=== PATIENT | male | born 1945 | race Caucasian/White ===

== ENCOUNTER 2016-09-12 07:46 | Day surgery (SDC) | payer MEDICARE ==
[2016-09-09 14:50] VITALS: BMI 29.2
[~2016-09-12 07:46] MED LIST: LACTATED RINGERS 1,000 ML IV SCH
[2016-09-12 08:33] VITALS: TEMP 98
[2016-09-12] MEDS ORDERED: PROPOFOL 10 MG/ML 20 ML VIAL IV ONE (08:40)
[2016-09-12] MEDS ORDERED: LIDOCAINE 1% INJ 10MG/ML (20 ML MDV) ONE (08:40)
--- NOTE | 2016-09-12 08:44 | P.GSHP ---
History of Present Illness H&P Date: 09/12/16 Chief Complaint: Screening colonoscopy This is a 70-year-old male referred from Dr. Tricia Mata. Patient presents today for screening colonoscopy. He's never had a colonoscopy before. 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 heart murmer, "bad leaky heart valve", stool incontinence, enlarged prostate History of Any Multi-Drug Resistant Organisms: None Reported Past Surgical History: Appendectomy, Heart Catheterization With Stent, Tonsillectomy Past Anesthesia/Blood Transfusion Reactions: No Reported Reaction Date of Last Stent Placement:: 2012 Past Psychological History: PTSD Additional Psychological History / Comment(s): loss of short term memeory Smoking Status: Current every day smoker Past Alcohol Use History: None Reported Additional Past Alcohol Use History / Comment(s): smokes 4PPD for 60 yrs Past Drug Use History: None Reported - Past Family History Mother Family Medical History: Cancer Medications and Allergies Home Medications Medication Instructions Recorded Confirmed Type Atorvastatin [Lipitor] 80 mg PO DAILY 08/08/14 09/12/16 History Clopidogrel [Plavix] 75 mg PO DAILY 08/08/14 09/12/16 History Cyanocobalamin [Vitamin B-12] 250 mcg PO DAILY 08/08/14 09/12/16 History Donepezil [Aricept] 10 mg PO DAILY 08/08/14 09/12/16 History Finasteride [Proscar] 5 mg PO DAILY 08/08/14 09/12/16 History Metoprolol Tartrate [Lopressor] 25 mg PO BID 08/08/14 09/12/16 History Nitroglycerin Sl Tabs [Nitrostat] 0.4 mg PO DIRECTED PRN 08/08/14 09/12/16 History Ranitidine HCl 150 mg PO BID 08/08/14 09/12/16 History Sertraline [Zoloft] 150 mg PO DAILY 08/08/14 09/12/16 History Zolpidem [Ambien] 10 mg PO HS 08/08/14 09/12/16 History levETIRAcetam [Keppra] 500 mg PO BID 08/08/14 09/12/16 History Aspirin [Adult Low Dose Aspirin EC] 81 mg PO DAILY 09/09/16 09/12/16 History Tamsulosin [Flomax] 0.4 mg PO DAILY 09/09/16 09/12/16 History Allergies Allergy/AdvReac Type Severity Reaction Status Date / Time No Known Allergies Allergy Verified 09/12/16 08:14 Surgical - Exam Vital Signs Temp Pulse Resp BP Pulse Ox 98.0 F 70 18 140/62 95 09/12/16 08:08 09/12/16 08:08 09/12/16 08:08 09/12/16 08:08 09/12/16 08:08 - General well developed, no distress - Eyes PERRL - ENT normal pinna - Neck no masses - Respiratory normal expansion - Cardiovascular Rhythm: regular - Abdomen Abdomen: soft, non tender Assessment and Plan Plan: We will perform initial screening colonoscopy.
--- NOTE | 2016-09-12 08:55 | P.OP ---
Date of Procedure: 09/12/16 Preoperative Diagnosis: Screening colonoscopy Postoperative Diagnosis: Diverticulosis Procedure(s) Performed: Colonoscopy Anesthesia: MAC Surgeon: Dave Corey Pathology: other (Sigmoid colon) Condition: stable Disposition: PACU Description of Procedure: The patient's placed on the endoscopy table in the lateral position. He received IV sedation. Digital rectal exam was performed which revealed no abnormalities. The prostate was symmetrical without nodules. The flexible colonoscope was then placed patient anus and passed throughout the entire colon. The ileocecal valve was visualized. Cecum, ascending and transverse colon appeared normal. In the descending colon there was mild diverticular changes. In the sigmoid colon there is moderate diverticular changes with some evidence of inflammation. This area was biopsied. Scope was then brought back the rectum and this appeared normal. Scope was withdrawn for patient.
[2016-09-12 09:11] VITALS: RESP 16
[2016-09-12 09:35] VITALS: BP 138/64; PULSE 62
== END 2016-09-12 10:09 | disposition home or self-care (01) ==
LOC: ORWHC2ENDO 07:46
PROVIDERS: ATTEND Surgery
DX: Z12.11 Encounter for screening for malignant neoplasm of colon (principal); K57.30 Diverticulosis of large intestine without perforation or abscess without bleeding; K21.9 Gastro-esophageal reflux disease without esophagitis; I25.10 Atherosclerotic heart disease of native coronary artery without angina pectoris; I10 Essential (primary) hypertension; F17.200 Nicotine dependence, unspecified, uncomplicated; J44.9 Chronic obstructive pulmonary disease, unspecified; F03.90 Unspecified dementia, unspecified severity, without behavioral disturbance, psychotic disturbance, mood disturbance, and anxiety; G40.909 Epilepsy, unspecified, not intractable, without status epilepticus; N42.9 Disorder of prostate, unspecified; F32.9 Major depressive disorder, single episode, unspecified; Z95.5 Presence of coronary angioplasty implant and graft; Z79.02 Long term (current) use of antithrombotics/antiplatelets; Z79.899 Other long term (current) drug therapy; Z79.82 Long term (current) use of aspirin
CPT/HCPCS: 88305; 45380; J2001; J2704; 99153

== ENCOUNTER 2017-05-10 13:14 | Emergency (ER) | payer MEDICARE, OTHER ==
--- NOTE | 2017-05-10 13:39 | XR ---
EXAMINATION TYPE: XR wrist complete LT , 4 VIEWS DATE OF EXAM ORDERED: 05/10/2017 HISTORY: Pain. COMPARISON: None. FINDINGS: No fracture, dislocation or other acute osseous lesion is seen. IMPRESSION: NO ACUTE OSSEOUS LESION.
--- NOTE | 2017-05-10 13:57 | ED ---
General Adult HPI - General Chief complaint: Extremity Injury, Upper Stated complaint: Fall Time Seen by Provider: 05/10/17 13:40 Source: patient, RN notes reviewed Mode of arrival: ambulatory Limitations: no limitations - History of Present Illness Initial comments: Patient 71-year-old male who presents emergency room today with a chief complaint of a injury to the left hand that occurred approximately 3 days ago. He does admit to a trip and fall. Patient does admit to some pain over the fifth metacarpal. He denies any other injury or complaint. Patient denies any recent fever, chills, shortness of breath, chest pain, back pain, abdominal pain , nausea or vomiting, numbness or tingling, dysuria or hematuria, constipation or diarrhea, headaches or visual changes, or any other complaints. - Related Data Home Medications Medication Instructions Recorded Confirmed Atorvastatin [Lipitor] 80 mg PO DAILY 08/08/14 09/12/16 Clopidogrel [Plavix] 75 mg PO DAILY 08/08/14 09/12/16 Cyanocobalamin [Vitamin B-12] 250 mcg PO DAILY 08/08/14 09/12/16 Donepezil [Aricept] 10 mg PO DAILY 08/08/14 09/12/16 Finasteride [Proscar] 5 mg PO DAILY 08/08/14 09/12/16 Metoprolol Tartrate [Lopressor] 25 mg PO BID 08/08/14 09/12/16 Nitroglycerin Sl Tabs [Nitrostat] 0.4 mg PO DIRECTED PRN 08/08/14 09/12/16 Ranitidine HCl 150 mg PO BID 08/08/14 09/12/16 Sertraline [Zoloft] 150 mg PO DAILY 08/08/14 09/12/16 Zolpidem [Ambien] 10 mg PO HS 08/08/14 09/12/16 levETIRAcetam [Keppra] 500 mg PO BID 08/08/14 09/12/16 Aspirin [Adult Low Dose Aspirin EC] 81 mg PO DAILY 09/09/16 09/12/16 Tamsulosin [Flomax] 0.4 mg PO DAILY 09/09/16 09/12/16 Allergies Allergy/AdvReac Type Severity Reaction Status Date / Time No Known Allergies Allergy Verified 05/10/17 13:21 Review of Systems ROS Statement: Those systems with pertinent positive or pertinent negative responses have been documented in the HPI. ROS Other: All systems not noted in ROS Statement are negative. 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 heart murmer, "bad leaky heart valve", stool incontinence, enlarged prostate History of Any Multi-Drug Resistant Organisms: None Reported Past Surgical History: Appendectomy, Heart Catheterization With Stent, Tonsillectomy Past Anesthesia/Blood Transfusion Reactions: No Reported Reaction Date of Last Stent Placement:: 2012 Past Psychological History: Depression, PTSD Smoking Status: Current every day smoker Past Alcohol Use History: Rare Past Drug Use History: None Reported - Past Family History Mother Family Medical History: Cancer General Exam - General Exam Comments Initial Comments: General: The patient is awake and alert, in no distress, and does not appear acutely ill. Neck: The neck is supple, there is no tenderness or JVD. Cardiovascular: There is a regular rate and rhythm. No murmur, rub or gallop is appreciated. Respiratory: Lungs are clear to auscultation, respirations are non-labored, breath sounds are equal. No wheezes, stridor, rales, or rhonchi. Musculoskeletal: Patient does have moderate swelling to the left hand. Mildly tender over the left metacarpal. Shows good range of motion. Sensations are intact pulses equal bilateral 2+. Strength 5/5. Neurological: A&O x 3. CN II-XII intact, There are no obvious motor or sensory deficits. Coordination appears grossly intact. Speech is normal. Skin: Skin is warm and dry and no rashes or lesions are noted. Psychiatric: Normal mood and affect. Limitations: no limitations Course Vital Signs 05/10/17 13:18 Temperature 97.6 F Pulse Rate 90 Respiratory 18 Rate Blood Pressure 116/63 O2 Sat by Pulse 96 Oximetry Medical Decision Making - Medical Decision Making Reviewed is negative for any acute fracture dislocation. Advised patient to follow-up with the family doctor in 7-10 days for repeat x-rays if symptoms persist. Disposition Clinical Impression: Hand contusion Disposition: HOME SELF-CARE Condition: Good Instructions: Contusion in Adults (ED) Additional Instructions: Please use medication as discussed. Please follow-up with family doctor in the next 2 days of symptoms have not improved. Please return to emergency room if the symptoms increase or worsen or for any other concerns. Referrals: Tricia Mata DO [Primary Care Provider] - 1-2 days Time of Disposition: 13:55
[2017-05-10 14:24] VITALS: BP 130/66; PULSE 78; RESP 20; TEMP 98.1
== END 2017-05-10 14:24 | disposition home or self-care (01) ==
LOC: EC 13:14
DX: S60.222A Contusion of left hand, initial encounter (principal); I25.10 Atherosclerotic heart disease of native coronary artery without angina pectoris; E78.5 Hyperlipidemia, unspecified; I10 Essential (primary) hypertension; G40.909 Epilepsy, unspecified, not intractable, without status epilepticus; F32.9 Major depressive disorder, single episode, unspecified; F43.10 Post-traumatic stress disorder, unspecified; F03.90 Unspecified dementia, unspecified severity, without behavioral disturbance, psychotic disturbance, mood disturbance, and anxiety; F17.200 Nicotine dependence, unspecified, uncomplicated; Z86.73 Personal history of transient ischemic attack (TIA), and cerebral infarction without residual deficits; Z79.02 Long term (current) use of antithrombotics/antiplatelets; Z79.82 Long term (current) use of aspirin; Z79.899 Other long term (current) drug therapy; W01.0XXA Fall on same level from slipping, tripping and stumbling without subsequent striking against object, initial encounter
CPT/HCPCS: 99283

== ENCOUNTER 2017-05-22 14:18 | Inpatient (IN) | payer OTHER, MEDICARE ==
[2017-05-22] MEDS ORDERED: NITROGLYCERIN OINT 1 INCH/GM PACKET TOPICAL STA (14:58)
[2017-05-22] MEDS ORDERED: FUROSEMIDE 10 MG/ML 4 ML VIAL IV STA (14:58)
[2017-05-22] MEDS ORDERED: IPRATROPIUM-ALBUTEROL 3 ML NEB INHALATION STA (14:58)
[2017-05-22] MEDS ORDERED: ASPIRIN 81 MG PO STA (14:59)
[2017-05-22] MEDS ORDERED: NICOTINE 21MG/24HR PATCH TRANSDERM STA (15:00)
--- NOTE | 2017-05-22 15:02 | ED ---
General Adult HPI - General Chief complaint: Chest Pain Stated complaint: Chest Pain Time Seen by Provider: 05/22/17 14:45 Source: patient, family, RN notes reviewed Mode of arrival: wheelchair Limitations: no limitations - History of Present Illness Initial comments: Patient is a pleasant 71-year-old male presenting to the emergency department with dyspnea. Patient saw his doctor recently who was concern for fluid build up in the lungs. Patient was prescribed medication however has not been able to get it filled yet. Patient denies any shortness of breath or chest discomfort however family member present states she has been exhibiting signs of chest discomfort and shortness of breath. Patient does appear to be is a poor historian. Patient does smoke 4 packs per day. No leg pain however patient does have some leg swelling. - Related Data Home Medications Medication Instructions Recorded Confirmed Atorvastatin [Lipitor] 40 mg PO HS 08/08/14 05/22/17 Clopidogrel [Plavix] 75 mg PO DAILY 08/08/14 05/22/17 Donepezil [Aricept] 10 mg PO DAILY 08/08/14 05/22/17 Metoprolol Tartrate [Lopressor] 25 mg PO BID 08/08/14 05/22/17 Ranitidine HCl 150 mg PO DAILY 08/08/14 05/22/17 levETIRAcetam [Keppra] 500 mg PO BID 08/08/14 05/22/17 Aspirin [Adult Low Dose Aspirin EC] 81 mg PO DAILY 09/09/16 05/22/17 Sertraline [Zoloft] 25 mg PO DAILY 05/22/17 05/22/17 Zolpidem [Ambien] 10 mg PO HS 05/22/17 05/22/17 Allergies Allergy/AdvReac Type Severity Reaction Status Date / Time No Known Allergies Allergy Verified 05/22/17 15:11 Review of Systems ROS Statement: Those systems with pertinent positive or pertinent negative responses have been documented in the HPI. ROS Other: All systems not noted in ROS Statement are negative. Constitutional: Denies: fever Eyes: Denies: eye pain ENT: Denies: ear pain Respiratory: Reports: dyspnea. 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 heart murmer, "bad leaky heart valve", stool incontinence, enlarged prostate History of Any Multi-Drug Resistant Organisms: None Reported Past Surgical History: Appendectomy, Heart Catheterization With Stent, Tonsillectomy Past Anesthesia/Blood Transfusion Reactions: No Reported Reaction Date of Last Stent Placement:: 2012 Past Psychological History: Depression, PTSD Smoking Status: Current every day smoker Past Alcohol Use History: Rare Past Drug Use History: None Reported - Past Family History Mother Family Medical History: Cancer General Exam Limitations: no limitations General appearance: alert, in no apparent distress Head exam: Present: atraumatic Eye exam: Present: normal appearance, PERRL ENT exam: Present: normal oropharynx Neck exam: Present: normal inspection Respiratory exam: Present: wheezes Cardiovascular Exam: Present: regular rate, normal rhythm GI/Abdominal exam: Present: soft. Absent: tenderness Extremities exam: Present: pedal edema (+1 bilateral). Absent: calf tenderness Neurological exam: Present: alert Psychiatric exam: Present: normal affect, normal mood Skin exam: Present: normal color Course Vital Signs 05/22/17 05/22/17 05/22/17 14:24 14:56 15:04 Temperature 98.2 F Pulse Rate 81 66 Respiratory 20 18 18 Rate Blood Pressure 139/64 117/56 O2 Sat by Pulse 95 95 Oximetry EKG Findings - EKG Comments: EKG Findings:: Normal sinus rhythm 84. WA 184. QRS 88. QT 390. QTC 460. Normal axis. Q wave in lead III. No acute ST change. Medical Decision Making - Medical Decision Making Patient reevaluated and resting comfortably in bed. Patient and family were updated on results and plan. Case was discussed in detail with Dr. Christopher, who will admit for Dr. Mata. - Lab Data Result diagrams: 05/22/17 14:37 05/22/17 14:37 Lab Results 05/22/17 05/22/17 05/22/17 Range/Units 14:37 14:37 14:37 WBC 8.1 (3.8-10.6) k/uL RBC 4.20 L (4.30-5.90) m/uL Hgb 14.1 (13.0-17.5) gm/dL Hct 42.1 (39.0-53.0) % MCV 100.3 H (80.0-100.0) fL MCH 33.6 (25.0-35.0) pg MCHC 33.5 (31.0-37.0) g/dL RDW 14.3 (11.5-15.5) % Plt Count 213 (150-450) k/uL Neutrophils % 68 % Lymphocytes % 19 % Monocytes % 7 % Eosinophils % 3 % Basophils % 1 % Neutrophils # 5.5 (1.3-7.7) k/uL Lymphocytes # 1.5 (1.0-4.8) k/uL Monocytes # 0.6 (0-1.0) k/uL Eosinophils # 0.2 (0-0.7) k/uL Basophils # 0.1 (0-0.2) k/uL Macrocytosis Slight PT (9.0-12.0) sec INR (<1.2) APTT (22.0-30.0) sec Sodium 141 (137-145) mmol/L Potassium 4.7 (3.5-5.1) mmol/L Chloride 107 (98-107) mmol/L Carbon Dioxide 21 L (22-30) mmol/L Anion Gap 13 mmol/L BUN 19 (9-20) mg/dL Creatinine 0.87 (0.66-1.25) mg/dL Est GFR (MDRD) Af Amer >60 (>60 ml/min/1.73 sqM) Est GFR (MDRD) Non-Af >60 (>60 ml/min/1.73 sqM) Glucose 105 H (74-99) mg/dL Calcium 9.8 (8.4-10.2) mg/dL Total Bilirubin 0.3 (0.2-1.3) mg/dL AST 30 (17-59) U/L ALT 44 (21-72) U/L Alkaline Phosphatase 117 (38-126) U/L Total Creatine Kinase 193 H (55-170) U/L CK-MB (CK-2) 2.7 H* (0.0-2.4) ng/mL CK-MB (CK-2) Rel Index 1.4 Troponin I <0.012 (0.000-0.034) ng/mL NT-Pro-B Natriuret Pep pg/mL Total Protein 7.0 (6.3-8.2) g/dL Albumin 4.1 (3.5-5.0) g/dL 05/22/17 05/22/17 Range/Units 14:37 14:37 WBC (3.8-10.6) k/uL RBC (4.30-5.90) m/uL Hgb (13.0-17.5) gm/dL Hct (39.0-53.0) % MCV (80.0-100.0) fL MCH (25.0-35.0) pg MCHC (31.0-37.0) g/dL RDW (11.5-15.5) % Plt Count (150-450) k/uL Neutrophils % % Lymphocytes % % Monocytes % % Eosinophils % % Basophils % % Neutrophils # (1.3-7.7) k/uL Lymphocytes # (1.0-4.8) k/uL Monocytes # (0-1.0) k/uL Eosinophils # (0-0.7) k/uL Basophils # (0-0.2) k/uL Macrocytosis PT 10.2 (9.0-12.0) sec INR 1.0 (<1.2) APTT 25.8 (22.0-30.0) sec Sodium (137-145) mmol/L Potassium (3.5-5.1) mmol/L Chloride (98-107) mmol/L Carbon Dioxide (22-30) mmol/L Anion Gap mmol/L BUN (9-20) mg/dL Creatinine (0.66-1.25) mg/dL Est GFR (MDRD) Af Amer (>60 ml/min/1.73 sqM) Est GFR (MDRD) Non-Af (>60 ml/min/1.73 sqM) Glucose (74-99) mg/dL Calcium (8.4-10.2) mg/dL Total Bilirubin (0.2-1.3) mg/dL AST (17-59) U/L ALT (21-72) U/L Alkaline Phosphatase (38-126) U/L Total Creatine Kinase (55-170) U/L CK-MB (CK-2) (0.0-2.4) ng/mL CK-MB (CK-2) Rel Index Troponin I (0.000-0.034) ng/mL NT-Pro-B Natriuret Pep 626 pg/mL Total Protein (6.3-8.2) g/dL Albumin (3.5-5.0) g/dL - Radiology Data Radiology results: image reviewed (Chest x-ray shows possible pulmonary venous hypertension and interstitial edema.) Disposition Clinical Impression: Chest pain Disposition: ADMITTED IP TO THIS HOSP Referrals: Tricia Mata DO [Primary Care Provider] - 1-2 days Decision Time: 16:30
[2017-05-22 15:10] LABS: Basophils # (A) 0.1 k/uL (0-0.2); Basophils % (A) 1 %; CH 33.2; CHCM 33.3; Eosinophils # (A) 0.2 k/uL (0-0.7); Eosinophils % (A) 3 %; HCT 42.1 % (39.0-53.0); HDW 2.52; HGB 14.1 gm/dL (13.0-17.5); Luc % (Auto) 3; Lymphocytes # (A) 1.5 k/uL (1.0-4.8); Lymphocytes % (A) 19 %; MCH 33.6 pg (25.0-35.0); MCHC 33.5 g/dL (31.0-37.0); MCV 100.3 fL (80.0-100.0); Macrocytosis Slight; Monocytes # (A) 0.6 k/uL (0-1.0); Monocytes % (A) 7 %; Neutrophils # (A) 5.5 k/uL (1.3-7.7); Neutrophils % (A) 68 %; RDW 14.3 % (11.5-15.5); WBC 8.1 k/uL (3.8-10.6); WBC (Perox) 8.14
[2017-05-22 15:21] LABS: Partial Thromboplastin Time 25.8 sec (22.0-30.0); Prothrombin Time 10.2 sec (9.0-12.0)
[2017-05-22 15:22] LABS: ALT 44 U/L (21-72); AST 30 U/L (17-59); Alkaline Phosphatase 117 U/L (38-126); Anion Gap 13 mmol/L; Blood Urea Nitrogen 19 mg/dL (9-20); Calcium 9.8 mg/dL (8.4-10.2); Carbon Dioxide 21 mmol/L (22-30); Chloride 107 mmol/L (98-107); Glucose 105 mg/dL (74-99); Non-African American GFR(MDRD) >60 (>60 ml/min/1.73 sqM); Potassium 4.7 mmol/L (3.5-5.1); Sodium 141 mmol/L (137-145); Total Bilirubin 0.3 mg/dL (0.2-1.3)
[2017-05-22 15:44] LABS: Creatine Kinase 193 U/L (55-170)
[2017-05-22 15:57] LABS: Troponin I <0.012 ng/mL (0.000-0.034)
--- NOTE | 2017-05-22 16:01 | XR ---
EXAMINATION TYPE: XR chest 2V DATE OF EXAM: 05/22/2017 COMPARISON: Prior chest x-ray 08/08/2014 HISTORY: Difficulty breathing TECHNIQUE: Frontal and lateral views of the chest are obtained. FINDINGS: There is no focal air space opacity, pleural effusion, or pneumothorax seen. The cardiac silhouette size is stable and enlarged, patient rotated. Interstitial densities are present within th e chest. There are overlying cardiac leads. Eventration of the right hemidiaphragm again noted. Incre ased AP diameter of the chest suggests underlying COPD. The osseous structures are intact. IMPRESSION: Correlate for possible pulmonary venous hypertension and interstitial edema in a patient with pre-existing COPD. Follow up suggested.
[2017-05-22 16:02] LABS: Creatine Kinase MB 2.7 ng/mL (0.0-2.4)
[2017-05-22] MEDS ORDERED: NITROGLYCERIN SL TABS 0.4 MG TAB SUBLINGUAL PRN (16:31)
[2017-05-22] MEDS: NITROGLYCERIN OINT 1 INCH/GM PACKET TOPICAL SCH ×2 (19:00→22:53)
[2017-05-22 21:01] LABS: Creatine Kinase 156 U/L (55-170)
[2017-05-22 21:13] LABS: Creatine Kinase MB 1.9 ng/mL (0.0-2.4); Troponin I <0.012 ng/mL (0.000-0.034)
[2017-05-22] MEDS: ZOLPIDEM 10 MG TAB PO SCH (22:17)
[2017-05-22] MEDS: ATORVASTATIN 40 MG TAB PO SCH (22:17)
[2017-05-22] MEDS: METOPROLOL TARTRATE 25 MG TAB PO SCH (22:17)
[2017-05-22] MEDS: levETIRAcetam 500 MG TAB PO SCH (22:17)
[2017-05-23 03:01] LABS: Cholesterol 141 mg/dL (<200); HDL Cholesterol 45 mg/dL (40-60)
[2017-05-23 03:12] LABS: Creatine Kinase MB 2.1 ng/mL (0.0-2.4); Troponin I 0.015 ng/mL (0.000-0.034)
[2017-05-23] MEDS: NITROGLYCERIN OINT 1 INCH/GM PACKET TOPICAL SCH ×3 (05:42→17:31)
[2017-05-23] MEDS: METOPROLOL TARTRATE 25 MG TAB PO SCH ×2 (08:24→21:11)
[2017-05-23] MEDS: FAMOTIDINE 20 MG TAB PO SCH (08:24)
[2017-05-23] MEDS: DONEPEZIL 10 MG TAB PO SCH (08:24)
[2017-05-23] MEDS: ASPIRIN 81 MG PO SCH (08:24)
[2017-05-23] MEDS: CLOPIDOGREL 75 MG TAB PO SCH (08:24)
[2017-05-23] MEDS: levETIRAcetam 500 MG TAB PO SCH ×2 (08:24→21:11)
[2017-05-23] MEDS: SERTRALINE 25 MG TAB PO SCH (08:25)
[2017-05-23] MEDS ORDERED: ASPIRIN 325 MG TAB PO SCH (09:00)
[2017-05-23 09:59] LABS: Appearance,Urine Clear (Clear); Bilirubin,Urine Negative (Negative); Glucose,Urine (UA) Negative (Negative); Ketones,Urine Negative (Negative); Leukocyte Esterase,Urine Negative (Negative); Nitrite,Urine Negative (Negative); PH, Urine 5.5 (5.0-8.0); Protein,Urine Negative (Negative); Specific Gravity,Urine 1.012 (1.001-1.035); UA Billing (MACRO vs. MICRO) CHEM; Urobilinogen,Urine <2.0 mg/dL (<2.0)
--- NOTE | 2017-05-23 11:48 | P.CRDCN ---
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 The patient has been experiencing progressive exertional dyspnea and orthopnea started about a week ago. He was also having bilateral lower extremities edema which seems to be better after he was admitted to the hospital. Did not have any symptoms of chest pain or discomfort. The chest x-ray showed findings consistent with mild CHF. The BNP came in to be around 600. The EKG showed sinus rhythm with nonspecific changes in the high lateral leads. 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 heart murmer, "bad leaky heart valve",OCC incontinence of urine/stool-weara a brief, enlarged prostate, DIVERTICULOSIS, COLON POLYPS-NEG, HEMORRHOIDS. History of Any Multi-Drug Resistant Organisms: None Reported Past Surgical History: Appendectomy, Heart Catheterization With Stent, Tonsillectomy Additional Past Surgical History / Comment(s): colonoscopy/polypectomy Past Anesthesia/Blood Transfusion Reactions: No Reported Reaction Date of Last Stent Placement:: 2012 Smoking Status: Current every day smoker - Past Family History Mother Family Medical History: Cancer Additional Family Medical History / Comment(s): at age 42 from lung cancer Father Family Medical History: Myocardial Infarction ([place]) Additional Family Medical History / Comment(s): lived to age 92 Medications and Allergies Home Medications Medication Instructions Recorded Confirmed Type Atorvastatin [Lipitor] 40 mg PO HS 08/08/14 05/22/17 History Clopidogrel [Plavix] 75 mg PO DAILY 08/08/14 05/22/17 History Donepezil [Aricept] 10 mg PO DAILY 08/08/14 05/22/17 History Metoprolol Tartrate [Lopressor] 25 mg PO BID 08/08/14 05/22/17 History Ranitidine HCl 150 mg PO DAILY 08/08/14 05/22/17 History levETIRAcetam [Keppra] 500 mg PO BID 08/08/14 05/22/17 History Aspirin [Adult Low Dose Aspirin EC] 81 mg PO DAILY 09/09/16 05/22/17 History Sertraline [Zoloft] 25 mg PO DAILY 05/22/17 05/22/17 History Zolpidem [Ambien] 10 mg PO HS 05/22/17 05/22/17 History Allergies Allergy/AdvReac Type Severity Reaction Status Date / Time No Known Allergies Allergy Verified 05/22/17 15:11 Physical Exam Vitals: Vital Signs Temp Pulse Pulse Pulse Pulse Resp BP 05/23/17 08:00 97.9 F 80 18 05/23/17 04:00 98 F 71 18 05/23/17 03:06 18 05/22/17 23:23 18 05/22/17 22:36 86 18 05/22/17 20:00 18 05/22/17 19:52 98.4 F 73 18 05/22/17 17:25 91 18 05/22/17 17:13 98.7 F 91 18 05/22/17 16:48 98.2 F 94 18 127/62 05/22/17 15:04 66 18 117/56 05/22/17 14:56 18 05/22/17 14:24 98.2 F 81 20 139/64 BP Pulse Ox 05/23/17 08:00 119/68 96 05/23/17 04:00 96/50 92 L 05/23/17 03:06 05/22/17 23:23 05/22/17 22:36 141/67 100 05/22/17 20:00 05/22/17 19:52 115/57 97 05/22/17 17:25 05/22/17 17:13 119/65 94 L 05/22/17 16:48 94 L 05/22/17 15:04 95 05/22/17 14:56 05/22/17 14:24 95 Intake and Output 05/22/17 05/23/17 05/23/17 22:59 06:59 14:59 Other: Voiding Method Toilet Toilet Toilet # Voids 15 Weight 99.3 kg - Constitutional General appearance: no acute distress - Respiratory Respiratory: bilateral: rhonchi - Cardiovascular Rhythm: regular Heart sounds: normal: S1, S2 Abnormal Heart Sounds: systolic murmur Results 05/22/17 14:37 05/22/17 14:37 Cardiac Enzymes 05/22/17 05/22/17 05/22/17 Range/Units 14:37 14:37 20:24 AST 30 (17-59) U/L CK-MB (CK-2) 2.7 H* 1.9 (0.0-2.4) ng/mL Troponin I <0.012 <0.012 (0.000-0.034) ng/mL 05/23/17 Range/Units 02:18 AST (17-59) U/L CK-MB (CK-2) 2.1 (0.0-2.4) ng/mL Troponin I 0.015 (0.000-0.034) ng/mL Coagulation 05/22/17 Range/Units 14:37 PT 10.2 (9.0-12.0) sec APTT 25.8 (22.0-30.0) sec Lipids 05/23/17 Range/Units 02:18 Triglycerides 100 (<150) mg/dL Cholesterol 141 (<200) mg/dL HDL Cholesterol 45 (40-60) mg/dL CBC 05/22/17 Range/Units 14:37 WBC 8.1 (3.8-10.6) k/uL RBC 4.20 L (4.30-5.90) m/uL Hgb 14.1 (13.0-17.5) gm/dL Hct 42.1 (39.0-53.0) % Plt Count 213 (150-450) k/uL Comprehensive Metabolic Panel 05/22/17 Range/Units 14:37 Sodium 141 (137-145) mmol/L Potassium 4.7 (3.5-5.1) mmol/L Chloride 107 (98-107) mmol/L Carbon Dioxide 21 L (22-30) mmol/L BUN 19 (9-20) mg/dL Creatinine 0.87 (0.66-1.25) mg/dL Glucose 105 H (74-99) mg/dL Calcium 9.8 (8.4-10.2) mg/dL AST 30 (17-59) U/L ALT 44 (21-72) U/L Alkaline Phosphatase 117 (38-126) U/L Total Protein 7.0 (6.3-8.2) g/dL Albumin 4.1 (3.5-5.0) g/dL Current Medications Generic Name Dose Route Start Last Admin Trade Name Freq PRN Reason Stop Dose Admin Aspirin 81 mg 05/23/17 09:00 05/23/17 08:24 Aspirin PO 81 mg DAILY YONI Administration Atorvastatin Calcium 40 mg 05/22/17 21:30 05/22/17 22:17 Lipitor PO 40 mg HS YONI Administration Clopidogrel Bisulfate 75 mg 05/23/17 09:00 05/23/17 08:24 Plavix PO 75 mg DAILY YONI Administration Donepezil HCl 10 mg 05/23/17 09:00 05/23/17 08:24 Aricept PO 10 mg DAILY YONI Administration Famotidine 20 mg 05/23/17 09:00 05/23/17 08:24 Pepcid PO 20 mg DAILY YONI Administration Levetiracetam 500 mg 05/22/17 21:30 05/23/17 08:24 Keppra PO 500 mg BID YONI Administration Metoprolol Tartrate 25 mg 05/22/17 21:30 05/23/17 08:24 Lopressor PO 25 mg BID YONI Administration Nitroglycerin 1 inch 05/22/17 18:00 05/23/17 05:42 Nitro-Bid Oint TOPICAL Not Given Q6HR [facility] Nitroglycerin 0.4 mg 05/22/17 16:31 Nitrostat SUBLINGUAL Q5M PRN Chest Pain Sertraline HCl 25 mg 05/23/17 09:00 05/23/17 08:25 Zoloft PO 25 mg DAILY YONI Administration Zolpidem Tartrate 10 mg 05/22/17 21:30 05/22/17 22:17 Ambien PO 10 mg HS YONI Administration Intake and Output 05/22/17 05/23/17 05/23/17 22:59 06:59 14:59 Other: Voiding Method Toilet Toilet Toilet # Voids 15 Weight 99.3 kg 05/22/17 14:37 05/22/17 14:37 Assessment and Plan Plan: This is a pleasant 71-year-old gentleman with known CAD, valvular heart disease , and a stroke, was admitted to the hospital with progressive dyspnea. He seems to have very early stage of congestive heart failure. I am going to start the patient on Lasix IV. Monitor his kidney function and electrolytes. Continue monitoring the weight. Obtain an echocardiogram was Doppler. Follow-up with him.
[2017-05-23] MEDS ORDERED: FUROSEMIDE 10 MG/ML 4 ML VIAL IV STA (12:41)
[2017-05-23] MEDS: NICOTINE 21MG/24HR PATCH TRANSDERM SCH ×2 (13:18→16:40)
--- NOTE | 2017-05-23 14:01 | P.HPIM ---
History of Present Illness H&P Date: 05/23/17 Chief Complaint: Shortness of breath Roderick Sharpe is a 71-year-old male who presented to [facility] emergency room with a chief complaint of shortness of breath that started 1 week prior to presentation and has been worsening. His primary care physician is Dr. Tricia Mata he also follows up at the [place] [facility] . His past medical history significant for coronary artery disease and prior stenting with unknown details, known valvular heart disease according to him and his guardian, as well as history of stroke. 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 He is a [place] , The patient has been experiencing progressive exertional dyspnea and orthopnea started about a week ago. He was also having bilateral lower extremities edema which seems to be better after he was admitted to the hospital. Did not have any symptoms of chest pain or discomfort. The chest x-ray showed findings consistent with mild CHF. The BNP came in to be around 600. The EKG showed sinus rhythm with nonspecific changes in the high lateral leads. 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 heart murmer, "bad leaky heart valve",OCC incontinence of urine/stool-weara a brief, enlarged prostate, DIVERTICULOSIS, COLON POLYPS-NEG, HEMORRHOIDS. History of Any Multi-Drug Resistant Organisms: None Reported Past Surgical History: Appendectomy, Heart Catheterization With Stent, Tonsillectomy Additional Past Surgical History / Comment(s): colonoscopy/polypectomy Past Anesthesia/Blood Transfusion Reactions: No Reported Reaction Date of Last Stent Placement:: 2012 Smoking Status: Current every day smoker - Past Family History Mother Family Medical History: Cancer Additional Family Medical History / Comment(s): at age 42 from lung cancer Father Family Medical History: Myocardial Infarction ([place]) Additional Family Medical History / Comment(s): lived to age 92 Medications and Allergies Home Medications Medication Instructions Recorded Confirmed Type Atorvastatin [Lipitor] 40 mg PO HS 08/08/14 05/22/17 History Clopidogrel [Plavix] 75 mg PO DAILY 08/08/14 05/22/17 History Donepezil [Aricept] 10 mg PO DAILY 08/08/14 05/22/17 History Metoprolol Tartrate [Lopressor] 25 mg PO BID 08/08/14 05/22/17 History Ranitidine HCl 150 mg PO DAILY 08/08/14 05/22/17 History levETIRAcetam [Keppra] 500 mg PO BID 08/08/14 05/22/17 History Aspirin [Adult Low Dose Aspirin EC] 81 mg PO DAILY 09/09/16 05/22/17 History Sertraline [Zoloft] 25 mg PO DAILY 05/22/17 05/22/17 History Zolpidem [Ambien] 10 mg PO HS 05/22/17 05/22/17 History Allergies Allergy/AdvReac Type Severity Reaction Status Date / Time No Known Allergies Allergy Verified 05/22/17 15:11 Physical Exam Vitals: Vital Signs Temp Pulse Pulse Pulse Pulse Resp BP 05/23/17 12:00 97.7 F 72 18 05/23/17 08:00 97.9 F 80 18 05/23/17 04:00 98 F 71 18 05/23/17 03:06 18 05/22/17 23:23 18 05/22/17 22:36 86 18 05/22/17 20:00 18 05/22/17 19:52 98.4 F 73 18 05/22/17 17:25 91 18 05/22/17 17:13 98.7 F 91 18 05/22/17 16:48 98.2 F 94 18 127/62 05/22/17 15:04 66 18 117/56 05/22/17 14:56 18 05/22/17 14:24 98.2 F 81 20 139/64 BP Pulse Ox 05/23/17 12:00 102/57 96 05/23/17 08:00 119/68 96 05/23/17 04:00 96/50 92 L 05/23/17 03:06 05/22/17 23:23 05/22/17 22:36 141/67 100 05/22/17 20:00 05/22/17 19:52 115/57 97 05/22/17 17:25 05/22/17 17:13 119/65 94 L 05/22/17 16:48 94 L 05/22/17 15:04 95 05/22/17 14:56 05/22/17 14:24 95 Intake and Output 05/22/17 05/23/17 05/23/17 22:59 06:59 14:59 Other: Voiding Method Toilet Toilet Toilet # Voids 15 Weight 99.3 kg In general patient is alert and oriented in no apparent distress HEENT head normocephalic and atraumatic Neck is supple no JVD no goiter no lymphadenopathy Chest exam reveals a scattered rhonchi in both lung fitzpatrick no wheezing Cardiac exam reveals regular heart sounds S1 and S2 with 2/6 pansystolic murmur best heard in the right sternal border Abdomen is soft nontender no organomegaly with normal bowel sounds Extremity exam reveals no edema no cyanosis or clubbing Results CBC & Chem 7: 05/22/17 14:37 05/22/17 14:37 Labs: Abnormal Lab Results - Last 24 Hours (Table) 05/22/17 05/22/17 05/22/17 Range/Units 14:37 14:37 14:37 RBC 4.20 L (4.30-5.90) m/uL MCV 100.3 H (80.0-100.0) fL Carbon Dioxide 21 L (22-30) mmol/L Glucose 105 H (74-99) mg/dL Total Creatine Kinase 193 H (55-170) U/L CK-MB (CK-2) 2.7 H* (0.0-2.4) ng/mL 05/23/17 Range/Units 02:18 RBC (4.30-5.90) m/uL MCV (80.0-100.0) fL Carbon Dioxide (22-30) mmol/L Glucose (74-99) mg/dL Total Creatine Kinase 178 H (55-170) U/L CK-MB (CK-2) (0.0-2.4) ng/mL Assessment and Plan Plan: #1 acute exacerbation of congestive heart failure #2 underlying history of coronary artery disease #3 underlying history of valvular heart disease #4 underlying history of COPD #5 continued tobacco use patient smokes up to 4 packs of cigarettes daily Currently patient is admitted to telemetry floor he is maintained on IV Lasix he is improving gradually he is not ready for discharge yet Cardiology consult and echocardiogram ordered Patient was counseled in length in regard to smoking cessation Will follow closely
--- NOTE | 2017-05-23 15:39 | ECHOF ---
Referral Reason:chf MEASUREMENTS -------- HEIGHT: 180.3 cm WEIGHT: 98.9 kg BP: IVSd: 1.6 cm (0.6 - 1.1) LVIDd: 4.3 cm (3.9 - 5.3) LVPWd: 1.3 cm (0.6 - 1.1) IVSs: 2.3 cm LVIDs: 2.5 cm LVPWs: 2.3 cm Ao Diam: 4.0 cm (2.0 - 3.7) AV Cusp: 1.1 cm (1.5 - 2.6) LA Diam: 4.7 cm (2.7 - 3.8) MV EXCURSION: 15.965 mm (> 18.000) MV EF SLOPE: 35 mm/s (70 - 150) EPSS: 0.8 cm MV E Rafael: 0.48 m/s MV DecT: 263 ms MV A Rafael: 1.09 m/s MV E/A Ratio: 0.44 AV maxP.31 mmHg AV meanP.26 mmHg AR PHT: 800 ms RAP: 5.00 mmHg RVSP: 8.79 mmHg FINDINGS -------- Sinus rhythm. This was a technically good study. The left ventricular size is normal. There is moderate concentric left ventricular hypertrophy. Overall left ventricular systolic function is normal with, an EF between 55 - 60 %. The right ventricle is normal in size and function. The left atrium is moderately dilated. The right atrium is normal in size. Aortic valve is trileaflet and is moderately thickened. There is moderate aortic regurgitation. There is [id number] aortic stenosis present. Peak/mean gradient across the Aortic Valve is 65.31mmHg / 37.26mmHg. The mitral valve leaflets are mildly thickened. Mild mitral regurgitation is present. Mild tricuspid regurgitation present. The right ventricular systolic pressure, as measured by Doppler, is 8.79mmHg. Pulmonic valve appears structurally normal. The aortic root is moderately dilated. There is a trivial pericardial effusion present. CONCLUSIONS -------- 1. Sinus rhythm. 2. There is moderate aortic regurgitation. 3. There is isfjhiak-cr-xdjrbn aortic stenosis present. 4. Peak/mean gradient across the Aortic Valve is 65.31mmHg / 37.26mmHg. 5. The mitral valve leaflets are mildly thickened. 6. Mild mitral regurgitation is present. 7. Mild tricuspid regurgitation present. 8. The right ventricular systolic pressure, as measured by Doppler, is 8.79mmHg. 9. Pulmonic valve appears structurally normal. 10. The aortic root is moderately dilated. 11. There is a trivial pericardial effusion present. 12. This was a technically good study. 13. The left ventricular size is normal. 14. There is moderate concentric left ventricular hypertrophy. 15. Overall left ventricular systolic function is normal with, an EF between 55 - 60 %. 16. The right ventricle is normal in size and function. 17. The left atrium is moderately dilated. 18. The right atrium is normal in size. 19. Aortic valve is trileaflet and is moderately thickened. SOLDERING INSPECTOR: Jasmyn Obando RDCS
[2017-05-23] MEDS: FUROSEMIDE 10 MG/ML 4 ML VIAL IV SCH (21:10)
[2017-05-23] MEDS: ATORVASTATIN 40 MG TAB PO SCH (21:11)
[2017-05-23] MEDS: ZOLPIDEM 10 MG TAB PO SCH (21:14)
[2017-05-24] MEDS: NITROGLYCERIN OINT 1 INCH/GM PACKET TOPICAL SCH ×5 (01:48→23:39)
[2017-05-24] MEDS: ASPIRIN 81 MG PO SCH (08:06)
[2017-05-24] MEDS: CLOPIDOGREL 75 MG TAB PO SCH (08:07)
[2017-05-24] MEDS: DONEPEZIL 10 MG TAB PO SCH (08:07)
[2017-05-24] MEDS: FAMOTIDINE 20 MG TAB PO SCH (08:07)
[2017-05-24] MEDS: FUROSEMIDE 10 MG/ML 4 ML VIAL IV SCH ×2 (08:08→20:35)
[2017-05-24] MEDS: levETIRAcetam 500 MG TAB PO SCH ×2 (08:08→20:35)
[2017-05-24] MEDS: NICOTINE 21MG/24HR PATCH TRANSDERM SCH (08:09)
[2017-05-24] MEDS: METOPROLOL TARTRATE 25 MG TAB PO SCH ×2 (08:09→20:34)
[2017-05-24] MEDS: SERTRALINE 25 MG TAB PO SCH (08:10)
--- NOTE | 2017-05-24 09:11 | P.PN ---
Subjective Principal diagnosis: Shortness of breath This is a pleasant 71-year-old gentleman who does not see any food service cashier in town and follows up at the [place] with a past medical history significant for coronary artery disease and prior stenting with unknown details, known valvular heart disease according to him and his guardian, as well as history of stroke was brought to the emergency room because of shortness of breath. The patient has been experiencing progressive exertional dyspnea and orthopnea started about a week ago. He was also having bilateral lower extremities edema which seems to be better after he was admitted to the hospital. Did not have any symptoms of chest pain or discomfort. The chest x-ray showed findings consistent with mild CHF. The BNP came in to be around 600. The EKG showed sinus rhythm with nonspecific changes in the high lateral leads. The patient was started on Lasix IV yesterday and he is feeling better today. The kidney function continues to be within normal limits. He underwent an echocardiogram which showed normal LV function with moderate aortic insufficiency and moderate to severe aortic stenosis. Objective - Vital Signs Vital signs: Vital Signs Temp 97.8 F 05/24/17 03:53 Pulse 72 05/24/17 04:00 Resp 20 05/24/17 04:00 BP 132/68 05/24/17 03:53 Pulse Ox 93 L 05/24/17 03:53 Intake & Output 05/23/17 05/24/17 05/24/17 18:59 06:59 18:59 Intake Total 300 350 Output Total 1600 Balance 300 -1250 Weight 96.3 kg Intake: Oral 300 350 Output: Urine 1600 Other: Voiding Method Toilet Toilet # Voids 3 4 - Constitutional General appearance: Present: no acute distress - Respiratory Respiratory: bilateral: CTA - Cardiovascular Rhythm: regular Heart sounds: normal: S1, S2 Abnormal Heart Sounds: Present: systolic murmur - Labs CBC & Chem 7: 05/22/17 14:37 05/22/17 14:37 Assessment and Plan Plan: This is a pleasant 71-year-old gentleman with known CAD, valvular heart disease , and a stroke, was admitted to the hospital with progressive dyspnea. He seems to have very early stage of congestive heart failure. I will continue the current above dose of Lasix IV for additional 24 hours and continue monitor the kidney function and electrolytes. The patient does not have his guardian here. I do feel that he needs to have transesophageal echocardiogram as well as heart catheterization down the line for further clarification of the severity of his aortic stenosis and the need for aVR.
[2017-05-24 11:38] LABS: ALT 43 U/L (21-72); AST 32 U/L (17-59); Alkaline Phosphatase 107 U/L (38-126); Anion Gap 14 mmol/L; Blood Urea Nitrogen 21 mg/dL (9-20); Calcium 9.7 mg/dL (8.4-10.2); Carbon Dioxide 24 mmol/L (22-30); Chloride 102 mmol/L (98-107); Glucose 109 mg/dL (74-99); Non-African American GFR(MDRD) >60 (>60 ml/min/1.73 sqM); Sodium 140 mmol/L (137-145); Total Bilirubin 0.4 mg/dL (0.2-1.3); Total Protein 7.1 g/dL (6.3-8.2)
--- NOTE | 2017-05-24 16:37 | P.PN ---
Subjective This is a pleasant 71-year-old gentleman who does not see any regulatory compliance specialist in town and follows up at the [place] with a past medical history significant for coronary artery disease and prior stenting with unknown details, known valvular heart disease according to him and his guardian, as well as history of stroke was brought to the emergency room because of shortness of breath. The patient has been experiencing progressive exertional dyspnea and orthopnea started about a week ago. He was also having bilateral lower extremities edema which seems to be better after he was admitted to the hospital. Did not have any symptoms of chest pain or discomfort. The chest x-ray showed findings consistent with mild CHF. The BNP came in to be around 600. The EKG showed sinus rhythm with nonspecific changes in the high lateral leads. The patient was started on Lasix IV yesterday and he is feeling better today. The kidney function continues to be within normal limits. He underwent an echocardiogram which showed normal LV function with moderate aortic insufficiency and moderate to severe aortic stenosis. On 05/24/2017 patient was seen and examined he is alert and responsive in no apparent distress he states that his shortness of breath has improved he denies any chest pain no cough no palpitation no nausea or vomiting no abdominal pain and no urinary symptoms Objective - Vital Signs Vital signs: Vital Signs Temp 97.4 F L 05/24/17 12:00 Pulse 72 05/24/17 15:56 Resp 18 05/24/17 15:56 BP 119/58 05/24/17 12:00 Pulse Ox 95 05/24/17 12:00 Intake & Output 05/23/17 05/24/17 05/24/17 18:59 06:59 18:59 Intake Total 300 350 480 Output Total 1600 Balance 300 -1250 480 Weight 96.3 kg Intake: Oral 300 350 480 Output: Urine 1600 Other: Voiding Method Toilet Toilet Toilet # Voids 3 4 3 - Exam HEENT head normocephalic and atraumatic Neck is supple no JVD no goiter no lymphadenopathy Chest exam reveals bibasilar crackles no wheezing Cardiac exam reveals regular heart sounds no gallops no murmurs Abdomen is soft nontender no organomegaly Extremity exam reveals minimal edema no cyanosis or clubbing - Labs CBC & Chem 7: 05/22/17 14:37 05/24/17 11:00 Labs: Abnormal Lab Results - Last 24 Hours (Table) 05/24/17 Range/Units 11:00 BUN 21 H (9-20) mg/dL Glucose 109 H (74-99) mg/dL Assessment and Plan Plan: #1 acute exacerbation of congestive heart failure #2 underlying history of coronary artery disease #3 underlying history of valvular heart disease #4 underlying history of COPD #5 continued tobacco use patient smokes up to 4 packs of cigarettes daily Currently patient is admitted to telemetry floor he is maintained on IV Lasix he is improving gradually he is not ready for discharge yet Cardiology consult and echocardiogram ordered Input from Dr. Ingram reviewed. Patient will need CRISELDA and possible cardiac catheterization Patient was counseled in length in regard to smoking cessation Will follow closely
[2017-05-24] MEDS: ATORVASTATIN 40 MG TAB PO SCH (20:35)
[2017-05-24] MEDS: ZOLPIDEM 10 MG TAB PO SCH (20:35)
[2017-05-25 06:15] LABS: Basophils # (A) 0.1 k/uL (0-0.2); Basophils % (A) 1 %; CH 33.2; Eosinophils # (A) 0.2 k/uL (0-0.7); Eosinophils % (A) 2 %; HCT 43.6 % (39.0-53.0); HDW 2.45; HGB 14.1 gm/dL (13.0-17.5); Luc # (Auto) 0.26; Luc % (Auto) 3; Lymphocytes # (A) 1.5 k/uL (1.0-4.8); Lymphocytes % (A) 17 %; MCH 32.7 pg (25.0-35.0); MCHC 32.4 g/dL (31.0-37.0); MCV 101.2 fL (80.0-100.0); Macrocytosis Slight; Mean Platelet Volume 7.9; Monocytes # (A) 0.8 k/uL (0-1.0); Monocytes % (A) 10 %; Neutrophils # (A) 5.7 k/uL (1.3-7.7); Neutrophils % (A) 67 %; RBC 4.31 m/uL (4.30-5.90); WBC 8.5 k/uL (3.8-10.6); WBC (Perox) 8.28
[2017-05-25 06:46] LABS: ALT 49 U/L (21-72); AST 31 U/L (17-59); Alkaline Phosphatase 123 U/L (38-126); Anion Gap 9 mmol/L; Blood Urea Nitrogen 27 mg/dL (9-20); Calcium 9.7 mg/dL (8.4-10.2); Carbon Dioxide 27 mmol/L (22-30); Chloride 103 mmol/L (98-107); Glucose 123 mg/dL (74-99); Non-African American GFR(MDRD) >60 (>60 ml/min/1.73 sqM); Potassium 4.1 mmol/L (3.5-5.1); Sodium 139 mmol/L (137-145); Total Bilirubin 0.6 mg/dL (0.2-1.3); Total Protein 6.7 g/dL (6.3-8.2)
[2017-05-25] MEDS: NITROGLYCERIN OINT 1 INCH/GM PACKET TOPICAL SCH ×3 (07:03→16:06)
[2017-05-25] MEDS: CLOPIDOGREL 75 MG TAB PO SCH (07:31)
[2017-05-25] MEDS: NICOTINE 21MG/24HR PATCH TRANSDERM SCH (07:31)
[2017-05-25] MEDS: METOPROLOL TARTRATE 25 MG TAB PO SCH ×2 (07:32→20:06)
[2017-05-25] MEDS: levETIRAcetam 500 MG TAB PO SCH ×2 (07:32→20:06)
[2017-05-25] MEDS: FUROSEMIDE 10 MG/ML 4 ML VIAL IV SCH ×2 (07:32→20:05)
[2017-05-25] MEDS: SERTRALINE 25 MG TAB PO SCH (07:32)
[2017-05-25] MEDS: DONEPEZIL 10 MG TAB PO SCH (07:32)
[2017-05-25] MEDS: FAMOTIDINE 20 MG TAB PO SCH (07:32)
[2017-05-25] MEDS: ASPIRIN 81 MG PO SCH (07:32)
--- NOTE | 2017-05-25 11:03 | P.PN ---
Subjective This is a pleasant 71-year-old gentleman who does not see any warehouse foreman in town and follows up at the [facility] with a past medical history significant for coronary artery disease and prior stenting with unknown details, known valvular heart disease according to him and his guardian, as well as history of stroke was brought to the emergency room because of shortness of breath. The patient has been experiencing progressive exertional dyspnea and orthopnea started about a week ago. He was also having bilateral lower extremities edema which seems to be better after he was admitted to the hospital. Did not have any symptoms of chest pain or discomfort. The chest x-ray showed findings consistent with mild CHF. The BNP came in to be around 600. The EKG showed sinus rhythm with nonspecific changes in the high lateral leads. The patient was started on Lasix IV yesterday and he is feeling better today. The kidney function continues to be within normal limits. He underwent an echocardiogram which showed normal LV function with moderate aortic insufficiency and moderate to severe aortic stenosis. 05/25/2017 patient's shortness of breath has shown improvement. He is up and ambulating to the bathroom and back without shortness of breath. Denies any chest pain. Lower extremity edema resolves. Denies any nausea or vomiting. Denies any bowel movement changes or urinary symptoms. Objective - Vital Signs Vital signs: Vital Signs Temp 98.1 F 05/25/17 07:30 Pulse 83 05/25/17 08:00 Resp 20 05/25/17 08:00 BP 125/67 05/25/17 07:30 Pulse Ox 92 L 05/25/17 08:12 Intake & Output 05/24/17 05/25/17 05/25/17 18:59 06:59 18:59 Intake Total 680 600 Output Total 900 400 Balance -220 200 Intake: Oral 680 600 Output: Urine 900 400 Other: Voiding Method Toilet Toilet Toilet # Voids 3 4 1 - Exam Head normocephalic Neck supple Lungs clear to auscultation bilaterally no wheezing or crackles Heart regular rate and rhythm S1-S2, no rub or gallop positive murmur Abdomen is soft nontender nondistended positive bowel sounds no hepatosplenomegaly Extremities no edema Neuro alert and orientated to 3 - Labs CBC & Chem 7: 05/25/17 05:53 05/25/17 05:53 Labs: Abnormal Lab Results - Last 24 Hours (Table) 05/24/17 05/25/17 05/25/17 Range/Units 11:00 05:53 05:53 MCV 101.2 H (80.0-100.0) fL BUN 21 H 27 H (9-20) mg/dL Glucose 109 H 123 H (74-99) mg/dL Assessment and Plan Plan: #1 acute diastolic exacerbation of congestive heart failure. Echo shows an EF of 55-60%. Currently on IV Lasix #2 underlying history of coronary artery disease #3 underlying history of valvular heart disease #4 underlying history of COPD #5 continued tobacco use patient smokes up to 4 packs of cigarettes daily. Patient counseled on smoking cessation #6 monitor it severe aortic stenosis noted on echo. Cardiology are following. The recommending a transesophageal echo and heart catheterization down the line for further evaluation of severity of his aortic stenosis and the need for an AVR. I performed an examination of the patient and discussed their management with the physician Die Assembler. I have reviewed the Physician Die Assembler's notes and agree with the documented findings and plan of care
--- NOTE | 2017-05-25 14:32 | P.PN ---
Subjective Principal diagnosis: Shortness of breath This is a pleasant 71-year-old gentleman who does not see any power checker in town and follows up at the [facility] with a past medical history significant for coronary artery disease and prior stenting with unknown details, known valvular heart disease according to him and his guardian, as well as history of stroke was brought to the emergency room because of shortness of breath. The patient has been experiencing progressive exertional dyspnea and orthopnea started about a week ago. He was also having bilateral lower extremities edema which seems to be better after he was admitted to the hospital. Did not have any symptoms of chest pain or discomfort. The chest x-ray showed findings consistent with mild CHF. The BNP came in to be around 600. The EKG showed sinus rhythm with nonspecific changes in the high lateral leads. The patient was started on Lasix IV yesterday and he is feeling better today. The kidney function continues to be within normal limits. He underwent an echocardiogram which showed normal LV function with moderate aortic insufficiency and moderate to severe aortic stenosis. Objective - Vital Signs Vital signs: Vital Signs Temp 97.2 F L 05/25/17 11:26 Pulse 80 05/25/17 11:26 Resp 18 05/25/17 11:26 BP 128/67 05/25/17 11:26 Pulse Ox 96 05/25/17 11:26 Intake & Output 05/24/17 05/25/17 05/25/17 18:59 06:59 18:59 Intake Total 680 840 Output Total 900 400 Balance -220 440 Intake: Oral 680 840 Output: Urine 900 400 Other: Voiding Method Toilet Toilet Toilet # Voids 3 4 1 - Constitutional General appearance: Present: no acute distress - Respiratory Respiratory: bilateral: CTA - Cardiovascular Rhythm: regular Heart sounds: normal: S1, S2 Abnormal Heart Sounds: Present: systolic murmur - Labs CBC & Chem 7: 05/25/17 05:53 05/25/17 05:53 Labs: Abnormal Lab Results - Last 24 Hours (Table) 05/25/17 05/25/17 Range/Units 05:53 05:53 MCV 101.2 H (80.0-100.0) fL BUN 27 H (9-20) mg/dL Glucose 123 H (74-99) mg/dL Assessment and Plan Plan: This is a pleasant 71-year-old gentleman with known CAD, valvular heart disease , and a stroke, was admitted to the hospital with progressive dyspnea. He seems to have very early stage of congestive heart failure. I will continue the current above dose of Lasix IV for additional 24 hours and continue monitor the kidney function and electrolytes. I do feel that he needs to have transesophageal echocardiogram as well as heart catheterization down the line for further clarification of the severity of his aortic stenosis and the need for aVR. Obviously the patient was the patient was offered to have a CRISELDA and heart catheterization at the [facility] but he refused.
[2017-05-25] MEDS: ATORVASTATIN 40 MG TAB PO SCH (20:05)
[2017-05-25] MEDS: ZOLPIDEM 10 MG TAB PO SCH (22:13)
[2017-05-25] MEDS ORDERED: diphenhydrAMINE 25 MG CAP PO PRN (22:16)
[2017-05-26] MEDS: NITROGLYCERIN OINT 1 INCH/GM PACKET TOPICAL SCH ×2 (06:39→11:01)
[2017-05-26 09:04] VITALS: RESP 16; TEMP 97.4
[2017-05-26] MEDS: METOPROLOL TARTRATE 25 MG TAB PO SCH (09:05)
[2017-05-26] MEDS: levETIRAcetam 500 MG TAB PO SCH (09:05)
[2017-05-26] MEDS: ASPIRIN 81 MG PO SCH (09:05)
[2017-05-26] MEDS: CLOPIDOGREL 75 MG TAB PO SCH (09:05)
[2017-05-26] MEDS: FUROSEMIDE 10 MG/ML 4 ML VIAL IV SCH (09:05)
[2017-05-26] MEDS: DONEPEZIL 10 MG TAB PO SCH (09:06)
[2017-05-26] MEDS: NICOTINE 21MG/24HR PATCH TRANSDERM SCH (09:06)
[2017-05-26] MEDS: SERTRALINE 25 MG TAB PO SCH (09:06)
[2017-05-26] MEDS: FAMOTIDINE 20 MG TAB PO SCH (09:06)
[2017-05-26 09:18] LABS: Anion Gap 14 mmol/L; Blood Urea Nitrogen 32 mg/dL (9-20); Calcium 9.6 mg/dL (8.4-10.2); Carbon Dioxide 25 mmol/L (22-30); Chloride 101 mmol/L (98-107); Glucose 154 mg/dL (74-99); Non-African American GFR(MDRD) >60 (>60 ml/min/1.73 sqM); Potassium 3.7 mmol/L (3.5-5.1); Sodium 140 mmol/L (137-145)
[2017-05-26 11:08] VITALS: BP 103/51; PULSE 90
--- NOTE | 2017-05-26 11:32 | P.PN ---
Subjective Principal diagnosis: Shortness of breath This is a pleasant 71-year-old gentleman who does not see any diesel engine mechanic in town and follows up at the [facility] with a past medical history significant for coronary artery disease and prior stenting with unknown details, known valvular heart disease according to him and his guardian, as well as history of stroke was brought to the emergency room because of shortness of breath. The patient has been experiencing progressive exertional dyspnea and orthopnea started about a week ago. He was also having bilateral lower extremities edema which seems to be better after he was admitted to the hospital. Did not have any symptoms of chest pain or discomfort. The chest x-ray showed findings consistent with mild CHF. The BNP came in to be around 600. The EKG showed sinus rhythm with nonspecific changes in the high lateral leads. He underwent an echocardiogram which showed normal LV function with moderate aortic insufficiency and moderate to severe aortic stenosis. On follow-up with the patient today he is doing better and the shortness of breath and edema have improved. Objective - Vital Signs Vital signs: Vital Signs Temp 97.4 F L 05/26/17 08:00 Pulse 90 05/26/17 11:07 Resp 16 05/26/17 11:07 BP 103/51 05/26/17 11:07 Pulse Ox 92 L 05/26/17 11:07 Intake & Output 05/25/17 05/26/17 05/26/17 18:59 06:59 18:59 Intake Total 1080 118 Output Total 400 Balance 680 118 Weight 93 kg Intake: Oral 1080 118 Output: Urine 400 Other: Voiding Method Toilet Toilet Toilet # Voids 2 1 - Constitutional General appearance: Present: no acute distress - Respiratory Respiratory: bilateral: CTA - Cardiovascular Rhythm: regular Heart sounds: normal: S1, S2 Abnormal Heart Sounds: Present: systolic murmur - Labs CBC & Chem 7: 05/25/17 05:53 05/26/17 08:32 Labs: Abnormal Lab Results - Last 24 Hours (Table) 05/26/17 Range/Units 08:32 BUN 32 H (9-20) mg/dL Glucose 154 H (74-99) mg/dL Assessment and Plan Plan: This is a pleasant 71-year-old gentleman with known CAD, valvular heart disease , and a stroke, was admitted to the hospital with progressive dyspnea. He seems to have very early stage of congestive heart failure. I will continue the current above dose of Lasix IV for additional 24 hours and continue monitor the kidney function and electrolytes. I do feel that he needs to have transesophageal echocardiogram as well as heart catheterization down the line for further clarification of the severity of his aortic stenosis and the need for aVR. Obviously the patient was the patient was offered to have a CRISELDA and heart catheterization at the [facility] but he refused. From the cardiovascular standpoint overview, the patient can be discharged home.
--- NOTE | 2017-05-26 11:57 | P.DS ---
Providers Date of admission: 05/23/17 14:12 Expected date of discharge: 05/26/17 Attending physician: Veto Christopher Consults: 05/22/17 16:31 Consult Physician Urgent Consulting Provider: Adalberto Lane Consult Reason/Comments: cp Do you want consulting provider notified?: Yes Primary care physician: Tricia Mata Hospital Course: Discharge diagnosis #1 acute diastolic exacerbation of congestive heart failure. Echo shows an EF of 55-60%. Currently on IV Lasix #2 underlying history of coronary artery disease #3 underlying history of valvular heart disease #4 underlying history of COPD #5 continued tobacco use patient smokes up to 4 packs of cigarettes daily. Patient counseled on smoking cessation #6 monitor it severe aortic stenosis noted on echo. Cardiology are following. The recommending a transesophageal echo and heart catheterization down the line for further evaluation of severity of his aortic stenosis and the need for an AVR. Hospital course This is a pleasant 71-year-old gentleman who does not see any butcher's assistant in town and follows up at the [facility] with a past medical history significant for coronary artery disease and prior stenting with unknown details, known valvular heart disease according to him and his guardian, as well as history of stroke was brought to the emergency room because of shortness of breath. The patient has been experiencing progressive exertional dyspnea and orthopnea started about a week ago. He was also having bilateral lower extremities edema which seems to be better after he was admitted to the hospital. Did not have any symptoms of chest pain or discomfort. The chest x-ray showed findings consistent with mild CHF. The BNP came in to be around 600. The EKG showed sinus rhythm with nonspecific changes in the high lateral leads. The patient was started on Lasix IV yesterday and he is feeling better today. The kidney function continues to be within normal limits. He underwent an echocardiogram which showed normal LV function with moderate aortic insufficiency and moderate to severe aortic stenosis. Patient's shortness of breath has improved. Cardiology has started him on Lasix 40 mg by mouth daily. They have cleared him for discharge. They do recommend a CRISELDA as well as a heart catheterization down the line for further clarification of the severity of his aortic stenosis and the need for AVR. Patient was offered a CRISELDA and heart catheterization at the [facility] but he refused. Even at this time patient is reporting that he will not proceed with any heart surgery. And he also reported that he will not quit smoking. He is still smoking about 4 packs a day. His breathing has improved he is stable for discharge. He'll follow-up with his PCP and cardiology in 1 week. Recommend checking a BMP in 1 week to follow-up on his kidney function and electrolytes. I performed an examination of the patient and discussed their management with the physician Battery Plate Remover. I have reviewed the Physician Battery Plate Remover's notes and agree with the documented findings and plan of care Patient Condition at Discharge: Stable Plan - Discharge Summary New Discharge Prescriptions: New Furosemide [Lasix] 40 mg PO DAILY #30 tab Potassium Chloride ER [K-Dur 20] 20 meq PO DAILY #30 tab Continue levETIRAcetam [Keppra] 500 mg PO BID Donepezil [Aricept] 10 mg PO DAILY Clopidogrel [Plavix] 75 mg PO DAILY Atorvastatin [Lipitor] 40 mg PO HS Ranitidine HCl 150 mg PO DAILY Metoprolol Tartrate [Lopressor] 25 mg PO BID Aspirin [Adult Low Dose Aspirin EC] 81 mg PO DAILY Zolpidem [Ambien] 10 mg PO HS Sertraline [Zoloft] 25 mg PO DAILY Discharge Medication List Atorvastatin [Lipitor] 40 mg PO HS 08/08/14 [History] Clopidogrel [Plavix] 75 mg PO DAILY 08/08/14 [History] Donepezil [Aricept] 10 mg PO DAILY 08/08/14 [History] Metoprolol Tartrate [Lopressor] 25 mg PO BID 08/08/14 [History] Ranitidine HCl 150 mg PO DAILY 08/08/14 [History] levETIRAcetam [Keppra] 500 mg PO BID 08/08/14 [History] Aspirin [Adult Low Dose Aspirin EC] 81 mg PO DAILY 09/09/16 [History] Sertraline [Zoloft] 25 mg PO DAILY 05/22/17 [History] Zolpidem [Ambien] 10 mg PO HS 05/22/17 [History] Furosemide [Lasix] 40 mg PO DAILY #30 tab 05/26/17 [Rx] Potassium Chloride ER [K-Dur 20] 20 meq PO DAILY #30 tab 05/26/17 [Rx] Follow up Appointment(s)/Referral(s): Tricia Mata DO [Primary Care Provider] - 1 Week Van Maradiaga MD [STAFF PHYSICIAN] - 1 Week Activity/Diet/Wound Care/Special Instructions: Diet: cardiac Activity: as tolerated Check BMP in 1 week Discharge Disposition: HOME SELF-CARE
[2017-05-27] MEDS ORDERED: FUROSEMIDE 40 MG TAB PO SCH (09:00)
== END 2017-05-26 13:56 | disposition home or self-care (01) | DRG 292 ==
LOC: EEVIPCON 14:18 → EC 14:18 → 3OBS 16:31 → OBSVTOIN 05-23 14:12 → 6SEL 05-23 16:04
PROVIDERS: ADMIT Internal Medicine; ATTEND Internal Medicine
DX: I11.0 Hypertensive heart disease with heart failure (principal); I69.354 Hemiplegia and hemiparesis following cerebral infarction affecting left non-dominant side; F03.90 Unspecified dementia, unspecified severity, without behavioral disturbance, psychotic disturbance, mood disturbance, and anxiety; J44.9 Chronic obstructive pulmonary disease, unspecified; I50.33 Acute on chronic diastolic (congestive) heart failure; I25.10 Atherosclerotic heart disease of native coronary artery without angina pectoris; G40.909 Epilepsy, unspecified, not intractable, without status epilepticus; E78.5 Hyperlipidemia, unspecified; F17.210 Nicotine dependence, cigarettes, uncomplicated; N40.0 Benign prostatic hyperplasia without lower urinary tract symptoms; R01.1 Cardiac murmur, unspecified; F43.10 Post-traumatic stress disorder, unspecified; I35.2 Nonrheumatic aortic (valve) stenosis with insufficiency; Z90.49 Acquired absence of other specified parts of digestive tract; Z71.6 Tobacco abuse counseling; Z79.02 Long term (current) use of antithrombotics/antiplatelets; Z79.899 Other long term (current) drug therapy; Z79.82 Long term (current) use of aspirin; Z82.49 Family history of ischemic heart disease and other diseases of the circulatory system; Z80.1 Family history of malignant neoplasm of trachea, bronchus and lung; Z95.5 Presence of coronary angioplasty implant and graft; Z86.010 Personal history of colon polyps; Z90.89 Acquired absence of other organs
CPT/HCPCS: 36415; 71020; 80048; 80053; 80061; 81003; 82550; 82553; 83880; 84484; 85025; 85610; 85730; 93306; 94640; 94760; 96374; 99285

== ENCOUNTER 2017-07-09 06:15 | Day surgery (SDC) | payer MEDICARE, OTHER ==
[2017-07-06 15:17] VITALS: BMI 30.1
[~2017-07-09 06:15] MED LIST changes: +ALPRAZolam 0.25 MG TAB PO PRN; +ASPIRIN 325 MG TAB PO STA; -LACTATED RINGERS 1,000 ML IV SCH; +NITROGLYCERIN SL TABS 0.4 MG TAB SUBLINGUAL PRN; +SODIUM CHLORIDE 0.9% 1,000 ML in EMPTY BAG 1 BAG IV ONE
[2017-07-09] MEDS ORDERED: ASPIRIN 81 MG ONE (07:08)
[2017-07-09] MEDS ORDERED: IV FLUID CONTINUATION 1,000 ML IV ONE (07:27)
[2017-07-09] MEDS: BENZOCAINE SPRAY 1 CAN MUCOUS MEM ONE ×2 (07:31→07:35)
[2017-07-09] MEDS: fentaNYL (PF) 50 MCG/ML 2 ML AMP IV ONE ×3 (07:42→09:12)
[2017-07-09] MEDS ORDERED: MIDAZOLAM 2 MG/2 ML VIAL IVP ONE ×2 (07:42→09:16)
[2017-07-09] MEDS: MIDAZOLAM 2 MG/2 ML VIAL IVP ONE ×2 (07:52→07:54)
[2017-07-09] MEDS ORDERED: LIDOCAINE 2% INJ 20 MG/ML SQ ONE (08:40)
[2017-07-09] MEDS: VERAPAMIL SYRINGE (5 MG/10 ML) INTRAARTER ONE ×2 (08:41→09:34)
[2017-07-09] MEDS ORDERED: BIVALIRUDIN BOLUS 250 MG/50 ML IV ONE (09:01)
[2017-07-09] MEDS ORDERED: BIVALIRUDIN 250 MG in SODIUM CHLORIDE 0.9% 40 ML IV ONE (09:02)
[2017-07-09] MEDS ORDERED: HYDROmorphone 2 MG/ML 1 ML SYRINGE IV ONE (09:25)
[2017-07-09] MEDS ORDERED: MAG HYDROX/AL HYDROX/SIMETH 30 ML CUP PO PRN (09:44)
[2017-07-09] MEDS ORDERED: ZOLPIDEM 5 MG TAB PO PRN (09:44)
[2017-07-09] MEDS ORDERED: ATROPINE SULFATE 0.1 MG/ML 10ML SYRINGE IV PRN (09:44)
[2017-07-09] MEDS ORDERED: RX INFO: IV CONTRAST WAS GIVEN 1 EACH MISC MISCELLANE PRN (09:44)
[2017-07-09] MEDS ORDERED: NITROGLYCERIN SL TABS 0.4 MG TAB SUBLINGUAL PRN (09:44)
[2017-07-09] MEDS ORDERED: SODIUM CHLORIDE 0.9% 1,000 ML IV SCH (09:45)
--- NOTE | 2017-07-09 10:26 | CC ---
CARDIAC CATHETERIZATION REPORT DATE OF SERVICE: 07/09/2017 PERFORMING PHYSICIAN: Van Maradiaga MD, History Department Chair. PROCEDURE PERFORMED: 1. Selective right and left coronary angiogram. 2. Left heart catheterization. 3. Attempted balloon angioplasty of the mid RCA. INDICATION: This is a pleasant 71-year-old gentleman who was experiencing dyspnea and was admitted to the hospital recently with congestive heart failure. He underwent an echocardiogram which revealed moderate to severe aortic stenosis and moderate aortic insufficiency with preserved LV function. He underwent transesophageal echocardiogram which revealed moderate aortic stenosis. Subsequently, he was brought to undergo a heart catheterization. APPROACH: Right radial artery. COMPLICATION: None. LEVEL OF SEDATION: Moderate with a sedation length of 69 minutes. PROCEDURE DESCRIPTION: After obtaining an informed consent, the patient was brought to the Cardiac Crisis Therapist. The right radial artery was cannulated using micropuncture technique, the micropuncture wire passed easily, then I placed a 6-Sinhala sheath in the right radial artery. Subsequently, I did selective right and left coronary angiogram using JR4 and JL3.5 catheters. After that, I did left heart catheterization using the JR4 catheter which slid into the LV, then I did a pullback after that. The procedure was completed without any complication. SELECTIVE CORONARY ANGIOGRAM: 1. The right coronary artery is a large caliber vessel. It is a dominant vessel. The proximal RCA appeared to have mild disease only. The mid RCA has 2 lesions. The first lesion appears to be in the range of 50% and the second lesion appears to be in the range of about 70% to 80%. The RCA distally appeared to have mild disease only. 2. The left main has mild disease only in the range of 30%. It bifurcates into the left circumflex and left anterior descending artery. 3. The left circumflex is a large caliber vessel and it is a codominant vessel. The proximal circ appeared to be angiographically normal and gives rise into a large first OM branch which appeared to have mild disease only. The mid left circumflex appeared to be angiographically normal. Distally bifurcates into PDA and PLV branches, both are angiographically normal. 4. The left anterior descending artery: The proximal LAD appeared to have mild disease only. It gives rise into the first diagonal branch which seems to be angiographically normal. The mid LAD appeared to have mild disease only as well and gives rise into a second diagonal branch which seems to be angiographically normal. The LAD distally is normal. HEMODYNAMICS: The left ventricular end-diastolic pressure was 12 mmHg. PTCA OF THE RCA: Anticoagulation was initiated using Angiomax. Subsequently, I took JL3.5 guide, which was not seated well in the RCA. I did wire the RCA using a whisper wire. I did balloon angioplasty using 2.5 x 12 mm balloon. Subsequently, I tried to advance 3.5 x 16 mm Promus Premier drug-eluting stent but the stent will not cross the proximal RCA in spite of using double wire. At that point, I decided to pull the gaston wire and use a GuideLiner. I was able to get the stent to the mid RCA only and at that point, I was not able to advance the stent and subsequently everything came out including the stent and the wire. At that time, I decided to stop and bring the patient to come from the groin and do percutaneous coronary intervention on the RCA from a groin approach with a better backup guide support. CONCLUSION: 1. Severe disease involving the mid right coronary artery. 2. Mild nonobstructive disease involving the left coronary system. POSTPROCEDURE MANAGEMENT: 1. Maximize medical treatment. 2. PTCA of the RCA from a groin approach with a better backup support guide. MMODL / IJN: [id number] /
[2017-07-09] MEDS: NICOTINE 21MG/24HR PATCH TRANSDERM SCH (10:50)
--- NOTE | 2017-07-09 10:50 | ECHOT ---
TRANSESOPHAGEAL ECHOCARDIOGRAM DATE OF SERVICE: 07/09/2017 PERFORMING PHYSICIAN: Van Maradiaga MD, Ordering Box Operator. PROCEDURE PERFORMED: Transesophageal echocardiogram. INDICATION: This is a pleasant 71-year-old gentleman with a past medical history significant for aortic valve disease who was admitted recently to the hospital with congestive heart failure exacerbation and underwent an echocardiogram which revealed moderate to severe aortic stenosis with moderate aortic insufficiency. He was brought today to undergo transesophageal echocardiogram for further clarification of the severity of the aortic valve. COMPLICATION: None. LEVEL OF SEDATION: Moderate with a sedation length of 15 minutes. PROCEDURE DESCRIPTION: After obtaining an informed consent, explaining the procedure, benefits, risks, complications and alternatives, the patient was brought to the transesophageal echocardiogram suite. A pulse oximetry and heart rate monitors were attached to the patient prior to the procedure. The patient's throat was sprayed using lidocaine locally. Following that, the patient was turned into left lateral position. A bite guard was placed and the patient was then sedated with the above doses of Versed and fentanyl in divided doses. Following that, the transesophageal echocardiogram probe was advanced through the bite guard into the mid esophagus where 2-D echocardiogram images as well as color Doppler images of various cardiac structures were obtained. We evaluated the interatrial septum using 2-D echocardiogram, color Doppler, and contrast study. The procedure was completed. There were no complications. FINDINGS: The left ventricular dimension and systolic function appeared to be within normal limits with an ejection fraction of 60% and normal wall motion. The right ventricle is of normal size and function. The left atrium appeared to be mildly dilated. The aortic valve is thickened and calcified and seems to be trileaflet valve with evidence of moderate aortic stenosis with peak gradient of 52 and mean of 31, as well as moderate aortic insufficiency. The mitral valve is thickened and calcified with mild MR. There is mild tricuspid regurgitation seen. The interatrial septum appeared to be intact without any evidence of shunt. The left atrial appendage appeared to be free from any thrombus. CONCLUSION: 1. Normal left ventricular dimension and systolic function with an ejection fraction of 55% to 60% and normal wall motion. 2. Mild concentric left ventricular hypertrophy. 3. Moderate aortic stenosis as well as moderate aortic insufficiency. 4. Thickened mitral valve leaflets with mild mitral regurgitation. 5. Normal tricuspid valve and pulmonic valve. 6. Intact interatrial septum without any evidence of shunt. 7. Normal left atrial appendage without any evidence of thrombus. MMODL / IJN: [id number] /
[2017-07-09] MEDS ORDERED: ZOLPIDEM 10 MG TAB PO SCH (21:00)
[2017-07-09] MEDS ORDERED: ATORVASTATIN 40 MG TAB PO SCH (21:00)
[2017-07-09] MEDS: levETIRAcetam 500 MG TAB PO SCH (22:19)
[2017-07-09] MEDS: METOPROLOL TARTRATE 25 MG TAB PO SCH (22:20)
[2017-07-10 06:37] LABS: Basophils # (A) 0.1 k/uL (0-0.2); Basophils % (A) 1 %; CH 32.4; CHCM 32.7; Eosinophils # (A) 0.2 k/uL (0-0.7); Eosinophils % (A) 2 %; HCT 40.9 % (39.0-53.0); HDW 2.45; Luc # (Auto) 0.18; Luc % (Auto) 2; Lymphocytes # (A) 1.4 k/uL (1.0-4.8); Lymphocytes % (A) 14 %; MCH 31.7 pg (25.0-35.0); MCHC 31.8 g/dL (31.0-37.0); MCV 99.4 fL (80.0-100.0); Macrocytosis Slight; Mean Platelet Volume 8.4; Monocytes # (A) 0.6 k/uL (0-1.0); Monocytes % (A) 7 %; Neutrophils # (A) 7.2 k/uL (1.3-7.7); Neutrophils % (A) 75 %; RBC 4.11 m/uL (4.30-5.90); RDW 15.2 % (11.5-15.5); WBC 9.5 k/uL (3.8-10.6); WBC (Perox) 9.45
[2017-07-10 06:38] LABS: Anion Gap 7 mmol/L; Blood Urea Nitrogen 20 mg/dL (9-20); Calcium 9.4 mg/dL (8.4-10.2); Carbon Dioxide 24 mmol/L (22-30); Chloride 107 mmol/L (98-107); Glucose 115 mg/dL (74-99); Non-African American GFR(MDRD) >60 (>60 ml/min/1.73 sqM); Potassium 4.2 mmol/L (3.5-5.1); Sodium 138 mmol/L (137-145)
[2017-07-10] MEDS: NICOTINE 21MG/24HR PATCH TRANSDERM SCH (08:25)
[2017-07-10] MEDS: METOPROLOL TARTRATE 25 MG TAB PO SCH (08:26)
[2017-07-10] MEDS: levETIRAcetam 500 MG TAB PO SCH (08:26)
[2017-07-10] MEDS ORDERED: FUROSEMIDE 40 MG TAB PO SCH (09:00)
[2017-07-10] MEDS ORDERED: ASPIRIN 81 MG PO SCH (09:00)
[2017-07-10] MEDS ORDERED: DONEPEZIL 10 MG TAB PO SCH (09:00)
[2017-07-10] MEDS ORDERED: CLOPIDOGREL 75 MG TAB PO SCH (09:00)
[2017-07-10] MEDS ORDERED: POTASSIUM CHLORIDE ER 20 MEQ TAB.ER PO SCH (09:00)
[2017-07-10] MEDS ORDERED: SERTRALINE 25 MG TAB PO SCH (09:00)
[2017-07-10] MEDS ORDERED: FAMOTIDINE 20 MG TAB PO SCH (09:00)
[2017-07-10 09:47] VITALS: BP 134/62; PULSE 72; RESP 18; TEMP 98.1
--- NOTE | 2017-07-10 12:21 | P.PN ---
Subjective Progress Note Date: 07/10/17 Discharge note This is a pleasant 71-year-old gentleman admitted to the hospital recently with congestive cardiac failure. Patient underwent an echocardiogram with Doppler study at that time which revealed moderate to severe aortic stenosis and moderate aortic sufficiency with preserved left ventricular systolic function. He underwent a CRISELDA at that time which revealed moderate aortic stenosis. He was admitted to the hospital and undergo heart catheterization by Dr. Maradiaga. Procedure was performed via right radial approach, cardiac catheterization revealed severe disease involving the mid RCA with mild nonobstructive disease involving the left system, an attempt was made to angioplasty the RCA but was unsuccessful. Patient will be discharged home today, he will return as an outpatient to undergo stenting of the RCA by groin approach. He was seen and examined this morning, denies any chest pain or difficulty breathing. Blood pressure 134/60 with heart rate in the 70s. WBC 9.5, hemoglobin 13, platelet 206. Sodium 138, potassium 4.2, BUN 20, creatinine 0.9. Objective - Vital Signs Vital signs: Vital Signs Temp 98.1 F 07/10/17 08:00 Pulse 72 07/10/17 08:00 Resp 18 07/10/17 08:00 BP 134/62 07/10/17 08:00 Pulse Ox 96 07/10/17 08:00 Intake & Output 07/09/17 07/10/17 07/10/17 18:59 06:59 18:59 Intake Total 333 180 240 Output Total 300 10 Balance 333 -120 230 Weight 95.254 kg 96 kg Intake: IV 333 Sodium Chloride 0.9% 1, 100 000 ml @ 100 mls/hr IV . Q10H [facility] Rx#:[id number] Oral 180 240 Output: Urine 300 10 Other: Voiding Method Bedside Commode Bedside Commode Bedside Commode Urinal Urinal Urinal # Voids 3 1 # Bowel Movements 1 - Exam PHYSICAL EXAMINATION: HEENT: Head is atraumatic, normocephalic. Pupils equal, round. Neck is supple. There is no elevated jugular venous pressure. HEART EXAMINATION: Heart S1, S2 systolic murmur heard. No murmur or gallop heard. CHEST EXAMINATION: Lungs are clear to auscultation and precussion. No chest wall tenderness is noted on palpation or with deep breathing. ABDOMEN: Soft, nontender. Bowel sounds are heard. No organomegaly noted. EXTREMITIES: 2+ peripheral pulses with no evidence of peripheral edema and no calf tenderness noted. Right radial site clean and dry, good distal pulse. NEUROLOGIC patient is awake, alert and oriented -3. . - Labs CBC & Chem 7: 07/10/17 05:54 07/10/17 05:54 Labs: Abnormal Lab Results - Last 24 Hours (Table) 07/10/17 07/10/17 Range/Units 05:54 05:54 RBC 4.11 L (4.30-5.90) m/uL Glucose 115 H (74-99) mg/dL Assessment and Plan Plan: Assessment and plan #1 status post cardiac catheterization which revealed significant disease in the RCA, attempted angioplasty of the RCA performed via radial approach. #2 recent admission with diastolic congestive heart failure acute on chronic #3 status post transesophageal echocardiographic study which revealed moderate aortic stenosis #4 COPD #5 nicotine dependence Plan Patient will be discharged home today. He will have a follow-up appointment with Dr. Ingram in the office post discharge. Patient will return to the hospital as an outpatient to undergo angioplasty and stenting of the RCA via femoral approach. Patient will be discharged home on aspirin 81 mg daily, Lipitor 40 mg daily, Plavix 75 mg daily, Aricept 10 mg daily, Keppra 500 mg twice a day, Lopressor 25 mg twice a day, Habitrol patch, K-Dur 20 milliequivalents daily, Lasix 40 mg daily. DNP note has been reviewed, I agree with a documented findings and plan of care. Patient was seen and examined.
== END 2017-07-10 11:47 | disposition home or self-care (01) ==
LOC: CATHCVL 06:15 → 6SEL 09:38 → CATHCVL 07-10 11:47
PROVIDERS: ATTEND Internal Medicine Interventional Cardiology
DX: I08.3 Combined rheumatic disorders of mitral, aortic and tricuspid valves (principal); I25.110 Atherosclerotic heart disease of native coronary artery with unstable angina pectoris; I11.0 Hypertensive heart disease with heart failure; I50.33 Acute on chronic diastolic (congestive) heart failure; E78.00 Pure hypercholesterolemia, unspecified; I69.319 Unspecified symptoms and signs involving cognitive functions following cerebral infarction; J44.9 Chronic obstructive pulmonary disease, unspecified; F17.210 Nicotine dependence, cigarettes, uncomplicated; Z79.02 Long term (current) use of antithrombotics/antiplatelets; Z79.82 Long term (current) use of aspirin; Z79.899 Other long term (current) drug therapy
CPT/HCPCS: 93312; 93320; 93325; 93458; 80048; 85025; C9600; C1769 ×2; C1887; C1725; C1894; C1874; S4990 ×2; J2001; J2250; J1170; J3010; J0583

== ENCOUNTER 2017-09-08 10:44 | Day surgery (SDC) | payer MEDICARE ==
[2017-08-28 10:04] VITALS: BMI 30.1
[~2017-09-08 10:44] MED LIST changes: +ATORVASTATIN 80 MG TAB PO STA
[2017-09-08] MEDS ORDERED: LIDOCAINE 2% INJ 20 MG/ML (20 ML MDV) ONE (11:51)
[2017-09-08] MEDS ORDERED: MIDAZOLAM 2 MG/2 ML VIAL ONE (11:51)
[2017-09-08 12:00] LABS: Anion Gap 11 mmol/L; Blood Urea Nitrogen 23 mg/dL (9-20); Calcium 9.8 mg/dL (8.4-10.2); Carbon Dioxide 28 mmol/L (22-30); Chloride 102 mmol/L (98-107); Glucose 104 mg/dL (74-99); Potassium 4.6 mmol/L (3.5-5.1); Sodium 141 mmol/L (137-145)
[2017-09-08] MEDS ORDERED: SODIUM CHLORIDE 0.9% 1,000 ML IV ONE (12:01)
[2017-09-08] MEDS ORDERED: LIDOCAINE 2% INJ 20 MG/ML SQ ONE (12:10)
[2017-09-08] MEDS ORDERED: MIDAZOLAM 2 MG/2 ML VIAL IVP ONE (12:11)
[2017-09-08] MEDS ORDERED: HYDROmorphone 2 MG/ML 1 ML SYRINGE ONE (12:12)
[2017-09-08] MEDS ORDERED: HYDROmorphone 2 MG/ML 1 ML SYRINGE IVP ONE (12:15)
[2017-09-08] MEDS ORDERED: NICOTINE 14MG/24HR PATCH TRANSDERM ONE (12:15)
[2017-09-08 12:18] LABS: Basophils # (A) 0.1 k/uL (0-0.2); Basophils % (A) 1 %; Eosinophils # (A) 0.1 k/uL (0-0.7); Eosinophils % (A) 1 %; HCT 44.4 % (39.0-53.0); HGB 14.7 gm/dL (13.0-17.5); Lymphocytes # (A) 1.5 k/uL (1.0-4.8); Lymphocytes % (A) 19 %; MCH 31.4 pg (25.0-35.0); MCV 94.9 fL (80.0-100.0); Mean Platelet Volume 8.2; Monocytes # (A) 0.5 k/uL (0-1.0); Monocytes % (A) 6 %; Neutrophils # (A) 5.8 k/uL (1.3-7.7); Neutrophils % (A) 71 %; Platelet Count 229 k/uL (150-450); RBC 4.67 m/uL (4.30-5.90); RDW 15.3 % (11.5-15.5); WBC 8.1 k/uL (3.8-10.6)
[2017-09-08] MEDS ORDERED: BIVALIRUDIN BOLUS 250 MG/50 ML IV ONE (12:21)
[2017-09-08] MEDS ORDERED: BIVALIRUDIN 250 MG in SODIUM CHLORIDE 0.9% 50 ML IV ONE ×2 (12:22→13:14)
[2017-09-08] MEDS: NITROGLYCERIN 1000MCG/10ML SYRINGE INTRACORON ONE ×4 (13:01→13:22)
[2017-09-08] MEDS ORDERED: CLOPIDOGREL 75 MG TAB ONE (13:21)
[2017-09-08] MEDS ORDERED: HEPARIN SODIUM 1,000 UN/ML (10ML VL) ONE (13:26)
[2017-09-08] MEDS ORDERED: NITROGLYCERIN SL TABS 0.4 MG TAB SUBLINGUAL PRN ×2 (13:30→13:32)
[2017-09-08] MEDS ORDERED: ZOLPIDEM 5 MG TAB PO PRN ×2 (13:30→13:32)
[2017-09-08] MEDS ORDERED: ZOLPIDEM 10 MG TAB PO PRN (13:30)
[2017-09-08] MEDS ORDERED: ATROPINE SULFATE 0.1 MG/ML 10ML SYRINGE IV PRN (13:32)
[2017-09-08] MEDS ORDERED: MAG HYDROX/AL HYDROX/SIMETH 30 ML CUP PO PRN (13:32)
[2017-09-08] MEDS ORDERED: RX INFO: IV CONTRAST WAS GIVEN 1 EACH MISC MISCELLANE PRN (13:32)
[2017-09-08] MEDS ORDERED: IOHEXOL 350 MG/ML 125ML BOTTLE INJ ONE (13:36)
[2017-09-08] MEDS ORDERED: SODIUM CHLORIDE 0.9% 1,000 ML IV SCH (13:45)
[2017-09-08] MEDS: METOPROLOL TARTRATE 25 MG TAB PO SCH (19:57)
[2017-09-08] MEDS: levETIRAcetam 500 MG TAB PO SCH (19:58)
[2017-09-08] MEDS: ALPRAZolam 0.5 MG TAB PO PRN (19:58)
[2017-09-08] MEDS ORDERED: ATORVASTATIN 80 MG TAB PO SCH (21:00)
[2017-09-08] MEDS ORDERED: ACETAMINOPHEN TAB 325 MG TAB PO PRN (22:51)
[2017-09-09] MEDS: ALPRAZolam 0.5 MG TAB PO PRN (01:25)
[2017-09-09 01:50] VITALS: TEMP 98.2
[2017-09-09 06:24] LABS: Basophils # (A) 0.1 k/uL (0-0.2); Basophils % (A) 1 %; Eosinophils # (A) 0.1 k/uL (0-0.7); Eosinophils % (A) 1 %; HGB 13.5 gm/dL (13.0-17.5); Lymphocytes # (A) 1.7 k/uL (1.0-4.8); Lymphocytes % (A) 14 %; MCHC 32.1 g/dL (31.0-37.0); MCV 96.6 fL (80.0-100.0); Mean Platelet Volume 8.2; Monocytes # (A) 0.8 k/uL (0-1.0); Monocytes % (A) 7 %; Neutrophils # (A) 9.2 k/uL (1.3-7.7); Neutrophils % (A) 76 %; Platelet Count 216 k/uL (150-450); RBC 4.35 m/uL (4.30-5.90); WBC 12.1 k/uL (3.8-10.6)
[2017-09-09 06:41] LABS: Anion Gap 10 mmol/L; Blood Urea Nitrogen 20 mg/dL (9-20); Calcium 9.7 mg/dL (8.4-10.2); Carbon Dioxide 26 mmol/L (22-30); Chloride 103 mmol/L (98-107); Glucose 111 mg/dL (74-99); Potassium 4.5 mmol/L (3.5-5.1); Sodium 139 mmol/L (137-145)
[2017-09-09] MEDS ORDERED: DONEPEZIL 10 MG TAB PO SCH (09:00)
[2017-09-09] MEDS ORDERED: FAMOTIDINE 20 MG TAB PO SCH (09:00)
[2017-09-09] MEDS ORDERED: ASPIRIN 325 MG TAB PO SCH (09:00)
[2017-09-09] MEDS ORDERED: POTASSIUM CHLORIDE ER 10 MEQ TAB.ER.PRT PO SCH (09:00)
[2017-09-09] MEDS ORDERED: FUROSEMIDE 40 MG TAB PO SCH (09:00)
[2017-09-09] MEDS ORDERED: NON-FORMULARY DRUG (Aspirin [Adult Low Dose Aspirin Ec] 81 MG) PO SCH (09:00)
[2017-09-09] MEDS ORDERED: CLOPIDOGREL 75 MG TAB PO SCH ×2 (09:00→13:33)
[2017-09-09] MEDS ORDERED: SERTRALINE 100 MG TAB PO SCH (09:00)
[2017-09-09] MEDS: levETIRAcetam 500 MG TAB PO SCH (09:03)
[2017-09-09] MEDS: METOPROLOL TARTRATE 25 MG TAB PO SCH (09:03)
[2017-09-09 10:12] VITALS: BP 102/52; PULSE 76; RESP 18
--- NOTE | 2017-09-09 12:36 | DS ---
DISCHARGE SUMMARY ADMISSION DATE: 09/08/2017 DISCHARGE DATE: 09/09/2017 BRIEF HISTORY: This is a pleasant 71-year-old gentleman who was admitted to the hospital yesterday and underwent successful stenting of the proximal and mid right coronary artery with good angiographic results and without any complication where the procedure was performed from the right groin. On follow up with him today, he is doing good and he is asymptomatic. The right groin is soft and nontender and without any bruises. The patient is going to be discharged home on dual anti-platelet therapy and I will follow up with the patient in the office as an outpatient. MMKHOAL / GRZEGORZ: [id number] /
--- NOTE | 2017-09-11 11:17 | PTCA ---
PERCUTANEOUSTRANS CORORONARY ANGIOGRAPHY DATE OF SERVICE: 09/08/2017 PERFORMING PHYSICIAN: Van Maradiaga MD, Worldwide Chief Creative Officer. PROCEDURE PERFORMED: 1. Successful stenting of the mid RCA using 3.0 x 21 mm Promus Premier drug-eluting stent with a good angiographic flow. 2. Successful stenting of the proximal RCA using 3.0 x 20 mm Promus Premier drug- eluting stent with good angiographic results. 3. Successful stenting of the ostial RCA using 3.25 x 8 mm Xience CARLEEN with good angiographic results. INDICATION: This is a pleasant 71-year-old gentleman who is known to have severe disease involving the RCA. An attempted angioplasty from right radial approach was performed and was unsuccessful. He was brought today to undergo an angioplasty from the right common femoral artery. APPROACH: Right common femoral artery. COMPLICATION: None. LEVEL OF SEDATION: Moderate with sedation length of 79 minutes. PROCEDURE DESCRIPTION: After obtaining an informed consent, the patient was brought to the Cardiac Landscape Crew Leader. The right common femoral artery was cannulated using micropuncture technique, the micropuncture wire passed easily, then I placed a 6-Wolof sheath in the right common femoral artery. After that, I did start anticoagulation using Angiomax. Subsequently, I did engage the RCA using JR4 guiding catheter. I did wire the RCA using a whisper wire. Subsequently, I did balloon angioplasty of the mid RCA using 2.0 x 12 mm balloon. After that, I tried to advance 3.0 x 24 mm Promus Premier drug-eluting stent but the stent will not make the turn. At that point, I did wire the RCA using a gaston wire. After that, I was able to advance 3.0 x 24 mm to the mid RCA where the stent was positioned under fluoroscopy guidance and deployed under its nominal pressure. For the lesion in the proximal RCA, I did use a 3.0 x 20 mm another Promus Premier drug-eluting stent with about 4 to 5 mm overlap between the previous stent and this stent. The second stent was deployed under its nominal pressure. Then for the lesion in the ostial RCA, I deployed 3.25 x 8 mm at this point, Xience CARLEEN. Again. the stent was positioned under fluoroscopy guidance and deployed under its nominal pressure. After that, the area of overlap between the previous stents were dilated using a noncompliant balloon. The final angiogram showed good angiographic results without perforation and without dissection with good flow in the RCA. POSTPROCEDURE MANAGEMENT: 1. Dual anti-platelet therapy. 2. Risk factors modifications. 3. Follow up with the patient. FRANCISCA / KENNETHN: [id number] /
== END 2017-09-09 10:15 | disposition home or self-care (01) ==
LOC: CATHCVL 10:44 → 6SEL 13:27 → CATHCVL 09-09 10:15
PROVIDERS: ATTEND Internal Medicine Interventional Cardiology
DX: I25.10 Atherosclerotic heart disease of native coronary artery without angina pectoris (principal); I11.0 Hypertensive heart disease with heart failure; I50.9 Heart failure, unspecified; I35.0 Nonrheumatic aortic (valve) stenosis; F17.210 Nicotine dependence, cigarettes, uncomplicated; E78.5 Hyperlipidemia, unspecified; Z79.02 Long term (current) use of antithrombotics/antiplatelets; Z79.82 Long term (current) use of aspirin; Z79.899 Other long term (current) drug therapy
CPT/HCPCS: 80048 ×2; 85025 ×2; C9600; C1769 ×6; C1887 ×2; C1725 ×2; C1894 ×2; C1874 ×2; S4990; J2001; J2250; J1170; J0583; Q9967

== ENCOUNTER 2017-10-02 16:30 | Inpatient (IN) | payer MEDICARE ==
[2017-10-02] MEDS ORDERED: SODIUM CHLORIDE 0.9% 500 ML IV STA (16:33)
[2017-10-02] MEDS ORDERED: ACETAMINOPHEN IV (For NPO) 1,000 MG in EMPTY BAG 1 BAG IVPB STA (16:47)
[2017-10-02 17:07] LABS: Basophils # (A) 0.1 k/uL (0-0.2); Basophils % (A) 0 %; Eosinophils % (A) 0 %; HCT 38.6 % (39.0-53.0); Lymphocytes # (A) 0.5 k/uL (1.0-4.8); Lymphocytes % (A) 2 %; MCH 31.6 pg (25.0-35.0); MCHC 33.6 g/dL (31.0-37.0); MCV 94.2 fL (80.0-100.0); Mean Platelet Volume 8.3; Monocytes % (A) 4 %; Neutrophils # (A) 20.8 k/uL (1.3-7.7); Neutrophils % (A) 92 %; Platelet Count 195 k/uL (150-450); RDW 14.8 % (11.5-15.5); WBC 22.6 k/uL (3.8-10.6)
[2017-10-02 17:14] LABS: ALT 37 U/L (21-72); AST 47 U/L (17-59); Albumin 4.1 g/dL (3.5-5.0); Alkaline Phosphatase 101 U/L (38-126); Anion Gap 12 mmol/L; Blood Urea Nitrogen 29 mg/dL (9-20); Calcium 9.7 mg/dL (8.4-10.2); Carbon Dioxide 26 mmol/L (22-30); Chloride 104 mmol/L (98-107); Glucose 131 mg/dL (74-99); Sodium 142 mmol/L (137-145); Total Bilirubin 0.4 mg/dL (0.2-1.3); Total Protein 6.8 g/dL (6.3-8.2)
--- NOTE | 2017-10-02 17:19 | CT ---
EXAMINATION TYPE: CT brain wo con for TPA DATE OF EXAM: 10/02/2017 COMPARISON: 03/12/2009 HISTORY: Left sided weakness. Hx of stroke. CT DLP: 983.9 mGycm Automated exposure control for dose reduction was used. FINDINGS: There is cerebral cortical atrophy. There is extensive hypodensity in the frontal lobes and more on t he right side. There is enlargement of the frontal horns of the lateral ventricles. There is no midli ne shift. There is no sign of intracranial hemorrhage. The calvarium is intact. IMPRESSION: OLD LARGE RIGHT FRONTAL LOBE CORTICAL INFARCT. EXTENSIVE CHRONIC SMALL VESSEL ISCHEMIA IN BOTH FRONTO PARIETAL LOBES. THERE IS PROGRESSION OF THE SMALL VESSEL ISCHEMIA COMPARED TO OLD EXAM. RIGHT FRONTAL LOBE INFARCT IS UNCHANGED COMPARED TO OLD EXAM.
[2017-10-02 17:20] LABS: INR 1.1 (<1.2); Partial Thromboplastin Time 23.9 sec (22.0-30.0); Prothrombin Time 10.5 sec (9.0-12.0)
[2017-10-02] MEDS: SODIUM CHLORIDE 0.9% 1,000 ML IV STA ×2 (17:22→20:59)
--- NOTE | 2017-10-02 17:23 | XR ---
EXAMINATION TYPE: XR chest 2V DATE OF EXAM: 10/02/2017 COMPARISON: 05/22/2017 HISTORY: Altered mental status TECHNIQUE: Frontal and lateral views of the chest are obtained. FINDINGS: The heart is enlarged. There is pulmonary mild vascular congestion. There is coarsening of interstitial markings. There is no definite pleural effusion. There appears to be some pleural thick ening posteriorly on the lateral view that is probably in the right lower lobe. IMPRESSION: There is probably mild heart failure. Pulmonary fibrosis. Moderate cardiomegaly. Possibl e pleural thickening or loculated fluid on the right side that is new or increased compared to old ex am.
[2017-10-02 17:25] LABS: Glucose,Whole Blood 128 mg/dL (75-99)
[2017-10-02 17:54] LABS: Troponin I 0.064 ng/mL (0.000-0.034)
--- NOTE | 2017-10-02 17:54 | ED ---
General Adult HPI - General Chief complaint: Neuro Symptoms/Deficit Stated complaint: Poss. TIA Time Seen by Provider: 10/02/17 16:33 Source: EMS, RN notes reviewed, old records reviewed Mode of arrival: EMS Limitations: no limitations - History of Present Illness Initial comments: This is a 9-year-old male from [facility] for evaluation regarding possible stroke. Patient was counseled to return back appropriately. Patient has significant medical history with multiple medical comorbidities. Per staff patient was partial response to the left. On EMS arrival patient was transferred ER and EMS states patient's symptoms resolved during transport. Patient is also noted fever. Patient complains of weakness. - Related Data Home Medications Medication Instructions Recorded Confirmed Atorvastatin [Lipitor] 80 mg PO HS 08/08/14 10/02/17 Donepezil [Aricept] 10 mg PO DAILY 08/08/14 10/02/17 Metoprolol Tartrate [Lopressor] 25 mg PO BID 08/08/14 10/02/17 Ranitidine HCl 300 mg PO DAILY 08/08/14 10/02/17 Aspirin [Adult Low Dose Aspirin EC] 81 mg PO DAILY 09/09/16 10/02/17 Potassium Chloride [K-Tab ER] 10 meq PO DAILY 09/03/17 10/02/17 Sertraline [Zoloft] 200 mg PO DAILY 09/03/17 10/02/17 levETIRAcetam [Keppra] 500 mg PO Q12HR 09/03/17 10/02/17 Fesoterodine Fumarate [Toviaz] 16 mg PO DAILY 10/02/17 10/02/17 Tamsulosin HCl [Flomax] 0.8 mg PO DAILY 10/02/17 10/02/17 Previous Rx's Medication Instructions Recorded Furosemide [Lasix] 40 mg PO DAILY #30 tab 05/26/17 Clopidogrel [Plavix] 75 mg PO DAILY #90 tab 09/09/17 Allergies Allergy/AdvReac Type Severity Reaction Status Date / Time No Known Allergies Allergy Verified 10/02/17 16:55 Review of Systems ROS Statement: Those systems with pertinent positive or pertinent negative responses have been documented in the HPI. ROS Other: All systems not noted in ROS Statement are negative. Past Medical History Past Medical History: Coronary Artery Disease (CAD), COPD, CVA/TIA, Seizure Disorder Additional Past Medical History / Comment(s): CVA 2007,2009(x3)- -uses walker-, heart murmer, OCC incontinence of urine/stool-weara a brief, last seizure couple yrs ago History of Any Multi-Drug Resistant Organisms: None Reported Past Surgical History: Appendectomy, Heart Catheterization With Stent, Tonsillectomy Additional Past Surgical History / Comment(s): one cardiac stent Past Anesthesia/Blood Transfusion Reactions: No Reported Reaction Date of Last Stent Placement:: 2010 Past Psychological History: No Psychological Hx Reported Smoking Status: Current every day smoker Past Alcohol Use History: None Reported Past Drug Use History: None Reported - Past Family History Mother Family Medical History: Cancer Additional Family Medical History / Comment(s): lung cancer Father Family Medical History: Myocardial Infarction ([place]) Additional Family Medical History / Comment(s): lived to age 92 General Exam - General Exam Comments Initial Comments: NIH of 0 Limitations: no limitations General appearance: alert, in no apparent distress Head exam: Present: atraumatic, normocephalic, normal inspection Eye exam: Present: normal appearance, PERRL, EOMI. Absent: scleral icterus, conjunctival injection, periorbital swelling ENT exam: Present: normal exam, mucous membranes moist Neck exam: Present: normal inspection. Absent: tenderness, meningismus, lymphadenopathy Respiratory exam: Present: normal lung sounds bilaterally. Absent: respiratory distress, wheezes, rales, rhonchi, stridor Cardiovascular Exam: Present: regular rate, normal rhythm, normal heart sounds. Absent: systolic murmur, diastolic murmur, rubs, gallop, clicks GI/Abdominal exam: Present: soft, normal bowel sounds. Absent: distended, tenderness, guarding, rebound, rigid Extremities exam: Present: normal inspection, full ROM, normal capillary refill. Absent: tenderness, pedal edema, joint swelling, calf tenderness Back exam: Present: normal inspection Neurological exam: Present: alert, oriented X3, CN II-XII intact Psychiatric exam: Present: normal affect, normal mood Skin exam: Present: warm, dry, intact, normal color. Absent: rash Course Vital Signs 10/02/17 10/02/17 10/02/17 16:35 17:31 18:00 Temperature 100.6 F H Pulse Rate 109 H 100 88 Respiratory 16 16 18 Rate Blood Pressure 106/63 119/58 116/59 O2 Sat by Pulse 94 L 93 L 98 Oximetry 10/02/17 10/02/17 10/02/17 19:00 19:08 19:17 Temperature 97.5 F L Pulse Rate 92 96 Respiratory Rate Blood Pressure O2 Sat by Pulse Oximetry - Reevaluation(s) Reevaluation #1: 10/02/17 17:53 Symptoms resolved on arrival to emergency room, patient is NIH of 0 Reevaluation #2: 10/02/17 19:45 Patient continues remain free of neurological symptoms EKG Findings - EKG Comments: EKG Findings:: EKG shows normal sinus rhythm rate 100, LA 180, QRS 88, QTc 469 Medical Decision Making - Medical Decision Making 72 male the ER for evaluation of weakness, not responsiveness, patient with positive fever positive pneumonia. Positive COPD. Patient be admitted for IV antibiotics and continued treatment. Patient also had TIA, will be observed neurologically - Lab Data Result diagrams: 10/02/17 16:45 10/02/17 16:45 Lab Results 10/02/17 10/02/17 10/02/17 Range/Units 16:45 16:45 16:45 WBC 22.6 H (3.8-10.6) k/uL RBC 4.10 L (4.30-5.90) m/uL Hgb 13.0 (13.0-17.5) gm/dL Hct 38.6 L (39.0-53.0) % MCV 94.2 (80.0-100.0) fL MCH 31.6 (25.0-35.0) pg MCHC 33.6 (31.0-37.0) g/dL RDW 14.8 (11.5-15.5) % Plt Count 195 (150-450) k/uL Neutrophils % 92 % Lymphocytes % 2 % Monocytes % 4 % Eosinophils % 0 % Basophils % 0 % Neutrophils # 20.8 H (1.3-7.7) k/uL Lymphocytes # 0.5 L (1.0-4.8) k/uL Monocytes # 1.0 (0-1.0) k/uL Eosinophils # 0.0 (0-0.7) k/uL Basophils # 0.1 (0-0.2) k/uL PT (9.0-12.0) sec INR (<1.2) APTT (22.0-30.0) sec Sodium 142 (137-145) mmol/L Potassium 4.0 (3.5-5.1) mmol/L Chloride 104 (98-107) mmol/L Carbon Dioxide 26 (22-30) mmol/L Anion Gap 12 mmol/L BUN 29 H (9-20) mg/dL Creatinine 1.19 (0.66-1.25) mg/dL Est GFR (MDRD) Af Amer >60 (>60 ml/min/1.73 sqM) Est GFR (MDRD) Non-Af >60 (>60 ml/min/1.73 sqM) Glucose 131 H (74-99) mg/dL POC Glucose (mg/dL) (75-99) mg/dL POC Glu Paint Line Operator ID Calcium 9.7 (8.4-10.2) mg/dL Total Bilirubin 0.4 (0.2-1.3) mg/dL AST 47 (17-59) U/L ALT 37 (21-72) U/L Alkaline Phosphatase 101 (38-126) U/L Total Creatine Kinase 1491 H (55-170) U/L CK-MB (CK-2) 6.0 H* (0.0-2.4) ng/mL CK-MB (CK-2) Rel Index 0.4 Troponin I 0.064 H* (0.000-0.034) ng/mL Total Protein 6.8 (6.3-8.2) g/dL Albumin 4.1 (3.5-5.0) g/dL Influenza Type A RNA (Not Detectd) Influenza Type B (PCR) (Not Detectd) 10/02/17 10/02/17 10/02/17 Range/Units 16:45 17:23 17:29 WBC (3.8-10.6) k/uL RBC (4.30-5.90) m/uL Hgb (13.0-17.5) gm/dL Hct (39.0-53.0) % MCV (80.0-100.0) fL MCH (25.0-35.0) pg MCHC (31.0-37.0) g/dL RDW (11.5-15.5) % Plt Count (150-450) k/uL Neutrophils % % Lymphocytes % % Monocytes % % Eosinophils % % Basophils % % Neutrophils # (1.3-7.7) k/uL Lymphocytes # (1.0-4.8) k/uL Monocytes # (0-1.0) k/uL Eosinophils # (0-0.7) k/uL Basophils # (0-0.2) k/uL PT 10.5 (9.0-12.0) sec INR 1.1 (<1.2) APTT 23.9 (22.0-30.0) sec Sodium (137-145) mmol/L Potassium (3.5-5.1) mmol/L Chloride (98-107) mmol/L Carbon Dioxide (22-30) mmol/L Anion Gap mmol/L BUN (9-20) mg/dL Creatinine (0.66-1.25) mg/dL Est GFR (MDRD) Af Amer (>60 ml/min/1.73 sqM) Est GFR (MDRD) Non-Af (>60 ml/min/1.73 sqM) Glucose (74-99) mg/dL POC Glucose (mg/dL) 128 H (75-99) mg/dL POC Glu Paint Line Operator ID Jennifer Almonte Calcium (8.4-10.2) mg/dL Total Bilirubin (0.2-1.3) mg/dL AST (17-59) U/L ALT (21-72) U/L Alkaline Phosphatase (38-126) U/L Total Creatine Kinase (55-170) U/L CK-MB (CK-2) (0.0-2.4) ng/mL CK-MB (CK-2) Rel Index Troponin I (0.000-0.034) ng/mL Total Protein (6.3-8.2) g/dL Albumin (3.5-5.0) g/dL Influenza Type A RNA Not Detected (Not Detectd) Influenza Type B (PCR) Not Detected (Not Detectd) - Radiology Data Radiology results: report reviewed (Chest x-ray is positive for pneumonia, CT brain is no acute changes old CVA), image reviewed Disposition Clinical Impression: Transient cerebral ischemia, Fever, Weakness, COPD exacerbation Disposition: ADMITTED IP TO THIS [facility] Condition: Fair
[2017-10-02] MEDS ORDERED: methylPREDNISolone SOD SUCCI 125 MG/2 ML VIAL IV STA (18:38)
[2017-10-02] MEDS ORDERED: PIPERACILLIN-TAZOBACTAM 3.375 GM in DEXTROSE/WATER 1 50ML.BAG IVPB STA (19:00)
[2017-10-02] MEDS ORDERED: LEVOFLOXACIN 750MG-D5W PMX 750 MG in DEXTROSE/WATER 1 150ML.BAG IVPB STA (19:00)
[2017-10-02] MEDS ORDERED: IPRATROPIUM 0.5 MG/2.5 ML NEBU INHALATION STA (19:00)
[2017-10-02] MEDS ORDERED: ALBUTEROL NEBULIZED 2.5 MG/3 ML INHALATION STA (19:00)
[2017-10-02 19:42] LABS: Appearance,Urine Clear (Clear); Bilirubin,Urine Negative (Negative); Blood,Urine Negative (Negative); Color,Urine Yellow; Glucose,Urine (UA) Negative (Negative); Ketones,Urine Negative (Negative); Leukocyte Esterase,Urine Negative (Negative); Nitrite,Urine Negative (Negative); PH, Urine 6.5 (5.0-8.0); Protein,Urine Negative (Negative); Specific Gravity,Urine 1.029 (1.001-1.035); Urobilinogen,Urine <2.0 mg/dL (<2.0)
[2017-10-02] MEDS ORDERED: IPRATROPIUM-ALBUTEROL 3 ML NEB INHALATION PRN (20:22)
[2017-10-02] MEDS: IPRATROPIUM-ALBUTEROL 3 ML NEB INHALATION SCH (20:22)
[2017-10-02 20:37] VITALS: BMI 31.1
[2017-10-02] MEDS: SODIUM CHLORIDE 0.9% 1,000 ML IV SCH ×2 (21:00→23:15)
[2017-10-02 21:11] LABS: Glucose,Whole Blood 132 mg/dL (75-99)
[2017-10-02] MEDS: INSULIN ASPART 100 UNIT/ML 1 ML 10 ML VIAL SQ SCH (21:26)
[2017-10-02] MEDS: METOPROLOL TARTRATE 25 MG TAB PO SCH (21:38)
[2017-10-02] MEDS: ATORVASTATIN 80 MG TAB PO SCH (21:39)
[2017-10-02] MEDS: levETIRAcetam 500 MG TAB PO SCH (21:55)
[2017-10-02] MEDS: methylPREDNISolone SOD SUCCI 125 MG/2 ML VIAL IV SCH (23:14)
[2017-10-03 06:11] LABS: Cholesterol 143 mg/dL (<200); HDL Cholesterol 51 mg/dL (40-60); LDL Cholesterol,Calculated 81 mg/dL (0-99); Triglycerides 54 mg/dL (<150)
[2017-10-03] MEDS: methylPREDNISolone SOD SUCCI 125 MG/2 ML VIAL IV SCH ×3 (06:23→18:58)
[2017-10-03] MEDS: INSULIN ASPART 100 UNIT/ML 1 ML 10 ML VIAL SQ SCH ×4 (06:49→21:08)
[2017-10-03 07:03] LABS: Glucose,Whole Blood 147 mg/dL (75-99)
[2017-10-03] MEDS: IPRATROPIUM-ALBUTEROL 3 ML NEB INHALATION SCH ×4 (07:20→19:19)
[2017-10-03] MEDS: POTASSIUM CHLORIDE ER 10 MEQ TAB.ER.PRT PO SCH (09:56)
[2017-10-03] MEDS: FUROSEMIDE 40 MG TAB PO SCH (09:56)
[2017-10-03] MEDS: METOPROLOL TARTRATE 25 MG TAB PO SCH ×2 (09:56→20:42)
[2017-10-03] MEDS: NICOTINE 21MG/24HR PATCH TRANSDERM SCH (09:56)
[2017-10-03] MEDS: PIPERACILLIN-TAZOBACTAM 3.375 GM in DEXTROSE/WATER 1 50ML.BAG IVPB SCH ×2 (09:56→16:28)
[2017-10-03] MEDS: CLOPIDOGREL 75 MG TAB PO SCH (09:56)
[2017-10-03] MEDS: SERTRALINE 100 MG TAB PO SCH (09:57)
[2017-10-03] MEDS: FAMOTIDINE 20 MG TAB PO SCH (09:57)
[2017-10-03] MEDS: TAMSULOSIN 0.4 MG CAP.ER.24H PO SCH (09:58)
[2017-10-03] MEDS: DONEPEZIL 10 MG TAB PO SCH (09:58)
[2017-10-03] MEDS: ASPIRIN 81 MG PO SCH (09:58)
[2017-10-03] MEDS: levETIRAcetam 500 MG TAB PO SCH ×2 (09:59→20:41)
[2017-10-03] MEDS: OXYBUTYNIN 10 MG TAB.ER.24 PO SCH (09:59)
[2017-10-03 11:55] LABS: Glucose,Whole Blood 129 mg/dL (75-99)
[2017-10-03 15:33] LABS: Hemoglobin A1C 5.9 % (4.0-6.0)
[2017-10-03] MEDS: SODIUM CHLORIDE 0.9% 1,000 ML IV SCH (16:28)
[2017-10-03 16:30] LABS: Glucose,Whole Blood 189 mg/dL (75-99)
--- NOTE | 2017-10-03 19:08 | P.CNNES ---
History of Present Illness Consult date: 10/03/17 Reason for Consult: Patient admitted with possible TIA versus stroke. History of Present Illness: This patient is a 72-year-old right-handed white male who was brought into the emergency room yesterday with symptoms of left-sided weakness. Patient is at home and apparently had sudden onset of left facial droop and generalized weakness. EMS was called to the home and apparently by the time he was brought to the emergency room at [facility] his symptoms had resolved. He was seen in the ER by Dr. Jha,. Dr. Moralez, performed NIH stroke scale for him in the emergency room and it was noted to be 0. Based on the NIH stroke scale he was not a candidate for any thrombolytic agent or thrombectomy. He was sent for a computed tomography scan of the brain which revealed evidence of old large right frontal lobe infarct. Patient states he suffered the stroke about 5 years ago. He has been taking Plavix 75 mg daily for secondary stroke prevention. Apparently also has a history of seizures and also takes Keppra 500 mg twice a day. Patient states he does not recollect having a seizure yesterday when he was admitted. His symptoms did resolve in the ER. He did not have any evidence of postictal state. The patient has not had any recent seizures. According to the son who is at bedside he has been taking his medications on a regular basis. He denies any headache at this time. According to his son who is at bedside he is showing significant improvement today. His clinical history suggests possibility of right hemispheric TIA. We have recommended a complete stroke evaluation for the patient. His overall prognosis at this time remains guarded. Neurology is now been consulted for further evaluation and recommendations. Review of Systems Constitutional: Denies chills, Denies fever Eyes: denies blurred vision, denies pain Ears, nose, mouth and throat: Denies headache, Denies sore throat Cardiovascular: Denies chest pain, Denies shortness of breath Respiratory: Denies cough Gastrointestinal: Denies abdominal pain, Denies diarrhea, Denies nausea, Denies vomiting Musculoskeletal: Denies myalgias Integumentary: Denies pruritus, Denies rash Neurological: Reports change in mentation, Reports confusion, Reports motor disturbance, Denies numbness, Denies weakness Psychiatric: Denies anxiety, Denies depression Endocrine: Denies fatigue, Denies weight change Past Medical History Past Medical History: Coronary Artery Disease (CAD), COPD, CVA/TIA, Seizure Disorder Additional Past Medical History / Comment(s): CVA 2007,2009(x3)- -uses walker-, heart murmer, OCC incontinence of urine/stool-weara a brief, last seizure couple yrs ago History of Any Multi-Drug Resistant Organisms: None Reported Past Surgical History: Appendectomy, Heart Catheterization With Stent, Tonsillectomy Additional Past Surgical History / Comment(s): one cardiac stent Past Anesthesia/Blood Transfusion Reactions: No Reported Reaction Date of Last Stent Placement:: 2010 Past Psychological History: No Psychological Hx Reported Additional Psychological History / Comment(s): denies any hx Smoking Status: Current every day smoker Past Alcohol Use History: None Reported Additional Past Alcohol Use History / Comment(s): started smokiong at age 12 ( 10) smokes 3-4 ppd., Past Drug Use History: None Reported - Past Family History Mother Family Medical History: Cancer Additional Family Medical History / Comment(s): lung cancer Father Family Medical History: Myocardial Infarction ([place]) Additional Family Medical History / Comment(s): lived to age 92 Medications and Allergies Home Medications Medication Instructions Recorded Confirmed Type Atorvastatin [Lipitor] 80 mg PO HS 08/08/14 10/02/17 History Donepezil [Aricept] 10 mg PO DAILY 08/08/14 10/02/17 History Metoprolol Tartrate [Lopressor] 25 mg PO BID 08/08/14 10/02/17 History Ranitidine HCl 300 mg PO DAILY 08/08/14 10/02/17 History Aspirin [Adult Low Dose Aspirin EC] 81 mg PO DAILY 09/09/16 10/02/17 History Furosemide [Lasix] 40 mg PO DAILY #30 tab 05/26/17 10/02/17 Rx Potassium Chloride [K-Tab ER] 10 meq PO DAILY 09/03/17 10/02/17 History Sertraline [Zoloft] 200 mg PO DAILY 09/03/17 10/02/17 History levETIRAcetam [Keppra] 500 mg PO Q12HR 09/03/17 10/02/17 History Clopidogrel [Plavix] 75 mg PO DAILY #90 tab 09/09/17 10/02/17 Rx Fesoterodine Fumarate [Toviaz] 16 mg PO DAILY 10/02/17 10/02/17 History Tamsulosin HCl [Flomax] 0.8 mg PO DAILY 10/02/17 10/02/17 History Allergies Allergy/AdvReac Type Severity Reaction Status Date / Time No Known Allergies Allergy Verified 10/02/17 16:55 Physical Examination - Vital Signs Vital Signs: Vital Signs Temp Pulse Pulse Resp BP BP Pulse Ox 10/03/17 12:00 72 18 129/60 10/03/17 08:00 80 22 142/64 95 10/03/17 04:00 98.3 F 92 18 125/67 97 10/03/17 00:00 98.2 F 102 H 22 115/78 95 10/02/17 22:11 97.1 F L 90 20 106/66 94 L 10/02/17 20:27 97.1 F L 90 20 106/66 94 L 10/02/17 19:53 92 18 124/69 98 10/02/17 19:17 96 10/02/17 19:08 92 10/02/17 19:00 97.5 F L 10/02/17 18:00 88 18 116/59 98 10/02/17 17:31 100 16 119/58 93 L Intake and Output 10/03/17 10/03/17 10/03/17 06:59 14:59 22:59 Intake Total 2160 795 Output Total 5500 Balance -3340 795 Intake: Oral 2160 795 Output: Urine 5500 Uretheral ([place]) 950 Other: Voiding Method Indwelling Catheter Indwelling Catheter # Bowel Movements 1 1 Weight 101.5 kg 101.5 kg Patient Weight 10/04/17 06:59 Weight 101.5 kg - Constitutional General appearance: average body habitus, cooperative - EENT EENT: PERRL, mucous membranes moist - Respiratory Respiratory: lungs clear, normal breath sounds - Cardiovascular Cardiovascular: regular rate, normal S1, normal S2 Extremities: no peripheral edema bilaterally - Gastrointestinal Gastrointestinal: normoactive bowel sounds - Integumentary Integumentary: normal - Neurologic Cranial nerve examination: PERRL, EOMI, VFF, V1/V2/V3 grossly intact, tongue midline, intact gag reflex, intact corneal reflex, facial droop (Patient has left-sided facial asymmetry.), normal palatal elevation Speech examination: intact Sensorimotor examination: intact Motor examination - right side: 4/5: biceps, triceps, wrist flexion, wrist extension, parliamentary archivist, hip flexors, knee extensors, dorsiflexion, toe extension (EHL) , plantarflexion Motor examination - left side: 3/5: biceps, triceps, wrist flexion, wrist extension, parliamentary archivist, hip flexors, knee extensors, dorsiflexion, toe extension (EHL) , plantarflexion Detailed sensory examination: intact Reflex and gait examination: intact Reflexes: 1+: ankle, bicep, knee, tricep - Musculoskeletal Musculoskeletal: no pain - Psychiatric Psychiatric: mood/affect appropriate, cooperative Results - Laboratory Findings CBC and BMP: 10/02/17 16:45 10/02/17 16:45 Abnormal Lab Findings: Abnormal Labs 10/02/17 10/02/17 10/02/17 16:45 16:45 16:45 WBC 22.6 H RBC 4.10 L Hct 38.6 L Neutrophils # 20.8 H Lymphocytes # 0.5 L BUN 29 H Glucose 131 H POC Glucose (mg/dL) Total Creatine Kinase 1491 H CK-MB (CK-2) 6.0 H* Troponin I 0.064 H* 10/02/17 10/02/17 10/02/17 17:23 21:08 22:41 WBC RBC Hct Neutrophils # Lymphocytes # BUN Glucose POC Glucose (mg/dL) 128 H 132 H Total Creatine Kinase CK-MB (CK-2) Troponin I 0.097 H* 10/03/17 10/03/17 10/03/17 05:12 06:33 11:33 WBC RBC Hct Neutrophils # Lymphocytes # BUN Glucose POC Glucose (mg/dL) 147 H 129 H Total Creatine Kinase CK-MB (CK-2) Troponin I 0.080 H* 10/03/17 16:22 WBC RBC Hct Neutrophils # Lymphocytes # BUN Glucose POC Glucose (mg/dL) 189 H Total Creatine Kinase CK-MB (CK-2) Troponin I Assessment and Plan (1) TIA (transient ischemic attack) Current Visit: Yes Status: Acute Code(s): G45.9 - TRANSIENT CEREBRAL ISCHEMIC ATTACK, UNSPECIFIED SNOMED Code(s): 685037746 (2) Chronic right arterial ischemic stroke, MCA (middle cerebral artery) Current Visit: Yes Status: Acute Code(s): I69.30 - UNSPECIFIED SEQUELAE OF CEREBRAL INFARCTION SNOMED Code(s): 458010910 (3) COPD exacerbation Current Visit: Yes Status: Acute Code(s): J44.1 - CHRONIC OBSTRUCTIVE PULMONARY DISEASE W (ACUTE) EXACERBATION SNOMED Code(s): 412895350 (4) Weakness Current Visit: Yes Status: Acute Code(s): R53.1 - WEAKNESS SNOMED Code(s) : 03446345 Plan: This patient is a 72-year-old male who apparently had a sudden onset of left facial droop and generalized weakness at home. He was brought into the emergency room where he was evaluated in the ER at [facility] by Dr. Moralez. His NIH stroke scale was noted to be 0. He was sent for a computed tomography scan of the brain the results of which revealed evidence of a old right frontal lobe infarct with no other new findings. He was admitted to hospital for complete stroke evaluation. We are recommending MRI of the brain for further evaluation. He is to continue on Plavix for secondary stroke prevention. He is currently on Keppra for seizure disorder in the past. We will check his Keppra blood level. His overall prognosis at this time remains very guarded. Neurology will continue close monitoring of this patient during this admission. Time with Patient: Greater than 30
[2017-10-03] MEDS: LEVOFLOXACIN 750MG-D5W PMX 750 MG in DEXTROSE/WATER 1 150ML.BAG IVPB SCH (20:41)
[2017-10-03] MEDS: ATORVASTATIN 80 MG TAB PO SCH (20:45)
[2017-10-03 20:57] LABS: Glucose,Whole Blood 186 mg/dL (75-99)
[2017-10-04] MEDS: methylPREDNISolone SOD SUCCI 125 MG/2 ML VIAL IV SCH ×5 (00:14→23:08)
[2017-10-04] MEDS: PIPERACILLIN-TAZOBACTAM 3.375 GM in DEXTROSE/WATER 1 50ML.BAG IVPB SCH ×4 (00:14→23:08)
[2017-10-04] MEDS: SODIUM CHLORIDE 0.9% 1,000 ML IV SCH ×3 (00:15→20:45)
[2017-10-04 06:04] LABS: Glucose,Whole Blood 139 mg/dL (75-99)
[2017-10-04] MEDS: INSULIN ASPART 100 UNIT/ML 1 ML 10 ML VIAL SQ SCH ×4 (06:16→20:43)
[2017-10-04] MEDS: IPRATROPIUM-ALBUTEROL 3 ML NEB INHALATION SCH ×4 (07:04→20:05)
[2017-10-04] MEDS: ASPIRIN 81 MG PO SCH (08:32)
[2017-10-04] MEDS: METOPROLOL TARTRATE 25 MG TAB PO SCH ×2 (08:32→20:41)
[2017-10-04] MEDS: FUROSEMIDE 40 MG TAB PO SCH (08:32)
[2017-10-04] MEDS: OXYBUTYNIN 10 MG TAB.ER.24 PO SCH (08:32)
[2017-10-04] MEDS: FAMOTIDINE 20 MG TAB PO SCH (08:32)
[2017-10-04] MEDS: NICOTINE 21MG/24HR PATCH TRANSDERM SCH (08:32)
[2017-10-04] MEDS: CLOPIDOGREL 75 MG TAB PO SCH (08:32)
[2017-10-04] MEDS: POTASSIUM CHLORIDE ER 10 MEQ TAB.ER.PRT PO SCH (08:32)
[2017-10-04] MEDS: SERTRALINE 100 MG TAB PO SCH (08:33)
[2017-10-04] MEDS: DONEPEZIL 10 MG TAB PO SCH (08:33)
[2017-10-04] MEDS: levETIRAcetam 500 MG TAB PO SCH ×2 (08:33→20:40)
[2017-10-04] MEDS: TAMSULOSIN 0.4 MG CAP.ER.24H PO SCH (08:33)
[2017-10-04 11:47] LABS: Glucose,Whole Blood 129 mg/dL (75-99)
[2017-10-04 16:57] LABS: Glucose,Whole Blood 172 mg/dL (75-99)
[2017-10-04 18:49] LABS: HCT 37.4 % (39.0-53.0); HGB 11.9 gm/dL (13.0-17.5); MCH 30.9 pg (25.0-35.0); MCHC 31.9 g/dL (31.0-37.0); MCV 96.8 fL (80.0-100.0); Mean Platelet Volume 7.9; Platelet Count 192 k/uL (150-450); RBC 3.86 m/uL (4.30-5.90); RDW 14.8 % (11.5-15.5); WBC 20.9 k/uL (3.8-10.6)
--- NOTE | 2017-10-04 18:58 | HP ---
HISTORY AND PHYSICAL DATE OF SERVICE: October 02, 2017. PRESENT COMPLAINT: Acute confusion, left-sided weakness. HISTORY OF PRESENTING COMPLAINT: This is a 80-year-old patient of Dr. Tricia Mata. Covered by the service of Dr. Christopher. I have been requested to cover this patient. The patient's is at the bedside. Chronic stable medical conditions include congestive heart failure with EF of 55-60%, coronary artery disease with prior stent COPD in an active smoker, seizure, incontinent. The patient had a stroke back in 2007, affecting the right frontal lobe. The patient had a visiting doctor come home and he found that the patient was confused, had defecated, found to be weak on the left side by the . The patient had some weakness on the left side from before, but more so now, and also speech was affected. There was no change in vision, no trouble with swallowing and patient admitted with diagnosis of possible stroke. The patient is able to give some history. Most of the history is obtained by the who is also the POA. REVIEW OF SYSTEMS: Constitutional: Tired. HEENT none. Respiratory: Baseline shortness of breath and cough. Cardiovascular none. Gastrointestinal none. Genitourinary: Some incontinence. Dermatological none. Hematologic none. Lymphatic none. Psychiatry forgetful. Neurological as above. PAST MEDICAL HISTORY: Past surgical history: Coronary artery disease, COPD, stroke in 2007, incontinence, seizures, CHF, EF 55-60%, uses a walker. PAST SURGICAL HISTORY: Appendectomy, cardiac cath with stent, tonsillectomy. SOCIAL HISTORY: The patient admits to smoking close to 60 years about 3-4 packs a day. Denies alcohol. . FAMILY HISTORY: Of lung cancer. HOME MEDICATIONS: 1. Keppra 500 mg p.o. q.12. 2. Flomax 0.8 mg p.o. daily. 3. Zoloft 200 mg p.o. daily. 4. Zantac 300 mg p.o. daily. 5. Potassium 10 mEq p.o. daily. 6. Lopressor 25 p.o. b.i.d. 7. Lasix 40 mg p.o. daily. 8. Toviaz 60 mg p.o. daily. 9. Aricept 10 mg p.o. daily. 10.Plavix 75 mg p.o. daily. 11.Lipitor 80 mg q.h.s. 12.Aspirin 81 mg p.o. daily. ALLERGIES: None. PHYSICAL EXAMINATION: Temperature 96.9, pulse 53, respiratory 18, blood pressure 120/58, pulse ox 92% on 4 L. General appearance: Well built, BMI 31.2, lying in bed, short of breath, eyes pupils equal. Conjunctivae normal. HEENT: Oral cavity normal. Neck short thick, JVD unable to assess. Mass not palpable. RESPIRATORY: Effort increased. Lungs decreased breath sounds. Expiratory wheezing. Cardiovascular 1st and 2nd sounds, no edema. ABDOMEN: Soft, nontender. Liver and spleen not palpable. Lymphatic: No lymph nodes palpable. PSYCHIATRY: Alert and orient x3. Mood and affect normal. Neurological: Power on the left side is 4 x 5. INVESTIGATIONS: White count 22.6, hemoglobin 13.0. Potassium 4.0, troponin 0.064, 0.97, 0.80. EKG normal sinus rhythm. CT scan of the brain, old large right frontal lobe cortical infarct, extensive. Chronic small-vessel ischemia in both the frontoparietal lobes and progression of the small-vessel ischemia. ASSESSMENT: 1. Possible acute stroke in the right middle cerebral artery area affecting the left side of the body. 2. Chronic congestive heart failure from diastolic dysfunction. Ejection fraction 55- 60% from underlying coronary artery disease. 3. Coronary artery disease, prior history of stent. 4. Chronic obstructive pulmonary disease in a heavy smoker. 5. Chronic nicotine dependence, patient an active cigarette smoker. 6. Chronic seizure disorder. 7. Chronic urine incontinence. 8. Benign prostatic hypertrophy, possibly. 9. Obesity; BMI 31.2. 10.Chronic nicotine dependence. Patient has smoked 3-4 packs a day. PLAN: Neurology was consulted and they have workup in place per them. Patient has EEG and an MRI of the brain pending. The patient with a poor historian given his coronary artery disease there is no chest pain. The troponin is not comparable with unstable angina, but we will get a cardiology opinion. The patient is already on aspirin, Plavix. The patient UA is negative. Chest x-ray is questionable suggestion of some fluid overload. Will repeat a chest x-ray, check a BNP and had some oral antibiotics for bronchitis. Care was discussed with the patient's at the bedside. Copy to Dr. Tricia Mata. MMODL / IJN: [id number] /
[2017-10-04 19:01] LABS: Anion Gap 11 mmol/L; Blood Urea Nitrogen 31 mg/dL (9-20); Carbon Dioxide 23 mmol/L (22-30); Chloride 108 mmol/L (98-107); Glucose 184 mg/dL (74-99); Potassium 4.2 mmol/L (3.5-5.1); Sodium 142 mmol/L (137-145)
--- NOTE | 2017-10-04 19:19 | XR ---
EXAMINATION TYPE: XR chest 2V DATE OF EXAM: 10/04/2017 COMPARISON: October 02, 2017 HISTORY: Fever TECHNIQUE: Frontal and lateral views of the chest are obtained. FINDINGS: Heart is probably enlarged. There is pulmonary vascular congestion. There is blunting cost ophrenic angles. IMPRESSION: Mild congestive heart failure. Pleural effusions. Pleural fluid and pulmonary congestion are increased compared to last exam.
[2017-10-04 20:39] LABS: Glucose,Whole Blood 167 mg/dL (75-99)
[2017-10-04] MEDS: ATORVASTATIN 80 MG TAB PO SCH (20:40)
[2017-10-04] MEDS: LEVOFLOXACIN 750MG-D5W PMX 750 MG in DEXTROSE/WATER 1 150ML.BAG IVPB SCH (20:44)
--- NOTE | 2017-10-04 21:02 | P.PN ---
Subjective Progress Note Date: 10/04/17 This patient is a 72-year-old male being evaluated for TIA versus stroke. Patient presented with symptoms of left-sided weakness and possible recurrent stroke. He has a history of a previous right hemispheric stroke in the past. He has been taking Plavix 75 mg daily for secondary stroke prevention for the past 5 years. He also has a history of underlying seizure disorder and is been taking Keppra 500 mg twice a day. Patient was recommended to undergo MRI of the brain for further evaluation of stroke. We have also ordered a Keppra blood level which is still pending today. Patient states he is feeling much better and has had no further recurrence of weakness or TIA like symptoms. We will continue close neurological follow-up with the patient. He has been much monitored for respiratory distress and is been doing well on oxygen saturation testing. We will continue to follow his progress closely during this admission. Objective - Vital Signs Vital signs: Vital Signs Temp 96.9 F L 10/04/17 12:00 Pulse 83 10/04/17 15:36 Resp 18 10/04/17 15:36 BP 143/63 10/04/17 15:15 Pulse Ox 97 10/04/17 16:30 Intake & Output 10/04/17 10/04/17 10/05/17 06:59 18:59 06:59 Intake Total 480 1060 Output Total 1400 Balance 480 -340 Weight 98.5 kg Intake: Oral 480 1060 Output: Urine 1400 Other: Voiding Method Indwelling Catheter Indwelling Catheter # Bowel Movements 1 4 - Exam Physical examination: PHYSICAL EXAMINATION: Patient is resting comfortably in bed. VITAL SIGNS: Blood pressure is [143/63]. Heart rate is [83]. Respiration is [18] . Temperature is [97.0]. HEENT: Head is atraumatic, neck is supple, there were no carotid bruits. CHEST: Lungs are clear to auscultation and percussion. CARDIAC: S1, S2 normal rate and rhythm. There is no murmur. ABDOMEN: Soft and nontender. Bowel sounds are present. EXTREMITIES: There is no pedal edema. Peripheral pulses are present. Neurological examination: Patient has a nonfocal neurological examination today. He has minimal left- sided hemiparesthesias. - Labs CBC & Chem 7: 10/04/17 18:32 10/04/17 18:32 Labs: Abnormal Lab Results - Last 24 Hours (Table) 10/03/17 10/04/17 10/04/17 Range/Units 20:54 06:02 11:44 WBC (3.8-10.6) k/uL RBC (4.30-5.90) m/uL Hgb (13.0-17.5) gm/dL Hct (39.0-53.0) % Chloride (98-107) mmol/L BUN (9-20) mg/dL Glucose (74-99) mg/dL POC Glucose (mg/dL) 186 H 139 H 129 H (75-99) mg/dL 10/04/17 10/04/17 10/04/17 Range/Units 16:32 18:32 18:32 WBC 20.9 H (3.8-10.6) k/uL RBC 3.86 L (4.30-5.90) m/uL Hgb 11.9 L (13.0-17.5) gm/dL Hct 37.4 L (39.0-53.0) % Chloride 108 H (98-107) mmol/L BUN 31 H (9-20) mg/dL Glucose 184 H (74-99) mg/dL POC Glucose (mg/dL) 172 H (75-99) mg/dL 10/04/17 Range/Units 20:39 WBC (3.8-10.6) k/uL RBC (4.30-5.90) m/uL Hgb (13.0-17.5) gm/dL Hct (39.0-53.0) % Chloride (98-107) mmol/L BUN (9-20) mg/dL Glucose (74-99) mg/dL POC Glucose (mg/dL) 167 H (75-99) mg/dL Microbiology - Last 24 Hours (Table) 10/02/17 18:56 Urine Culture - Final Urine,Catheterized Assessment and Plan (1) TIA (transient ischemic attack) Current Visit: Yes Status: Acute Code(s): G45.9 - TRANSIENT CEREBRAL ISCHEMIC ATTACK, UNSPECIFIED SNOMED Code(s): 420142428 (2) Chronic right arterial ischemic stroke, MCA (middle cerebral artery) Current Visit: Yes Status: Acute Code(s): I69.30 - UNSPECIFIED SEQUELAE OF CEREBRAL INFARCTION SNOMED Code(s): 558540965 (3) COPD exacerbation Current Visit: Yes Status: Acute Code(s): J44.1 - CHRONIC OBSTRUCTIVE PULMONARY DISEASE W (ACUTE) EXACERBATION SNOMED Code(s): 283260123 (4) Weakness Current Visit: Yes Status: Acute Code(s): R53.1 - WEAKNESS SNOMED Code(s) : 24613315 Plan: This patient is a 72-year-old male being evaluated for possibility of acute stroke. He is awaiting MRI of the brain to be done for further assessment. He is to continue on his current dose of Plavix 75 mg daily for secondary stroke prevention. He has history of old right hemispheric stroke in the past with residual left-sided hemiparesis. He is also on Keppra monotherapy and we are waiting his Keppra blood level to return from the lab. We will continue further treatment and evaluation of possible stroke for this patient. His MRI is still pending today. Hopefully will be completed tomorrow. We will continue to follow his progress closely during this admission. So overall prognosis remains guarded.
[2017-10-04] MEDS: MELATONIN 5 MG TABLET PO SCH (22:17)
[2017-10-05 06:01] LABS: Glucose,Whole Blood 130 mg/dL (75-99)
[2017-10-05] MEDS: INSULIN ASPART 100 UNIT/ML 1 ML 10 ML VIAL SQ SCH ×3 (06:43→17:15)
[2017-10-05] MEDS: methylPREDNISolone SOD SUCCI 125 MG/2 ML VIAL IV SCH ×3 (06:48→17:15)
[2017-10-05] MEDS: SODIUM CHLORIDE 0.9% 1,000 ML IV SCH ×2 (06:48→16:32)
--- NOTE | 2017-10-05 07:50 | MR ---
EXAMINATION TYPE: MR brain wo con DATE OF EXAM: 10/05/2017 COMPARISON: CT brain 10/02/2017 HISTORY: Patient with left sided weakness and TIA CONTRAST: Performed utilizing 0 mL intravenous Gadavist gadolinium contrast. TECHNIQUE: Multiplanar, multiecho imaging on a 3.0 Joseline magnet is performed through the brain. Stud y is not performed within 24 hours of arrival to the hospital. The craniovertebral junction is normal. The pituitary is normal. Diffusion-weighted imaging is performed. No abnormal hyperintensity is present to suggest an acute i ntracranial infarct or acute ischemic change. There is extensive confluent periventricular white matter hyperintensity on T2 and inversion recovery weighted sequences compatible with microvascular ischemic changes. Old lacunar infarct is likely wit hin the inferior posterior left cerebellum. White matter changes are noted within the brainstem. Ventricles and sulci are prominent for the patient age. There is a large area of encephalomalacia fro m prior infarct in the medial left frontal lobe. IMPRESSIONS: 1. Confluent periventricular white matter ischemic changes. Additional white matter changes within t he brainstem. 2. Encephalomalacia from prior infarct medial left frontal lobe near the vertex. 3. Probable old lacunar infarct posterior left cerebellum.
[2017-10-05] MEDS: IPRATROPIUM-ALBUTEROL 3 ML NEB INHALATION SCH ×4 (08:32→20:09)
[2017-10-05] MEDS: PIPERACILLIN-TAZOBACTAM 3.375 GM in DEXTROSE/WATER 1 50ML.BAG IVPB SCH ×2 (08:52→16:32)
[2017-10-05] MEDS: ASPIRIN 81 MG PO SCH (08:54)
[2017-10-05] MEDS: METOPROLOL TARTRATE 25 MG TAB PO SCH ×2 (08:54→21:38)
[2017-10-05] MEDS: DONEPEZIL 10 MG TAB PO SCH (08:54)
[2017-10-05] MEDS: CLOPIDOGREL 75 MG TAB PO SCH (08:54)
[2017-10-05] MEDS: FUROSEMIDE 40 MG TAB PO SCH (08:55)
[2017-10-05] MEDS: NICOTINE 21MG/24HR PATCH TRANSDERM SCH (08:55)
[2017-10-05] MEDS: POTASSIUM CHLORIDE ER 10 MEQ TAB.ER.PRT PO SCH (08:55)
[2017-10-05] MEDS: TAMSULOSIN 0.4 MG CAP.ER.24H PO SCH (08:55)
[2017-10-05] MEDS: levETIRAcetam 500 MG TAB PO SCH ×2 (08:55→21:38)
[2017-10-05] MEDS: OXYBUTYNIN 10 MG TAB.ER.24 PO SCH (08:55)
[2017-10-05] MEDS: SERTRALINE 100 MG TAB PO SCH (08:55)
[2017-10-05] MEDS: FAMOTIDINE 20 MG TAB PO SCH (08:55)
--- NOTE | 2017-10-05 09:34 | P.CRDCN ---
History of Present Illness Consult date: 10/05/17 Requesting physician: Bill Escalera Reason for Consult (text): Abnormal troponins Chief complaint: Left-sided weakness History of present illness: This is a 72-year-old gentleman who follows with Dr. Ingram in the office. He does have history of prior CVAs with mild cognitive impairment, seizures, hypertension, hyperlipidemia, nicotine dependence, moderate aortic stenosis by a CRISELDA that was performed in July 2017. Patient was just recently in the hospital last month at which time he underwent successful stenting of the ostial, proximal, and mid RCA by Dr. Ingram. She was brought to the hospital by EMS because of symptoms of left-sided weakness as well as facial droop which was noted by his . On EMS arrival to the home, patient was found extremely pale and diaphoretic and lethargic. Patient apparently also had been having symptoms of diarrhea and vomiting at home. EMS notes that shortly after arrival patient was alert and oriented 4, left-sided weakness and facial droop had also seemed to resolve by that time. Patient does have a slight right-sided facial droop which is chronic from a prior CVA. Patient denies having any chest discomfort, no difficulty in breathing, no palpitations. EKG on arrival here shows a normal sinus rhythm with no acute changes. CAT scan of the brain reveals old large right frontal lobe cortical infarcts extensive chronic small vessel ischemia in both frontal and parietal lobes. There is progression of the small vessel ischemia as compared with prior exam. MRI of the brain revealed confluent periventricular white matter ischemic changes. Additional white matter changes within the brainstem. Encephalomalacia from prior infarct, probable old listener infarct in the posterior left cerebellum. Chest x-ray shows probable mild heart failure, pulmonary fibrosis, moderate cardiomegaly. Repeat chest x-ray performed this morning revealed mild congestive heart failure with pleural effusions. Blood pressure on arrival here 106/60, 94% on 2 L, temperature 100.6 heart rate 100. Laboratory data was reviewed, white blood cell count 22,000 on admission, 20, 000.9 this morning, hemoglobin 11.9. Sodium 142, potassium 4.2, BUN 31, creatinine 1.2. Troponins 0.06, 0.09, 0.08. BNP level 2710. Influenza A and B were negative. At the time of my examination this morning, patient is lying flat in bed, in no apparent distress. Breathing is stable, denies having any chest discomfort. Still has mild left-sided weakness, right-sided facial droop noted which appears to be chronic. Past Medical History Past Medical History: Coronary Artery Disease (CAD), COPD, CVA/TIA, Seizure Disorder Additional Past Medical History / Comment(s): CVA 2007,2009(x3)- -uses walker-, heart murmer, OCC incontinence of urine/stool-weara a brief, last seizure couple yrs ago History of Any Multi-Drug Resistant Organisms: None Reported Past Surgical History: Appendectomy, Heart Catheterization With Stent, Tonsillectomy Additional Past Surgical History / Comment(s): one cardiac stent Past Anesthesia/Blood Transfusion Reactions: No Reported Reaction Date of Last Stent Placement:: 2010 Past Psychological History: No Psychological Hx Reported Additional Psychological History / Comment(s): denies any hx Smoking Status: Current every day smoker Past Alcohol Use History: None Reported Additional Past Alcohol Use History / Comment(s): started smokiong at age 12 ( 10) smokes 3-4 ppd., Past Drug Use History: None Reported - Past Family History Mother Family Medical History: Cancer Additional Family Medical History / Comment(s): lung cancer Father Family Medical History: Myocardial Infarction ([place]) Additional Family Medical History / Comment(s): lived to age 92 Medications and Allergies Home Medications Medication Instructions Recorded Confirmed Type Atorvastatin [Lipitor] 80 mg PO HS 08/08/14 10/02/17 History Donepezil [Aricept] 10 mg PO DAILY 08/08/14 10/02/17 History Metoprolol Tartrate [Lopressor] 25 mg PO BID 08/08/14 10/02/17 History Ranitidine HCl 300 mg PO DAILY 08/08/14 10/02/17 History Aspirin [Adult Low Dose Aspirin EC] 81 mg PO DAILY 09/09/16 10/02/17 History Furosemide [Lasix] 40 mg PO DAILY #30 tab 05/26/17 10/02/17 Rx Potassium Chloride [K-Tab ER] 10 meq PO DAILY 09/03/17 10/02/17 History Sertraline [Zoloft] 200 mg PO DAILY 09/03/17 10/02/17 History levETIRAcetam [Keppra] 500 mg PO Q12HR 09/03/17 10/02/17 History Clopidogrel [Plavix] 75 mg PO DAILY #90 tab 09/09/17 10/02/17 Rx Fesoterodine Fumarate [Toviaz] 16 mg PO DAILY 10/02/17 10/02/17 History Tamsulosin HCl [Flomax] 0.8 mg PO DAILY 10/02/17 10/02/17 History Allergies Allergy/AdvReac Type Severity Reaction Status Date / Time No Known Allergies Allergy Verified 10/02/17 16:55 Physical Exam Vitals: Vital Signs Temp Pulse Resp BP Pulse Ox 10/05/17 04:00 97.0 F L 69 17 130/67 95 10/05/17 00:00 97.9 F 74 18 136/78 94 L 10/04/17 20:00 97.0 F L 70 22 150/70 95 10/04/17 16:30 97 10/04/17 15:36 83 18 10/04/17 15:15 83 18 143/63 92 L 10/04/17 12:00 96.9 F L 63 18 120/58 92 L Intake and Output 10/04/17 10/05/17 10/05/17 22:59 06:59 14:59 Intake Total 120 600 Output Total 600 1400 Balance -480 -800 Intake: Intake, IV Titration 600 Amount Levofloxacin 750Mg-D5w 150 Pmx 750 mg In Dextrose/ Water 1 150ml.bag @ 100 mls/hr IVPB Q24H [facility] Rx#: [id number] Piperacillin-Tazobactam 3 50 .375 gm In Dextrose/Water 1 50ml.bag @ 12.5 mls/hr IVPB Q8HR [facility] Rx#: [id number] Sodium Chloride 0.9% 1, 400 000 ml @ 100 mls/hr IV . Q10H [facility] Rx#:[id number] Oral 120 Output: Urine 600 1400 Other: Voiding Method Indwelling Catheter Indwelling Catheter Weight 99 kg PHYSICAL EXAMINATION: HEENT: Head is atraumatic, normocephalic. Pupils equal, round. Neck is supple. There is no elevated jugular venous pressure. HEART EXAMINATION: Heart S1 and S2, grade 2 over 4 systolic ejection murmur heard at the base. CHEST EXAMINATION: Lungs reveal diminished air entry to bilateral bases. ABDOMEN: Soft, nontender. Bowel sounds are heard. No organomegaly noted. EXTREMITIES: 2+ peripheral pulses with no evidence of peripheral edema and no calf tenderness noted. NEUROLOGIC patient has a right sided facial droop, mild left-sided weakness noted, awake, alert and oriented 3 Results 10/04/17 18:32 10/04/17 18:32 CBC 10/04/17 Range/Units 18:32 WBC 20.9 H (3.8-10.6) k/uL RBC 3.86 L (4.30-5.90) m/uL Hgb 11.9 L (13.0-17.5) gm/dL Hct 37.4 L (39.0-53.0) % Plt Count 192 (150-450) k/uL Comprehensive Metabolic Panel 10/04/17 Range/Units 18:32 Sodium 142 (137-145) mmol/L Potassium 4.2 (3.5-5.1) mmol/L Chloride 108 H (98-107) mmol/L Carbon Dioxide 23 (22-30) mmol/L BUN 31 H (9-20) mg/dL Creatinine 1.20 (0.66-1.25) mg/dL Glucose 184 H (74-99) mg/dL Calcium 9.0 (8.4-10.2) mg/dL Current Medications Generic Name Dose Route Start Last Admin Trade Name Freq PRN Reason Stop Dose Admin Albuterol/Ipratropium 3 ml 10/02/17 20:00 10/05/17 08:32 Duoneb 0.5 Mg-3 Mg/3 Ml Soln INHALATION Not Given RT-QID [facility] Albuterol/Ipratropium 3 ml 10/02/17 20:22 Duoneb 0.5 Mg-3 Mg/3 Ml Soln INHALATION RT-Q2H PRN Shortness Of Breath Or Wheezing Aspirin 81 mg 10/03/17 09:00 10/05/17 08:54 Aspirin PO 81 mg DAILY [facility] Administration Atorvastatin Calcium 80 mg 10/02/17 21:00 10/04/17 20:40 Lipitor PO 80 mg HS [facility] Administration Clopidogrel Bisulfate 75 mg 10/03/17 09:00 10/05/17 08:54 Plavix PO 75 mg DAILY [facility] Administration Donepezil HCl 10 mg 10/03/17 09:00 10/05/17 08:54 Aricept PO 10 mg DAILY [facility] Administration Famotidine 40 mg 10/03/17 09:00 10/05/17 08:55 Pepcid PO 40 mg DAILY [facility] Administration Furosemide 40 mg 10/03/17 09:00 10/05/17 08:55 Lasix PO 40 mg DAILY [facility] Administration Sodium Chloride 1,000 mls @ 100 mls/hr 10/02/17 18:45 10/05/17 06:48 Saline 0.9% IV 100 mls/hr .Q10H [facility] Administration Levofloxacin 750 mg/ IV 150 mls @ 100 mls/hr 10/03/17 19:00 10/04/17 20:44 Solution IVPB 100 mls/hr Q24H [facility] Administration Piperacillin/Tazobactam/ 50 mls @ 12.5 mls/hr 10/03/17 08:00 10/05/17 08:52 Dextrose 3.375 gm/ IV Solution IVPB 12.5 mls/hr Q8HR [facility] Administration Insulin Aspart 0 unit 10/02/17 21:00 10/05/17 06:43 Novolog SQ Not Given ACHS [facility] Protocol Levetiracetam 500 mg 10/02/17 21:00 10/05/17 08:55 Keppra PO 500 mg Q12HR [facility] Administration Melatonin 5 mg 10/04/17 21:30 10/04/17 22:17 Melatonin PO 5 mg HS [facility] Administration Methylprednisolone Sodium Succinate 60 mg 10/03/17 00:00 10/05/17 06:48 Solu-Medrol IV 60 mg Q6HR [facility] Administration Metoprolol Tartrate 25 mg 10/02/17 21:00 10/05/17 08:54 Lopressor PO 25 mg BID [facility] Administration Nicotine 1 patch 10/03/17 09:00 10/05/17 08:55 Habitrol 21mg/24hr Patch TRANSDERM 1 patch DAILY [facility] Administration Oxybutynin Chloride 10 mg 10/03/17 09:00 10/05/17 08:55 Ditropan Xl PO 10 mg DAILY [facility] Administration Potassium Chloride 10 meq 10/03/17 09:00 10/05/17 08:55 K-Dur 10 PO 10 meq DAILY [facility] Administration Sertraline HCl 200 mg 10/03/17 09:00 10/05/17 08:55 Zoloft PO 200 mg DAILY [facility] Administration Tamsulosin HCl 0.8 mg 10/03/17 09:00 10/05/17 08:55 Flomax PO 0.8 mg DAILY [facility] Administration Intake and Output 10/04/17 10/05/17 10/05/17 22:59 06:59 14:59 Intake Total 120 600 Output Total 600 1400 Balance -480 -800 Intake: Intake, IV Titration 600 Amount Levofloxacin 750Mg-D5w 150 Pmx 750 mg In Dextrose/ Water 1 150ml.bag @ 100 mls/hr IVPB Q24H [facility] Rx#: [id number] Piperacillin-Tazobactam 3 50 .375 gm In Dextrose/Water 1 50ml.bag @ 12.5 mls/hr IVPB Q8HR [facility] Rx#: [id number] Sodium Chloride 0.9% 1, 400 000 ml @ 100 mls/hr IV . Q10H [facility] Rx#:[id number] Oral 120 Output: Urine 600 1400 Other: Voiding Method Indwelling Catheter Indwelling Catheter Weight 99 kg 10/04/17 18:32 10/04/17 18:32 EKG Interpretations (text) EKG shows a normal sinus rhythm with no acute changes. Assessment and Plan Plan: Assessment and plan #1 left-sided weakness with associated left-sided facial droop, suggestive of TIA, neurology following #2 history of prior CVAs #3 hypertension #4 hyperlipidemia #5 known history of coronary artery disease, with prior stenting in 2012, most recently patient underwent 3 stents to the RCA last month #6 nicotine dependence #7 COPD #8 history of seizures #9 Moderate aortic stenosis and aortic insufficiency, CRISELDA was performed in July 2017 which revealed a normal left ventricular systolic function, moderate aortic stenosis as well as moderate aortic insufficiency #10 abnormal troponins, patient denies any chest discomfort, EKG shows normal sinus rhythm with no acute changes. #11 mild congestive cardiac failure, diastolic in nature, acute on chronic. Plan We will repeat an echocardiogram with Doppler study. Patient's abnormality in troponin not suggestive of acute coronary syndrome, we will continue aspirin, Lipitor, Plavix, Lasix, metoprolol, nicotine patch. Further recommendations to follow. DNP note has been reviewed, I agree with a documented findings and plan of care. Patient was seen and examined.
[2017-10-05 11:39] LABS: Glucose,Whole Blood 158 mg/dL (75-99)
[2017-10-05 16:40] LABS: Glucose,Whole Blood 146 mg/dL (75-99)
[2017-10-05] MEDS ORDERED: LEVOFLOXACIN 750 MG TAB PO SCH (19:00)
[2017-10-05 20:48] LABS: Glucose,Whole Blood 196 mg/dL (75-99)
[2017-10-05] MEDS: ATORVASTATIN 80 MG TAB PO SCH (21:38)
[2017-10-05] MEDS: MELATONIN 5 MG TABLET PO SCH (21:38)
--- NOTE | 2017-10-05 22:45 | P.PN ---
Subjective Progress Note Date: 10/05/17 This patient is a 72-year-old male being evaluated for TIA versus stroke. Patient presented with symptoms of left-sided weakness and possible recurrent stroke. He has a history of a previous right hemispheric stroke in the past. He has been taking Plavix 75 mg daily for secondary stroke prevention for the past 5 years. He also has a history of underlying seizure disorder and is been taking Keppra 500 mg twice a day. Patient was recommended to undergo MRI of the brain for further evaluation of stroke. MRI of the brain was completed today and reveals only white matter ischemic changes. There was evidence of encephalomalacia medial portion of the left frontal lobe near the vertex. Probable old lacunar infarct in the left cerebellum. No acute stroke was identified on diffusion-weighted imaging. We have also ordered a Keppra blood level which did come back therapeutic at 10.0. Patient states he is feeling much better and has had no further recurrence of weakness or TIA like symptoms. We will continue close neurological follow-up with the patient. He underwent routine EEG today which will be reviewed. He has been much monitored for respiratory distress and is been doing well on oxygen saturation testing. We will continue further monitoring of his condition. Patient now being considered for possible discharge home soon. We will continue to follow his progress closely during this admission. Objective - Vital Signs Vital signs: Vital Signs Temp 97.6 F 10/05/17 12:00 Pulse 60 10/05/17 12:00 Resp 22 10/05/17 12:00 BP 141/66 10/05/17 12:00 Pulse Ox 96 10/05/17 15:11 Intake & Output 10/04/17 10/05/17 10/05/17 18:59 06:59 18:59 Intake Total 1060 600 360 Output Total 1400 2000 Balance -340 -1400 360 Weight 99 kg Intake: Intake, IV Titration 600 Amount Levofloxacin 750Mg-D5w 150 Pmx 750 mg In Dextrose/ Water 1 150ml.bag @ 100 mls/hr IVPB Q24H [facility] Rx#: [id number] Piperacillin-Tazobactam 3 50 .375 gm In Dextrose/Water 1 50ml.bag @ 12.5 mls/hr IVPB Q8HR [facility] Rx#: [id number] Sodium Chloride 0.9% 1, 400 000 ml @ 100 mls/hr IV . Q10H [facility] Rx#:[id number] Oral 1060 360 Output: Urine 1400 2000 Other: Voiding Method Indwelling Catheter Indwelling Catheter Indwelling Catheter # Bowel Movements 4 - Exam Physical examination: PHYSICAL EXAMINATION: Patient is resting comfortably in bed. VITAL SIGNS: Blood pressure is[141/66]. Heart rate is [60]. Respiration is [22] . Temperature is [97.7]. HEENT: Head is atraumatic, neck is supple, there were no carotid bruits. CHEST: Lungs are clear to auscultation and percussion. CARDIAC: S1, S2 normal rate and rhythm. There is no murmur. ABDOMEN: Soft and nontender. Bowel sounds are present. EXTREMITIES: There is no pedal edema. Peripheral pulses are present. Neurological examination: Patient has a nonfocal neurological examination today. He has minimal left- sided hemiparesthesias. - Labs CBC & Chem 7: 10/04/17 18:32 10/04/17 18:32 Labs: Abnormal Lab Results - Last 24 Hours (Table) 10/04/17 10/04/17 10/04/17 Range/Units 16:32 18:32 18:32 WBC 20.9 H (3.8-10.6) k/uL RBC 3.86 L (4.30-5.90) m/uL Hgb 11.9 L (13.0-17.5) gm/dL Hct 37.4 L (39.0-53.0) % Chloride 108 H (98-107) mmol/L BUN 31 H (9-20) mg/dL Glucose 184 H (74-99) mg/dL POC Glucose (mg/dL) 172 H (75-99) mg/dL 10/04/17 10/05/17 10/05/17 Range/Units 20:39 05:59 11:37 WBC (3.8-10.6) k/uL RBC (4.30-5.90) m/uL Hgb (13.0-17.5) gm/dL Hct (39.0-53.0) % Chloride (98-107) mmol/L BUN (9-20) mg/dL Glucose (74-99) mg/dL POC Glucose (mg/dL) 167 H 130 H 158 H (75-99) mg/dL Assessment and Plan (1) TIA (transient ischemic attack) Current Visit: Yes Status: Acute Code(s): G45.9 - TRANSIENT CEREBRAL ISCHEMIC ATTACK, UNSPECIFIED SNOMED Code(s): 666909064 (2) Chronic right arterial ischemic stroke, MCA (middle cerebral artery) Current Visit: Yes Status: Acute Code(s): I69.30 - UNSPECIFIED SEQUELAE OF CEREBRAL INFARCTION SNOMED Code(s): 977752138 (3) COPD exacerbation Current Visit: Yes Status: Acute Code(s): J44.1 - CHRONIC OBSTRUCTIVE PULMONARY DISEASE W (ACUTE) EXACERBATION SNOMED Code(s): 819931896 (4) Weakness Current Visit: Yes Status: Acute Code(s): R53.1 - WEAKNESS SNOMED Code(s) : 92126132 Plan: This patient is a 72-year-old male being evaluated for recent episode of weakness and left facial droop. He underwent MRI of the brain today results of which are noted above. MRI fails to reveal any evidence of acute stroke. He does have history of moderate degree of aortic stenosis and aortic insufficiency. He is being followed closely by cardiology. His Keppra blood level did come back therapeutic today. Neurologically he has had no new symptoms to suggest acute stroke. We will continue further stroke evaluation for the patient is overall prognosis at this time remains guarded.
[2017-10-06] MEDS: PIPERACILLIN-TAZOBACTAM 3.375 GM in DEXTROSE/WATER 1 50ML.BAG IVPB SCH ×2 (00:22→08:57)
[2017-10-06] MEDS: methylPREDNISolone SOD SUCCI 125 MG/2 ML VIAL IV SCH ×3 (00:30→13:03)
[2017-10-06 05:44] LABS: Glucose,Whole Blood 118 mg/dL (75-99)
[2017-10-06] MEDS: INSULIN ASPART 100 UNIT/ML 1 ML 10 ML VIAL SQ SCH ×3 (06:20→13:04)
[2017-10-06] MEDS ORDERED: FUROSEMIDE 10 MG/ML 4 ML VIAL IV SCH (07:00)
[2017-10-06] MEDS ORDERED: FUROSEMIDE 10 MG/ML 2 ML VIAL IV SCH (07:00)
[2017-10-06] MEDS: IPRATROPIUM-ALBUTEROL 3 ML NEB INHALATION SCH ×3 (07:38→15:31)
--- NOTE | 2017-10-06 07:39 | HP ---
HISTORY AND PHYSICAL ADDENDUM: The patient's H and P dictated on 10/04/17 at 18:22 pm, the correct date of service is 10/04/17. MMKHOAL / IJN: [id number] /
--- NOTE | 2017-10-06 07:54 | PN ---
PROGRESS NOTE DATE OF SERVICE: 10/05/2017 PRESENTING COMPLAINT: Possible stroke. INTERVAL HISTORY: This is a patient of Dr. Tricia Guardado, admitted with left-sided weakness, which is improved. According to the , is now back to the baseline. The patient is tolerating a diet. Some wheezing at the baseline. REVIEW OF SYSTEMS: Done for constitutional, cardiovascular, GI, pulmonary; relevant findings as above. CURRENT MEDICATIONS: Reviewed. PHYSICAL EXAMINATION: Temperature 97.6, pulse 60, respiratory 22, blood pressure 114/66, pulse ox 96% on 4 L. GENERAL APPEARANCE: Lying in bed, awake. EYES: Pupils equal, conjunctivae normal. HEENT: External nose and ear normal, oral cavity normal. NECK: JVD not raised. Mass not palpable. RESPIRATORY: Effort normal. LUNGS: Decreased breath sounds. Expiratory wheezing. CARDIOVASCULAR: First and second sounds normal, no edema. ABDOMEN: Soft, nontender. Liver and spleen not palpable. PSYCHIATRY: Alert and oriented x3. Mood and affect normal. NEUROLOGICAL: Power on the left side remains 4/5. INVESTIGATIONS: No blood work from today. MRI shows encephalomalacia from prior infarct in the frontal lobe. ASSESSMENT: 1. Possible acute stroke in the right middle cerebral artery affecting the left side of the body. According to the , patient is still more weak from the baseline on the left side. 2. Chronic congestive heart failure from diastolic dysfunction. Ejection fraction 55%- 60%, likely coronary artery disease. 3. Moderate aortic stenosis and aortic regurgitation, nonrheumatic from recent echocardiogram. 4. Coronary artery disease, prior history of stent. 5. Chronic obstructive pulmonary disease in a heavy smoker. 6. Chronic nicotine dependence, patient is a cigarette smoker. 7. Chronic seizure disorder. 8. Chronic urinary incontinence. 9. Benign prostatic hypertrophy. 10.Obesity; body mass index of 31.2. 11.Acute bronchitis. PLAN: 1. Continue current medication and treatment plan. 2. Hoping the patient can be discharged by tomorrow. MMKHOAL / IJN: [id number] /
[2017-10-06] MEDS: ASPIRIN 81 MG PO SCH (08:49)
[2017-10-06] MEDS: CLOPIDOGREL 75 MG TAB PO SCH (08:49)
[2017-10-06] MEDS: FAMOTIDINE 20 MG TAB PO SCH (08:50)
[2017-10-06] MEDS: DONEPEZIL 10 MG TAB PO SCH (08:50)
[2017-10-06] MEDS: FUROSEMIDE 40 MG TAB PO SCH (08:51)
[2017-10-06] MEDS: METOPROLOL TARTRATE 25 MG TAB PO SCH (08:51)
[2017-10-06] MEDS: levETIRAcetam 500 MG TAB PO SCH (08:51)
[2017-10-06] MEDS: OXYBUTYNIN 10 MG TAB.ER.24 PO SCH (08:52)
[2017-10-06] MEDS: SERTRALINE 100 MG TAB PO SCH (08:53)
[2017-10-06] MEDS: TAMSULOSIN 0.4 MG CAP.ER.24H PO SCH (08:53)
--- NOTE | 2017-10-06 11:00 | EEG ---
ELECTROENCEPHALOGRAM REPORT DATE OF EE10/05/2017 ELECTROENCEPHALOGRAPHIC EXAMINATION REPORT: INDICATION FOR EXAMINATION: This patient is a 72-year-old male being evaluated for TIA versus stroke. The patient presented with new onset of left-sided facial weakness. AGE: 72. EEG FINDINGS: A routine 21 channel awake digital EEG recording was accomplished utilizing the 10-20 international system with bipolar and referential montages. The background activity in the most alert resting state consists of a low to medium amplitude, fairly well- developed and well sustained 7-8 Hz activity over the posterior head regions. This posterior rhythm attenuates to eye opening. There is a small amount of low amplitude 18-20 Hz beta activity seen maximally over the anterior head regions. Muscle and movement artifact was observed on a few occasions during the tracing. Hyperventilation was not performed. Photic stimulation and flash frequencies of 2-30 Hz produced a good symmetrical occipital driving response. No epileptiform discharges were seen. IMPRESSION: This EEG is within normal limits for the patient's age. The EEG failed to reveal any focal, lateralized, or epileptiform abnormalities. Clinical correlation is recommended. MMODL / IJN: [id number] /
[2017-10-06 12:01] LABS: Glucose,Whole Blood 179 mg/dL (75-99)
[2017-10-06 12:22] VITALS: BP 126/60; PULSE 60; RESP 18; TEMP 97.2
[2017-10-06] MEDS: POTASSIUM CHLORIDE ER 10 MEQ TAB.ER.PRT PO SCH (13:04)
--- NOTE | 2017-10-06 13:21 | P.PN ---
Subjective Progress Note Date: 10/06/17 This is a 72-year-old gentleman who follows with Dr. Ingram in the office. He does have history of prior CVAs with mild cognitive impairment, seizures, hypertension, hyperlipidemia, nicotine dependence, moderate aortic stenosis by a CRISELDA that was performed in July 2017. Patient was just recently in the hospital last month at which time he underwent successful stenting of the ostial, proximal, and mid RCA by Dr. Ingram. She was brought to the hospital by EMS because of symptoms of left-sided weakness as well as facial droop which was noted by his . On EMS arrival to the home, patient was found extremely pale and diaphoretic and lethargic. Patient apparently also had been having symptoms of diarrhea and vomiting at home. EMS notes that shortly after arrival patient was alert and oriented 4, left-sided weakness and facial droop had also seemed to resolve by that time. Patient does have a slight right-sided facial droop which is chronic from a prior CVA. Patient denies having any chest discomfort, no difficulty in breathing, no palpitations. EKG on arrival here shows a normal sinus rhythm with no acute changes. CAT scan of the brain reveals old large right frontal lobe cortical infarcts extensive chronic small vessel ischemia in both frontal and parietal lobes. There is progression of the small vessel ischemia as compared with prior exam. MRI of the brain revealed confluent periventricular white matter ischemic changes. Additional white matter changes within the brainstem. Encephalomalacia from prior infarct, probable old listener infarct in the posterior left cerebellum. Chest x-ray shows probable mild heart failure, pulmonary fibrosis, moderate cardiomegaly. Repeat chest x-ray performed this morning revealed mild congestive heart failure with pleural effusions. Blood pressure on arrival here 106/60, 94% on 2 L, temperature 100.6 heart rate 100. Laboratory data was reviewed, white blood cell count 22,000 on admission, 20, 000.9 this morning, hemoglobin 11.9. Sodium 142, potassium 4.2, BUN 31, creatinine 1.2. Troponins 0.06, 0.09, 0.08. BNP level 2710. Influenza A and B were negative. At the time of my examination this morning, patient is lying flat in bed, in no apparent distress. Breathing is stable, denies having any chest discomfort. Still has mild left-sided weakness, right-sided facial droop noted which appears to be chronic. O2 2017 Patient seen and examined this morning, hemodynamically stable. Blood pressure 126/60 with a heart rate in the 60s. Objective - Vital Signs Vital signs: Vital Signs Temp 97.2 F L 10/06/17 12:13 Pulse 60 10/06/17 12:13 Resp 18 10/06/17 12:13 BP 126/60 10/06/17 12:13 Pulse Ox 92 L 10/06/17 08:00 Intake & Output 10/05/17 10/06/17 10/06/17 18:59 06:59 18:59 Intake Total 600 50 180 Output Total 1800 1000 2100 Balance -1200 -950 -1920 Weight 101.5 kg Intake: Intake, IV Titration 50 Amount Piperacillin-Tazobactam 3 50 .375 gm In Dextrose/Water 1 50ml.bag @ 12.5 mls/hr IVPB Q8HR [facility] Rx#: [id number] Oral 600 180 Output: Urine 1800 1000 2100 Other: Voiding Method Indwelling Catheter Indwelling Catheter - Exam PHYSICAL EXAMINATION: HEENT: Head is atraumatic, normocephalic. Pupils equal, round. Neck is supple. There is no elevated jugular venous pressure. HEART EXAMINATION: Heart S1 and S2, grade 2 over 4 systolic ejection murmur heard at the base. CHEST EXAMINATION: Lungs reveal diminished air entry to bilateral bases. ABDOMEN: Soft, nontender. Bowel sounds are heard. No organomegaly noted. EXTREMITIES: 2+ peripheral pulses with no evidence of peripheral edema and no calf tenderness noted. NEUROLOGIC patient has a right sided facial droop, mild left-sided weakness noted, awake, alert and oriented 3 - Labs CBC & Chem 7: 10/04/17 18:32 10/04/17 18:32 Labs: Abnormal Lab Results - Last 24 Hours (Table) 10/05/17 10/05/17 10/06/17 Range/Units 16:37 20:47 05:43 POC Glucose (mg/dL) 146 H 196 H 118 H (75-99) mg/dL 10/06/17 Range/Units 11:43 POC Glucose (mg/dL) 179 H (75-99) mg/dL Assessment and Plan Plan: Assessment and plan #1 left-sided weakness with associated left-sided facial droop, suggestive of TIA, neurology following #2 history of prior CVAs #3 hypertension #4 hyperlipidemia #5 known history of coronary artery disease, with prior stenting in 2012, most recently patient underwent 3 stents to the RCA last month #6 nicotine dependence #7 COPD #8 history of seizures #9 Moderate aortic stenosis and aortic insufficiency, CRISELDA was performed in July 2017 which revealed a normal left ventricular systolic function, moderate aortic stenosis as well as moderate aortic insufficiency #10 abnormal troponins, patient denies any chest discomfort, EKG shows normal sinus rhythm with no acute changes. #11 mild congestive cardiac failure, diastolic in nature, acute on chronic. Plan From cardiology's perspective, we'll follow this patient with you now on an as- needed basis only, please hesitate to call with any questions. He may be able to be discharged once cleared by her primary. DNP note has been reviewed, I agree with a documented findings and plan of care. Patient was seen and examined.
[2017-10-06] MEDS ORDERED: predniSONE 20 MG TAB PO STA (13:34)
--- NOTE | 2017-10-06 16:52 | P.PN ---
Subjective Progress Note Date: 10/06/17 This patient is a 72-year-old male being evaluated for TIA versus stroke. Patient presented with symptoms of left-sided weakness and possible recurrent stroke. He has a history of a previous right hemispheric stroke in the past. He has been taking Plavix 75 mg daily for secondary stroke prevention for the past 5 years. He also has a history of underlying seizure disorder and is been taking Keppra 500 mg twice a day. Patient was recommended to undergo MRI of the brain for further evaluation of stroke. MRI of the brain was completed today and reveals only white matter ischemic changes. There was evidence of encephalomalacia medial portion of the left frontal lobe near the vertex. Probable old lacunar infarct in the left cerebellum. No acute stroke was identified on diffusion-weighted imaging. We have also ordered a Keppra blood level which did come back therapeutic at 10.0. Patient states he is feeling much better and has had no further recurrence of weakness or TIA like symptoms. We will continue close neurological follow-up with the patient. He underwent routine EEG today which will be reviewed. He has been much monitored for respiratory distress and is been doing well on oxygen saturation testing. We will continue further monitoring of his condition. Patient now being considered for possible discharge home soon. Patient has been cleared by Cardiology for discharge home. We will continue to follow his progress closely during this admission. Objective - Vital Signs Vital signs: Vital Signs Temp 97.2 F L 10/06/17 12:13 Pulse 60 10/06/17 12:13 Resp 18 10/06/17 12:13 BP 126/60 10/06/17 12:13 Pulse Ox 92 L 10/06/17 08:00 Intake & Output 10/05/17 10/06/17 10/06/17 18:59 06:59 18:59 Intake Total 600 50 180 Output Total 1800 1000 2100 Balance -1200 -950 -1920 Weight 101.5 kg Intake: Intake, IV Titration 50 Amount Piperacillin-Tazobactam 3 50 .375 gm In Dextrose/Water 1 50ml.bag @ 12.5 mls/hr IVPB Q8HR [facility] Rx#: [id number] Oral 600 180 Output: Urine 1800 1000 2100 Other: Voiding Method Indwelling Catheter Indwelling Catheter - Exam Physical examination: PHYSICAL EXAMINATION: Patient is resting comfortably in bed. VITAL SIGNS: Blood pressure is[126/60]. Heart rate is [60]. Respiration is [18] . Temperature is [97.2]. HEENT: Head is atraumatic, neck is supple, there were no carotid bruits. CHEST: Lungs are clear to auscultation and percussion. CARDIAC: S1, S2 normal rate and rhythm. There is no murmur. ABDOMEN: Soft and nontender. Bowel sounds are present. EXTREMITIES: There is no pedal edema. Peripheral pulses are present. Neurological examination: Patient has a nonfocal neurological examination today. He has minimal left- sided hemiparesis. There is old right facial weakness. - Labs CBC & Chem 7: 10/04/17 18:32 10/04/17 18:32 Labs: Abnormal Lab Results - Last 24 Hours (Table) 10/05/17 10/06/17 10/06/17 Range/Units 20:47 05:43 11:43 POC Glucose (mg/dL) 196 H 118 H 179 H (75-99) mg/dL Assessment and Plan (1) TIA (transient ischemic attack) Status: Acute Code(s): G45.9 - TRANSIENT CEREBRAL ISCHEMIC ATTACK, UNSPECIFIED SNOMED Code(s): 306727894 (2) Chronic right arterial ischemic stroke, MCA (middle cerebral artery) Status: Acute Code(s): I69.30 - UNSPECIFIED SEQUELAE OF CEREBRAL INFARCTION SNOMED Code(s): 965981803 (3) COPD exacerbation Status: Acute Code(s): J44.1 - CHRONIC OBSTRUCTIVE PULMONARY DISEASE W (ACUTE ) EXACERBATION SNOMED Code(s): 284633422 (4) Weakness Status: Acute Code(s): R53.1 - WEAKNESS SNOMED Code(s): 96439273 Plan: This patient is a 72-year-old male being evaluated for recent episode of weakness and left facial droop. He underwent MRI of the brain today results of which are noted above. MRI fails to reveal any evidence of acute stroke. He does have history of moderate degree of aortic stenosis and aortic insufficiency. He is being followed closely by cardiology. His Keppra blood level did come back therapeutic today. Neurologically he has had no new symptoms to suggest acute stroke. Patient to continue current medications for secondary stroke prevention. He has been cleared by Cardiology fo discharge home. We will continue further stroke evaluation for the patient is overall prognosis at this time remains guarded. He is to follow-up with his primary doctor next week. Will follow with you.
--- NOTE | 2017-10-07 06:10 | DS ---
DISCHARGE SUMMARY DATE OF ADMISSION: 10/02/2017 DATE OF DISCHARGE: 10/06/2017 FINAL DIAGNOSES: 1. Possible acute stroke, right middle cerebral artery, affecting the left side of the body. 2. Chronic congestive heart failure from diastolic dysfunction, ejection fraction 55% to 60%, likely coronary artery disease. 3. Moderate aortic stenosis with aortic regurgitation, nonrheumatic from recent echocardiogram. 4. Coronary artery disease, prior history of stent. 5. Chronic obstructive pulmonary disease in a heavy smoker. 6. Chronic nicotine dependence, patient is a cigarette smoker. 7. Chronic seizure disorder. 8. Chronic urinary incontinence. 9. Benign prostatic hypertrophy. 10.Obesity; body mass index 31.2. 11.Acute bronchitis. HOSPITAL COURSE: This patient with some weakness from a prior stroke, presented with more weakness on the left side. EEG did not show any seizure activity. MRI of the brain showed some chronic changes including frontal lobe old stroke. Given the clinical finding, it was felt that patient did have another stroke as the felt that his left side was much weaker. The patient did actually improve. Seen by physical therapy, speech therapy. CONSULTATIONS: Dr. Ashby from Cardiology and Dr. Crista Villavicencio from Neurology. ON EXAM: Subtle weakness on the left side, 4 by 5 still present. LUNGS: Decreased breath sounds. Patient continues to smoke 4 cigarettes a day. Smoke counseling was done today and with . The patient insists that he wishes to continue to smoke and that the patches are too expensive, at least 3 minutes was spent for the smoking counseling. ON EXAM: LUNGS: Decreased breath sounds, mild wheezing. CARDIOVASCULAR: First and second sounds normal. Power on the left side 4 by 5. DISCHARGE MEDICATIONS: 1. Lipitor 80 mg q.h.s. 2. Aricept 10 mg p.o. daily. 3. Lopressor 25 p.o. b.i.d. 4. Zantac 300 mg p.o. daily. 5. Aspirin 81 mg p.o. daily. 6. Lasix 40 mg p.o. daily. 7. Potassium 10 mEq p.o. daily. 8. Zoloft 200 mg p.o. daily. 9. Keppra 500 mg p.o. q.12. 10.Plavix 75 mg p.o. daily. 11.Toviaz 16 mg p.o. daily. 12.Flomax 0.8 mg p.o. daily. 13.DuoNeb t.i.d. 14.Nicotine 21 mg patch. Follow up with Dr. Villavicencio on 10/28/2017. Follow up with Dr. Maradiaga on 10/27/2017. Follow up with Dr. Tricia Mata on 10/13/2017. MMODL / IJN: [id number] /
== END 2017-10-06 16:39 | disposition home or self-care (01) | DRG 64 ==
LOC: EC 16:30 → 6SEL 18:41
PROVIDERS: ADMIT Hospitalist; ATTEND Hospitalist
DX: I63.9 Cerebral infarction, unspecified (principal); I50.33 Acute on chronic diastolic (congestive) heart failure; G93.89 Other specified disorders of brain; I69.351 Hemiplegia and hemiparesis following cerebral infarction affecting right dominant side; G81.94 Hemiplegia, unspecified affecting left nondominant side; J44.0 Chronic obstructive pulmonary disease with (acute) lower respiratory infection; J44.1 Chronic obstructive pulmonary disease with (acute) exacerbation; I11.0 Hypertensive heart disease with heart failure; J84.10 Pulmonary fibrosis, unspecified; I25.10 Atherosclerotic heart disease of native coronary artery without angina pectoris; I35.2 Nonrheumatic aortic (valve) stenosis with insufficiency; J20.9 Acute bronchitis, unspecified; E66.9 Obesity, unspecified; E78.5 Hyperlipidemia, unspecified; F17.210 Nicotine dependence, cigarettes, uncomplicated; N40.0 Benign prostatic hyperplasia without lower urinary tract symptoms; R32 Unspecified urinary incontinence; Z79.02 Long term (current) use of antithrombotics/antiplatelets; Z79.82 Long term (current) use of aspirin; Z79.899 Other long term (current) drug therapy; Z80.1 Family history of malignant neoplasm of trachea, bronchus and lung; Z82.49 Family history of ischemic heart disease and other diseases of the circulatory system; Z95.5 Presence of coronary angioplasty implant and graft; I69.398 Other sequelae of cerebral infarction; R56.9 Unspecified convulsions; Z71.6 Tobacco abuse counseling
CPT/HCPCS: 36415; 70450; 70551; 71046; 80048; 80053; 80061; 80177; 81003; 82550; 82553; 83036; 83880; 84484; 85025; 85027; 85610; 85730; 87086; 87502; 93005; 94644; 94760; 95819; 96361; 96365; 96375; 99285

== ENCOUNTER 2017-12-26 12:15 | Inpatient (IN) | payer MEDICARE ==
[2017-12-26] MEDS ORDERED: SODIUM CHLORIDE 0.9% 1,000 ML IV STA (12:29)
--- NOTE | 2017-12-26 12:32 | ED ---
Neuro HPI - General Chief Complaint: Neuro Symptoms/Deficit Stated Complaint: weakness Time Seen by Provider: 12/26/17 12:21 Source: patient, family, RN notes reviewed Mode of arrival: wheelchair Limitations: no limitations - History of Present Illness Is the patient presenting with stroke symptoms?: Yes Initial Comments: This is a 72-year-old male with a history of 4 previous strokes and a history of using TPA in the past who states he had the onset was 2 days ago of some sweats and subsequent some weakness to his left lower extremity. It persisted into yesterday and apparently is somewhat worse this morning. No palpitations headache dizziness loss of function to his upper extremities no other complaints he believes he had another stroke. Other modifying symptoms - Related Data Home Medications: Home Medications Medication Instructions Recorded Confirmed Atorvastatin [Lipitor] 80 mg PO HS 08/08/14 10/02/17 Donepezil [Aricept] 10 mg PO DAILY 08/08/14 10/02/17 Metoprolol Tartrate [Lopressor] 25 mg PO BID 08/08/14 10/02/17 Ranitidine HCl 300 mg PO DAILY 08/08/14 10/02/17 Aspirin [Adult Low Dose Aspirin EC] 81 mg PO DAILY 09/09/16 10/02/17 Potassium Chloride [K-Tab ER] 10 meq PO DAILY 09/03/17 10/02/17 Sertraline [Zoloft] 200 mg PO DAILY 09/03/17 10/02/17 levETIRAcetam [Keppra] 500 mg PO Q12HR 09/03/17 10/02/17 Fesoterodine Fumarate [Toviaz] 16 mg PO DAILY 10/02/17 10/02/17 Tamsulosin HCl [Flomax] 0.8 mg PO DAILY 10/02/17 10/02/17 Previous Rx's Medication Instructions Recorded Furosemide [Lasix] 40 mg PO DAILY #30 tab 05/26/17 Clopidogrel [Plavix] 75 mg PO DAILY #90 tab 09/09/17 Ipratropium-Albuterol Nebulize 3 ml INHALATION TID #90 ampul.neb 10/06/17 [Duoneb 0.5 mg-3 mg/3 ml Soln] Nicotine 21Mg/24Hr Patch [Habitrol] 1 patch TRANSDERM DAILY #30 patch 10/06/17 Allergies/Adverse Reactions: Allergies Allergy/AdvReac Type Severity Reaction Status Date / Time No Known Allergies Allergy Verified 12/26/17 12:16 Review of Systems ROS Statement: Those systems with pertinent positive or pertinent negative responses have been documented in the HPI. ROS Other: All systems not noted in ROS Statement are negative. General Exam - General Exam Comments Initial Comments: This is a well-developed well-nourished awake alert oriented 3 male Limitations: no limitations General appearance: alert, in no apparent distress Head exam: Present: atraumatic, normocephalic, normal inspection Eye exam: Present: normal appearance, PERRL, EOMI. Absent: scleral icterus, conjunctival injection, periorbital swelling ENT exam: Present: mucous membranes dry Neck exam: Present: normal inspection. Absent: tenderness, meningismus, lymphadenopathy Respiratory exam: Present: normal lung sounds bilaterally. Absent: respiratory distress, wheezes, rales, rhonchi, stridor Cardiovascular Exam: Present: regular rate, normal rhythm, normal heart sounds. Absent: systolic murmur, diastolic murmur, rubs, gallop, clicks GI/Abdominal exam: Present: soft, normal bowel sounds. Absent: distended, tenderness, guarding, rebound, rigid Extremities exam: Present: normal inspection, normal capillary refill. Absent: full ROM (Left lower extremity weakness is demonstrated), tenderness, pedal edema, joint swelling, calf tenderness Back exam: Present: normal inspection Neurological exam: Present: alert, oriented X3, CN II-XII intact, motor sensory deficit (Left lower extremity weakness compared to the right upper extremities are equal and symmetrical with respect to strength.) Psychiatric exam: Present: normal affect, normal mood Skin exam: Present: warm, dry, intact, normal color. Absent: rash Stroke MDM - Lab Data Result diagrams: 12/26/17 12:41 12/26/17 12:41 Lab Results 12/26/17 12/26/17 12/26/17 Range/Units 12:41 12:41 12:41 WBC 12.9 H (3.8-10.6) k/uL RBC 4.17 L (4.30-5.90) m/uL Hgb 12.9 L (13.0-17.5) gm/dL Hct 39.0 (39.0-53.0) % MCV 93.7 (80.0-100.0) fL MCH 31.0 (25.0-35.0) pg MCHC 33.1 (31.0-37.0) g/dL RDW 15.0 (11.5-15.5) % Plt Count 203 (150-450) k/uL Neutrophils % 76 % Lymphocytes % 14 % Monocytes % 7 % Eosinophils % 1 % Basophils % 0 % Neutrophils # 9.8 H (1.3-7.7) k/uL Lymphocytes # 1.8 (1.0-4.8) k/uL Monocytes # 0.9 (0-1.0) k/uL Eosinophils # 0.1 (0-0.7) k/uL Basophils # 0.1 (0-0.2) k/uL PT (9.0-12.0) sec INR (<1.2) APTT (22.0-30.0) sec Sodium 145 (137-145) mmol/L Potassium 4.1 (3.5-5.1) mmol/L Chloride 107 (98-107) mmol/L Carbon Dioxide 19 L (22-30) mmol/L Anion Gap 19 mmol/L BUN 38 H (9-20) mg/dL Creatinine 1.20 (0.66-1.25) mg/dL Est GFR (CKD-EPI)AfAm 71 (>60 ml/min/1.73 sqM) Est GFR (CKD-EPI)NonAf 61 (>60 ml/min/1.73 sqM) Glucose 155 H (74-99) mg/dL Calcium 9.8 (8.4-10.2) mg/dL Magnesium 2.0 (1.6-2.3) mg/dL Total Bilirubin 0.6 (0.2-1.3) mg/dL AST 18 (17-59) U/L ALT 28 (21-72) U/L Alkaline Phosphatase 96 (38-126) U/L Total Creatine Kinase 76 (55-170) U/L CK-MB (CK-2) 0.9 (0.0-2.4) ng/mL CK-MB (CK-2) Rel Index 1.2 Troponin I 0.053 H* (0.000-0.034) ng/mL Total Protein 7.0 (6.3-8.2) g/dL Albumin 4.3 (3.5-5.0) g/dL 12/26/17 Range/Units 12:41 WBC (3.8-10.6) k/uL RBC (4.30-5.90) m/uL Hgb (13.0-17.5) gm/dL Hct (39.0-53.0) % MCV (80.0-100.0) fL MCH (25.0-35.0) pg MCHC (31.0-37.0) g/dL RDW (11.5-15.5) % Plt Count (150-450) k/uL Neutrophils % % Lymphocytes % % Monocytes % % Eosinophils % % Basophils % % Neutrophils # (1.3-7.7) k/uL Lymphocytes # (1.0-4.8) k/uL Monocytes # (0-1.0) k/uL Eosinophils # (0-0.7) k/uL Basophils # (0-0.2) k/uL PT 10.7 (9.0-12.0) sec INR 1.1 (<1.2) APTT 25.3 (22.0-30.0) sec Sodium (137-145) mmol/L Potassium (3.5-5.1) mmol/L Chloride (98-107) mmol/L Carbon Dioxide (22-30) mmol/L Anion Gap mmol/L BUN (9-20) mg/dL Creatinine (0.66-1.25) mg/dL Est GFR (CKD-EPI)AfAm (>60 ml/min/1.73 sqM) Est GFR (CKD-EPI)NonAf (>60 ml/min/1.73 sqM) Glucose (74-99) mg/dL Calcium (8.4-10.2) mg/dL Magnesium (1.6-2.3) mg/dL Total Bilirubin (0.2-1.3) mg/dL AST (17-59) U/L ALT (21-72) U/L Alkaline Phosphatase (38-126) U/L Total Creatine Kinase (55-170) U/L CK-MB (CK-2) (0.0-2.4) ng/mL CK-MB (CK-2) Rel Index Troponin I (0.000-0.034) ng/mL Total Protein (6.3-8.2) g/dL Albumin (3.5-5.0) g/dL - NIH Stroke Scale 1a. Level of Consciousness: (0) alert 1b. LOC Questions: (0) answers correctly 1c. LOC Commands: (0) performs tasks correctly 2. Best Gaze: (0) normal 3. Visual: (0) no visual loss 4. Facial Palsy: (0) normal symmetrical movement 5a. Motor Arm Left: (0) no drift 5b. Motor Arm Right: (0) no drift 6a. Motor Leg Left: (2) some gravity effort 6b. Motor Leg Right: (0) no drift 7. Limb Ataxia: (0) absent 8. Sensory: (0) normal 9. Best Language: (0) no aphasia 10. Dysarthria: (0) normal 11. Extinction/Inattention: (0) no abnormality - Thrombolytic Inclusion/Exclusion Thrombolytic Exclusion Criteria: Symptom Onset > 3 Hours - Medical Decision Making I did review the imaging and report no acute findings. Reevaluation patient reveals no acute findings. Patient's had no chest pain he is a heavy smoker. Patient has seen Dr. Villavicencio in the past she will be admitted with consultation by neurology. I did discuss this case with Dr. Cooley. The patient is not a candidate for intervention at this time - EKG Data -: EKG Interpreted by Me EKG shows normal: sinus rhythm (Sinus rhythm first-degree AV block prolonged QT of the rate was 77 appear interval 408 QRS 90 QT since QTC of 432/488) Past Medical History Past Medical History: Coronary Artery Disease (CAD), Heart Failure, COPD, CVA/ TIA, Seizure Disorder Additional Past Medical History / Comment(s): CVA 2007,2009(x3)- -uses walker-, heart murmer, OCC incontinence of urine/stool-weara a brief, last seizure couple yrs ago History of Any Multi-Drug Resistant Organisms: None Reported Past Surgical History: Appendectomy, Heart Catheterization With Stent, Tonsillectomy Additional Past Surgical History / Comment(s): one cardiac stent Past Anesthesia/Blood Transfusion Reactions: No Reported Reaction Date of Last Stent Placement:: 2010 Past Psychological History: No Psychological Hx Reported Smoking Status: Current every day smoker Past Alcohol Use History: None Reported Past Drug Use History: None Reported - Past Family History Mother Family Medical History: Cancer Additional Family Medical History / Comment(s): lung cancer Father Family Medical History: Myocardial Infarction ([place]) Additional Family Medical History / Comment(s): lived to age 92 Course Vital Signs 12/26/17 12/26/17 12:16 14:02 Temperature 97.4 F L Pulse Rate 60 91 Respiratory 20 18 Rate Blood Pressure 143/62 117/67 O2 Sat by Pulse 94 L 94 L Oximetry - Reevaluation(s) Reevaluation #1: 12/26/17 14:38 Reevaluation patient reveals no change in his status. Critical Care Time Critical Care Time: Yes Critical Care Time: 31 minutes of critical care time which includes initial presentation with history physical labs x-rays reevaluation patient. Discussed with the patient family regarding findings review of old charting discussed with the admitting physician admission orders and documentation of the above Disposition Clinical Impression: Cerebrovascular accident, Elevated troponin Disposition: ADMITTED IP TO THIS [facility] Condition: Stable Referrals: Tricia Mata DO [Primary Care Provider] - 1-2 days
[2017-12-26 12:55] LABS: Basophils # (A) 0.1 k/uL (0-0.2); Basophils % (A) 0 %; Eosinophils # (A) 0.1 k/uL (0-0.7); Eosinophils % (A) 1 %; HGB 12.9 gm/dL (13.0-17.5); Lymphocytes # (A) 1.8 k/uL (1.0-4.8); Lymphocytes % (A) 14 %; MCHC 33.1 g/dL (31.0-37.0); MCV 93.7 fL (80.0-100.0); Mean Platelet Volume 8.5; Monocytes # (A) 0.9 k/uL (0-1.0); Monocytes % (A) 7 %; Neutrophils # (A) 9.8 k/uL (1.3-7.7); Neutrophils % (A) 76 %; Platelet Count 203 k/uL (150-450); RBC 4.17 m/uL (4.30-5.90); WBC 12.9 k/uL (3.8-10.6)
[2017-12-26 13:04] LABS: Albumin 4.3 g/dL (3.5-5.0); Calcium 9.8 mg/dL (8.4-10.2); INR 1.1 (<1.2); Partial Thromboplastin Time 25.3 sec (22.0-30.0); Potassium 4.1 mmol/L (3.5-5.1); Prothrombin Time 10.7 sec (9.0-12.0); Total Bilirubin 0.6 mg/dL (0.2-1.3)
--- NOTE | 2017-12-26 13:19 | CT ---
EXAMINATION TYPE: CT brain wo con DATE OF EXAM: 12/26/2017 COMPARISON: Previous study dated 10/02/2017. HISTORY: Weakness CT DLP: 995.50 mGycm Automated exposure control for dose reduction was used. FINDINGS: Been a previous right frontal infarct. There is diffuse periventricular white matter lucency, compati ble with chronic white matter ischemic change. There is no mass effect, midline shift or intracranial blood. There is chronic mucoperiosteal thickening involving the ethmoid sinuses. The bony calvarium is intac t. IMPRESSION: 1. NO ACUTE INTRACRANIAL ABNORMALITY. 2. PREVIOUS RIGHT FRONTAL INFARCT. 3. DEGENERATIVE CHANGE. 4. MILD, CHRONIC ETHMOIDAL SINUS MUCOSAL DISEASE.
--- NOTE | 2017-12-26 13:21 | XR ---
EXAMINATION TYPE: XR chest 2V DATE OF EXAM: 12/26/2017 HISTORY: altered mental status. REFERENCE: Previous study dated 10/04/2017. FINDINGS: The heart is enlarged. There is vascular congestion and worsening edema. I could not exclud e a small left effusion. IMPRESSION: CONTINUING CHANGES OF CONGESTIVE HEART FAILURE.
[2017-12-26 13:29] LABS: Creatine Kinase MB 0.9 ng/mL (0.0-2.4)
[2017-12-26 13:31] LABS: Troponin I 0.053 ng/mL (0.000-0.034)
[2017-12-26] MEDS ORDERED: NICOTINE 21MG/24HR PATCH TRANSDERM STA (14:37)
[2017-12-26 17:08] VITALS: BMI 31.4
[2017-12-26] MEDS: SODIUM CHLORIDE 0.9% 1,000 ML IV SCH (19:18)
[2017-12-26] MEDS: ATORVASTATIN 80 MG TAB PO SCH (20:19)
[2017-12-26] MEDS: levETIRAcetam 500 MG TAB PO SCH (20:19)
--- NOTE | 2017-12-26 20:53 | P.CNNES ---
History of Present Illness Consult date: 12/26/17 Reason for Consult: Patient being evaluated for left leg weakness and TIA vs. stroke. History of Present Illness: This patient is a 72-year-old right-handed white male who apparently 2 days ago headaches pain symptoms of left leg weakness and excessive sweating. He had been seen previously by his primary care physician Dr. Tricia Mata and inquiry was made regarding his sweating episode. The patient did not pay much heat to this clinical finding and decided to go home and continue to do fairly well but 2 days ago noticed weakness in his left leg. He has a history of 4 previous strokes and has been administered tPA for one of these events. He was brought into the emergency room today for further evaluation of the left leg weakness. He was seen in the ER by Dr. Dunlap. Patient was sent for a computed tomography scan of the brain soon after evaluation in the ER and the results indicated no acute intracranial abnormality. Previous right frontal lobe infarct was once again noted. Degenerative changes and chronic sinusitis was noted. Patient's symptoms began 2 days ago and was not a candidate for TPA as he was outside the therapeutic window. His NIH stroke scale in the ER today was 2.0. He was subsequent admitted to the hospital for further neurological evaluation and recommendations. Patient states he has been taking his Plavix and aspirin on a regular basis. He does have history of underlying aortic stenosis and is followed in the cardiology clinic with Dr. Maradiaga. He underwent recent carotid Doppler study at the cardiology office and we will obtain these test results. Patient states he does take 80 mg of Lipitor daily. Due to his previous strokes he has been very cautious and monitoring for any recurrent episodes of TIA and stroke. As noted his CAT scan of the brain was reviewed and we are recommending the patient to have a MRI of the brain for further assessment. The patient states his speech has remained clear with no obvious aphasia. Between his left arm and leg the left leg is weaker. His who is at bedside states that 2 days ago he could hardly lift the left leg at all. Today he is able to lift the leg fairly well but still weaker. The patient is now admitted and neurology has been consulted for further evaluation and recommendations. Review of Systems Constitutional: Denies chills, Denies fever Eyes: denies blurred vision, denies pain Ears, nose, mouth and throat: Denies headache, Denies sore throat Cardiovascular: Denies chest pain, Denies shortness of breath Gastrointestinal: Denies abdominal pain, Denies diarrhea, Denies nausea, Denies vomiting Musculoskeletal: Denies myalgias Integumentary: Denies pruritus, Denies rash Neurological: Reports change in speech, Reports motor disturbance, Reports paresthesias, Reports transient paralysis, Denies numbness, Denies weakness Psychiatric: Denies anxiety, Denies depression Endocrine: Denies fatigue, Denies weight change Past Medical History Past Medical History: Coronary Artery Disease (CAD), Heart Failure, COPD, CVA/ TIA, Seizure Disorder Additional Past Medical History / Comment(s): CVA 2007,2009(x3)- -uses walker-, heart murmer, OCC incontinence of urine/stool-weara a brief, last seizure couple yrs ago History of Any Multi-Drug Resistant Organisms: None Reported Past Surgical History: Appendectomy, Heart Catheterization With Stent, Tonsillectomy Additional Past Surgical History / Comment(s): one cardiac stent Past Anesthesia/Blood Transfusion Reactions: No Reported Reaction Date of Last Stent Placement:: 2010 Smoking Status: Current every day smoker - Past Family History Mother Family Medical History: Cancer Additional Family Medical History / Comment(s): lung cancer Father Family Medical History: Myocardial Infarction ([place]) Additional Family Medical History / Comment(s): lived to age 92 Medications and Allergies Home Medications Medication Instructions Recorded Confirmed Type Atorvastatin [Lipitor] 80 mg PO HS 08/08/14 12/26/17 History Donepezil [Aricept] 10 mg PO DAILY 08/08/14 12/26/17 History Metoprolol Tartrate [Lopressor] 25 mg PO BID 08/08/14 12/26/17 History Ranitidine HCl 300 mg PO HS 08/08/14 12/26/17 History Aspirin [Adult Low Dose Aspirin EC] 81 mg PO DAILY 09/09/16 12/26/17 History Furosemide [Lasix] 40 mg PO DAILY #30 tab 05/26/17 12/26/17 Rx Potassium Chloride [K-Tab ER] 10 meq PO DAILY 09/03/17 12/26/17 History Sertraline [Zoloft] 200 mg PO DAILY 09/03/17 12/26/17 History levETIRAcetam [Keppra] 500 mg PO Q12HR 09/03/17 12/26/17 History Clopidogrel [Plavix] 75 mg PO DAILY #90 tab 09/09/17 12/26/17 Rx Fesoterodine Fumarate [Toviaz] 16 mg PO DAILY 10/02/17 12/26/17 History Tamsulosin HCl [Flomax] 0.8 mg PO DAILY 10/02/17 12/26/17 History Ipratropium-Albuterol Nebulize 3 ml INHALATION RT-QID PRN 12/26/17 12/26/17 History [Duoneb 0.5 mg-3 mg/3 ml Soln] Zolpidem [Ambien] 10 mg PO HS PRN 12/26/17 12/26/17 History Allergies Allergy/AdvReac Type Severity Reaction Status Date / Time No Known Allergies Allergy Verified 12/26/17 14:48 Physical Examination - Vital Signs Vital Signs: Vital Signs Temp Pulse Pulse Resp BP BP Pulse Ox 12/26/17 15:03 97.6 F 84 16 110/67 95 12/26/17 15:00 97.8 F 87 18 130/63 94 L 12/26/17 14:02 91 18 117/67 94 L 12/26/17 12:16 97.4 F L 60 20 143/62 94 L Intake and Output 12/26/17 12/26/17 12/26/17 06:59 14:59 22:59 Other: Weight 97.976 kg 99.4 kg - Constitutional General appearance: average body habitus, cooperative - EENT EENT: PERRL, mucous membranes moist - Respiratory Respiratory: lungs clear, normal breath sounds - Cardiovascular Cardiovascular: regular rate, normal S1, normal S2 Extremities: no peripheral edema bilaterally - Gastrointestinal Gastrointestinal: normoactive bowel sounds - Integumentary Integumentary: normal - Neurologic Cranial nerve examination: PERRL, EOMI, VFF, V1/V2/V3 grossly intact, tongue midline, intact gag reflex, intact corneal reflex, facial droop (Patient has a left upper motor neuron facial weakness pattern.), normal palatal elevation Speech examination: intact Sensorimotor examination: intact Motor examination - right side: 4/5: biceps, triceps, wrist flexion, wrist extension, family services specialist, hip flexors, knee extensors, dorsiflexion, toe extension (EHL) , plantarflexion Motor examination - left side: 3/5: hip flexors, knee extensors, dorsiflexion, toe extension (EHL), plantarflexion, 4/5: biceps, triceps, wrist flexion, wrist extension, family services specialist Detailed sensory examination: intact Reflex and gait examination: intact Reflexes: 1+: ankle, bicep, knee, tricep - Musculoskeletal Musculoskeletal: no pain - Psychiatric Psychiatric: mood/affect appropriate, cooperative Results - Laboratory Findings CBC and BMP: 12/26/17 12:41 12/26/17 12:41 Abnormal Lab Findings: Abnormal Labs 12/26/17 12/26/17 12/26/17 12:41 12:41 12:41 WBC 12.9 H RBC 4.17 L Hgb 12.9 L Neutrophils # 9.8 H Carbon Dioxide 19 L BUN 38 H Glucose 155 H Troponin I 0.053 H* Assessment and Plan (1) TIA (transient ischemic attack) Current Visit: No Status: Acute Code(s): G45.9 - TRANSIENT CEREBRAL ISCHEMIC ATTACK, UNSPECIFIED SNOMED Code(s): 728768540 (2) Chronic right arterial ischemic stroke, MCA (middle cerebral artery) Current Visit: No Status: Acute Code(s): I69.30 - UNSPECIFIED SEQUELAE OF CEREBRAL INFARCTION SNOMED Code(s): 290624865 (3) History of aortic stenosis Current Visit: Yes Status: Acute Code(s): Z86.79 - PERSONAL HISTORY OF OTHER DISEASES OF THE CIRCULATORY SYSTEM SNOMED Code(s): 477343326 (4) Elevated troponin Current Visit: Yes Status: Acute Code(s): R74.8 - ABNORMAL LEVELS OF OTHER SERUM ENZYMES SNOMED Code(s): 893362966 Plan: This patient is a 72-year-old right-handed white male admitted to hospital with 2 day history of left leg weakness. Patient has history of 4 previous strokes over the years. He was brought into the emergency room where he complained of increased weakness in his left leg. He underwent a computed tomography scan of the brain results which are noted above. Neurological examination reveals left lower extremity weakness. His clinical findings suggest possibility of recurrent right MCA stroke. We recommend patient undergo full stroke evaluation. We will obtain an MRI of the brain tomorrow for further assessment. Patient is to continue on Plavix and aspirin for secondary stroke prevention. May consider cardiology consultation due to findings of hypotension and bradycardia. He does have history of aortic stenosis in the past and is followed by Dr. Maradiaga. According to his the patient underwent recent carotid ultrasound at the cardiology office. We will have nursing staff obtain the copy of this recent carotid Doppler ultrasound and have it posted to his chart. They are waiting for the actual final report on this study that was done last week. In the meantime we will continue complete stroke evaluation for this patient. We will continue close neurological follow-up for the patient. Case was discussed at length with the patient and his at bedside. All of their questions were answered. She is aware of his guarded condition. We will continue close neurological follow-up of the patient during this admission. Time with Patient: Greater than 30
[2017-12-26] MEDS ORDERED: METOPROLOL TARTRATE 25 MG TAB PO SCH (21:00)
[2017-12-26] MEDS: IPRATROPIUM-ALBUTEROL 3 ML NEB INHALATION SCH (21:05)
[2017-12-26] MEDS: ZOLPIDEM 10 MG TAB PO PRN (21:39)
[2017-12-27 07:13] LABS: Cholesterol 139 mg/dL (<200); HDL Cholesterol 42 mg/dL (40-60); LDL Cholesterol,Calculated 82 mg/dL (0-99); Triglycerides 76 mg/dL (<150)
[2017-12-27] MEDS: IPRATROPIUM-ALBUTEROL 3 ML NEB INHALATION SCH ×3 (08:08→20:00)
[2017-12-27] MEDS: levETIRAcetam 500 MG TAB PO SCH ×2 (09:12→20:23)
[2017-12-27] MEDS: FUROSEMIDE 40 MG TAB PO SCH (09:12)
[2017-12-27] MEDS: OXYBUTYNIN XL 5 MG TAB.ER.24 PO SCH (09:12)
[2017-12-27] MEDS: SERTRALINE 100 MG TAB PO SCH (09:12)
[2017-12-27] MEDS: TAMSULOSIN 0.4 MG CAP.ER.24H PO SCH (09:12)
[2017-12-27] MEDS: CLOPIDOGREL 75 MG TAB PO SCH (09:12)
[2017-12-27] MEDS: FAMOTIDINE 20 MG TAB PO SCH (09:12)
[2017-12-27] MEDS: ASPIRIN 81 MG PO SCH (09:12)
[2017-12-27] MEDS: POTASSIUM CHLORIDE ER 10 MEQ TAB.ER.PRT PO SCH (09:12)
[2017-12-27] MEDS: NICOTINE 21MG/24HR PATCH TRANSDERM SCH (09:13)
[2017-12-27] MEDS: DONEPEZIL 10 MG TAB PO SCH (09:13)
--- NOTE | 2017-12-27 13:16 | P.HPIM ---
History of Present Illness H&P Date: 12/27/17 Chief Complaint: Left-sided weakness This is a 72-year-old gentleman with past medical history prior CVA with left- sided hemiparesis presented to emergency room with left lower extremity weakness , numbness and excessive sweating. He progressively worse. He is generally bedbound and is usually able to walk around with a walker at home. He had multiple CVAs in the past. Patient is also known to have chronic peripheral vascular occlusive disease and CAD with prior stent placement. He continues to smoke 2 packs per day. He is not interested in quitting smoking. He was evaluated in the emergency room and a computed tomography scan of the brain showed no acute findings. He was admitted to the hospital for further evaluation. He had similar presentation approximately a month ago. Since admission, patient was noted to have episodes of frequent heart possible with evidence of heart block on telemetry monitoring. He is a symptomatic other than occasionally having diffuse sweating. He denies chest pain. Review of Systems Review of system: 14 points review of systems were obtained and were negative except to what were mentioned in the HPI. Past Medical History Past Medical History: Coronary Artery Disease (CAD), Heart Failure, COPD, CVA/ TIA, Seizure Disorder Additional Past Medical History / Comment(s): CVA 2007,2009(x3)- -uses walker-, heart murmer, OCC incontinence of urine/stool-weara a brief, last seizure couple yrs ago History of Any Multi-Drug Resistant Organisms: None Reported Past Surgical History: Appendectomy, Heart Catheterization With Stent, Tonsillectomy Additional Past Surgical History / Comment(s): one cardiac stent Past Anesthesia/Blood Transfusion Reactions: No Reported Reaction Date of Last Stent Placement:: 2010 Smoking Status: Current every day smoker - Past Family History Mother Family Medical History: Cancer Additional Family Medical History / Comment(s): lung cancer Father Family Medical History: Myocardial Infarction ([place]) Additional Family Medical History / Comment(s): lived to age 92 Medications and Allergies Home Medications Medication Instructions Recorded Confirmed Type Atorvastatin [Lipitor] 80 mg PO HS 08/08/14 12/26/17 History Donepezil [Aricept] 10 mg PO DAILY 08/08/14 12/26/17 History Metoprolol Tartrate [Lopressor] 25 mg PO BID 08/08/14 12/26/17 History Ranitidine HCl 300 mg PO HS 08/08/14 12/26/17 History Aspirin [Adult Low Dose Aspirin EC] 81 mg PO DAILY 09/09/16 12/26/17 History Furosemide [Lasix] 40 mg PO DAILY #30 tab 05/26/17 12/26/17 Rx Potassium Chloride [K-Tab ER] 10 meq PO DAILY 09/03/17 12/26/17 History Sertraline [Zoloft] 200 mg PO DAILY 09/03/17 12/26/17 History levETIRAcetam [Keppra] 500 mg PO Q12HR 09/03/17 12/26/17 History Clopidogrel [Plavix] 75 mg PO DAILY #90 tab 09/09/17 12/26/17 Rx Fesoterodine Fumarate [Toviaz] 16 mg PO DAILY 10/02/17 12/26/17 History Tamsulosin HCl [Flomax] 0.8 mg PO DAILY 10/02/17 12/26/17 History Ipratropium-Albuterol Nebulize 3 ml INHALATION RT-QID PRN 12/26/17 12/26/17 History [Duoneb 0.5 mg-3 mg/3 ml Soln] Zolpidem [Ambien] 10 mg PO HS PRN 12/26/17 12/26/17 History Allergies Allergy/AdvReac Type Severity Reaction Status Date / Time No Known Allergies Allergy Verified 12/26/17 14:48 Physical Exam Vitals: Vital Signs Temp Pulse Pulse Resp BP BP Pulse Ox 12/27/17 11:45 93 16 129/55 92 L 12/27/17 11:20 16 12/27/17 08:00 16 12/27/17 07:41 98.2 F 80 16 104/66 95 12/27/17 04:00 98 17 128/70 94 L 12/27/17 00:00 97.8 F 91 18 112/52 93 L 12/26/17 21:28 80 12/26/17 21:10 78 12/26/17 20:00 97.0 F L 85 17 157/79 96 12/26/17 17:41 83 16 109/68 96 12/26/17 16:41 84 16 110/67 97 12/26/17 16:00 84 16 12/26/17 15:03 97.6 F 84 16 110/67 95 12/26/17 15:00 97.8 F 87 18 130/63 94 L 12/26/17 14:02 91 18 117/67 94 L Intake and Output 12/26/17 12/27/17 12/27/17 22:59 06:59 14:59 Intake Total 60 360 Output Total 400 Balance 60 -400 360 Intake: IV 60 Sodium Chloride 0.9% 1, 60 000 ml @ 20 mls/hr IV . Q24H YONI Rx#:[id number] Oral 360 Output: Urine 400 Straight 400 Other: # Voids 1 # Bowel Movements 1 1 Weight 99.4 kg 0 g General: The patient is awake and alert, in no distress Eye: there is normal conjunctiva bilaterally. Neck: The neck is supple, there is no JVD. Cardiovascular: Normal S1-S2, no S3-S4, no murmurs. Respiratory: Lungs clear to auscultation bilaterally Gastrointestinal: Abdomen is soft, nontender Musculoskeletal: There is no pedal edema. Neurological:. Speech is normal. Skin: Skin is warm and dry Results CBC & Chem 7: 12/26/17 12:41 12/26/17 12:41 Labs: Abnormal Lab Results - Last 24 Hours (Table) 12/26/17 Range/Units 12:41 Troponin I 0.053 H* (0.000-0.034) ng/mL Thrombosis Risk Factor Assmnt - Choose All That Apply Each Factor Represents 1 point: Abnormal pulmonary function (COPD) Each Risk Factor Represents 2 Points: Age 61-74 years Thrombosis Risk Factor Assessment Total Risk Factor Score: 3 Thrombosis Risk Factor Assessment Level: Moderate Risk Assessment and Plan Assessment: 1. Suspected TIA/stroke: Patient was seen and evaluated by neurology. MRI of the brain ordered for further evaluation. Computed tomography scan of the brain with no acute findings. 2. Evidence of heart block on telemetry monitoring with frequent pauses. I would consult cardiology for further evaluation. May be a candidate for pacemaker implantation. 3. Troponin elevation, may be non-thrombotic troponin leak. Patient denies any chest pain at this time. Cardiology consulted. 4. History of coronary artery disease stent placement 5. Peripheral vascular occlusive disease maintained on dual antiplatelet therapy 6. Tobacco abuse: Counseled to quit. Patient is not interested and wants to continue smoking. Nicotine patch ordered
--- NOTE | 2017-12-27 17:07 | CONS ---
CONSULTATION This patient's medical record was reviewed. The patient is admitted with a complaint of weakness and numbness on the left side for about 2 days prior to the duration. The CT scan did not show any significant change from before. The patient recently was in the hospital in October with similar complaints. This patient has history of multiple strokes in the past. He had received tPA on 1 side. MRI done last time showed evidence of old infarct. The patient was evaluated by a neurologist and an MRI is going to be repeated. Patient has EKG shows evidence of first-degree AV block, and intermittent Wenckebach type of second-degree AV block. The patient had an episode yesterday in the evening where his eye rolled over. He became sweaty and he was also probably incontinent. It is not clear whether patient had any seizure like activity. The patient thinks he had a seizure but at that time the patient had high-degree AV block noted. Patient continues to have intermittent Mobitz type 1 AV block since then. The patient has been treated for the seizure disorder. Last EEG done 2 months ago did not show any seizure activity. PAST MEDICAL HISTORY: Includes history of multiple strokes, history of appendicectomy, prior history of cardiac catheterization and stent to the RCA and the patient had a CRISELDA done in July of 2017 which did not show any significant abnormality. HOME MEDICATIONS: Include Lipitor 80 mg daily, Aricept 10 once a day, Lopressor 25 mg b.i.d., Lasix 40 mg daily, Zoloft once a day, Keppra 500 mg twice a day and Plavix 75 mg daily. PHYSICAL EXAMINATION: At present reveals a 72-year-old gentleman who is not in any acute distress. Patient's heart rate is 65 per minute, blood pressure is 143/62 mmHg. Head/ENT examination is negative. NECK: Supple. There is no increase in jugular venous pressure. Both the carotid pulses are felt. There is no bruit. Chest is symmetrical. Heart the PMI is not felt. First and second heart sounds are normal. There is no evidence of any murmur. Lungs are clinically clear to auscultation and percussion. Abdomen is negative. EKG shows normal sinus rhythm with first-degree AV block and Wenckebach type of second- degree AV block. The patient's initial troponin was mildly elevated. It was also elevated during the previous admission. The patient's proBNP level is 6600. FINAL IMPRESSION: This patient is admitted with either transient ischemic attack or recurrent stroke. Repeat MRI is awaited. The patient had an episode yesterday where he had either a vasovagal episode or seizure activity and had a high-degree AV block. I am not exactly clear that the patient's high degree AV block was secondary to vasovagal episode or patient passed out because of the bradycardia. The patient continues. Patient has evidence of intermittent Wenckebach type of 2nd degree AV block. His Lopressor is discontinued. We will continue to monitor the patient to see whether patient develops any symptomatic Jin arrhythmia. If definite symptomatic Jin arrhythmias are documented then patient may need a permanent pacemaker. MMODL / IJN: [id number] /
--- NOTE | 2017-12-27 18:31 | P.PN ---
Subjective Progress Note Date: 12/27/17 This patient is a 72-year-old male who is being evaluated for symptoms of left- sided weakness and some slurred speech. Patient has history of previous stroke in the past. He was brought into the emergency room as he was having difficulty with left lower extremity weakness as well as numbness. He has residual symptoms from previous strokes in the past. He continues to smoke 2 packs a day but is aware of the risk factor for stroke with his chronic smoking habit. He is also being evaluated for heart block which is been detected on telemetry. Cardiology has been consulted. Patient was seen by cardiology today. We have discontinued his Lopressor. He is to be evaluated for possibility of bradycardia arrhythmia which if documented he may require pacemaker. Patient's symptoms suggest vasovagal syncope versus seizure. He shouldn't is being treated for underlying seizure disorder and is currently on Keppra monotherapy. We are still awaiting the laboratory test results regarding his Keppra blood level. We will continue close neurological follow- up with the patient for further evaluation of possible TIA versus stroke. He is scheduled to undergo MRI of the brain hopefully tomorrow. His overall prognosis at this time remains guarded. Objective - Vital Signs Vital signs: Vital Signs Temp 98.2 F 12/27/17 07:41 Pulse 93 12/27/17 11:45 Resp 16 12/27/17 11:45 BP 129/55 12/27/17 11:45 Pulse Ox 92 L 12/27/17 11:45 Intake & Output 12/26/17 12/27/17 12/27/17 18:59 06:59 18:59 Intake Total 60 360 Output Total 400 Balance -340 360 Weight 99.4 kg 0 g Intake: IV 60 Sodium Chloride 0.9% 1, 60 000 ml @ 20 mls/hr IV . Q24H YONI Rx#:[id number] Oral 360 Output: Urine 400 Straight 400 Other: # Voids 1 # Bowel Movements 1 - Exam Physical examination: PHYSICAL EXAMINATION: Patient is resting comfortably in bed. VITAL SIGNS: Blood pressure is [129/55]. Heart rate is [93]. Respiration is [16] . Temperature is [98.2]. HEENT: Head is atraumatic, neck is supple, there were no carotid bruits. CHEST: Lungs are clear to auscultation and percussion. CARDIAC: S1, S2 normal rate and rhythm. There is no murmur. ABDOMEN: Soft and nontender. Bowel sounds are present. EXTREMITIES: There is no pedal edema. Peripheral pulses are present. Neurological examination: Patient's neurological examination is unchanged from yesterday. He is noticing improvement with left leg weakness and able to move the leg better today. - Labs CBC & Chem 7: 12/26/17 12:41 12/26/17 12:41 Assessment and Plan (1) TIA (transient ischemic attack) Current Visit: No Status: Acute Code(s): G45.9 - TRANSIENT CEREBRAL ISCHEMIC ATTACK, UNSPECIFIED SNOMED Code(s): 260925140 (2) Chronic right arterial ischemic stroke, MCA (middle cerebral artery) Current Visit: No Status: Acute Code(s): I69.30 - UNSPECIFIED SEQUELAE OF CEREBRAL INFARCTION SNOMED Code(s): 048613080 (3) History of aortic stenosis Current Visit: Yes Status: Acute Code(s): Z86.79 - PERSONAL HISTORY OF OTHER DISEASES OF THE CIRCULATORY SYSTEM SNOMED Code(s): 424824501 (4) Elevated troponin Current Visit: Yes Status: Acute Code(s): R74.8 - ABNORMAL LEVELS OF OTHER SERUM ENZYMES SNOMED Code(s): 953654803 Plan: This patient is a 72-year-old male who was admitted to Hospital with symptoms of left leg weakness and previous history of multiple strokes. Patient had a vasovagal episode with some evidence for a second degree AV block. He was seen by cardiology today and they're recommendations have been noted. Patient is to be monitored for bradycardia arrhythmia and if present may require pacemaker placement. His Lopressor has been discontinued by cardiology. Patient is awaiting MRI of the brain to be done for further evaluation of recurrent stroke. He has multiple stroke risk factors including history of chronic smoking. We'll await further recommendations from cardiology in regards to his heart condition. Patient is noted slight improvement with left leg weakness today. We will await his MRI results and we'll give further recommendations at that time. His overall prognosis remains guarded.
[2017-12-27] MEDS: ATORVASTATIN 80 MG TAB PO SCH (20:23)
[2017-12-27] MEDS: SODIUM CHLORIDE 0.9% 1,000 ML IV SCH (20:24)
[2017-12-27] MEDS: ZOLPIDEM 10 MG TAB PO PRN ×2 (20:26→20:30)
[2017-12-28 06:44] LABS: Basophils # (A) 0.1 k/uL (0-0.2); Basophils % (A) 1 %; Eosinophils # (A) 0.2 k/uL (0-0.7); Eosinophils % (A) 2 %; HCT 37.3 % (39.0-53.0); HGB 12.5 gm/dL (13.0-17.5); Lymphocytes # (A) 1.5 k/uL (1.0-4.8); Lymphocytes % (A) 16 %; MCH 31.6 pg (25.0-35.0); MCHC 33.5 g/dL (31.0-37.0); MCV 94.5 fL (80.0-100.0); Mean Platelet Volume 7.7; Monocytes # (A) 0.7 k/uL (0-1.0); Monocytes % (A) 7 %; Neutrophils # (A) 6.9 k/uL (1.3-7.7); Neutrophils % (A) 72 %; Platelet Count 187 k/uL (150-450); RBC 3.94 m/uL (4.30-5.90); WBC 9.5 k/uL (3.8-10.6)
[2017-12-28 06:54] LABS: Anion Gap 13 mmol/L; Blood Urea Nitrogen 19 mg/dL (9-20); Calcium 9.2 mg/dL (8.4-10.2); Carbon Dioxide 24 mmol/L (22-30); Chloride 106 mmol/L (98-107); Glucose 110 mg/dL (74-99); Magnesium 2.2 mg/dL (1.6-2.3); Sodium 143 mmol/L (137-145)
--- NOTE | 2017-12-28 07:32 | MR ---
EXAMINATION TYPE: MR brain wo con DATE OF EXAM: 12/28/2017 COMPARISON: 10/05/2017 HISTORY: Patient with left leg weakness and history of stroke CONTRAST: Performed utilizing 0 mL intravenous Gadavist gadolinium contrast. TECHNIQUE: Multiplanar, multiecho imaging on a 3.0 Joseline magnet is performed through the brain. Stud y is performed within 24 hours of arrival to the hospital. The craniovertebral junction is normal. The pituitary is normal. Diffusion-weighted imaging is performed. No abnormal hyperintensity is present to suggest an acute i ntracranial infarct or acute ischemic change. There is confluent periventricular white matter changes, likely on the basis of chronic white matter ischemic change. Some encephalomalacia of the region superior to the right lateral ventricle within t he right frontal lobe is evident and stable. The suspected lacunar infarct within the posterior infer ior left cerebellum stable. Ventricles and sulci are prominent for the patient age. IMPRESSIONS: 1. Stable MRI brain from comparison of October 20, 2017. 2. Encephalomalacia right frontal lobe white matter, stable. 3. Chronic confluent periventricular white matter ischemic type changes, stable. 4. Lacunar infarct inferior lateral left cerebellum, stable.
[2017-12-28] MEDS: IPRATROPIUM-ALBUTEROL 3 ML NEB INHALATION SCH ×3 (08:11→20:17)
[2017-12-28] MEDS: CLOPIDOGREL 75 MG TAB PO SCH (09:24)
[2017-12-28] MEDS: ASPIRIN 81 MG PO SCH (09:24)
[2017-12-28] MEDS: DONEPEZIL 10 MG TAB PO SCH (09:25)
[2017-12-28] MEDS: levETIRAcetam 500 MG TAB PO SCH ×2 (09:25→21:44)
[2017-12-28] MEDS: FAMOTIDINE 20 MG TAB PO SCH (09:25)
[2017-12-28] MEDS: FUROSEMIDE 40 MG TAB PO SCH (09:25)
[2017-12-28] MEDS: NICOTINE 21MG/24HR PATCH TRANSDERM SCH (09:25)
[2017-12-28] MEDS: OXYBUTYNIN XL 5 MG TAB.ER.24 PO SCH (09:25)
[2017-12-28] MEDS: POTASSIUM CHLORIDE ER 10 MEQ TAB.ER.PRT PO SCH (09:26)
[2017-12-28] MEDS: TAMSULOSIN 0.4 MG CAP.ER.24H PO SCH (09:26)
[2017-12-28] MEDS: SERTRALINE 100 MG TAB PO SCH (09:26)
[2017-12-28] MEDS: ENOXAPARIN 40 MG/0.4 ML SYRINGE SQ SCH (09:42)
--- NOTE | 2017-12-28 10:40 | P.PN ---
Subjective Progress Note Date: 12/28/17 This is a 72-year-old gentleman with past medical history prior CVA with left- sided hemiparesis presented to emergency room with left lower extremity weakness , numbness and excessive sweating. He progressively worse. He is generally bedbound and is usually able to walk around with a walker at home. He had multiple CVAs in the past. Patient is also known to have chronic peripheral vascular occlusive disease and CAD with prior stent placement. He continues to smoke 2 packs per day. He is not interested in quitting smoking. He was evaluated in the emergency room and a computed tomography scan of the brain showed no acute findings. He was admitted to the hospital for further evaluation. He had similar presentation approximately a month ago. Since admission, patient was noted to have episodes of frequent heart possible with evidence of heart block on telemetry monitoring. He is a symptomatic other than occasionally having diffuse sweating. He denies chest pain. 12/28/2017 patient had MRI of the brain which is stable from 10/20/2017. Encephalomalacia of the right frontal lobe white matter stable, chronic fluid periventricular white matter ischemic type changes stable and lacunar infarct inferior lateral left cerebellum is stable. Patient had a transesophageal echo July 2017 showing EF of 55-60% with moderate aortic stenosis. Carotid Doppler has been ordered. Patient is a heavy smoker and is currently on a nicotine patch. Cardiology is following and monitoring for any further heart block. Beta tristin was discontinued on admission. The patient has had some evidence of a second-degree block Objective - Vital Signs Vital signs: Vital Signs Temp 97.1 F L 12/28/17 08:00 Pulse 73 12/28/17 08:00 Resp 20 12/28/17 08:00 BP 108/59 12/28/17 08:00 Pulse Ox 95 12/28/17 08:11 Intake & Output 12/27/17 12/28/17 12/28/17 18:59 06:59 18:59 Intake Total 820 360 360 Output Total 300 700 Balance 520 -340 360 Weight 99 kg Intake: Intake, IV Titration 100 Amount Sodium Chloride 0.9% 1, 100 000 ml @ 20 mls/hr IV . Q24H YONI Rx#:[id number] Oral 720 360 360 Output: Urine 300 700 Straight 300 Other: Voiding Method Urinal Urinal # Voids 1 # Bowel Movements 1 - Exam Head normocephalic Neck supple Lungs clear to auscultation bilaterally no wheezing or crackles Heart regular rate and rhythm S1-S2, no rub or gallop positive murmur Abdomen is soft nontender nondistended positive bowel sounds no hepatosplenomegaly Extremities no edema Neuro alert and orientated to 3. Some residual weakness in the left upper and lower extremity. Patient reporting that this is back to his baseline. - Labs CBC & Chem 7: 12/28/17 06:09 12/28/17 06:09 Labs: Abnormal Lab Results - Last 24 Hours (Table) 12/28/17 12/28/17 12/28/17 Range/Units 00:19 06:09 06:09 RBC 3.94 L (4.30-5.90) m/uL Hgb 12.5 L (13.0-17.5) gm/dL Hct 37.3 L (39.0-53.0) % Glucose 110 H (74-99) mg/dL Troponin I 0.042 H* (0.000-0.034) ng/mL Assessment and Plan Assessment: 1. TIA: Patient was seen and evaluated by neurology. Computed tomography scan and MRI of the brain showing no acute findings. MRI findings as stated above. Continue aspirin and statin. Check a carotid Doppler. Patient had a CRISELDA in July 2017 revealing an EF of 55-60% with moderate aortic stenosis 2. Evidence of second-degree heart block on telemetry monitoring with frequent pauses. Patient followed by cardiology. Awaiting their recommendations in regards to possible pacemaker 3. Troponin elevation, may be non-thrombotic troponin leak. Patient denies any chest pain at this time. Patient seen by cardiology 4. History of coronary artery disease stent placement 5. Peripheral vascular occlusive disease maintained on dual antiplatelet therapy 6. Tobacco abuse: Counseled to quit for greater than 3 minutes. Patient is not interested and wants to continue smoking. Nicotine patch ordered I performed an examination of the patient and discussed their management with the physician Projection Welding Machine Operator. I have reviewed the Physician Projection Welding Machine Operator's notes and agree with the documented findings and plan of care
[2017-12-28 11:28] LABS: Glucose,Whole Blood 111 mg/dL (75-99)
--- NOTE | 2017-12-28 13:52 | US ---
EXAMINATION TYPE: US carotid duplex BILAT DATE OF EXAM: 12/28/2017 COMPARISON: None CLINICAL HISTORY: TIA. Seizure yesterday. Hx of Tia's x 5- last was yesterday. No HTN. EXAM MEASUREMENTS: RIGHT: Peak Systolic Velocity (PSV) cm/sec ----- Right CCA: 47.6 ----- Right ICA: 44.9 ----- Right ECA: 74.1 ICA/CCA ratio: 0.9 RIGHT: End Diastole cm/sec ----- Right CCA: 8.5 ----- Right ICA: 6.5 ----- Right ECA: 6.0 LEFT: Peak Systolic Velocity (PSV) cm/sec ----- Left CCA: 54.9 ----- Left ICA: 68.8 ----- Left ECA: 68.5 ICA/CCA ratio: 1.3 LEFT: End Diastole cm/sec ----- Left CCA: 6.5 ----- Left ICA: 15.6 ----- Left ECA: 0.0 VERTEBRALS (direction of flow): Right Vertebral: Antegrade Left Vertebral: Antegrade Rhythm: Arrhythmia Bilateral wall thickening. No significant stenosis or elevated velocities. Plaque seen in right bul b, mid right CCA, mid left CCA and left bulb. IMPRESSION: 1. Mild amount of grayscale atheromatous plaquing without hemodynamically significant stenosis within either carotid arterial system. 2. Cardiac arrhythmia. Correlate with EKG.
--- NOTE | 2017-12-28 15:38 | CONS ---
CONSULTATION This patient is admitted with a history suggestive for stroke. MRI done today does not show any evidence of a new stroke. The patient remains asymptomatic. No more episodes of bradyarrhythmias were noted. The episodes on Thursday night appears to be possibly vasovagal episode. We will discharge the patient on an event monitor to rule out any evidence of significant symptomatic bradyarrhythmias. Patient denies any history of frequent seizure disorder. I will continue the current medications. The patient will be followed by Dr. Maradiaga. FRANCISCA / GRZEGORZ: [id number] /
[2017-12-28] MEDS: SODIUM CHLORIDE 0.9% 1,000 ML IV SCH (17:31)
[2017-12-28] MEDS: ZOLPIDEM 10 MG TAB PO PRN (21:44)
[2017-12-28] MEDS: ATORVASTATIN 80 MG TAB PO SCH (21:44)
--- NOTE | 2017-12-28 23:29 | P.PN ---
Subjective Progress Note Date: 12/28/17 This patient is a 72-year-old male who is being evaluated for symptoms of left- sided weakness and some slurred speech. Patient has history of previous stroke in the past. He was brought into the emergency room as he was having difficulty with left lower extremity weakness as well as numbness. He has residual symptoms from previous strokes in the past. He continues to smoke 2 packs a day but is aware of the risk factor for stroke with his chronic smoking habit. He is also being evaluated for heart block which is been detected on telemetry. Cardiology has been consulted. Patient was seen by cardiology and they have discontinued his Lopressor. He is to be evaluated for possibility of bradyarrhythmia which if documented he may require pacemaker. Patient's symptoms suggest vasovagal syncope versus seizure. He is being treated for underlying seizure disorder and is currently on Keppra monotherapy. We are still awaiting the laboratory test results regarding his Keppra blood level. The patient was able to complete MRI of the brain today. His MRI results reveal stable findings with no change compared to MRI done 10/20/2017. There is encephalomalacia noted in the right frontal lobe which remains stable. There is a lacunar infarct in the left cerebellar lobe which is also stable. Carotid Doppler study failed to reveal any significant carotid artery stenosis. Cardiology is recommending event monitor to rule out bradyarrhythmia in this patient. Patient has noted improvement with this left leg weakness. Would continue with PT evaluation. We will continue close neurological follow-up with the patient for further evaluation of possible TIA versus stroke. His overall prognosis at this time remains guarded. Objective - Vital Signs Vital signs: Vital Signs Temp 99 F 12/28/17 15:18 Pulse 82 12/28/17 15:18 Resp 18 12/28/17 15:18 BP 118/70 12/28/17 15:18 Pulse Ox 100 12/28/17 15:18 Intake & Output 12/28/17 12/28/17 12/29/17 06:59 18:59 06:59 Intake Total 360 540 Output Total 700 200 Balance -340 340 Weight 99 kg Intake: Oral 360 540 Output: Urine 700 200 Other: Voiding Method Urinal Urinal # Voids 1 # Bowel Movements 1 1 - Exam Physical examination: PHYSICAL EXAMINATION: Patient is resting comfortably in bed. VITAL SIGNS: Blood pressure is [118/70]. Heart rate is [82]. Respiration is [18] . Temperature is [99.0]. HEENT: Head is atraumatic, neck is supple, there were no carotid bruits. CHEST: Lungs are clear to auscultation and percussion. CARDIAC: S1, S2 normal rate and rhythm. There is no murmur. ABDOMEN: Soft and nontender. Bowel sounds are present. EXTREMITIES: There is no pedal edema. Peripheral pulses are present. Neurological examination: Patient's neurological examination is unchanged from yesterday. He is noticing improvement with left leg weakness and able to move the leg better today. - Labs CBC & Chem 7: 12/28/17 06:09 12/28/17 06:09 Labs: Abnormal Lab Results - Last 24 Hours (Table) 12/28/17 12/28/17 12/28/17 Range/Units 00:19 06:09 06:09 RBC 3.94 L (4.30-5.90) m/uL Hgb 12.5 L (13.0-17.5) gm/dL Hct 37.3 L (39.0-53.0) % Glucose 110 H (74-99) mg/dL POC Glucose (mg/dL) (75-99) mg/dL Troponin I 0.042 H* (0.000-0.034) ng/mL 12/28/17 Range/Units 11:25 RBC (4.30-5.90) m/uL Hgb (13.0-17.5) gm/dL Hct (39.0-53.0) % Glucose (74-99) mg/dL POC Glucose (mg/dL) 111 H (75-99) mg/dL Troponin I (0.000-0.034) ng/mL Assessment and Plan (1) TIA (transient ischemic attack) Current Visit: No Status: Acute Code(s): G45.9 - TRANSIENT CEREBRAL ISCHEMIC ATTACK, UNSPECIFIED SNOMED Code(s): 605106396 (2) Chronic right arterial ischemic stroke, MCA (middle cerebral artery) Current Visit: No Status: Acute Code(s): I69.30 - UNSPECIFIED SEQUELAE OF CEREBRAL INFARCTION SNOMED Code(s): 926340962 (3) History of aortic stenosis Current Visit: Yes Status: Acute Code(s): Z86.79 - PERSONAL HISTORY OF OTHER DISEASES OF THE CIRCULATORY SYSTEM SNOMED Code(s): 249855888 (4) Elevated troponin Current Visit: Yes Status: Acute Code(s): R74.8 - ABNORMAL LEVELS OF OTHER SERUM ENZYMES SNOMED Code(s): 929815192 Plan: This patient is a 72-year-old male being evaluated for possibility of syncope versus seizure. He was seen by cardiology today and he is being recommended an event monitor to rule out possibility of symptomatic bradycardia arrhythmia. He underwent MRI of the brain today the results of which are noted above. MRI fails to reveal any evidence of new or acute stroke. Carotid Doppler study was negative for any significant carotid artery stenosis. He is on Keppra monotherapy for seizure prophylaxis and we are still awaiting his Keppra blood level to return from the laboratory. Neurologically the patient remains quite stable. We reviewed the results of the MRI today with the patient. Clearly no evidence of new findings of stroke. His left leg weakness also has shown significant improvement. More likely the patient suffered a mild TIA which is now resolved. We will continue close neurological follow-up with the patient during this admission. We will follow along with cardiology in terms of any further changes in his examination. His overall prognosis at this time remains guarded.
[2017-12-29 07:02] LABS: Basophils # (A) 0.1 k/uL (0-0.2); Basophils % (A) 1 %; Eosinophils # (A) 0.2 k/uL (0-0.7); Eosinophils % (A) 3 %; HGB 12.6 gm/dL (13.0-17.5); Lymphocytes # (A) 1.3 k/uL (1.0-4.8); Lymphocytes % (A) 15 %; MCH 31.7 pg (25.0-35.0); MCHC 33.9 g/dL (31.0-37.0); MCV 93.5 fL (80.0-100.0); Mean Platelet Volume 8.3; Monocytes # (A) 0.6 k/uL (0-1.0); Monocytes % (A) 7 %; Neutrophils # (A) 6.2 k/uL (1.3-7.7); Neutrophils % (A) 73 %; Platelet Count 201 k/uL (150-450); RBC 3.96 m/uL (4.30-5.90); RDW 14.8 % (11.5-15.5); WBC 8.5 k/uL (3.8-10.6)
[2017-12-29 07:24] LABS: Anion Gap 11 mmol/L; Blood Urea Nitrogen 18 mg/dL (9-20); Calcium 9.3 mg/dL (8.4-10.2); Carbon Dioxide 24 mmol/L (22-30); Chloride 106 mmol/L (98-107); Glucose 124 mg/dL (74-99); Magnesium 2.1 mg/dL (1.6-2.3); Sodium 141 mmol/L (137-145)
[2017-12-29] MEDS: NICOTINE 21MG/24HR PATCH TRANSDERM SCH (09:13)
[2017-12-29] MEDS: ASPIRIN 81 MG PO SCH (09:13)
[2017-12-29] MEDS: FAMOTIDINE 20 MG TAB PO SCH (09:14)
[2017-12-29] MEDS: FUROSEMIDE 40 MG TAB PO SCH (09:14)
[2017-12-29] MEDS: OXYBUTYNIN XL 5 MG TAB.ER.24 PO SCH (09:14)
[2017-12-29] MEDS: CLOPIDOGREL 75 MG TAB PO SCH (09:14)
[2017-12-29] MEDS: DONEPEZIL 10 MG TAB PO SCH (09:14)
[2017-12-29] MEDS: ENOXAPARIN 40 MG/0.4 ML SYRINGE SQ SCH (09:14)
[2017-12-29] MEDS: levETIRAcetam 500 MG TAB PO SCH ×2 (09:14→21:40)
[2017-12-29] MEDS: TAMSULOSIN 0.4 MG CAP.ER.24H PO SCH (09:15)
[2017-12-29] MEDS: POTASSIUM CHLORIDE ER 10 MEQ TAB.ER.PRT PO SCH (09:15)
[2017-12-29] MEDS: SERTRALINE 100 MG TAB PO SCH (09:15)
[2017-12-29] MEDS: IPRATROPIUM-ALBUTEROL 3 ML NEB INHALATION SCH ×3 (10:00→20:42)
--- NOTE | 2017-12-29 11:30 | P.PN ---
Subjective Progress Note Date: 12/29/17 This is a 72-year-old gentleman with past medical history prior CVA with left- sided hemiparesis presented to emergency room with left lower extremity weakness , numbness and excessive sweating. He progressively worse. He is generally bedbound and is usually able to walk around with a walker at home. He had multiple CVAs in the past. Patient is also known to have chronic peripheral vascular occlusive disease and CAD with prior stent placement. He continues to smoke 2 packs per day. He is not interested in quitting smoking. He was evaluated in the emergency room and a computed tomography scan of the brain showed no acute findings. He was admitted to the hospital for further evaluation. He had similar presentation approximately a month ago. Since admission, patient was noted to have episodes of frequent heart possible with evidence of heart block on telemetry monitoring. He is a symptomatic other than occasionally having diffuse sweating. He denies chest pain. 12/28/2017 patient had MRI of the brain which is stable from 10/20/2017. Encephalomalacia of the right frontal lobe white matter stable, chronic fluid periventricular white matter ischemic type changes stable and lacunar infarct inferior lateral left cerebellum is stable. Patient had a transesophageal echo July 2017 showing EF of 55-60% with moderate aortic stenosis. Carotid Doppler has been ordered. Patient is a heavy smoker and is currently on a nicotine patch. Cardiology is following and monitoring for any further heart block. Beta tristin was discontinued on admission. The patient has had some evidence of a second-degree block 12/29/2017 patient's left-sided weakness has returned to baseline. Physical therapy is recommending ECF placement. Also awaiting a Dr. Solis consult for possible inpatient rehab. Patient will require prior authorization from insurance for his placement. That is also pending. Otherwise, patient is stable for discharge. Pulmonary service has cleared him for discharge and the recommending a event monitor at discharge. Patient did have a looser stool this morning. He reports that he is bowel movements are always loose. It was not watery. He had 1 bowel movement yesterday and one bowel movement this morning. Patient is on Keppra for seizure prophylaxis neurology is following. Keppra level pending. Objective - Vital Signs Vital signs: Vital Signs Temp 98.1 F 12/29/17 08:00 Pulse 77 12/29/17 08:00 Resp 18 12/29/17 08:00 BP 134/54 12/29/17 08:00 Pulse Ox 92 L 12/29/17 08:00 Intake & Output 12/28/17 12/29/17 12/29/17 18:59 06:59 18:59 Intake Total 540 180 Output Total 200 500 200 Balance 340 -500 -20 Weight 99.2 kg Intake: Oral 540 180 Output: Urine 200 500 200 Other: Voiding Method Urinal Urinal Urinal # Voids 1 2 # Bowel Movements 1 - Exam Head normocephalic Neck supple Lungs clear to auscultation bilaterally no wheezing or crackles Heart regular rate and rhythm S1-S2, no rub or gallop positive murmur Abdomen is soft nontender nondistended positive bowel sounds no hepatosplenomegaly Extremities no edema Neuro alert and orientated to 3. Some residual weakness in the left upper and lower extremity. Patient reporting that this is back to his baseline. - Labs CBC & Chem 7: 12/29/17 06:42 12/29/17 06:42 Labs: Abnormal Lab Results - Last 24 Hours (Table) 12/28/17 12/29/17 12/29/17 Range/Units 11:25 06:42 06:42 RBC 3.96 L (4.30-5.90) m/uL Hgb 12.6 L (13.0-17.5) gm/dL Hct 37.0 L (39.0-53.0) % Glucose 124 H (74-99) mg/dL POC Glucose (mg/dL) 111 H (75-99) mg/dL Assessment and Plan Assessment: 1. TIA: Patient was seen and evaluated by neurology. Computed tomography scan and MRI of the brain showing no acute findings. MRI findings as stated above. Continue aspirin and statin. Carotid Doppler no significant hemodynamic stenosis. Patient had a CRISELDA in July 2017 revealing an EF of 55-60% with moderate aortic stenosis 2. Evidence of second-degree heart block on telemetry monitoring with frequent pauses. Patient followed by cardiology. Patient has had no further bradycardia arrhythmias noted. Cardiology feels that the episode on Thursday night that contributed to patient's bradycardia was likely a vasovagal episode. In the recommending event monitor at time of discharge to monitor for any significant symptomatic bradycardia arrhythmias. 3. Troponin elevation, may be non-thrombotic troponin leak. Patient denies any chest pain at this time. Patient seen by cardiology 4. History of coronary artery disease stent placement 5. Peripheral vascular occlusive disease maintained on dual antiplatelet therapy 6. Tobacco abuse: Counseled to quit for greater than 3 minutes. Patient is not interested and wants to continue smoking. Nicotine patch ordered Awaiting final decision regarding placement for patient [facility] or [facility] and patient's insurance authorization is pending for placement I performed an examination of the patient and discussed their management with the physician Senior Chemical Engineer. I have reviewed the Physician Senior Chemical Engineer's notes and agree with the documented findings and plan of care
[2017-12-29] MEDS: SODIUM CHLORIDE 0.9% 1,000 ML IV SCH (16:12)
--- NOTE | 2017-12-29 16:35 | P.CONS ---
History of Present Illness - Chief Complaint Gait disturbance - History of Present Illness I had the abdomen see patient for inpatient rehab consultation with regard to gait disturbance. He was admitted to [facility] December 26 with acute onset left- sided weakness and headache 2 days duration. Seen by Dr. Chris Cadet for the stroke. Head CT demonstrates previous right frontal infarct as well as mild chronic ethmoid sinusitis, stable. Chest x-ray demonstrates CHF, stable. MRI demonstrates right frontal encephalomalacia as well as left lateral cerebellar lacunar infarct, stable. Carotid Doppler with mild plaques bilateral, stable. PT reports supervision for bed mobility and minimal assistance for transfers and gait 20 feet with roller walker. OT reports supervision for upper dressing and minimal assistance for lower dressing, bathing, toileting, transfers. Speech therapy reports swallow and can indication within functional limits. Previous functional history elicited patient and : 72-year-old right-handed white male who is lives in one form with . Retired. does cooking, laundry, driving. Physically assist patient with sitdown bath and dressing. She is transfer the last 10 years, since his first stroke. Patient is otherwise independent with mobility with 4 wheeled walker and toileting, at home. Family history of mother with cancer. Review of Systems Review of systems: ENT: Denies sneezes or discharge. Eyes: Denies discharge or photophobia. Cardiac: Denies chest pain or palpitation. Pulmonary: Denies cough or shortness of breath. Gastrointestinal: Denies nausea, emesis, constipation, diarrhea. Genitourinary: Denies discharge or frequency. Musculoskeletal: Denies muscle or bone aches. Neurologic: Left-sided weakness and numbness that is more since this current stroke, includes gait disturbance. Endocrine: Denies shakes or sweats. Oncology: Denies cancers. Dermatologic: Denies rash, itching, pruritus. ALLERGY/immunology: Denies sneezes, rashes. Past Medical History Past Medical History: Coronary Artery Disease (CAD), Heart Failure, COPD, CVA/ TIA, Seizure Disorder Additional Past Medical History / Comment(s): CVA 2007,2009(x3)- -uses walker-, heart murmer, OCC incontinence of urine/stool-weara a brief, last seizure couple yrs ago History of Any Multi-Drug Resistant Organisms: None Reported Past Surgical History: Appendectomy, Heart Catheterization With Stent, Tonsillectomy Additional Past Surgical History / Comment(s): one cardiac stent Past Anesthesia/Blood Transfusion Reactions: No Reported Reaction Date of Last Stent Placement:: 2010 Smoking Status: Current every day smoker - Past Family History Mother Family Medical History: Cancer Additional Family Medical History / Comment(s): lung cancer Father Family Medical History: Myocardial Infarction ([place]) Additional Family Medical History / Comment(s): lived to age 92 Medications and Allergies Home Medications Medication Instructions Recorded Confirmed Type Atorvastatin [Lipitor] 80 mg PO HS 08/08/14 12/26/17 History Donepezil [Aricept] 10 mg PO DAILY 08/08/14 12/26/17 History Metoprolol Tartrate [Lopressor] 25 mg PO BID 08/08/14 12/26/17 History Ranitidine HCl 300 mg PO HS 08/08/14 12/26/17 History Aspirin [Adult Low Dose Aspirin EC] 81 mg PO DAILY 09/09/16 12/26/17 History Furosemide [Lasix] 40 mg PO DAILY #30 tab 05/26/17 12/26/17 Rx Potassium Chloride [K-Tab ER] 10 meq PO DAILY 09/03/17 12/26/17 History Sertraline [Zoloft] 200 mg PO DAILY 09/03/17 12/26/17 History levETIRAcetam [Keppra] 500 mg PO Q12HR 09/03/17 12/26/17 History Clopidogrel [Plavix] 75 mg PO DAILY #90 tab 09/09/17 12/26/17 Rx Fesoterodine Fumarate [Toviaz] 16 mg PO DAILY 10/02/17 12/26/17 History Tamsulosin HCl [Flomax] 0.8 mg PO DAILY 10/02/17 12/26/17 History Ipratropium-Albuterol Nebulize 3 ml INHALATION RT-QID PRN 12/26/17 12/26/17 History [Duoneb 0.5 mg-3 mg/3 ml Soln] Zolpidem [Ambien] 10 mg PO HS PRN 12/26/17 12/26/17 History Allergies Allergy/AdvReac Type Severity Reaction Status Date / Time No Known Allergies Allergy Verified 12/26/17 14:48 Physical Exam Vitals: Vital Signs Temp Pulse Resp BP Pulse Ox 05/01/18 12:00 96.4 F L 77 18 116/63 95 12/29/17 08:00 98.1 F 77 18 134/54 92 L 12/29/17 04:00 97.8 F 72 18 132/78 96 12/29/17 00:00 97.2 F L 78 17 143/67 91 L 12/28/17 20:00 98.9 F 71 20 139/61 95 Intake and Output 12/29/17 12/29/17 12/29/17 06:59 14:59 22:59 Intake Total 420 Output Total 500 200 600 Balance -500 220 -600 Intake: Oral 420 Output: Urine 500 200 600 Other: Voiding Method Urinal Urinal # Voids 2 Weight 99.2 kg Skin: Mildly atrophic, intact. General: Medium build and comfortable appearance. Head: Normocephalic, atraumatic. Eyes: Symmetric. Pupils equal round. Ears: Symmetric. Hearing within normal limits. Mouth: Clear. Neck: Supple. Carotid without bruit. Cardiac: Regular rate and rhythm. Lungs: Clear anteriorly and posteriorly. Abdomen: Soft active nontender. Extremities: Normal tone. Neurological: Mental status: Alert, cooperative, pleasant. Cranial nerves: Symmetric facial tone and trapezius. Motor: Normal strength and isolation all 4 limbs. Sensation: Intact throughout. DTRs: Symmetric and equal throughout. Mobility: Sits with at least minimal assistance. Results CBC & Chem 7: 12/29/17 06:42 12/29/17 06:42 Labs: Abnormal Lab Results - Last 24 Hours (Table) 12/29/17 12/29/17 Range/Units 06:42 06:42 RBC 3.96 L (4.30-5.90) m/uL Hgb 12.6 L (13.0-17.5) gm/dL Hct 37.0 L (39.0-53.0) % Glucose 124 H (74-99) mg/dL Chest x-ray: report reviewed (CHF, stable.) CT Scan - head: report reviewed (Previously known right frontal infarct as well as mild chronic ethmoid sinusitis, stable.) MRI - head: report reviewed (Right frontal encephalomalacia and left lateral cerebellar infarct, stable.) Assessment and Plan (1) Chronic right arterial ischemic stroke, MCA (middle cerebral artery) Current Visit: No Status: Acute Code(s): I69.30 - UNSPECIFIED SEQUELAE OF CEREBRAL INFARCTION SNOMED Code(s): 551113619 Plan: Impression: 1. Gait disturbance. 2. Left hemiparesis due to right CVA, MCA. 3. History of previous stroke 3 with all with left hemiparesthesias. 4. Seizure disorder. 5. CHF. 6. COPD. 7. CAD. Comments and plan: At this time PT, OT, INDUSTRIAL ENGINEERING INTERN ongoing. Safety concerns noted and note these have increased since the new recurrent problem of this stroke. At this time, patient and appear motivated for inpatient rehab and this appears be appropriate treatment.
--- NOTE | 2017-12-29 17:02 | P.PN ---
Subjective Progress Note Date: 12/29/17 This is a 72-year-old gentleman admitted to the hospital with history suggestive of stroke, MRI did not reveal any evidence of a new stroke. He has had no more bradycardia arrhythmias noted on the monitor, no evidence of any positives. Overall the patient is stable, from our perspective he may be able to be discharged is cleared by primary, follow-up with Dr. Ingram in the office post discharge. We will also recommend patient wear a 30 day event monitor on discharge. Objective - Vital Signs Vital signs: Vital Signs Temp 96.4 F L 12/29/17 12:00 Pulse 77 12/29/17 12:00 Resp 18 12/29/17 12:00 BP 116/63 12/29/17 12:00 Pulse Ox 95 12/29/17 12:00 Intake & Output 12/28/17 12/29/17 12/29/17 18:59 06:59 18:59 Intake Total 540 420 Output Total 200 500 800 Balance 340 -500 -380 Weight 99.2 kg Intake: Oral 540 420 Output: Urine 200 500 800 Other: Voiding Method Urinal Urinal Urinal # Voids 1 2 # Bowel Movements 1 - Exam PHYSICAL EXAMINATION: HEENT: Head is atraumatic, normocephalic. Pupils equal, round. Neck is supple. There is no elevated jugular venous pressure. HEART EXAMINATION: Heart S1, S2 normal. No murmur or gallop heard. CHEST EXAMINATION: Lungs are clear to auscultation and precussion. No chest wall tenderness is noted on palpation or with deep breathing. ABDOMEN: Soft, nontender. Bowel sounds are heard. No organomegaly noted. EXTREMITIES: 2+ peripheral pulses with no evidence of peripheral edema and no calf tenderness noted. NEUROLOGIC patient is awake, alert and oriented -3. . - Labs CBC & Chem 7: 12/29/17 06:42 12/29/17 06:42 Labs: Abnormal Lab Results - Last 24 Hours (Table) 12/29/17 12/29/17 Range/Units 06:42 06:42 RBC 3.96 L (4.30-5.90) m/uL Hgb 12.6 L (13.0-17.5) gm/dL Hct 37.0 L (39.0-53.0) % Glucose 124 H (74-99) mg/dL Assessment and Plan Plan: Assessment and plan #1 TIA, computed tomography scan and MRI did not reveal any acute findings. Patient had a CRISELDA in July 2017 revealing an ejection fraction of 55-60% with moderate aortic stenosis. #2 evidence of bradycardia and second-degree heart block on the monitor at time of syncope. Would recommend a 30 day event monitor on discharge. #3 history of coronary artery disease with prior PCI #4 peripheral vascular disease #5 nicotine dependence Plan Patient may be able to be discharged once cleared by primary. We'll recommend follow-up visit with Dr. Ingram in the office post discharge. 30 day event monitor on discharge. DNP note has been reviewed, I agree with a documented findings and plan of care. Patient was seen and examined.
[2017-12-29] MEDS: ATORVASTATIN 80 MG TAB PO SCH (21:39)
--- NOTE | 2017-12-30 00:17 | P.PN ---
Subjective Progress Note Date: 12/29/17 This patient is a 72-year-old male who is being evaluated for symptoms of left- sided weakness and some slurred speech. Patient has history of previous stroke in the past. He was brought into the emergency room as he was having difficulty with left lower extremity weakness as well as numbness. He has residual symptoms from previous strokes in the past. He continues to smoke 2 packs a day but is aware of the risk factor for stroke with his chronic smoking habit. He is also being evaluated for heart block which is been detected on telemetry. Cardiology has been consulted. Patient was seen by cardiology and they have discontinued his Lopressor. He is to be evaluated for possibility of bradyarrhythmia which if documented he may require pacemaker. Patient's symptoms suggest vasovagal syncope versus seizure. He is being treated for underlying seizure disorder and is currently on Keppra monotherapy. We are still awaiting the laboratory test results regarding his Keppra blood level. The patient was able to complete MRI of the brain today. His MRI results reveal stable findings with no change compared to MRI done 10/20/2017. There is encephalomalacia noted in the right frontal lobe which remains stable. There is a lacunar infarct in the left cerebellar lobe which is also stable. Carotid Doppler study failed to reveal any significant carotid artery stenosis. Cardiology is recommending event monitor to rule out bradyarrhythmia in this patient. Patient has noted improvement with this left leg weakness. Would continue with PT evaluation. The patient is being considered for placement in subacute rehab and is to be evaluated by Dr. Soils. We will continue close neurological follow-up with the patient for further evaluation of possible TIA versus stroke. His overall prognosis at this time remains guarded. Objective - Vital Signs Vital signs: Vital Signs Temp 96.4 F L 12/29/17 12:00 Pulse 77 12/29/17 12:00 Resp 18 12/29/17 12:00 BP 116/63 12/29/17 12:00 Pulse Ox 95 12/29/17 12:00 Intake & Output 12/28/17 12/29/17 12/29/17 18:59 06:59 18:59 Intake Total 540 180 Output Total 200 500 200 Balance 340 -500 -20 Weight 99.2 kg Intake: Oral 540 180 Output: Urine 200 500 200 Other: Voiding Method Urinal Urinal Urinal # Voids 1 2 # Bowel Movements 1 - Exam Physical examination: PHYSICAL EXAMINATION: Patient is resting comfortably in bed. VITAL SIGNS: Blood pressure is [149/72]. Heart rate is [79]. Respiration is [18] . Temperature is []. HEENT: Head is atraumatic, neck is supple, there were no carotid bruits. CHEST: Lungs are clear to auscultation and percussion. CARDIAC: S1, S2 normal rate and rhythm. There is no murmur. ABDOMEN: Soft and nontender. Bowel sounds are present. EXTREMITIES: There is no pedal edema. Peripheral pulses are present. Neurological examination: Patient's neurological examination is unchanged from yesterday. He is noticing improvement with left leg weakness and able to move the leg better today. - Labs CBC & Chem 7: 12/29/17 06:42 12/29/17 06:42 Labs: Abnormal Lab Results - Last 24 Hours (Table) 12/29/17 12/29/17 Range/Units 06:42 06:42 RBC 3.96 L (4.30-5.90) m/uL Hgb 12.6 L (13.0-17.5) gm/dL Hct 37.0 L (39.0-53.0) % Glucose 124 H (74-99) mg/dL Assessment and Plan (1) TIA (transient ischemic attack) Current Visit: No Status: Acute Code(s): G45.9 - TRANSIENT CEREBRAL ISCHEMIC ATTACK, UNSPECIFIED SNOMED Code(s): 282305702 (2) Chronic right arterial ischemic stroke, MCA (middle cerebral artery) Current Visit: No Status: Acute Code(s): I69.30 - UNSPECIFIED SEQUELAE OF CEREBRAL INFARCTION SNOMED Code(s): 210662842 (3) History of aortic stenosis Current Visit: Yes Status: Acute Code(s): Z86.79 - PERSONAL HISTORY OF OTHER DISEASES OF THE CIRCULATORY SYSTEM SNOMED Code(s): 088728753 (4) Elevated troponin Current Visit: Yes Status: Acute Code(s): R74.8 - ABNORMAL LEVELS OF OTHER SERUM ENZYMES SNOMED Code(s): 840388767 Plan: This patient is a 72-year-old male being evaluated for possibility of syncope versus seizure. He was seen by cardiology today and he is being recommended an event monitor to rule out possibility of symptomatic bradycardia arrhythmia. He underwent MRI of the brain today the results of which are noted above. MRI fails to reveal any evidence of new or acute stroke. Carotid Doppler study was negative for any significant carotid artery stenosis. He is on Keppra monotherapy for seizure prophylaxis and we are still awaiting his Keppra blood level to return from the laboratory. Neurologically the patient remains quite stable. We reviewed the results of the MRI today with the patient. Clearly no evidence of new findings of stroke. His left leg weakness also has shown significant improvement. More likely the patient suffered a mild TIA which is now resolved. Patient was evaluated today by Dr. Solis for possible inpatient rehab. His Keppra blood level is still pending from the laboratory. We will continue close neurological follow-up with the patient during this admission. We will follow along with cardiology in terms of any further changes in his examination. His overall prognosis at this time remains guarded.
[2017-12-30] MEDS: OXYBUTYNIN XL 5 MG TAB.ER.24 PO SCH (08:07)
[2017-12-30] MEDS: SERTRALINE 100 MG TAB PO SCH (08:07)
[2017-12-30] MEDS: NICOTINE 21MG/24HR PATCH TRANSDERM SCH (08:07)
[2017-12-30] MEDS: DONEPEZIL 10 MG TAB PO SCH (08:07)
[2017-12-30] MEDS: CLOPIDOGREL 75 MG TAB PO SCH (08:07)
[2017-12-30] MEDS: FUROSEMIDE 40 MG TAB PO SCH (08:07)
[2017-12-30] MEDS: ASPIRIN 81 MG PO SCH (08:07)
[2017-12-30] MEDS: POTASSIUM CHLORIDE ER 10 MEQ TAB.ER.PRT PO SCH (08:07)
[2017-12-30] MEDS: levETIRAcetam 500 MG TAB PO SCH ×2 (08:08→20:45)
[2017-12-30] MEDS: TAMSULOSIN 0.4 MG CAP.ER.24H PO SCH (08:08)
[2017-12-30] MEDS: FAMOTIDINE 20 MG TAB PO SCH (08:08)
[2017-12-30] MEDS: ENOXAPARIN 40 MG/0.4 ML SYRINGE SQ SCH (08:08)
[2017-12-30 08:30] LABS: Basophils # (A) 0.1 k/uL (0-0.2); Basophils % (A) 1 %; Eosinophils # (A) 0.2 k/uL (0-0.7); Eosinophils % (A) 3 %; HCT 38.3 % (39.0-53.0); HGB 12.9 gm/dL (13.0-17.5); Lymphocytes # (A) 1.3 k/uL (1.0-4.8); Lymphocytes % (A) 14 %; MCH 31.1 pg (25.0-35.0); MCHC 33.5 g/dL (31.0-37.0); MCV 92.9 fL (80.0-100.0); Mean Platelet Volume 8.5; Monocytes # (A) 0.7 k/uL (0-1.0); Monocytes % (A) 8 %; Neutrophils # (A) 6.8 k/uL (1.3-7.7); Neutrophils % (A) 74 %; Platelet Count 240 k/uL (150-450); RBC 4.13 m/uL (4.30-5.90); RDW 14.7 % (11.5-15.5); WBC 9.2 k/uL (3.8-10.6)
[2017-12-30] MEDS: IPRATROPIUM-ALBUTEROL 3 ML NEB INHALATION SCH ×3 (08:35→20:09)
[2017-12-30 08:58] LABS: Anion Gap 15 mmol/L; Blood Urea Nitrogen 19 mg/dL (9-20); Calcium 9.4 mg/dL (8.4-10.2); Carbon Dioxide 20 mmol/L (22-30); Chloride 104 mmol/L (98-107); Glucose 98 mg/dL (74-99); Magnesium 2.1 mg/dL (1.6-2.3); Potassium 4.4 mmol/L (3.5-5.1); Sodium 139 mmol/L (137-145)
--- NOTE | 2017-12-30 17:31 | P.PN ---
Subjective Progress Note Date: 12/30/17 This is a 72-year-old gentleman with past medical history prior CVA with left- sided hemiparesis presented to emergency room with left lower extremity weakness , numbness and excessive sweating. He progressively worse. He is generally bedbound and is usually able to walk around with a walker at home. He had multiple CVAs in the past. Patient is also known to have chronic peripheral vascular occlusive disease and CAD with prior stent placement. He continues to smoke 2 packs per day. He is not interested in quitting smoking. He was evaluated in the emergency room and a computed tomography scan of the brain showed no acute findings. He was admitted to the hospital for further evaluation. He had similar presentation approximately a month ago. Since admission, patient was noted to have episodes of frequent heart possible with evidence of heart block on telemetry monitoring. He is a symptomatic other than occasionally having diffuse sweating. He denies chest pain. 12/28/2017 patient had MRI of the brain which is stable from 10/20/2017. Encephalomalacia of the right frontal lobe white matter stable, chronic fluid periventricular white matter ischemic type changes stable and lacunar infarct inferior lateral left cerebellum is stable. Patient had a transesophageal echo July 2017 showing EF of 55-60% with moderate aortic stenosis. Carotid Doppler has been ordered. Patient is a heavy smoker and is currently on a nicotine patch. Cardiology is following and monitoring for any further heart block. Beta tristin was discontinued on admission. The patient has had some evidence of a second-degree block 12/29/2017 patient's left-sided weakness has returned to baseline. Physical therapy is recommending ECF placement. Also awaiting a Dr. Solis consult for possible inpatient rehab. Patient will require prior authorization from insurance for his placement. That is also pending. Otherwise, patient is stable for discharge. Pulmonary service has cleared him for discharge and the recommending a event monitor at discharge. Patient did have a looser stool this morning. He reports that he is bowel movements are always loose. It was not watery. He had 1 bowel movement yesterday and one bowel movement this morning. Patient is on Keppra for seizure prophylaxis neurology is following. Keppra level pending. On 12/30/2017 Patient alert and oriented in no distress. Physical therapy is recommending rehab. Patient will require prior authorization from insurance for his placement. That is pending. Otherwise, patient is stable for discharge. Pulmonary service has cleared him for discharge and cardiology are recommending a event monitor at discharge. Patient denies any chest pain or shortness of breath no cough no nausea or vomiting no abdominal pain no diarrhea and no urinary symptoms. Patient is on Keppra for seizure prophylaxis neurology is following. Keppra level pending. Objective - Vital Signs Vital signs: Vital Signs Temp 97.9 F 12/30/17 15:08 Pulse 88 12/30/17 15:08 Resp 18 12/30/17 15:08 BP 129/63 12/30/17 15:08 Pulse Ox 93 L 12/30/17 15:08 Intake & Output 12/29/17 12/30/17 12/30/17 18:59 06:59 18:59 Intake Total 903 698 8214 Output Total 800 520 Balance -170 968 6225 Weight 101 kg Intake: Oral 703 486 1553 Output: Urine 800 520 Other: Voiding Method Urinal Urinal Urinal # Voids 2 4 # Bowel Movements 1 - Exam Head normocephalic and atraumatic Neck supple no JVD no goiter no lymphadenopathy Lungs clear to auscultation bilaterally no wheezing or crackles Heart regular rate and rhythm S1-S2, no rub or gallop positive murmur Abdomen is soft nontender nondistended positive bowel sounds no hepatosplenomegaly Extremities no edema no cyanosis or clubbing Neuro alert and orientated to 3. Some residual weakness in the left upper and lower extremity. Patient reporting that this is back to his baseline. - Labs CBC & Chem 7: 12/30/17 07:33 12/30/17 07:33 Labs: Abnormal Lab Results - Last 24 Hours (Table) 12/30/17 12/30/17 Range/Units 07:33 07:33 RBC 4.13 L (4.30-5.90) m/uL Hgb 12.9 L (13.0-17.5) gm/dL Hct 38.3 L (39.0-53.0) % Carbon Dioxide 20 L (22-30) mmol/L Assessment and Plan Plan: 1. TIA: Patient was seen and evaluated by neurology. Computed tomography scan and MRI of the brain showing no acute findings. MRI findings as stated above. Continue aspirin and statin. Carotid Doppler no significant hemodynamic stenosis. Patient had a CRISELDA in July 2017 revealing an EF of 55-60% with moderate aortic stenosis 2. Evidence of second-degree heart block on telemetry monitoring with frequent pauses. Patient followed by cardiology. Patient has had no further bradycardia arrhythmias noted. Cardiology feels that the episode on Thursday night that contributed to patient's bradycardia was likely a vasovagal episode. In the recommending event monitor at time of discharge to monitor for any significant symptomatic bradycardia arrhythmias. 3. Troponin elevation, may be non-thrombotic troponin leak. Patient denies any chest pain at this time. Patient seen by cardiology 4. History of coronary artery disease stent placement 5. Peripheral vascular occlusive disease maintained on dual antiplatelet therapy 6. Tobacco abuse: Counseled to quit for greater than 3 minutes. Patient is not interested and wants to continue smoking. Nicotine patch ordered Awaiting final decision regarding placement for patient to be either [facility] rehab or [facility] and patient's insurance authorization is pending for placement
--- NOTE | 2017-12-30 20:43 | P.PN ---
Subjective Progress Note Date: 12/30/17 This patient is a 72-year-old male who is being evaluated for symptoms of left- sided weakness and some slurred speech. Patient has history of previous stroke in the past. He was brought into the emergency room as he was having difficulty with left lower extremity weakness as well as numbness. He has residual symptoms from previous strokes in the past. He continues to smoke 2 packs a day but is aware of the risk factor for stroke with his chronic smoking habit. He is also being evaluated for heart block which is been detected on telemetry. Cardiology has been consulted. Patient was seen by cardiology and they have discontinued his Lopressor. He is to be evaluated for possibility of bradyarrhythmia which if documented he may require pacemaker. Patient's symptoms suggest vasovagal syncope versus seizure. He is being treated for underlying seizure disorder and is currently on Keppra monotherapy. We are still awaiting the laboratory test results regarding his Keppra blood level. The patient was able to complete MRI of the brain today. His MRI results reveal stable findings with no change compared to MRI done 10/20/2017. There is encephalomalacia noted in the right frontal lobe which remains stable. There is a lacunar infarct in the left cerebellar lobe which is also stable. Carotid Doppler study failed to reveal any significant carotid artery stenosis. Cardiology is recommending event monitor to rule out bradyarrhythmia in this patient. Patient has noted improvement with this left leg weakness. Would continue with PT evaluation. The patient is being considered for placement in subacute rehab and is to be evaluated by Dr. Solis. Patient's Keppra level did come back therapeutic at 10.6. Patient was being evaluated for possible subacute rehab placement at [facility]. Apparently he is not wishing to go there at at this time due to insurance reasons. Patient is recommended to have an event monitor placed by cardiology prior to discharge. Patient is to continue on his current dose of Keppra. As noted his Keppra level is therapeutic at 10.6. We What what is its normal now will continue close neurological follow-up with the patient for further evaluation of possible TIA versus stroke. His overall prognosis at this time remains guarded. Objective - Vital Signs Vital signs: Vital Signs Temp 97.9 F 12/30/17 15:08 Pulse 88 12/30/17 15:08 Resp 18 12/30/17 15:08 BP 129/63 12/30/17 15:08 Pulse Ox 95 12/30/17 20:09 Intake & Output 12/30/17 12/30/17 12/31/17 06:59 18:59 06:59 Intake Total 780 1800 Output Total 520 Balance 260 1800 Weight 101 kg Intake: Oral 780 1800 Output: Urine 520 Other: Voiding Method Urinal Urinal # Voids 2 4 # Bowel Movements 1 - Exam Physical examination: PHYSICAL EXAMINATION: Patient is resting comfortably in bed. VITAL SIGNS: Blood pressure is [129/63]. Heart rate is [88]. Respiration is [18] . Temperature is [97.9]. HEENT: Head is atraumatic, neck is supple, there were no carotid bruits. CHEST: Lungs are clear to auscultation and percussion. CARDIAC: S1, S2 normal rate and rhythm. There is no murmur. ABDOMEN: Soft and nontender. Bowel sounds are present. EXTREMITIES: There is no pedal edema. Peripheral pulses are present. Neurological examination: Patient's neurological examination is unchanged from yesterday. He is noticing improvement with left leg weakness and able to move the leg better today. - Labs CBC & Chem 7: 12/30/17 07:33 12/30/17 07:33 Labs: Abnormal Lab Results - Last 24 Hours (Table) 12/30/17 12/30/17 Range/Units 07:33 07:33 RBC 4.13 L (4.30-5.90) m/uL Hgb 12.9 L (13.0-17.5) gm/dL Hct 38.3 L (39.0-53.0) % Carbon Dioxide 20 L (22-30) mmol/L Assessment and Plan (1) TIA (transient ischemic attack) Current Visit: No Status: Acute Code(s): G45.9 - TRANSIENT CEREBRAL ISCHEMIC ATTACK, UNSPECIFIED SNOMED Code(s): 005173713 (2) Chronic right arterial ischemic stroke, MCA (middle cerebral artery) Current Visit: No Status: Acute Code(s): I69.30 - UNSPECIFIED SEQUELAE OF CEREBRAL INFARCTION SNOMED Code(s): 362300461 (3) History of aortic stenosis Current Visit: Yes Status: Acute Code(s): Z86.79 - PERSONAL HISTORY OF OTHER DISEASES OF THE CIRCULATORY SYSTEM SNOMED Code(s): 231211996 (4) Elevated troponin Current Visit: Yes Status: Acute Code(s): R74.8 - ABNORMAL LEVELS OF OTHER SERUM ENZYMES SNOMED Code(s): 500689169 Plan: This patient is a 72-year-old male who was recently admitted for evaluation of left-sided weakness and leg weakness. He is showing significant improvement over the last several days. He underwent MRI of the brain which failed to reveal any evidence of new or acute stroke. He is being evaluated for possible subacute rehab placement but due to insurance reasons he is declining at this time. He is on Keppra for treatment of underlying seizure disorder. His Keppra level came back therapeutic at 10.6. He is to continue on Keppra for long-term seizure prophylaxis. The patient is noted significant improvement with this left leg weakness. We will continue close neurological follow-up for the patient during this admission. He is awaiting possible discharge in the next few days.
[2017-12-30] MEDS: ATORVASTATIN 80 MG TAB PO SCH (20:45)
[2017-12-30] MEDS: SODIUM CHLORIDE 0.9% 1,000 ML IV SCH (20:46)
[2017-12-31] MEDS: IPRATROPIUM-ALBUTEROL 3 ML NEB INHALATION SCH ×3 (08:00→20:03)
[2017-12-31 08:31] LABS: Basophils # (A) 0.1 k/uL (0-0.2); Basophils % (A) 1 %; Eosinophils # (A) 0.1 k/uL (0-0.7); Eosinophils % (A) 1 %; HCT 38.3 % (39.0-53.0); HGB 13.2 gm/dL (13.0-17.5); Lymphocytes # (A) 1.1 k/uL (1.0-4.8); Lymphocytes % (A) 9 %; MCH 31.6 pg (25.0-35.0); MCHC 34.4 g/dL (31.0-37.0); MCV 91.9 fL (80.0-100.0); Mean Platelet Volume 7.7; Monocytes # (A) 0.6 k/uL (0-1.0); Monocytes % (A) 5 %; Neutrophils # (A) 9.7 k/uL (1.3-7.7); Neutrophils % (A) 82 %; Platelet Count 233 k/uL (150-450); RBC 4.16 m/uL (4.30-5.90); RDW 14.8 % (11.5-15.5); WBC 11.9 k/uL (3.8-10.6)
[2017-12-31] MEDS: NICOTINE 21MG/24HR PATCH TRANSDERM SCH (09:36)
[2017-12-31] MEDS: FUROSEMIDE 40 MG TAB PO SCH (09:37)
[2017-12-31] MEDS: CLOPIDOGREL 75 MG TAB PO SCH (09:37)
[2017-12-31] MEDS: levETIRAcetam 500 MG TAB PO SCH ×2 (09:37→20:15)
[2017-12-31] MEDS: SERTRALINE 100 MG TAB PO SCH (09:37)
[2017-12-31] MEDS: FAMOTIDINE 20 MG TAB PO SCH (09:37)
[2017-12-31] MEDS: TAMSULOSIN 0.4 MG CAP.ER.24H PO SCH (09:37)
[2017-12-31] MEDS: DONEPEZIL 10 MG TAB PO SCH (09:37)
[2017-12-31] MEDS: ENOXAPARIN 40 MG/0.4 ML SYRINGE SQ SCH (09:37)
[2017-12-31] MEDS: OXYBUTYNIN XL 5 MG TAB.ER.24 PO SCH (09:38)
[2017-12-31] MEDS: ASPIRIN 81 MG PO SCH (09:38)
[2017-12-31] MEDS: POTASSIUM CHLORIDE ER 10 MEQ TAB.ER.PRT PO SCH (09:38)
[2017-12-31 09:54] LABS: ALT 51 U/L (21-72); AST 34 U/L (17-59); Alkaline Phosphatase 115 U/L (38-126); Anion Gap 15 mmol/L; Blood Urea Nitrogen 17 mg/dL (9-20); Calcium 9.8 mg/dL (8.4-10.2); Carbon Dioxide 23 mmol/L (22-30); Chloride 107 mmol/L (98-107); Glucose 111 mg/dL (74-99); Magnesium 2.2 mg/dL (1.6-2.3); Sodium 145 mmol/L (137-145); Total Bilirubin 0.5 mg/dL (0.2-1.3)
[2017-12-31 10:41] LABS: Potassium 4.4 mmol/L (3.5-5.1)
--- NOTE | 2017-12-31 14:13 | P.DS ---
Providers Date of admission: 12/26/17 14:41 Expected date of discharge: 12/31/17 Attending physician: Ivan Macdonald Consults: 12/26/17 14:42 Consult Physician Routine Consulting Provider: Jeanette Villavicencio Consult Reason/Comments: CVA Do you want consulting provider notified?: Yes 12/27/17 12:21 Consult Physician Urgent Consulting Provider: Jenna Kay Consult Reason/Comments: pauses Do you want consulting provider notified?: Yes 12/27/17 13:42 Consult Physician Stat Consulting Provider: Jenna Kay Consult Reason/Comments: pausaes Do you want consulting provider notified?: Already Contacted 12/29/17 09:08 Consult Physician Routine Consulting Provider: Gee Solis Consult Reason/Comments: eval for inpatient reahb Do you want consulting provider notified?: Yes Primary care physician: Tricia Mata [facility] Course: Discharge diagnosis 1. TIA: Patient was seen and evaluated by neurology. Computed tomography scan and MRI of the brain showing no acute findings. MRI findings as stated above. Continue aspirin and statin. Carotid Doppler no significant hemodynamic stenosis. Patient had a CRISELDA in July 2017 revealing an EF of 55-60% with moderate aortic stenosis 2. Evidence of second-degree heart block on telemetry monitoring with frequent pauses and possible syncopal episode. Patient followed by cardiology. Patient has had no further bradycardia arrhythmias noted. Cardiology feels that the episode on Thursday night that contributed to patient's bradycardia was likely a vasovagal episode. In the recommending event monitor at time of discharge to monitor for any significant symptomatic bradycardia arrhythmias. 3. Troponin elevation, may be non-thrombotic troponin leak. Patient denies any chest pain at this time. Patient seen by cardiology 4. History of coronary artery disease stent placement 5. Peripheral vascular occlusive disease maintained on dual antiplatelet therapy 6. Tobacco abuse: Counseled to quit for greater than 3 minutes. Patient is not interested and wants to continue smoking. Nicotine patch ordered 7. Leukocytosis: White count 11.9. Check urinalysis. Patient has no symptoms of an infection. Patient is still stable for discharge. Repeat CBC in 1 week Hospital course This is a 72-year-old gentleman with past medical history prior CVA with left- sided hemiparesis presented to emergency room with left lower extremity weakness , numbness and excessive sweating. He progressively worse. He is generally bedbound and is usually able to walk around with a walker at home. He had multiple CVAs in the past. Patient is also known to have chronic peripheral vascular occlusive disease and CAD with prior stent placement. He continues to smoke 2 packs per day. He is not interested in quitting smoking. He was evaluated in the emergency room and a computed tomography scan of the brain showed no acute findings. He was admitted to the hospital for further evaluation. He had similar presentation approximately a month ago. Since admission, patient was noted to have episodes of frequent heart possible with evidence of heart block on telemetry monitoring. He is a symptomatic other than occasionally having diffuse sweating. He denies chest pain. 12/28/2017 patient had MRI of the brain which is stable from 10/20/2017. Encephalomalacia of the right frontal lobe white matter stable, chronic fluid periventricular white matter ischemic type changes stable and lacunar infarct inferior lateral left cerebellum is stable. Patient had a transesophageal echo July 2017 showing EF of 55-60% with moderate aortic stenosis. Carotid Doppler has been ordered. Patient is a heavy smoker and is currently on a nicotine patch. Cardiology is following and monitoring for any further heart block. Beta tristin was discontinued on admission. The patient has had some evidence of a second-degree block 12/29/2017 patient's left-sided weakness has returned to baseline. Physical therapy is recommending ECF placement. Also awaiting a Dr. Solis consult for possible inpatient rehab. Patient will require prior authorization from insurance for his placement. That is also pending. Otherwise, patient is stable for discharge. Pulmonary service has cleared him for discharge and the recommending a event monitor at discharge. Patient did have a looser stool this morning. He reports that he is bowel movements are always loose. It was not watery. He had 1 bowel movement yesterday and one bowel movement this morning. Patient is on Keppra for seizure prophylaxis neurology is following. Keppra level pending. On 12/30/2017 Patient alert and oriented in no distress. Physical therapy is recommending rehab. Patient will require prior authorization from insurance for his placement. That is pending. Otherwise, patient is stable for discharge. Pulmonary service has cleared him for discharge and cardiology are recommending a event monitor at discharge. Patient denies any chest pain or shortness of breath no cough no nausea or vomiting no abdominal pain no diarrhea and no urinary symptoms. Patient is on Keppra for seizure prophylaxis neurology is following. Keppra level 10.6 within normal range. Patient was seen and evaluated by both cardiology and neurology. They have cleared patient for discharge. Patient's discharge was held due to waiting for prior off for ECF placement. [facility] was too high of a co-pay for the patient and family. It appears that [facility] has accepted patient. Awaiting final prior authorization. Patient needs to have a 30 day event monitor arranged prior to discharge. assistant inventory manager is working on this. Patient will follow-up with cardiology in the outpatient setting. It is felt likely patient's symptoms were related to a TIA. They have resolved. No evidence of new stroke on computed tomography scan of the brain or MRI of the brain. Patient will continue aspirin and Lipitor. The metoprolol was discontinued during this admission due to the episode of second-degree heart block with pauses. Since then patient has had no further arrhythmias. Patient did have some leukocytosis on CBC this morning. No evidence of acute infection. Stool for C. diff was negative. And patient reports he normally has a looser type of bowel movement twice a day. Urinalysis has been ordered. Will follow-up on results either before discharge home today or at ECF. Patient is still stable for discharge. Recommend checking a CBC in 1 week. I performed an examination of the patient and discussed their management with the physician Forensic Social Worker. I have reviewed the Physician Forensic Social Worker's notes and agree with the documented findings and plan of care Patient Condition at Discharge: Stable Plan - Discharge Summary Discharge Rx Participant: No New Discharge Prescriptions: New Nicotine 21Mg/24Hr Patch [Habitrol] 1 patch TRANSDERM DAILY patch Continue Donepezil [Aricept] 10 mg PO DAILY Atorvastatin [Lipitor] 80 mg PO HS Ranitidine HCl 300 mg PO HS Aspirin [Adult Low Dose Aspirin EC] 81 mg PO DAILY Furosemide [Lasix] 40 mg PO DAILY #30 tab levETIRAcetam [Keppra] 500 mg PO Q12HR Potassium Chloride [K-Tab ER] 10 meq PO DAILY Sertraline [Zoloft] 200 mg PO DAILY Clopidogrel [Plavix] 75 mg PO DAILY #90 tab Fesoterodine Fumarate [Toviaz] 16 mg PO DAILY Tamsulosin HCl [Flomax] 0.8 mg PO DAILY Zolpidem [Ambien] 10 mg PO HS PRN PRN Reason: Insomnia Ipratropium-Albuterol Nebulize [Duoneb 0.5 mg-3 mg/3 ml Soln] 3 ml INHALATION RT-QID PRN PRN Reason: Shortness Of Breath Discontinued Metoprolol Tartrate [Lopressor] 25 mg PO BID Discharge Medication List Atorvastatin [Lipitor] 80 mg PO HS 08/08/14 [History] Donepezil [Aricept] 10 mg PO DAILY 08/08/14 [History] Ranitidine HCl 300 mg PO HS 08/08/14 [History] Aspirin [Adult Low Dose Aspirin EC] 81 mg PO DAILY 09/09/16 [History] Furosemide [Lasix] 40 mg PO DAILY #30 tab 05/26/17 [Rx] Potassium Chloride [K-Tab ER] 10 meq PO DAILY 09/03/17 [History] Sertraline [Zoloft] 200 mg PO DAILY 09/03/17 [History] levETIRAcetam [Keppra] 500 mg PO Q12HR 09/03/17 [History] Clopidogrel [Plavix] 75 mg PO DAILY #90 tab 09/09/17 [Rx] Fesoterodine Fumarate [Toviaz] 16 mg PO DAILY 10/02/17 [History] Tamsulosin HCl [Flomax] 0.8 mg PO DAILY 10/02/17 [History] Ipratropium-Albuterol Nebulize [Duoneb 0.5 mg-3 mg/3 ml Soln] 3 ml INHALATION RT -QID PRN 12/26/17 [History] Zolpidem [Ambien] 10 mg PO HS PRN 12/26/17 [History] Nicotine 21Mg/24Hr Patch [Habitrol] 1 patch TRANSDERM DAILY patch 12/31/17 [Rx] Follow up Appointment(s)/Referral(s): Tricia Mata DO [Primary Care Provider] - 1 Week Van Maradiaga MD [STAFF PHYSICIAN] - 1 Week Patient Instructions/Handouts: Stroke (DC) Activity/Diet/Wound Care/Special Instructions: Please arrange for a 30 day event monitor at time of discharge Diet: cardiac Activity: as tolerated Patient is medically stable for discharge Discharge Disposition: TRANSFER TO SNF/ECF
--- NOTE | 2017-12-31 18:10 | P.PN ---
Subjective Progress Note Date: 12/31/17 This patient is a 72-year-old male who is being evaluated for symptoms of left- sided weakness and some slurred speech. Patient has history of previous stroke in the past. He was brought into the emergency room as he was having difficulty with left lower extremity weakness as well as numbness. He has residual symptoms from previous strokes in the past. He continues to smoke 2 packs a day but is aware of the risk factor for stroke with his chronic smoking habit. He is also being evaluated for heart block which is been detected on telemetry. Cardiology has been consulted. Patient was seen by cardiology and they have discontinued his Lopressor. He is to be evaluated for possibility of bradyarrhythmia which if documented he may require pacemaker. Patient's symptoms suggest vasovagal syncope versus seizure. He is being treated for underlying seizure disorder and is currently on Keppra monotherapy. We are still awaiting the laboratory test results regarding his Keppra blood level. The patient was able to complete MRI of the brain today. His MRI results reveal stable findings with no change compared to MRI done 10/20/2017. There is encephalomalacia noted in the right frontal lobe which remains stable. There is a lacunar infarct in the left cerebellar lobe which is also stable. Carotid Doppler study failed to reveal any significant carotid artery stenosis. Cardiology is recommending event monitor to rule out bradyarrhythmia in this patient. Patient has noted improvement with this left leg weakness. Would continue with PT evaluation. The patient is being considered for placement in subacute rehab and is to be evaluated by Dr. Solis. Patient's Keppra level did come back therapeutic at 10.6. Patient was being evaluated for possible subacute rehab placement at [facility]. Apparently he is not wishing to go there at at this time due to insurance reasons. Patient is recommended to have an event monitor placed by cardiology prior to discharge. Patient is to continue on his current dose of Keppra. As noted his Keppra level is therapeutic at 10.6. This was at bedside and she was updated on his overall neurological status today. Patient is being considered for transfer to [facility] tomorrow. We will continue close neurological follow-up with the patient for further evaluation of possible TIA versus stroke. His overall prognosis at this time remains guarded. Case was discussed at length with the patient and his at bedside today. Objective - Vital Signs Vital signs: Vital Signs Temp 97.3 F L 12/31/17 15:00 Pulse 91 12/31/17 15:00 Resp 20 12/31/17 15:00 BP 121/65 12/31/17 15:00 Pulse Ox 94 L 12/31/17 15:00 Intake & Output 12/30/17 12/31/17 12/31/17 18:59 06:59 18:59 Intake Total 1800 Output Total 2 Balance 1800 -2 Weight 102.1 kg Intake: Oral 1800 Output: Stool 2 Other: Voiding Method Urinal Bedside Commode Bedside Commode Urinal Urinal Incontinent Incontinent # Voids 4 5 # Bowel Movements 1 - Labs CBC & Chem 7: 12/31/17 08:05 12/31/17 08:05 Labs: Abnormal Lab Results - Last 24 Hours (Table) 12/31/17 12/31/17 Range/Units 08:05 08:05 WBC 11.9 H (3.8-10.6) k/uL RBC 4.16 L (4.30-5.90) m/uL Hct 38.3 L (39.0-53.0) % Neutrophils # 9.7 H (1.3-7.7) k/uL Glucose 111 H (74-99) mg/dL Assessment and Plan (1) TIA (transient ischemic attack) Current Visit: No Status: Acute Code(s): G45.9 - TRANSIENT CEREBRAL ISCHEMIC ATTACK, UNSPECIFIED SNOMED Code(s): 922735554 (2) Chronic right arterial ischemic stroke, MCA (middle cerebral artery) Current Visit: No Status: Acute Code(s): I69.30 - UNSPECIFIED SEQUELAE OF CEREBRAL INFARCTION SNOMED Code(s): 771511734 (3) History of aortic stenosis Current Visit: Yes Status: Acute Code(s): Z86.79 - PERSONAL HISTORY OF OTHER DISEASES OF THE CIRCULATORY SYSTEM SNOMED Code(s): 420761868 (4) Elevated troponin Current Visit: Yes Status: Acute Code(s): R74.8 - ABNORMAL LEVELS OF OTHER SERUM ENZYMES SNOMED Code(s): 955034515 Plan: This patient is a 72-year-old male who was recently admitted for evaluation of left-sided weakness and leg weakness. He is showing significant improvement over the last several days. He underwent MRI of the brain which failed to reveal any evidence of new or acute stroke. He is being evaluated for possible subacute rehab placement but due to insurance reasons he is declining at this time. He is on Keppra for treatment of underlying seizure disorder. His Keppra level came back therapeutic at 10.6. He is to continue on Keppra for long-term seizure prophylaxis. The patient is noted significant improvement with this left leg weakness. The patient is being considered for transfer to [facility] at [facility]. He will undergo further to subacute rehab at the [facility] when transferred there possibly tomorrow. Patient may continue with current treatment plans. He is to continue on his current dose of Keppra. His overall prognosis at this time remains guarded.
[2017-12-31] MEDS: ATORVASTATIN 80 MG TAB PO SCH (20:15)
[2017-12-31] MEDS: SODIUM CHLORIDE 0.9% 1,000 ML IV SCH (22:56)
[2017-12-31 23:14] VITALS: RESP 16
[2018-01-01 00:50] LABS: Appearance,Urine Clear (Clear); Bacteria,Urine Rare /hpf; Bilirubin,Urine Negative (Negative); Blood,Urine Negative (Negative); Color,Urine Light Yellow; Glucose,Urine (UA) Negative (Negative); Ketones,Urine Negative (Negative); Leukocyte Esterase,Urine Trace (Negative); Mucus,Urine Rare /hpf; Nitrite,Urine Positive (Negative); PH, Urine 5.5 (5.0-8.0); Protein,Urine Negative (Negative); RBC,Urine <1 /hpf (0-5); Specific Gravity,Urine 1.004 (1.001-1.035); Urobilinogen,Urine <2.0 mg/dL (<2.0); WBC,Urine 7 /hpf (0-5)
[2018-01-01] MEDS: IPRATROPIUM-ALBUTEROL 3 ML NEB INHALATION SCH ×2 (07:33→13:56)
[2018-01-01 07:44] LABS: Basophils # (A) 0.1 k/uL (0-0.2); Basophils % (A) 1 %; Eosinophils # (A) 0.2 k/uL (0-0.7); Eosinophils % (A) 2 %; HCT 38.9 % (39.0-53.0); HGB 12.6 gm/dL (13.0-17.5); Lymphocytes # (A) 1.1 k/uL (1.0-4.8); Lymphocytes % (A) 10 %; MCH 30.3 pg (25.0-35.0); MCHC 32.3 g/dL (31.0-37.0); MCV 93.8 fL (80.0-100.0); Mean Platelet Volume 8.2; Monocytes # (A) 0.7 k/uL (0-1.0); Monocytes % (A) 6 %; Neutrophils # (A) 8.9 k/uL (1.3-7.7); Neutrophils % (A) 80 %; Platelet Count 266 k/uL (150-450); RBC 4.14 m/uL (4.30-5.90); RDW 14.7 % (11.5-15.5); WBC 11.1 k/uL (3.8-10.6)
[2018-01-01 08:07] LABS: Anion Gap 14 mmol/L; Blood Urea Nitrogen 18 mg/dL (9-20); Calcium 9.5 mg/dL (8.4-10.2); Carbon Dioxide 23 mmol/L (22-30); Chloride 103 mmol/L (98-107); Glucose 105 mg/dL (74-99); Magnesium 2.1 mg/dL (1.6-2.3); Potassium 4.2 mmol/L (3.5-5.1); Sodium 140 mmol/L (137-145)
[2018-01-01 08:36] VITALS: BP 134/72; PULSE 102; TEMP 97.8
[2018-01-01] MEDS ORDERED: cefTRIAXone IN SWFI 1,000 MG/10 ML SYRINGE IVP SCH (09:00)
[2018-01-01] MEDS: SERTRALINE 100 MG TAB PO SCH (10:14)
[2018-01-01] MEDS: levETIRAcetam 500 MG TAB PO SCH (10:14)
[2018-01-01] MEDS: OXYBUTYNIN XL 5 MG TAB.ER.24 PO SCH (10:14)
[2018-01-01] MEDS: ENOXAPARIN 40 MG/0.4 ML SYRINGE SQ SCH (10:14)
[2018-01-01] MEDS: FUROSEMIDE 40 MG TAB PO SCH (10:15)
[2018-01-01] MEDS: POTASSIUM CHLORIDE ER 10 MEQ TAB.ER.PRT PO SCH (10:15)
[2018-01-01] MEDS: DONEPEZIL 10 MG TAB PO SCH (10:15)
[2018-01-01] MEDS: ASPIRIN 81 MG PO SCH (10:15)
[2018-01-01] MEDS: NICOTINE 21MG/24HR PATCH TRANSDERM SCH (10:15)
[2018-01-01] MEDS: FAMOTIDINE 20 MG TAB PO SCH (10:15)
[2018-01-01] MEDS: CLOPIDOGREL 75 MG TAB PO SCH (10:15)
[2018-01-01] MEDS: TAMSULOSIN 0.4 MG CAP.ER.24H PO SCH (10:15)
--- NOTE | 2018-01-05 10:17 | CDI ---
Last Revision, July 2017 Documentation Clarification Form Date: 01/05/18 From: Yris Ken Gely Burleson, Loss Mitigation Specialist Hours-8:30 am & 5 pm M-F Admit Date: 12/26/2017 2:41:00 PM Patient Name: Roderick Sharpe Visit Number: [id number] Discharge Date: 01/01/18 ATTENTION: The Clinical Documentation Specialists (CDI) and [facility] Coding Staff appreciate your assistance in clarifying documentation. Please respond to the clarification below the line at the bottom and electronically sign. The CDI & [facility] Coding staff will review the response and follow-up if needed. Please note: Queries are made part of the Legal Health Record. If you have any questions, please contact the author of this message via ITS. Dr. Ivan Macdonald CHF is documented in the rehab consult and heart failure is documented in the ED record, H&P and consults. History/Risk Factors: TIA, left hemiplegia from prev stroke BNP: 6620Echocardiogram Results: Chest X Ray: Heart is enlarged, vascular congeston and worsening edema. Continuing changes of congestive heart failure. Treatment: Home medications Lasix 40 mg po daily, no changes during hospitalization In your professional opinion, can you please clarify the acuity and type of CHF if known? Type Systolic Heart Failure Diastolic Heart Failure Systolic & Diastolic Heart Failure Acuity Acute Chronic Acute on Chronic Heart Failure Unable to Determine Other, please specify Please continue to document in your progress notes and discharge summary in order to capture severity of illness and risk of mortality. Include clinical findings that support your diagnosis. MTDD
--- NOTE | 2018-01-07 16:24 | CDI ---
Last Revision, July 2017 Documentation Clarification Form Date: 01/07/2018 From: Yris Ken Gely Burleson, Specimen Boss Hours-8:30 am & 5 pm M-F Admit Date: 12/26/2017 2:41:00 PM Patient Name: Roderick Sharpe Visit Number: [id number] Discharge Date: 12/1017 ATTENTION: The Clinical Documentation Specialists (CDI) and [facility] Coding Staff appreciate your assistance in clarifying documentation. Please respond to the clarification below the line at the bottom and electronically sign. The CDI & [facility] Coding staff will review the response and follow-up if needed. Please note: Queries are made part of the Legal Health Record. If you have any questions, please contact the author of this message via ITS. Dr. Jenna Kay CHF is documented in the rehab consult and heart failure is documented in the ED record, H&P and consults. History/Risk Factors: TIA, left hemiplegia from prev stroke VS/Pulse OX: BNP: 6620Echocardiogram Results: Chest X Ray: Heart is enlarged, vascular congeston and worsening edema. Continuing changes of congestive heart failure. Treatment: Home medications Lasix 40 mg po daily, no changes during hospitalization In your professional opinion, can you please clarify the acuity and type of CHF if known? Type Systolic Heart Failure Diastolic Heart Failure Systolic & Diastolic Heart Failure Acuity Acute Chronic Acute on Chronic Heart Failure Unable to Determine Other, please specify Please continue to document in your progress notes and discharge summary in order to capture severity of illness and risk of mortality. Include clinical findings that support your diagnosis. MTDD
== END 2018-01-01 14:45 | DRG 69 ==
LOC: EC 12:15 → 6SEL 14:41 → 5MS5E 12-29 17:35
PROVIDERS: ADMIT Internal Medicine; ATTEND Internal Medicine
DX: G45.9 Transient cerebral ischemic attack, unspecified (principal); I69.354 Hemiplegia and hemiparesis following cerebral infarction affecting left non-dominant side; N39.0 Urinary tract infection, site not specified; G93.89 Other specified disorders of brain; J44.9 Chronic obstructive pulmonary disease, unspecified; I44.1 Atrioventricular block, second degree; G40.909 Epilepsy, unspecified, not intractable, without status epilepticus; I35.0 Nonrheumatic aortic (valve) stenosis; J32.2 Chronic ethmoidal sinusitis; I99.8 Other disorder of circulatory system; R40.2362 Coma scale, best motor response, obeys commands, at arrival to emergency department; R40.2252 Coma scale, best verbal response, oriented, at arrival to emergency department; R40.2142 Coma scale, eyes open, spontaneous, at arrival to emergency department; I25.10 Atherosclerotic heart disease of native coronary artery without angina pectoris; R77.9 Abnormality of plasma protein, unspecified; R32 Unspecified urinary incontinence; I50.9 Heart failure, unspecified; F17.210 Nicotine dependence, cigarettes, uncomplicated; Z71.6 Tobacco abuse counseling; Z79.82 Long term (current) use of aspirin; Z79.02 Long term (current) use of antithrombotics/antiplatelets; Z79.899 Other long term (current) drug therapy; Z95.5 Presence of coronary angioplasty implant and graft; Z90.49 Acquired absence of other specified parts of digestive tract; Z74.01 Bed confinement status; Z80.1 Family history of malignant neoplasm of trachea, bronchus and lung; Z82.49 Family history of ischemic heart disease and other diseases of the circulatory system
CPT/HCPCS: 36415; 70450; 70551; 71046; 80048; 80053; 80061; 80177; 81001; 82550; 82553; 83735; 83880; 84484; 85025; 85610; 85730; 87077; 87086; 87186; 87324; 93005; 93880; 94640; 94760; 96360; 96361; 99291

== ENCOUNTER 2018-11-08 20:01 | Inpatient (IN) | payer OTHER, MEDICARE ==
[2018-11-08] MEDS ORDERED: SODIUM CHLORIDE 0.9% 1,000 ML IV STA (20:18)
[2018-11-08] MEDS ORDERED: IPRATROPIUM-ALBUTEROL 3 ML NEB INHALATION STA ×2 (20:18→22:05)
--- NOTE | 2018-11-08 20:26 | ED ---
SOB HPI - General Chief Complaint: Shortness of Breath Stated Complaint: Feet swelling, JB Time Seen by Provider: 11/08/18 20:08 Source: patient, RN notes reviewed, old records reviewed Mode of arrival: ambulatory Limitations: no limitations - History of Present Illness Initial Comments: This is a 73-year-old male the ER for evaluation. Patient resents today for evaluation of shortness of breath shortness of cough cough or congestion. Significant shortness of breath with mainly exertional. No cough no congestion no fevers. No travel history or sick contacts. Multiple history of similar issue. Most recently about a year ago. MD Complaint: shortness of breath, cough -: days(s) Radiation: other (No pain) Severity: moderate Severity scale (1-10): 6 Consistency: constant Improves With: rest, bronchodilators Worsens With: exertion, movement Known History Of: COPD, congestive heart failure, diabetes Associated Symptoms: denies other symptoms Treatments Prior to Arrival: none - Related Data Home Medications Medication Instructions Recorded Confirmed Atorvastatin [Lipitor] 80 mg PO HS 08/08/14 11/08/18 Donepezil [Aricept] 10 mg PO DAILY 08/08/14 11/08/18 Potassium Chloride [K-Tab ER] 10 meq PO DAILY 09/03/17 11/08/18 levETIRAcetam [Keppra] 500 mg PO Q12HR 09/03/17 11/08/18 Tamsulosin HCl [Flomax] 0.8 mg PO DAILY 10/02/17 11/08/18 Ranitidine HCl [Zantac] 150 mg PO BID 11/08/18 11/08/18 Sertraline [Zoloft] 150 mg PO DAILY 11/08/18 11/08/18 Previous Rx's Medication Instructions Recorded Furosemide [Lasix] 40 mg PO DAILY #30 tab 05/26/17 Clopidogrel [Plavix] 75 mg PO DAILY #90 tab 09/09/17 Zolpidem [Ambien] 10 mg PO HS PRN #3 tab 12/31/17 Allergies Allergy/AdvReac Type Severity Reaction Status Date / Time No Known Allergies Allergy Verified 11/08/18 20:33 Review of Systems ROS Statement: Those systems with pertinent positive or pertinent negative responses have been documented in the HPI. ROS Other: All systems not noted in ROS Statement are negative. Past Medical History Past Medical History: Coronary Artery Disease (CAD), Heart Failure, COPD, CVA/TIA, Seizure Disorder Additional Past Medical History / Comment(s): CVA 2007,2009(x3)- -uses walker-, heart murmer, OCC incontinence of urine/stool-weara a brief, last seizure couple yrs ago History of Any Multi-Drug Resistant Organisms: None Reported Past Surgical History: Appendectomy, Heart Catheterization With Stent, Tonsillectomy Additional Past Surgical History / Comment(s): one cardiac stent Past Anesthesia/Blood Transfusion Reactions: No Reported Reaction Date of Last Stent Placement:: 2010 Past Psychological History: No Psychological Hx Reported Smoking Status: Former smoker Past Alcohol Use History: None Reported Past Drug Use History: None Reported - Past Family History Mother Family Medical History: Cancer Additional Family Medical History / Comment(s): lung cancer Father Family Medical History: Myocardial Infarction ([place]) Additional Family Medical History / Comment(s): lived to age 92 General Exam - General Exam Comments Initial Comments: NIH of 0, no specific neurological deficit is noted Limitations: no limitations General appearance: alert, in no apparent distress Head exam: Present: atraumatic, normocephalic, normal inspection Eye exam: Present: normal appearance, PERRL, EOMI. Absent: scleral icterus, conjunctival injection, periorbital swelling ENT exam: Present: normal exam, mucous membranes moist Neck exam: Present: normal inspection. Absent: tenderness, meningismus, lymphadenopathy Respiratory exam: Present: respiratory distress, wheezes, rales, accessory muscle use, decreased breath sounds, prolonged expiratory. Absent: rhonchi, stridor Cardiovascular Exam: Present: regular rate, normal rhythm, normal heart sounds. Absent: systolic murmur, diastolic murmur, rubs, gallop, clicks GI/Abdominal exam: Present: soft, normal bowel sounds. Absent: distended, tenderness, guarding, rebound, rigid Extremities exam: Present: normal inspection, full ROM, normal capillary refill. Absent: tenderness, pedal edema, joint swelling, calf tenderness Back exam: Present: normal inspection Neurological exam: Present: alert, oriented X3, CN II-XII intact Psychiatric exam: Present: normal affect, normal mood Skin exam: Present: warm, dry, intact, normal color. Absent: rash Course Vital Signs 11/08/18 11/08/18 11/08/18 20:04 20:46 20:50 Temperature 98.2 F Pulse Rate 88 71 Respiratory 18 21 Rate Blood Pressure 157/69 O2 Sat by Pulse 93 L Oximetry 11/08/18 20:57 Temperature Pulse Rate 76 Respiratory Rate Blood Pressure O2 Sat by Pulse Oximetry - Reevaluation(s) Reevaluation #1: 11/08/18 23:12 Medical record is reviewed Reevaluation #2: 11/08/18 23:12 Patient is without significant acute neurological findings Reevaluation #3: 11/08/18 23:12 breathing is improved with home o2 Reevaluation #4: 11/08/18 23:18 Patient is not want to stay in hospital currently, family is convinced him to be evaluated regarding his breathing and he is significantly short of breath after traveling to the bathroom with assistance Medical Decision Making - Medical Decision Making 73-year-old male the ER for melchor Johnson is CHF and COPD. Patient be admitted for continued diuresis and monitoring of need for possible supplemental O2 - Lab Data Result diagrams: 11/08/18 20:25 11/08/18 20:25 Lab Results 11/08/18 11/08/18 11/08/18 Range/Units 20:25 20:25 20:25 WBC 8.6 (3.8-10.6) k/uL RBC 4.05 L (4.30-5.90) m/uL Hgb 12.7 L (13.0-17.5) gm/dL Hct 38.2 L (39.0-53.0) % MCV 94.3 (80.0-100.0) fL MCH 31.4 (25.0-35.0) pg MCHC 33.3 (31.0-37.0) g/dL RDW 14.6 (11.5-15.5) % Plt Count 183 (150-450) k/uL Neutrophils % 71 % Lymphocytes % 14 % Monocytes % 7 % Eosinophils % 4 % Basophils % 1 % Neutrophils # 6.1 (1.3-7.7) k/uL Lymphocytes # 1.2 (1.0-4.8) k/uL Monocytes # 0.6 (0-1.0) k/uL Eosinophils # 0.4 (0-0.7) k/uL Basophils # 0.1 (0-0.2) k/uL PT (9.0-12.0) sec INR (<1.2) APTT (22.0-30.0) sec Sodium 142 (137-145) mmol/L Potassium 4.3 (3.5-5.1) mmol/L Chloride 105 (98-107) mmol/L Carbon Dioxide 26 (22-30) mmol/L Anion Gap 11 mmol/L BUN 33 H (9-20) mg/dL Creatinine 1.17 (0.66-1.25) mg/dL Est GFR (CKD-EPI)AfAm 72 (>60 ml/min/1.73 sqM) Est GFR (CKD-EPI)NonAf 62 (>60 ml/min/1.73 sqM) Glucose 121 H (74-99) mg/dL Calcium 9.7 (8.4-10.2) mg/dL Phosphorus 3.4 (2.5-4.5) mg/dL Magnesium 2.1 (1.6-2.3) mg/dL Total Bilirubin 0.5 (0.2-1.3) mg/dL AST 19 (17-59) U/L ALT 34 (21-72) U/L Alkaline Phosphatase 107 (38-126) U/L Troponin I (0.000-0.034) ng/mL NT-Pro-B Natriuret Pep 1590 pg/mL Total Protein 7.0 (6.3-8.2) g/dL Albumin 4.1 (3.5-5.0) g/dL Urine Color Urine Appearance (Clear) Urine pH (5.0-8.0) Ur Specific [place] (1.001-1.035) Urine Protein (Negative) Urine Glucose (UA) (Negative) Urine Ketones (Negative) Urine Blood (Negative) Urine Nitrite (Negative) Urine Bilirubin (Negative) Urine Urobilinogen (<2.0) mg/dL Ur Leukocyte Esterase (Negative) 11/08/18 11/08/18 11/08/18 Range/Units 20:25 20:25 22:15 WBC (3.8-10.6) k/uL RBC (4.30-5.90) m/uL Hgb (13.0-17.5) gm/dL Hct (39.0-53.0) % MCV (80.0-100.0) fL MCH (25.0-35.0) pg MCHC (31.0-37.0) g/dL RDW (11.5-15.5) % Plt Count (150-450) k/uL Neutrophils % % Lymphocytes % % Monocytes % % Eosinophils % % Basophils % % Neutrophils # (1.3-7.7) k/uL Lymphocytes # (1.0-4.8) k/uL Monocytes # (0-1.0) k/uL Eosinophils # (0-0.7) k/uL Basophils # (0-0.2) k/uL PT 10.3 (9.0-12.0) sec INR 1.0 (<1.2) APTT 25.8 (22.0-30.0) sec Sodium (137-145) mmol/L Potassium (3.5-5.1) mmol/L Chloride (98-107) mmol/L Carbon Dioxide (22-30) mmol/L Anion Gap mmol/L BUN (9-20) mg/dL Creatinine (0.66-1.25) mg/dL Est GFR (CKD-EPI)AfAm (>60 ml/min/1.73 sqM) Est GFR (CKD-EPI)NonAf (>60 ml/min/1.73 sqM) Glucose (74-99) mg/dL Calcium (8.4-10.2) mg/dL Phosphorus (2.5-4.5) mg/dL Magnesium (1.6-2.3) mg/dL Total Bilirubin (0.2-1.3) mg/dL AST (17-59) U/L ALT (21-72) U/L Alkaline Phosphatase (38-126) U/L Troponin I 0.028 (0.000-0.034) ng/mL NT-Pro-B Natriuret Pep pg/mL Total Protein (6.3-8.2) g/dL Albumin (3.5-5.0) g/dL Urine Color Yellow Urine Appearance Clear (Clear) Urine pH 5.5 (5.0-8.0) Ur Specific [place] 1.021 (1.001-1.035) Urine Protein Negative (Negative) Urine Glucose (UA) Negative (Negative) Urine Ketones Negative (Negative) Urine Blood Negative (Negative) Urine Nitrite Negative (Negative) Urine Bilirubin Negative (Negative) Urine Urobilinogen <2.0 (<2.0) mg/dL Ur Leukocyte Esterase Negative (Negative) - EKG Data -: EKG Interpreted by Me (EKG shows sinus rhythm rate of 86, CT 170, QRS 142, QTc 502) - Radiology Data Radiology results: report reviewed (Chest x-rays negative for significant acute changes), image reviewed Disposition Clinical Impression: COPD exacerbation, Weakness, Chest pain, Congestive heart failure Disposition: ADMITTED IP TO THIS HOSP Condition: Fair Is patient prescribed a controlled substance at d/c from ED?: No Referrals: Tricia Mata DO [Primary Care Provider] - 1-2 days
[2018-11-08 20:37] LABS: Basophils # (A) 0.1 k/uL (0-0.2); Basophils % (A) 1 %; Eosinophils # (A) 0.4 k/uL (0-0.7); Eosinophils % (A) 4 %; HCT 38.2 % (39.0-53.0); HGB 12.7 gm/dL (13.0-17.5); Lymphocytes # (A) 1.2 k/uL (1.0-4.8); Lymphocytes % (A) 14 %; MCH 31.4 pg (25.0-35.0); MCHC 33.3 g/dL (31.0-37.0); MCV 94.3 fL (80.0-100.0); Mean Platelet Volume 8.1; Monocytes # (A) 0.6 k/uL (0-1.0); Monocytes % (A) 7 %; Neutrophils # (A) 6.1 k/uL (1.3-7.7); Neutrophils % (A) 71 %; Platelet Count 183 k/uL (150-450); RBC 4.05 m/uL (4.30-5.90); RDW 14.6 % (11.5-15.5); WBC 8.6 k/uL (3.8-10.6)
--- NOTE | 2018-11-08 20:41 | XR ---
EXAMINATION TYPE: XR chest 2V DATE OF EXAM: 11/08/2018 COMPARISON: Two-view chest x-ray December 26, 2017 HISTORY: Shortness of breath and weakness. TECHNIQUE: Frontal and lateral views of the chest are obtained. FINDINGS: There is chronic emphysematous change without suspicious focal air space opacity, pleural effusion, or pneumothorax seen. The cardiac silhouette size is enlarged with atherosclerotic aorta. The osseous structures are intact. IMPRESSION: Cardiomegaly and chronic parenchymal changes without acute pulmonary process.
[2018-11-08 20:45] LABS: Partial Thromboplastin Time 25.8 sec (22.0-30.0); Prothrombin Time 10.3 sec (9.0-12.0)
[2018-11-08 20:48] LABS: Albumin 4.1 g/dL (3.5-5.0); Calcium 9.7 mg/dL (8.4-10.2); Magnesium 2.1 mg/dL (1.6-2.3); Phosphorus 3.4 mg/dL (2.5-4.5); Potassium 4.3 mmol/L (3.5-5.1); Total Bilirubin 0.5 mg/dL (0.2-1.3)
[2018-11-08] MEDS ORDERED: methylPREDNISolone SOD SUCCI 125 MG/2 ML VIAL IV STA (22:05)
[2018-11-08 22:34] LABS: Appearance,Urine Clear (Clear); Bilirubin,Urine Negative (Negative); Blood,Urine Negative (Negative); Color,Urine Yellow; Glucose,Urine (UA) Negative (Negative); Ketones,Urine Negative (Negative); Leukocyte Esterase,Urine Negative (Negative); Nitrite,Urine Negative (Negative); PH, Urine 5.5 (5.0-8.0); Protein,Urine Negative (Negative); Specific Gravity,Urine 1.021 (1.001-1.035); Urobilinogen,Urine <2.0 mg/dL (<2.0)
[2018-11-08] MEDS: FUROSEMIDE 10 MG/ML 4 ML VIAL IV SCH (23:20)
[2018-11-09] MEDS: methylPREDNISolone SOD SUCCI 125 MG/2 ML VIAL IV SCH ×4 (00:54→17:28)
[2018-11-09 01:33] VITALS: BMI 32.5
[2018-11-09] MEDS: ZOLPIDEM 10 MG TAB PO PRN (02:48)
[2018-11-09] MEDS: levETIRAcetam 500 MG TAB PO SCH ×3 (02:48→21:42)
[2018-11-09] MEDS: POTASSIUM CHLORIDE ER 10 MEQ TAB.ER.PRT PO SCH (07:43)
[2018-11-09] MEDS: DONEPEZIL 10 MG TAB PO SCH (07:43)
[2018-11-09] MEDS: FAMOTIDINE 20 MG TAB PO SCH ×2 (07:43→21:42)
[2018-11-09] MEDS: TAMSULOSIN 0.4 MG CAP.ER.24H PO SCH (07:44)
[2018-11-09] MEDS: ENOXAPARIN 40 MG/0.4 ML SYRINGE SQ SCH (07:44)
[2018-11-09] MEDS: SERTRALINE 100 MG TAB PO SCH (07:44)
[2018-11-09] MEDS: CLOPIDOGREL 75 MG TAB PO SCH (07:48)
[2018-11-09] MEDS: IPRATROPIUM-ALBUTEROL 3 ML NEB INHALATION SCH ×4 (08:30→20:03)
[2018-11-09] MEDS: FUROSEMIDE 10 MG/ML 4 ML VIAL IV SCH ×2 (09:47→21:42)
--- NOTE | 2018-11-09 10:13 | P.HPIM ---
History of Present Illness H&P Date: 11/09/18 This is a 73-year-old male patient of Dr. Mata. Patient presented to the hospital via ambulance with complaints of shortness of breath. Patient is very sleepy at this time and not wanting to talk much. Patient reports that he was short of breath for part of the day yesterday. Patient is having a cough. Patient's additional medical history includes CAD, heart failure COPD, CVA, seizure disorder, heart catheterization with stents and ex-smoker. Chest x-ray completed showing cardiomegaly and chronic parenchymal changes without acute pulmonary process. EKG completed showing sinus rhythm with premature supraventricular complexes, right bundle branch block. BNP 1590. Initial troponin 0.02 8 repeat troponin 0.032. Cardiology services have been consulted. Patient started on IV Lasix, IV steroids and updraft breathing treatments. Will consult pulmonary services. At this time patient is sleepy but arousable and answers questions. Patient is currently on 2 L nasal cannula which he does not wear at home. Patient denies chest pain. Patient denies nausea vomiting or diarrhea. Patient denies any urinary burning or frequency. Review of Systems please refer to HPI otherwise unremarkable Past Medical History Past Medical History: Coronary Artery Disease (CAD), Heart Failure, COPD, CVA/TIA, Seizure Disorder Additional Past Medical History / Comment(s): CVA 2007,2009(x3)- -uses walker-, heart murmer, OCC incontinence of urine/stool-weara a brief, last seizure couple yrs ago History of Any Multi-Drug Resistant Organisms: None Reported Past Surgical History: Appendectomy, Heart Catheterization With Stent, Tonsillectomy Additional Past Surgical History / Comment(s): one cardiac stent Past Anesthesia/Blood Transfusion Reactions: No Reported Reaction Date of Last Stent Placement:: 2010 Past Psychological History: No Psychological Hx Reported Additional Psychological History / Comment(s): denies any hx Smoking Status: Former smoker Past Alcohol Use History: None Reported Additional Past Alcohol Use History / Comment(s): started smokiong at age 10 (1956) smokes 3 Past Drug Use History: None Reported - Past Family History Mother Family Medical History: Cancer Additional Family Medical History / Comment(s): lung cancer Father Family Medical History: Myocardial Infarction ([place]) Additional Family Medical History / Comment(s): lived to age 92 Medications and Allergies Home Medications Medication Instructions Recorded Confirmed Type Atorvastatin [Lipitor] 80 mg PO HS 08/08/14 11/08/18 History Donepezil [Aricept] 10 mg PO DAILY 08/08/14 11/08/18 History Furosemide [Lasix] 40 mg PO DAILY #30 tab 05/26/17 11/08/18 Rx Potassium Chloride [K-Tab ER] 10 meq PO DAILY 09/03/17 11/08/18 History levETIRAcetam [Keppra] 500 mg PO Q12HR 09/03/17 11/08/18 History Clopidogrel [Plavix] 75 mg PO DAILY #90 tab 09/09/17 11/08/18 Rx Tamsulosin HCl [Flomax] 0.8 mg PO DAILY 10/02/17 11/08/18 History Zolpidem [Ambien] 10 mg PO HS PRN #3 tab 12/31/17 11/08/18 Rx Ranitidine HCl [Zantac] 150 mg PO BID 11/08/18 11/08/18 History Sertraline [Zoloft] 150 mg PO DAILY 11/08/18 11/08/18 History Allergies Allergy/AdvReac Type Severity Reaction Status Date / Time No Known Allergies Allergy Verified 11/08/18 20:33 Physical Exam Vitals: Vital Signs Temp Pulse Pulse Resp BP BP Pulse Ox 11/09/18 08:42 84 11/09/18 08:32 88 11/09/18 07:20 98.2 F 82 20 159/81 97 11/09/18 02:16 97.9 F 86 18 118/64 91 L 11/09/18 00:55 98.1 F 75 19 128/77 94 L 11/09/18 00:21 88 11/09/18 00:13 88 11/08/18 23:30 98.3 F 70 20 137/64 98 11/08/18 20:57 76 11/08/18 20:50 21 11/08/18 20:46 71 11/08/18 20:04 98.2 F 88 18 157/69 93 L Intake and Output 11/08/18 11/09/18 11/09/18 22:59 06:59 14:59 Other: # Voids 1 # Bowel Movements 1 Weight 102.965 kg Head normocephalic Neck supple Lungs diminished bilaterally Heart regular rate and rhythm S1-S2, no rub or gallop Abdomen is soft nontender nondistended positive bowel sounds no hepatosplenomegaly Extremities no edema Neuro alert and orientated to 3 Results CBC & Chem 7: 11/08/18 20:25 11/08/18 20:25 Labs: Abnormal Lab Results - Last 24 Hours (Table) 11/08/18 11/08/18 Range/Units 20:25 20:25 RBC 4.05 L (4.30-5.90) m/uL Hgb 12.7 L (13.0-17.5) gm/dL Hct 38.2 L (39.0-53.0) % BUN 33 H (9-20) mg/dL Glucose 121 H (74-99) mg/dL Assessment and Plan Assessment: 1. Shortness of breath related to COPD exacerbation and congestive heart failure. Chest x-ray completed showing cardiomegaly and chronic parenchymal changes without acute pulmonary process. BNP 1590. 2-D echo ordered. Cardiology and pulmonary services ordered. Patient currently on IV steroids and IV Lasix. Continue DuoNeb breathing treatments 2. History of COPD 3. History of cardiac cath with previous stents. Patient maintained on Plavix 4. Ex-smoker 5. Peripheral vascular occlusive disease. 6. Previous history of TIA 7. History of seizure disorder DVT prophylaxis Lovenox. GI prophylaxis Protonix Time with Patient: Greater than 30 (Greater than 60% of the total time spent in counseling and coordination of care. I performed an examination of the patient and discussed their management with the Nurse Practitioner. I have reviewed the Nurse Practitioner's notes and agree with the documented findings and plan of care)
--- NOTE | 2018-11-09 12:25 | ECHOF ---
Referral Reason:chf MEASUREMENTS -------- HEIGHT: 180.3 cm WEIGHT: 103.0 kg BP: 159/81 IVSd: 1.3 cm (0.6 - 1.1) LVIDd: 4.3 cm (3.9 - 5.3) LVPWd: 1.7 cm (0.6 - 1.1) IVSs: 2.0 cm LVIDs: 2.7 cm LVPWs: 2.4 cm LAESV Index (A-L): 24.64 ml/m Ao Diam: 3.1 cm (2.0 - 3.7) AV Cusp: 1.1 cm (1.5 - 2.6) LA Diam: 3.1 cm (2.7 - 3.8) MV EXCURSION: 13.275 mm (> 18.000) MV EF SLOPE: 44 mm/s (70 - 150) EPSS: 1.6 cm MV E Rafael: 0.53 m/s MV DecT: 213 ms MV A Rafael: 1.10 m/s MV E/A Ratio: 0.48 AV maxP.70 mmHg AV meanP.68 mmHg AR PHT: 303 ms RAP: 5.00 mmHg RVSP: 12.60 mmHg FINDINGS -------- Sinus rhythm. This was a technically difficult study with suboptimal views. The left ventricular size is normal. There is moderate concentric left ventricular hypertrophy. O verall left ventricular systolic function is normal with, an EF between 55 - 60 %. The right ventricle is normal in size. Normal LA size by volume 22+/-6 ml/m2. The right atrial size is normal. Lumason used There is severe aortic valve sclerosis. There is [id number] aortic regurgitation. There is severe aortic stenosis present. Peak/mean gradient across the Aortic Valve is 105.70mmHg / 61.68mmH g. The mitral valve leaflets are mildly thickened. Mild mitral regurgitation is present. Mild tricuspid regurgitation present. Right ventricular systolic pressure is normal at < 35 mmHg. The right ventricular systolic pressure, as measured by Doppler, is 12.60mmHg. There is no pulmonic regurgitation present. The aortic root size is normal. IVC Not well visulized. There is no pericardial effusion. CONCLUSIONS -------- 1. Sinus rhythm. 2. This was a technically difficult study with suboptimal views. 3. The left ventricular size is normal. 4. There is moderate concentric left ventricular hypertrophy. 5. Overall left ventricular systolic function is normal with, an EF between 55 - 60 %. 6. Normal LA size by volume 22+/-6 ml/m2. 7. Lumason used 8. There is severe aortic valve sclerosis. 9. There is [id number] aortic regurgitation. 10. There is severe aortic stenosis present. 11. Peak/mean gradient across the Aortic Valve is 105.70mmHg / 61.68mmHg. 12. The mitral valve leaflets are mildly thickened. 13. Mild mitral regurgitation is present. 14. Mild tricuspid regurgitation present. 15. Right ventricular systolic pressure is normal at < 35 mmHg. 16. There is no pulmonic regurgitation present. 17. The aortic root size is normal. 18. IVC Not well visulized. 19. There is no pericardial effusion. MERRY [employer] OPERATOR: Jasmyn Obando RDCS
[2018-11-09] MEDS ORDERED: ACETAMINOPHEN TAB 325 MG TAB PO PRN (12:40)
--- NOTE | 2018-11-09 13:10 | CONS ---
CONSULTATION PULMONARY CRITICAL CARE CONSULTATION: DATE OF SERVICE: 11/09/2018 A 73-year-old male who presented to the emergency room because of shortness of breath and leg swelling. The patient states he has not been feeling well for a couple days prior to admission. His primary reason for being there was shortness of breath. He also had some cough and chest congestion. His shortness of breath was mostly on exertion, not at rest. The patient apparently did not have any fever or chills. He was not really coughing up any phlegm. There was no nausea, vomiting or diarrhea. There was no chest pain or chest discomfort. There were no palpitations or tachycardia. The patient denied all GI and complaints as well. He was seen in the emergency room and his evaluation included shortness of breath, secondary to COPD and CHF. The patient had never seen a lung doctor in the past. The patient is feeling a bit better today than he did yesterday when he first came in. He actually was admitted on November 08. MEDICATIONS: At home include Lipitor, Aricept, potassium, Keppra, Flomax, Zantac, and Zoloft. Other medications included Lasix, as well as Plavix and Ambien. ALLERGIES: Denied. PAST MEDICAL HISTORY: Positive for CAD, CHF, COPD, CVA, and seizure disorder. The patient apparently has had multiple strokes in the past. In addition, he has a history of incontinence of urine and stool. He also has a previous history of seizure disorder. SURGICAL HISTORY: Includes that of appendectomy, cardiac catheterization with stent placement and some other minor surgical procedures. SOCIAL HISTORY: Positive for previous heavy tobacco use. He smoked more than 50 years at 3-4 packs a day. Does not smoke currently. Denies alcohol use or illicit drug use. FAMILY HISTORY: Positive for myocardial infarction and lung cancer. REVIEW OF SYSTEMS: CONSTITUTIONAL: Fatigue. NEUROLOGIC: Negative. HEENT: Negative. CARDIOVASCULAR: Negative. PULMONARY: Shortness of breath. Occasional cough without phlegm. GI: Negative. : Negative. RHEUMATOLOGIC: Negative. IMMUNOLOGIC: Negative. ENDOCRINOLOGIC: Negative. DERMATOLOGIC: Negative. PHYSICAL EXAMINATION: Current vital signs are reviewed. His temperature is 98.2, heart rate 84, respiratory rate 16, blood pressure 159/81, mean 107, room-air saturation 96% disease, he is 100% on 2 L. Appears in no acute distress. Not a particularly good historian. HEENT examination is grossly unremarkable. Nasal O2 noted. Mucous membranes are moist. Neck is supple. Full range of motion. No adenopathy or thyromegaly. Neck veins are flat. Cardiovascular examination reveals regular rhythm and rate. S1, S2 normal. No S3, S4, or murmur. Lungs reveal diminished breath sounds. There are a few scattered crackles. Some mild expiratory rhonchi. Breath sounds equal bilaterally but diminished throughout. Abdomen is obese. Bowel sounds are heard. Extremities are intact. There is slight edema. He has 1+ and pitting. Skin without rash. Neurologic examination is brief but nonfocal. LAB DATA: Reviewed. White count is 8.6, hemoglobin 12.7, hematocrit 38.2, platelet count 183,000. PT, INR, PTT all normal. Sodium, potassium, chloride, CO2 all normal. Anion gap normal. BUN 33, creatinine 1.17. His troponins were 0.028 and 0.026. His N- terminal proBNP was elevated at 15,090. His urine was negative. The patient had a chest x-ray which showed some cardiomegaly and some chronic parenchymal changes without an acute abnormality. Echocardiogram showed excellent stage left ventricular ejection fraction of between 55%- 60%. He had normal left atrial size. He has some concentric left ventricular hypertrophy and mild to moderate aortic regurgitation. He does have apparently severe aortic stenosis present. Right-sided valves appear relatively normal with only minor regurgitation. No evidence of significant pulmonary hypertension. Medications are reviewed. He is currently on Lipitor, Plavix, Aricept, Lovenox, Pepcid, Lasix, updrafts, Keppra, Solu-Medrol, Protonix, potassium, Zoloft, Flomax, and Ambien. ASSESSMENT: 1. Shortness of breath, likely related to underlying chronic obstructive pulmonary disease exacerbation. There may also be a small component of fluid overload. 2. Ongoing tobacco use with nicotine addiction. 3. Evidence of severe aortic stenosis by echocardiogram. 4. History of coronary artery disease. 5. History of congestive heart failure. 6. History of cerebrovascular accident. 7. History of seizure disorder. 8. History of urinary and fecal incontinence. 9. Status post PCI. 10.Severe aortic stenosis by echocardiogram. 11.Ongoing tobacco use with nicotine addiction. PLAN: The patient's medications will be optimized. I will add Symbicort to the regimen 160/4.5 two puffs twice a day. I do not believe he needs an antibiotic at this time. Continue to follow closely. We will see what Cardiology has in store for this patient given the echo results. Additional recommendations and suggestions are forthcoming. His aortic valve replacement is going to be contemplated, the patient will need a full pulmonary function test and optimization of his pulmonary status. Additional recommendations and suggestions are forthcoming. MMKHOAL / IJN: [id number] /
--- NOTE | 2018-11-09 15:15 | P.CRDCN ---
History of Present Illness History of present illness: This is a pleasant 73-year-old male past medical history significant for coronary artery disease, CVA 4, TIA, dyslipidemia, aortic stenosis, COPD, seizure disorder and former nicotine dependence. He follows in the office with Dr. Maradiaga. We have been asked to see him in consultation for shortness of breath. Echocardiogram obtained on admission reveals preserved left ventricular systolic function with ejection fraction 55-60%, severe aortic valve sclerosis, mild to moderate aortic regurgitation, severe aortic stenosis with a mean gradient of 61 mmHg, mild mitral regurgitation and mild tricuspid regurgitation. He underwent a CRISELDA in July 2017 which revealed moderate aortic stenosis with a gradient of 31 mmHg. He underwent cardiac catheterization July 2017 revealing 2 lesions in the mid RCA one in the range of 50% and the second approximately 70-80% with mild disease distally, left main has disease in the range of 30%, circumflex is angiographically normal, LAD with mild disease only. Ultimately in August 2017 he underwent successful stent placement to the mid RCA. He presented to the hospital with symptoms of shortness of breath, cough and lower extremity edema. This has been getting progressively worse over the previous few days. Shortness of breath is worse with mild exertion. He denies PND, orthopnea, fever, chills, dizziness, palpitations or chest discomfort. He has been started on IV diuretics, IV steroids and updraft treatments. He is also been seen in consultation by pulmonary service. EKG reveals sinus mechanism with right bundle branch block. Chest x-ray reveals cardiomegaly and chronic parenchymal changes without an acute cardiopulmonary process, no pleural effusion or infiltrate noted. Laboratory data reviewed, WBC 8.6, hemoglobin 12.7, platelets 183, sodium 142, potassium 4.3, creatinine 1.17, magnesium 2.1, cardiac enzymes negative 3, NT proBNP 1590. Current cardiac medications include atorvastatin 80 mg daily, Plavix 75 mg daily, Lasix 40 mg daily. At the time of my exam: CONSTITUTIONAL: Denies fever. Denies chills. EYES: Denies blurred vision. Denies vision changes. Denies eye pain. EARS, NOSE, MOUTH & THROAT: Denies headache. Denies sore throat. Denies ear pain. CARDIOVASCULAR: Denies chest pain. Complains of shortness of breath. Denies orthopnea. Denies PND. Denies palpitations. RESPIRATORY: Denies cough. GASTROINTESTINAL: Denies abdominal pain. Denies diarrhea. Denies constipation. Denies nausea. Denies vomiting. MUSCULOSKELETAL: Denies myalgias. INTEGUMENTARY: Denies pruitis. Denies rash. NEUROLOGIC: Denies numbness. Denies tingling. Denies weakness. PSYCHIATRIC: Denies anxiety. Denies depression. ENDOCRINE: Denies fatigue. Denies weight change. Denies polydipsia. Denies polyurina. GENITOURINARY: Denies burning, hematuria or urgency with micturation. HEMATOLOGIC: Denies history of anemia. Denies bleeding. Blood pressure 159/81 heart rate 84 afebrile maintaining oxygen saturation GENERAL: This is a 73-year-old male in no apparent distress at the time of my examination. HEENT: Head is atraumatic, normocephalic. Pupils are equal, round. Sclerae anicteric. Conjunctivae are clear. Mucous membranes of the mouth are moist. Neck is supple. There is no jugular venous distention. No carotid bruit is heard. LUNGS: Bibasilar rales, no rhonchi or wheezes. No chest wall tenderness is noted on palpation or with deep breathing. HEART: Regular rate and rhythm with systolic ejection murmur at the base, no rubs or gallops. S1 and S2 heard. ABDOMEN: Soft, nontender. Bowel sounds are heard. No organomegaly noted. EXTREMITIES: 2+ bilateral lower extremity pitting edema and no calf tenderness noted. VASCULAR: Radial and dorsalis pedis pulses palpated, no evidence of clubbing. NEUROLOGIC: Patient is awake, alert and oriented x3. ASSESSMENT Acute on chronic diastolic heart failure Severe aortic stenosis, significant progression since CRISELDA in 2017 Coronary artery disease s/p stent placement to RCA 08/2017 Dyslipidemia Hypertension COPD CVA x4 in the psat, last one 2012 Seizure disorder Former nicotine dependence, quit 1-year ago PLAN Symptoms may be related to aortic stenosis. Recommend he undergo repeat CRISELDA to further evaluate the valve. I have discussed the risks, benefits and alternative therapies for the above-mentioned procedure and for both sedation/analgesia as t hey pertain to this patient and his . The patient has indicated understanding and acceptance of the risks and procedures discussed. This will be boarded for tomorrow. Follow kidney function and electrolytes in the morning. Documentation of intake and output along with daily weights. Further recommendations to follows. Thank you kindly for this consultation. Nurse Practitioner note has been reviewed, I agree with a documented findings and plan of care. Patient was seen and examined. Past Medical History Past Medical History: Coronary Artery Disease (CAD), Heart Failure, COPD, CVA/TIA, Seizure Disorder Additional Past Medical History / Comment(s): CVA 2007,2009(x3)- -uses walker-, heart murmer, OCC incontinence of urine/stool-weara a brief, last seizure couple yrs ago History of Any Multi-Drug Resistant Organisms: None Reported Past Surgical History: Appendectomy, Heart Catheterization With Stent, Tonsillectomy Additional Past Surgical History / Comment(s): one cardiac stent Past Anesthesia/Blood Transfusion Reactions: No Reported Reaction Date of Last Stent Placement:: 2010 Past Psychological History: No Psychological Hx Reported Additional Psychological History / Comment(s): denies any hx Smoking Status: Former smoker Past Alcohol Use History: None Reported Additional Past Alcohol Use History / Comment(s): started smokiong at age 10 (8) smokes 3 Past Drug Use History: None Reported - Past Family History Mother Family Medical History: Cancer Additional Family Medical History / Comment(s): lung cancer Father Family Medical History: Myocardial Infarction ([place]) Additional Family Medical History / Comment(s): lived to age 92 Medications and Allergies Home Medications Medication Instructions Recorded Confirmed Type Atorvastatin [Lipitor] 80 mg PO HS 08/08/14 11/08/18 History Donepezil [Aricept] 10 mg PO DAILY 08/08/14 11/08/18 History Furosemide [Lasix] 40 mg PO DAILY #30 tab 05/26/17 11/08/18 Rx Potassium Chloride [K-Tab ER] 10 meq PO DAILY 09/03/17 11/08/18 History levETIRAcetam [Keppra] 500 mg PO Q12HR 09/03/17 11/08/18 History Clopidogrel [Plavix] 75 mg PO DAILY #90 tab 09/09/17 11/08/18 Rx Tamsulosin HCl [Flomax] 0.8 mg PO DAILY 10/02/17 11/08/18 History Zolpidem [Ambien] 10 mg PO HS PRN #3 tab 12/31/17 11/08/18 Rx Ranitidine HCl [Zantac] 150 mg PO BID 11/08/18 11/08/18 History Sertraline [Zoloft] 150 mg PO DAILY 11/08/18 11/08/18 History Allergies Allergy/AdvReac Type Severity Reaction Status Date / Time No Known Allergies Allergy Verified 11/08/18 20:33 Physical Exam Vitals: Vital Signs Temp Pulse Pulse Resp BP BP Pulse Ox 11/09/18 08:42 84 11/09/18 08:32 88 11/09/18 07:20 98.2 F 82 20 159/81 97 11/09/18 02:16 97.9 F 86 18 118/64 91 L 11/09/18 00:55 98.1 F 75 19 128/77 94 L 11/09/18 00:21 88 11/09/18 00:13 88 11/08/18 23:30 98.3 F 70 20 137/64 98 11/08/18 20:57 76 11/08/18 20:50 21 11/08/18 20:46 71 11/08/18 20:04 98.2 F 88 18 157/69 93 L Intake and Output 11/08/18 11/09/18 11/09/18 22:59 06:59 14:59 Output Total 100 Balance -100 Output: Urine 100 Other: # Voids 1 # Bowel Movements 1 Weight 102.965 kg 102.965 kg Results 11/08/18 20:25 11/08/18 20:25 Cardiac Enzymes 11/08/18 11/08/18 11/09/18 Range/Units 20:25 20:25 05:42 AST 19 (17-59) U/L Troponin I 0.028 0.032 (0.000-0.034) ng/mL 11/09/18 Range/Units 11:30 AST (17-59) U/L Troponin I 0.026 (0.000-0.034) ng/mL Coagulation 11/08/18 Range/Units 20:25 PT 10.3 (9.0-12.0) sec APTT 25.8 (22.0-30.0) sec CBC 11/08/18 Range/Units 20:25 WBC 8.6 (3.8-10.6) k/uL RBC 4.05 L (4.30-5.90) m/uL Hgb 12.7 L (13.0-17.5) gm/dL Hct 38.2 L (39.0-53.0) % Plt Count 183 (150-450) k/uL Comprehensive Metabolic Panel 11/08/18 Range/Units 20:25 Sodium 142 (137-145) mmol/L Potassium 4.3 (3.5-5.1) mmol/L Chloride 105 (98-107) mmol/L Carbon Dioxide 26 (22-30) mmol/L BUN 33 H (9-20) mg/dL Creatinine 1.17 (0.66-1.25) mg/dL Glucose 121 H (74-99) mg/dL Calcium 9.7 (8.4-10.2) mg/dL AST 19 (17-59) U/L ALT 34 (21-72) U/L Alkaline Phosphatase 107 (38-126) U/L Total Protein 7.0 (6.3-8.2) g/dL Albumin 4.1 (3.5-5.0) g/dL Current Medications Generic Name Dose Route Start Last Admin Trade Name Freq PRN Reason Stop Dose Admin Acetaminophen 325 mg 11/09/18 12:40 Tylenol Tab PO Q6HR PRN Fever and/ or Pain Albuterol/Ipratropium 3 ml 11/09/18 08:00 11/09/18 12:16 Duoneb 0.5 Mg-3 Mg/3 Ml Soln INHALATION Not Given RT-QID [facility] Atorvastatin Calcium 80 mg 11/09/18 21:00 Lipitor PO HS [facility] Budesonide/Formoterol Fumarate 2 puff 11/09/18 20:00 Symbicort 160-4.5 Mcg Inhaler INHALATION RT-BID [facility] Clopidogrel Bisulfate 75 mg 11/09/18 09:00 11/09/18 07:48 Plavix PO 75 mg DAILY YONI Administration Donepezil HCl 10 mg 11/09/18 09:00 11/09/18 07:43 Aricept PO 10 mg DAILY YONI Administration Enoxaparin Sodium 40 mg 11/09/18 09:00 11/09/18 07:44 Lovenox SQ 40 mg DAILY YONI Administration Famotidine 20 mg 11/09/18 09:00 11/09/18 07:43 Pepcid PO 20 mg BID YONI Administration Furosemide 40 mg 11/08/18 22:15 11/09/18 09:47 Lasix IV 40 mg Q12H YONI Administration Levetiracetam 500 mg 11/09/18 03:00 11/09/18 07:43 Keppra PO 500 mg Q12HR YONI Administration Methylprednisolone Sodium Succinate 60 mg 11/09/18 00:00 11/09/18 11:39 Solu-Medrol IV 60 mg Q6HR YONI Administration Pantoprazole Sodium 40 mg 11/10/18 07:30 Protonix PO AC-BRKFST YONI Potassium Chloride 10 meq 11/09/18 09:00 11/09/18 07:43 K-Dur 10 PO 10 meq DAILY YONI Administration Sertraline HCl 150 mg 11/09/18 09:00 11/09/18 07:44 Zoloft PO 150 mg DAILY YONI Administration Tamsulosin HCl 0.8 mg 11/09/18 09:00 11/09/18 07:44 Flomax PO 0.8 mg DAILY YONI Administration Zolpidem Tartrate 10 mg 11/09/18 02:29 11/09/18 02:48 Ambien PO 10 mg HS PRN Administration Insomnia Intake and Output 11/08/18 11/09/18 11/09/18 22:59 06:59 14:59 Output Total 100 Balance -100 Output: Urine 100 Other: # Voids 1 # Bowel Movements 1 Weight 102.965 kg 102.965 kg Patient Weight 11/10/18 06:59 Weight 102.965 kg 11/08/18 20:25 11/08/18 20:25
[2018-11-09] MEDS: ASPIRIN 81 MG PO SCH (15:35)
[2018-11-09] MEDS: SYMBICORT 160-4.5 MCG INHALER INHALATION SCH (20:03)
[2018-11-09] MEDS ORDERED: ATORVASTATIN 80 MG TAB PO SCH (21:00)
[2018-11-10] MEDS: methylPREDNISolone SOD SUCCI 125 MG/2 ML VIAL IV SCH ×4 (00:34→17:32)
[2018-11-10] MEDS ORDERED: PANTOPRAZOLE 40 MG TABLET PO SCH (07:30)
[2018-11-10] MEDS: SYMBICORT 160-4.5 MCG INHALER INHALATION SCH ×2 (07:52→19:52)
[2018-11-10] MEDS: IPRATROPIUM-ALBUTEROL 3 ML NEB INHALATION SCH ×4 (07:52→19:52)
[2018-11-10 08:24] LABS: Basophils % (A) 0 %; Eosinophils % (A) 0 %; HCT 40.1 % (39.0-53.0); Lymphocytes # (A) 0.8 k/uL (1.0-4.8); Lymphocytes % (A) 4 %; MCH 30.8 pg (25.0-35.0); MCHC 32.3 g/dL (31.0-37.0); MCV 95.4 fL (80.0-100.0); Mean Platelet Volume 7.9; Monocytes # (A) 0.7 k/uL (0-1.0); Monocytes % (A) 3 %; Neutrophils # (A) 19.9 k/uL (1.3-7.7); Neutrophils % (A) 92 %; Platelet Count 236 k/uL (150-450); RBC 4.21 m/uL (4.30-5.90); RDW 14.8 % (11.5-15.5); WBC 21.5 k/uL (3.8-10.6)
[2018-11-10 08:44] LABS: Albumin 4.7 g/dL (3.5-5.0); Calcium 10.2 mg/dL (8.4-10.2); Potassium 4.6 mmol/L (3.5-5.1); Total Bilirubin 0.5 mg/dL (0.2-1.3); Total Protein 7.7 g/dL (6.3-8.2)
[2018-11-10] MEDS ORDERED: fentaNYL (PF) 50 MCG/ML 2 ML AMP ONE (09:46)
[2018-11-10] MEDS: BENZOCAINE SPRAY 1 CAN MUCOUS MEM ONE ×2 (09:50→10:09)
[2018-11-10] MEDS ORDERED: SODIUM CHLORIDE 0.9% 500 ML 500 ML IV ONE (10:02)
[2018-11-10] MEDS ORDERED: MIDAZOLAM 2 MG/2 ML VIAL IVP ONE (10:09)
[2018-11-10] MEDS: fentaNYL (PF) 50 MCG/ML 2 ML AMP IVP ONE ×2 (10:09→10:14)
--- NOTE | 2018-11-10 10:29 | P.PN ---
Subjective Progress Note Date: 11/10/18 This is a 73-year-old male patient of Dr. Mata. Patient presented to the hospital via ambulance with complaints of shortness of breath. Patient is very sleepy at this time and not wanting to talk much. Patient reports that he was short of breath for part of the day yesterday. Patient is having a cough. Patient's additional medical history includes CAD, heart failure COPD, CVA, seizure disorder, heart catheterization with stents and ex-smoker. Chest x-ray completed showing cardiomegaly and chronic parenchymal changes without acute pulmonary process. EKG completed showing sinus rhythm with premature supraventricular complexes, right bundle branch block. BNP 1590. Initial troponin 0.02 8 repeat troponin 0.032. Cardiology services have been consulted. Patient started on IV Lasix, IV steroids and updraft breathing treatments. Will consult pulmonary services. At this time patient is sleepy but arousable and answers questions. Patient is currently on 2 L nasal cannula which he does not wear at home. Patient denies chest pain. Patient denies nausea vomiting or diarrhea. Patient denies any urinary burning or frequency. On 11/10/2017 patient is alert and oriented 3. Patient is much more awake today. Patient did have 2-D echo completed showing severe aortic regurg. Patie nt to undergo CRISELDA today per cardiology. Patient remains on IV Lasix and IV Solu-Medrol. Patient denies chest pain or shortness of breath. Patient denies nausea vomiting or diarrhea. Patient denies any urinary burning or frequency Objective - Vital Signs Vital signs: Vital Signs Temp 97.5 F L 11/10/18 07:12 Pulse 71 11/10/18 08:57 Resp 18 11/10/18 08:57 BP 158/75 11/10/18 07:12 Pulse Ox 96 11/10/18 07:12 Intake & Output 11/09/18 11/10/18 11/10/18 18:59 06:59 18:59 Intake Total 600 100 Output Total 100 Balance 500 100 Weight 102.965 kg Intake: Oral 600 100 Output: Urine 100 Other: # Voids 10 1 # Bowel Movements 2 - Exam Head normocephalic Neck supple Lungs diminished bilaterally Heart regular rate and rhythm S1-S2, no rub or gallop Abdomen is soft nontender nondistended positive bowel sounds no hepatosp lenomegaly Extremities no edema Neuro alert and orientated to 3 - Labs CBC & Chem 7: 11/10/18 07:26 11/10/18 07:26 Labs: Abnormal Lab Results - Last 24 Hours (Table) 11/10/18 11/10/18 Range/Units 07:26 07:26 WBC 21.5 H (3.8-10.6) k/uL RBC 4.21 L (4.30-5.90) m/uL Neutrophils # 19.9 H (1.3-7.7) k/uL Lymphocytes # 0.8 L (1.0-4.8) k/uL BUN 34 H (9-20) mg/dL Glucose 133 H (74-99) mg/dL Assessment and Plan Assessment: 1. Shortness of breath related to COPD exacerbation and congestive heart failure. Chest x-ray completed showing cardiomegaly and chronic parenchymal changes without acute pulmonary process. BNP 1590. 2-D echo ordered. Ca rdiology and pulmonary services ordered. Patient currently on IV steroids and IV Lasix. Continue DuoNeb breathing treatments 2. Acute on chronic diastolic heart failure 3. Severe aortic stenosis. 2-D echo completed showing significant progression since CRISELDA in 2017. Cardiology services are following. Patient will undergo CRISELDA today 3. History of COPD 4. History of cardiac cath with previous stents. Patient maintained on Plavix 5. Ex-smoker. Patient reports he quit 1 year ago 6. Peripheral vascular occlusive disease. 7. Previous history of TIA 8. History of seizure disorder DVT prophylaxis Lovenox. GI prophylaxis Protonix I performed an examination of the patient and discussed their management with the Nurse Practitioner. I have reviewed the Nurse Practitioner's notes and agree with the documented findings and plan of care
[2018-11-10] MEDS ORDERED: NITROGLYCERIN SL TABS 0.4 MG TAB SUBLINGUAL PRN (10:32)
[2018-11-10] MEDS ORDERED: ALPRAZolam 0.5 MG TAB PO PRN (10:32)
[2018-11-10] MEDS ORDERED: ALPRAZolam 0.25 MG TAB PO PRN (10:32)
[2018-11-10] MEDS ORDERED: SODIUM CHLORIDE 0.9% 1,000 ML in EMPTY BAG 1 BAG IV ONE (10:32)
[2018-11-10] MEDS ORDERED: ASPIRIN 325 MG TAB PO STA (10:36)
[2018-11-10] MEDS ORDERED: ATORVASTATIN 80 MG TAB PO STA (10:37)
--- NOTE | 2018-11-10 11:08 | PN ---
PROGRESS NOTE Mr. Sharpe is a 73-year-old male with known history of coronary artery disease, aortic valve disease, chronic obstructive lung disease, who presented with symptoms of progressive dyspnea with evidence of exacerbation of COPD and symptoms of CHF. He is feeling better today. His breathing is better. He continues to be dyspneic, yet his cough is better. He denies any dizziness or palpitation. He denies any chest pain. His transthoracic echocardiogram yesterday revealed severe aortic stenosis with a preserved systolic function. He continues to be on aspirin once a day, Lipitor 80 mg daily, Plavix 75 mg daily, Aricept 10 mg daily, Lasix 40 mg IV q.12 hours, methylprednisolone, , Keppra, Zoloft, Flomax. PHYSICAL EXAMINATION: Blood pressure running in the 140s and 150s with the heart rate in the 60s. LUNGS: With decreased air exchange. No wheezes. HEART: Regular rate and rhythm. S1, S2. No S3 with systolic ejection murmur heard at the base and an early diastolic murmur. ABDOMEN: Soft, nontender. Positive bowel sounds. No organomegaly. EXTREMITIES: Trace edema. LAB DATA: Lab data revealed a hemoglobin of 13. BUN and creatinine 34 and 1.13. Potassium 4.6. IMPRESSION: 1. Worsening dyspnea with exacerbation of chronic obstructive pulmonary disease and element of congestive heart failure. 2. Aortic stenosis, severe by transthoracic echocardiogram with preserved systolic function. 3. History of coronary artery disease. 4. History of hypertension. 5. Hyperlipidemia. 6. History of tobacco use. RECOMMENDATION: From the cardiac standpoint, I will proceed with transesophageal echocardiogram and if his severe aortic stenosis is confirmed, then he will undergo cardiac catheterization to further assess his status and guide his treatment. The patient will need to undergo for evaluation regarding his lung status to see what is the best option if aortic valve replacement is needed. Those findings and recommendations were discussed with the patient who is in full understanding and agreement. MMODL / IJN: [id number] /
[2018-11-10] MEDS: SODIUM CHLORIDE 0.9% 1,000 ML IV SCH (11:22)
[2018-11-10] MEDS: FUROSEMIDE 10 MG/ML 4 ML VIAL IV SCH ×2 (11:23→21:36)
[2018-11-10] MEDS: ENOXAPARIN 40 MG/0.4 ML SYRINGE SQ SCH (11:24)
[2018-11-10] MEDS: levETIRAcetam 500 MG TAB PO SCH ×2 (11:25→21:36)
[2018-11-10] MEDS: DONEPEZIL 10 MG TAB PO SCH (11:25)
[2018-11-10] MEDS: CLOPIDOGREL 75 MG TAB PO SCH (11:25)
[2018-11-10] MEDS: FAMOTIDINE 20 MG TAB PO SCH ×2 (11:25→21:36)
[2018-11-10] MEDS: POTASSIUM CHLORIDE ER 10 MEQ TAB.ER.PRT PO SCH (11:26)
[2018-11-10] MEDS: SERTRALINE 100 MG TAB PO SCH (11:26)
[2018-11-10] MEDS: TAMSULOSIN 0.4 MG CAP.ER.24H PO SCH (11:27)
[2018-11-10] MEDS: ASPIRIN 81 MG PO SCH (12:31)
--- NOTE | 2018-11-10 13:36 | P.PN ---
Subjective Progress Note Date: 11/10/18 Principal diagnosis: Shortness of breath, related to acute exacerbation of COPD and a component of congestive heart failure Assessment 73-year-old white male patient of Dr. Mata, admitted on 11/09/2018 with complaints of shortness of breath and leg swelling. He was also having some cough and chest congestion and dyspnea, did not have any fever or chills. Producing any phlegm, no nausea vomiting or diarrhea. No complaints of chest pain or chest discomfort or palpitations. Patient did have mild elevation of his troponins of 0.028 and 0.026, N-terminal proBNP was elevated at 15,090. Chest x-ray showed cardiomegaly and some chronic parenchymal changes without any acute abnormality. Cardiogram showed left ventricular ejection fraction of 55- 60%, moderate aortic regurgitation, severe aortic stenosis with us of significant pulmonary hypertension. Patient was diagnosed with acute exacerbation of COPD and exacerbation of congestive heart failure with diastolic dysfunction, currently he's been treated with the breathing treatments, he is being diuresed on IV Lasix 40 mg every 12 hours, IV Solu-Medrol. On today's exam he is on 2 L per nasal cannula his pulse ox was 91%, he is afebrile, hemodynamically patient is stable. He's been evaluated by cardiology and they're planning on performing transesophageal echocardiogram and possibly cardiac catheterization if to severe aortic stenosis is confirmed. His cough is improving, no chest pain, no worsening shortness of breath Objective - Vital Signs Vital signs: Vital Signs Temp 97.8 F 11/10/18 10:47 Pulse 68 11/10/18 11:27 Resp 14 11/10/18 10:47 BP 133/64 11/10/18 11:20 Pulse Ox 91 L 11/10/18 11:20 Intake & Output 11/09/18 11/10/18 11/10/18 18:59 06:59 18:59 Intake Total 600 100 Output Total 100 Balance 500 100 Weight 102.965 kg Intake: Oral 600 100 Output: Urine 100 Other: # Voids 10 1 # Bowel Movements 2 - Exam GENERAL EXAM: Alert, pleasant, 73-year-old white male, comfortable in no apparent distress. HEAD: Normocephalic/atraumatic. EYES: Normal reaction of pupils, equal size. Conjunctiva pink, sclera white. NOSE: Clear with pink turbinates. THROAT: No erythema or exudates. NECK: No masses, no JVD, no thyroid enlargement, no adenopathy. CHEST: No chest wall deformity. Symmetrical expansion. LUNGS: Equal air entry with diminished breath sounds, no wheezes, no rhonchi CVS: Regular rate and rhythm, normal S1 and S2, no gallops, no murmurs, no rubs ABDOMEN: Soft, nontender. No hepatosplenomegaly, normal bowel sounds, no guarding or rigidity. EXTREMITIES: No clubbing, no edema, no cyanosis, 2+ pulses and upper and lower extremities. MUSCULOSKELETAL: Muscle strength and tone normal. SPINE: No scoliosis or deformity SKIN: No rashes CENTRAL NERVOUS SYSTEM: Alert and oriented -3. No focal deficits, tone is normal in all 4 extremities. PSYCHIATRIC: Alert and oriented -3. Appropriate affect. Intact judgment and insight. - Labs CBC & Chem 7: 11/10/18 07:26 11/10/18 07:26 Labs: Abnormal Lab Results - Last 24 Hours (Table) 11/10/18 11/10/18 Range/Units 07:26 07:26 WBC 21.5 H (3.8-10.6) k/uL RBC 4.21 L (4.30-5.90) m/uL Neutrophils # 19.9 H (1.3-7.7) k/uL Lymphocytes # 0.8 L (1.0-4.8) k/uL BUN 34 H (9-20) mg/dL Glucose 133 H (74-99) mg/dL Assessment and Plan Plan: Assessment: #1. Exacerbation of chronic obstructive pulmonary disease #2. Exacerbation of diastolic congestive heart failure #3. Aortic stenosis, severe #4. Coronary artery disease, history of coronary artery stenting #5. History of congestive heart failure #6. She of CVA #7. History of seizure disorder #8. Ongoing tobacco use with nicotine addiction Plan: We'll continue current medical treatment, Symbicort, nebulized bronchodilators, IV steroids, IV Lasix, patient is breathing easier, no significant chest congestion, vital signs are stable, no couplets or chest pain, he is being evaluated by cardiology, and awaiting a CRISELDA and possible heart catheterization I performed a history & physical examination of the patient and discussed their management with my nurse practitioner, Teresa Burciaga. I reviewed the nurse practitioner's note and agree with the documented findings and plan of care. Lung sounds are positive for diminished breath sounds, no rhonchi, no wheezing. The findings and the impression was discussed with the patient. I attest to the documentation by the nurse practitioner. Time with Patient: Less than 30
[2018-11-11] MEDS: methylPREDNISolone SOD SUCCI 125 MG/2 ML VIAL IV SCH ×5 (01:35→23:04)
--- NOTE | 2018-11-11 06:18 | ECHOT ---
TRANSESOPHAGEAL ECHOCARDIOGRAM INDICATION: Evaluation of aortic valve. PROCEDURE: After explaining the procedure to the patient, its risks and the complications, his blood pressure, heart rate, O2 saturation was monitored. The throat was sprayed with Cetacaine. He received 1 mg intravenous Versed and 50 mcg of intravenous fentanyl. The probe was introduced into the esophagus without difficulty. Images were obtained. Following that, the probe was removed. There was no immediate complication. FINDINGS: Left atrial size is mildly dilated. Left atrial appendage is normal. Left ventricular size and systolic function normal. The aortic valve is severely calcified. It could be a bicuspid aortic valve. By planimetry the valve area is about 1 cm2. The mitral valve revealed mitral anulus calcification. The tricuspid valve is normal. Descending thoracic aorta revealed moderate atherosclerotic changes. No pericardial effusion was noted. Contrast bubble study revealed no evidence of shunting across the interatrial septum with Valsalva maneuver. Doppler pulse wave and color Doppler were obtained and revealed a moderate severe aortic regurgitation with moderate mitral and mild tricuspid regurgitation. The peak gradient across the aortic valve was 93 mmHg with a mean of 59 mmHg. There was no shunting by color Doppler study. CONCLUSION: 1. Mildly dilated left atrium. 2. Normal left ventricular size and systolic function. 3. Severe aortic stenosis with moderate severe aortic regurgitation with possible bicuspid aortic valve. 4. Moderate mitral regurgitation with mitral anulus calcification. 5. Mild tricuspid regurgitation. 6. Moderate atherosclerotic changes of the descending thoracic aorta. 7. No shunting across the interatrial septum. MMODL / IJN: [id number] /
[2018-11-11 08:24] LABS: Basophils % (A) 0 %; Eosinophils % (A) 0 %; HCT 38.8 % (39.0-53.0); HGB 12.5 gm/dL (13.0-17.5); Lymphocytes # (A) 0.6 k/uL (1.0-4.8); Lymphocytes % (A) 4 %; MCH 31.1 pg (25.0-35.0); MCHC 32.3 g/dL (31.0-37.0); MCV 96.2 fL (80.0-100.0); Mean Platelet Volume 7.6; Monocytes # (A) 0.5 k/uL (0-1.0); Monocytes % (A) 3 %; Neutrophils # (A) 16.7 k/uL (1.3-7.7); Neutrophils % (A) 93 %; Platelet Count 217 k/uL (150-450); RBC 4.03 m/uL (4.30-5.90); RDW 14.9 % (11.5-15.5); WBC 17.9 k/uL (3.8-10.6)
[2018-11-11] MEDS: ASPIRIN 81 MG PO SCH (08:26)
[2018-11-11 08:46] LABS: Albumin 3.9 g/dL (3.5-5.0); Calcium 9.4 mg/dL (8.4-10.2); Potassium 4.5 mmol/L (3.5-5.1); Total Bilirubin 0.4 mg/dL (0.2-1.3); Total Protein 6.6 g/dL (6.3-8.2)
[2018-11-11] MEDS: SYMBICORT 160-4.5 MCG INHALER INHALATION SCH ×2 (09:13→20:23)
[2018-11-11] MEDS: IPRATROPIUM-ALBUTEROL 3 ML NEB INHALATION SCH ×4 (09:13→20:23)
[2018-11-11] MEDS: CLOPIDOGREL 75 MG TAB PO SCH (09:50)
[2018-11-11] MEDS ORDERED: SODIUM CHLORIDE 0.9% 1,000 ML IV ONE (11:02)
[2018-11-11] MEDS ORDERED: fentaNYL (PF) 50 MCG/ML 2 ML AMP ONE (11:07)
[2018-11-11] MEDS ORDERED: fentaNYL (PF) 50 MCG/ML 2 ML AMP IVP ONE (11:17)
[2018-11-11] MEDS ORDERED: LIDOCAINE 2% INJ 20 MG/ML SQ ONE (11:20)
--- NOTE | 2018-11-11 11:29 | P.PN ---
Subjective Progress Note Date: 11/11/18 This is a 73-year-old male patient of Dr. Mata. Patient presented to the hospital via ambulance with complaints of shortness of breath. Patient is very sleepy at this time and not wanting to talk much. Patient reports that he was short of breath for part of the day yesterday. Patient is having a cough. Patient's additional medical history includes CAD, heart failure COPD, CVA, seizure disorder, heart catheterization with stents and ex-smoker. Chest x-ray completed showing cardiomegaly and chronic parenchymal changes without acute pulmonary process. EKG completed showing sinus rhythm with premature supraventricular complexes, right bundle branch block. BNP 1590. Initial troponin 0.02 8 repeat troponin 0.032. Cardiology services have been consulted. Patient started on IV Lasix, IV steroids and updraft breathing treatments. Will consult pulmonary services. At this time patient is sleepy but arousable and answers questions. Patient is currently on 2 L nasal cannula which he does not wear at home. Patient denies chest pain. Patient denies nausea vomiting or diarrhea. Patient denies any urinary burning or frequency. On 11/10/2017 patient is alert and oriented 3. Patient is much more awake today. Patient did have 2-D echo completed showing severe aortic regurg. Patie nt to undergo CRISELDA today per cardiology. Patient remains on IV Lasix and IV Solu-Medrol. Patient denies chest pain or shortness of breath. Patient denies nausea vomiting or diarrhea. Patient denies any urinary burning or frequency On 11/11/2017 patient is alert and oriented 3. CRISELDA completed yesterday showing severe aortic stenosis with moderate severe aortic regurg with possible bicuspid aortic valve. Patient to undergo cardiac cath today per cardiology services. This time patient remains on IV Solu-Medrol and IV Lasix. Patient denies chest pain or shortness breath. Patient denies nausea vomiting or diarrhea. Patient denies any urinary burning or frequency. Objective - Vital Signs Vital signs: Vital Signs Temp 97.5 F L 11/11/18 07:00 Pulse 75 11/11/18 09:27 Resp 19 11/11/18 07:05 BP 130/55 11/11/18 07:00 Pulse Ox 94 L 11/11/18 09:13 Intake & Output 11/10/18 11/11/18 11/11/18 18:59 06:59 18:59 Intake Total 600 1250 Output Total 100 Balance 500 1250 Intake: Oral 600 1250 Output: Urine 100 Other: # Voids 10 1 # Bowel Movements 2 - Exam Head normocephalic Neck supple Lungs diminished bilaterally Heart regular rate and rhythm S1-S2, no rub or gallop Abdomen is soft nontender nondistended positive bowel sounds no hepatosplenomegaly Extremities no edema Neuro alert and orientated to 3 - Labs CBC & Chem 7: 11/11/18 07:06 11/11/18 07:06 Labs: Abnormal Lab Results - Last 24 Hours (Table) 11/11/18 11/11/18 Range/Units 07:06 07:06 WBC 17.9 H (3.8-10.6) k/uL RBC 4.03 L (4.30-5.90) m/uL Hgb 12.5 L (13.0-17.5) gm/dL Hct 38.8 L (39.0-53.0) % Neutrophils # 16.7 H (1.3-7.7) k/uL Lymphocytes # 0.6 L (1.0-4.8) k/uL BUN 41 H (9-20) mg/dL Glucose 143 H (74-99) mg/dL Assessment and Plan Assessment: 1. Shortness of breath related to COPD exacerbation and congestive heart failure. Chest x-ray completed showing cardiomegaly and chronic parenchymal changes without acute pulmonary process. BNP 1590. 2-D echo ordered. Cardiology and pulmonary services ordered. Patient currently on IV steroids and IV Lasix. Continue DuoNeb breathing treatments 2. Acute on chronic diastolic heart failure 3. Severe aortic stenosis. 2-D echo completed showing significant progression since CRISELDA in 2017. Cardiology services are following. Patient underwent CRISELDA in which it showed severe aortic stenosis of moderate severe aortic regurg possible bicuspid aortic valve. Patient to undergo cardiac cath today per cardiology 3. History of COPD 4. History of cardiac cath with previous stents. Patient maintained on Plavix 5. Ex-smoker. Patient reports he quit 1 year ago 6. Peripheral vascular occlusive disease. 7. Previous history of TIA 8. History of seizure disorder DVT prophylaxis Lovenox. GI prophylaxis Protonix I performed an examination of the patient and discussed their management with the Nurse Practitioner. I have reviewed the Nurse Practitioner's notes and agree with the documented findings and plan of care
[2018-11-11] MEDS ORDERED: IOPAMIDOL-370 100ML BTL INJ ONE (11:50)
[2018-11-11] MEDS ORDERED: IOPAMIDOL-370 150ML BTL INJ ONE (11:51)
[2018-11-11 11:56] LABS: O2 Sat Blood Gas 64.7 %; O2 Sat Blood Gas 91.7 %
[2018-11-11 11:57] LABS: O2 Sat Blood Gas 63.9 %
[2018-11-11] MEDS ORDERED: RX INFO: IV CONTRAST WAS GIVEN 1 EACH MISC MISCELLANE PRN (12:00)
[2018-11-11] MEDS ORDERED: SODIUM CHLORIDE 0.9% 1,000 ML IV SCH (12:00)
--- NOTE | 2018-11-11 12:57 | CC ---
CARDIAC CATHETERIZATION REPORT Mr. Sharpe is a 73-year-old male with known history of hypertension, hyperlipidemia, history of coronary artery disease as well as history of aortic valve disease who presented with symptoms progressive dyspnea and evidence consistent was congestive heart failure. He has underwent transesophageal echocardiogram, revealed severe aortic regurgitation and stenosis. In view of that, recommendation made regarding cardiac catheterization. The procedures, risks, and complication were discussed with the patient who is in full understanding and agreement. PROCEDURE: Patient was brought to medical laboratory scientist in a fasting semi-sedated state after receiving fentanyl and Benadryl and achieving moderate conscious sedated state. Using Xylocaine anesthesia and Seldinger technique, a 6-Macanese sheath was introduced in the right femoral artery, an 8-Macanese sheath in the right femoral vein. Right heart catheterization was performed using [place]-Shy catheter. Multiple pressure and samples were obtained. Cardiac output by thermodilution was calculated that selective right and left angiography was performed using 6-Macanese, 4.5 bend left Rocky and a 6- Macanese, 4 bend right Rocky catheter. Multiple views of the coronary artery including hemiaxial views obtained. Following that, a 6-Macanese tight pigtail catheter was introduced in the left ventricle and a 30 degree CASTELLANOS view of the left ventricle was obtained. Following the stenting, aortogram was performed. Following that, catheter and sheath were removed. Hemostasis was obtained with deployment of an Angio-Seal in the right femoral artery and compression of the right femoral vein. FINDINGS: FLUOROSCOPY: There was severe calcification involving the aortic valve and the coronary arteries. LEFT MAIN: This is a large-sized vessel trifurcating into left circumflex, left anterior descending artery and ramus intermedius. Left main coronary artery has no evidence of high-grade stenosis. LEFT ANTERIOR DESCENDING ARTERY: This is a large-sized vessel, reaching toward the apex with a wraparound apex segment, giving rise to a moderately sized diagonal branch in the mid segment. The left anterior descending artery in the mid segment has a 20% to 30% plaque. The rest of the vessel has no high-grade stenosis. LEFT CIRCUMFLEX: This is a codominant vessel, large in caliber, giving rise to a large obtuse marginal branch and distally PDA and PLV. The obtuse marginal branch has 20% to 30% plaque. RAMUS INTERMEDIUS: This is a moderately-sized vessel that has no evidence of high- grade stenosis. RIGHT CORONARY ARTERY: This is a large dominant vessel, bifurcating distally PDA and posterolateral segment branches. The right coronary artery is stented from the proximal segment to the mid segment. There is 99% stenosis in the proximal vessel with subtotal occlusion and has slow flow in the distal segment. The mid right coronary artery has a 50% to 60% stenosis. The rest of the vessel has no evidence of high-grade stenosis. LEFT VENTRICULOGRAM: Left ventriculogram was performed in 30 degree CASTELLANOS view and revealed inferior apical hypokinesis. The ejection fraction is estimated at 50%. There was 2+ mitral regurgitation. AORTOGRAM: Aortogram was performed in the KYRGYZ view and revealed a severely calcified aortic valve with possible bicuspid valve and 4+ aortic regurgitation. There was mild dilatation of the ascending aorta. HEMODYNAMICS: Right atrial saturation is 64%, pulmonary saturation 65%, femoral artery saturation 92%. Cardiac output by Rick 5.6 L/minute and by thermal 6.3 L/minute. Pulmonary artery systolic pressure of 50 with a diastolic of 20 and a mean of 30 mmHg. Pulmonary capillary wedge pressure A-wave of 24, V-wave of 25 with a mean of 23 mmHg. Right ventricular systolic pressure of 50 with an end-diastolic of 10 mmHg. Right atrial A- wave of 10, V-wave of 12 with a mean of 10 mmHg. Left ventricular end-diastolic pressure of 20 to 24 mmHg. Left ventricular systolic pressure of 213 with an ascending aortic pressure of 161 with a peak gradient of 52 mmHg with an aortic valve area calculated 0.875 cm2. IMPRESSION: 1. Severely calcified aortic valve with severe aortic stenosis and aortic regurgitation. 2. Subtotally occluded proximal right coronary artery, the site of the prior stenting. 3. Mild disease in the LAD and the left circumflex. 4. Mildly impaired left ventricular systolic function. RECOMMENDATION: In view of finding anatomy, I recommend proceeding with evaluation for possible aortic valve replacement and coronary bypass grafting. Those findings and recommendation were discussed with the patient and his family who are in full understanding and agreement. Duration of procedure is 34 minutes. MMODL / IJN: [id number] /
[2018-11-11] MEDS: FAMOTIDINE 20 MG TAB PO SCH ×2 (13:56→19:50)
[2018-11-11] MEDS: levETIRAcetam 500 MG TAB PO SCH ×2 (13:57→19:50)
[2018-11-11] MEDS: SODIUM CHLORIDE 0.9% 1,000 ML IV SCH (13:58)
[2018-11-11] MEDS: INSULIN ASPART (NovoLOG) 100 UNIT/ML VIAL SQ SCH ×3 (13:58→21:59)
--- NOTE | 2018-11-11 14:16 | P.PN ---
Subjective Progress Note Date: 11/11/18 Principal diagnosis: Dyspnea secondary to an acute exacerbation of chronic obstructive pulmonary disease, congestive heart failure and severe aortic stenosis. The patient is seen today in follow-up on the selective care unit. He is currently awake and alert in no acute distress. He is just recently back from the CVL status post catheterization that revealed a severely calcified aortic valve with severe aortic stenosis and aortic regurgitation. There is also subtotally occluded proximal right coronary artery at the site of a prior stent. Mild disease in the LAD and left circumflex. Mildly impaired left ventricular systolic function. He was recommended possible aortic valve replacement and coronary artery bypass grafting. Currently, the patient is quite adamant that he will not be having surgery. He is somewhat agitated during the discussion. He currently denies any worsening shortness of breath cough or congestion. He was maintaining good O2 saturations in the 90s on room air. He's been afebrile. Hemodynamically stable and white count 17.9. Hemoglobin 12.5. Creatinine 1.05. He is currently on DuoNeb ablations, Symbicort, IV Solu-Medrol. Objective - Vital Signs Vital signs: Vital Signs Temp 97.5 F L 11/11/18 07:00 Pulse 75 11/11/18 09:27 Resp 19 11/11/18 07:05 BP 130/55 11/11/18 07:00 Pulse Ox 94 L 11/11/18 09:13 Intake & Output 11/10/18 11/11/18 11/11/18 18:59 06:59 18:59 Intake Total 600 1250 125 Output Total 100 Balance 500 1250 125 Intake: IV 125 Oral 600 1250 Output: Urine 100 Other: # Voids 10 1 # Bowel Movements 2 - Exam GENERAL EXAM: Alert, comfortable in no apparent distress. On room air. HEAD: Normocephalic. EYES: Normal reaction of pupils, equal size. NOSE: Clear with pink turbinates. THROAT: No erythema or exudates. NECK: No masses, no JVD. CHEST: No chest wall deformity. LUNGS: Equal air entry with crackles in the posterior bases. Diminished. CVS: S1 and S2 normal with no audible murmur, regular rhythm. ABDOMEN: No hepatosplenomegaly, normal bowel sounds, no guarding or rigidity. SPINE: No scoliosis or deformity SKIN: No rashes CENTRAL NERVOUS SYSTEM: No focal deficits, tone is normal in all 4 extremities. EXTREMITIES: Right groin site clean and dry. There is no peripheral edema. No clubbing, no cyanosis. Peripheral pulses are intact. - Labs CBC & Chem 7: 11/11/18 07:06 11/11/18 07:06 Labs: Abnormal Lab Results - Last 24 Hours (Table) 11/11/18 11/11/18 Range/Units 07:06 07:06 WBC 17.9 H (3.8-10.6) k/uL RBC 4.03 L (4.30-5.90) m/uL Hgb 12.5 L (13.0-17.5) gm/dL Hct 38.8 L (39.0-53.0) % Neutrophils # 16.7 H (1.3-7.7) k/uL Lymphocytes # 0.6 L (1.0-4.8) k/uL BUN 41 H (9-20) mg/dL Glucose 143 H (74-99) mg/dL Assessment and Plan Assessment: Assessment: #1. Acute exacerbation of chronic obstructive pulmonary disease #2. Acute xxacerbation of diastolic congestive heart failure #3. Aortic stenosis, severe #4. Coronary artery disease, history of coronary artery stenting and status post cardiac catheterization that reveals severely calcified aortic valve with severe aortic stenosis and aortic regurgitation, subtotally occluded right coronary artery at the previous stent site, mild disease in the LAD and the left circumflex, mildly impaired left ventricular systolic function. #5. History of congestive heart failure #6. She of CVA #7. History of seizure disorder #8. Ongoing tobacco use with nicotine addiction Plan: The patient was seen and evaluated by Dr. Blunt. The patient denies any worsening shortness of breath, cough or congestion. He remains on bronchodilators, IV Solu-Medrol, Symbicort. We will await to see his decision on surgery. Continue to follow make further recommendations based on his clinical status. We will continue to follow and make further recommendations based on his clinical status. I, the cosigning physician, performed a history & physical examination of the patient. Lungs sounds with faint end expiratory wheeze, crackles in the posterior bases. Maintaining good O2 saturations in the 90s on room air. I discussed the assessment and plan of care with my nurse practitioner, Indigo Choudhary. I attest to the above note as dictated by her.
--- NOTE | 2018-11-11 15:46 | US ---
EXAMINATION TYPE: US carotid duplex BILAT DATE OF EXAM: 11/11/2018 COMPARISON: CT, US carotid Doppler 12/28/2017 CLINICAL HISTORY: preop aortic valve replacement. ; Patient stated has had multiple CVA; prior smoker EXAM MEASUREMENTS: RIGHT: Peak Systolic Velocity (PSV) cm/sec ----- Right CCA: 24.1 ----- Right ICA: 52.9 ----- Right ECA: 84.0 ICA/CCA ratio: 2.2 RIGHT: End Diastole cm/sec ----- Right CCA: 0.0 ----- Right ICA: 8.5 ----- Right ECA: 0.0 LEFT: Peak Systolic Velocity (PSV) cm/sec ----- Left CCA: 53.1 ----- Left ICA: 43.5 ----- Left ECA: 68.6 ICA/CCA ratio: 0.8 LEFT: End Diastole cm/sec ----- Left CCA: 0.0 ----- Left ICA: 6.0 ----- Left ECA: 3.8 VERTEBRALS (direction of flow): Right Vertebral: Antegrade Left Vertebral: Antegrade Rhythm: Arrhythmia Mild, mixed, irregular intimal wall changes seen at bilateral carotid bifurcation, but PSV is wnl yusef aterally. Grayscale, color Doppler, spectral Doppler imaging performed of the carotid arteries. Wavef orm analysis does not show significant stenosis of the proximal internal carotid arteries. IMPRESSION: No hemodynamic significant stenosis of the proximal internal carotid arteries bilaterall y by Doppler criteria, an indirect measurement of carotid stenosis. Additional findings above.
[2018-11-11] MEDS: DONEPEZIL 10 MG TAB PO SCH (15:50)
[2018-11-11] MEDS: FUROSEMIDE 40 MG TAB PO SCH (15:50)
[2018-11-11] MEDS: SERTRALINE 100 MG TAB PO SCH (15:50)
[2018-11-11] MEDS: TAMSULOSIN 0.4 MG CAP.ER.24H PO SCH (15:50)
[2018-11-11] MEDS: ENOXAPARIN 40 MG/0.4 ML SYRINGE SQ SCH (15:52)
[2018-11-11] MEDS: POTASSIUM CHLORIDE ER 10 MEQ TAB.ER.PRT PO SCH (15:52)
[2018-11-11] MEDS: FUROSEMIDE 10 MG/ML 4 ML VIAL IV SCH (16:00)
--- NOTE | 2018-11-11 16:05 | P.GSCN ---
History of Present Illness Consult date: 11/11/18 Reason for Consult: Severe aortic stenosis with coronary artery disease, surgical recommendations Requesting physician: Filipe Mooney History of present illness: This is a 73-year-old gentleman who follows with Dr. Tricia Mata on an outpatient basis. He has a previous medical history of coronary artery disease with heart catheterization and stent placement, hypertension, hyperlipidemia, chronic diastolic heart failure, known aortic stenosis, COPD, previous tobacco dependence as he quit smoking 1 year ago but prior to that smoked 4 packs a day for 60 years, 4 strokes with left-sided residual weakness, seizure disorder, and family history of heart disease. He presented to [facility] emergency room on November 08 with complaints of exertional dyspnea and lower extremity edema. The symptoms have been ongoing for quite a while but progressed to the point where his family convinced him to seek medical attention. He denied any chest pain, cough, fevers, nausea, syncope, recent travel or sick contacts. He has had multiple admissions for similar symptoms over the previous year. Upon presentation to the emergency room he had a chest x-ray which demonstrated cardiomegaly and chronic emphysema. An EKG was done which showed sinus rhythm with a right bundle branch block. His troponins were negative, his BNP was 1590. He was admitted for evaluation and treatment of exacerbation of COPD and diastolic heart failure, he was started on IV Lasix and steroids as well as bronchodilators with consultations to cardiology and pulmonology. On November 09 he had a transthoracic echocardiogram which demonstrated normal LV systolic function with an ejection fraction 55-60%, moderate concentric left ventricular hypertrophy, mild to moderate aortic insufficiency, severe aortic stenosis with peak/mean gradient 105.7 mmHg/61.68 mmHg, mild mitral regurgitation, and mild tricuspid regurgitation. On November 10 he had a transesophageal echocardiogram which found a severely calcified aortic valve, possibly bicuspid, moderate to severe aortic insufficiency, severe aortic stenosis with peak/mean gradient 93 mmHg/59 mmHg with a maximum valve area of 1 cm, mitral annular calcification with moderate mitral regurgitation, and mild tricuspid regurgitation. He was recommended to undergo heart catheterization which was completed today and which demonstrated right coronary artery subtotal occlusion with mild disease to the left coronary system. LV gram showed inferior and apical hypokinesis with an ejection fraction 50%, 2+ mitral regurgitation; aortogram showed 4+ aortic regurgitation with a mildly dilated ascending aorta. Dr. Pruitt from cardiothoracic surgery was consulted regarding surgical recommendations. Review of Systems Review of systems was completed and was negative except as noted in the HPI. Past Medical History Past Medical History: Coronary Artery Disease (CAD), Heart Failure, COPD, CVA/TIA, Hyperlipidemia, Hypertension, Seizure Disorder Additional Past Medical History / Comment(s): CVA 2007,2009(x3)- -uses walker-, heart murmer, OCC incontinence of urine/stool-weara a brief, last seizure couple yrs ago History of Any Multi-Drug Resistant Organisms: None Reported Past Surgical History: Appendectomy, Heart Catheterization With Stent, Tonsillectomy Additional Past Surgical History / Comment(s): one cardiac stent Past Anesthesia/Blood Transfusion Reactions: No Reported Reaction Date of Last Stent Placement:: 2010 Past Psychological History: No Psychological Hx Reported Additional Psychological History / Comment(s): denies any hx Smoking Status: Former smoker Past Alcohol Use History: None Reported Additional Past Alcohol Use History / Comment(s): started smokiong at age 10 (1956), quit smoking 2017, previously smoked 4 packs/day Past Drug Use History: None Reported - Past Family History Mother Family Medical History: Cancer Additional Family Medical History / Comment(s): lung cancer Father Family Medical History: Myocardial Infarction ([place]) Additional Family Medical History / Comment(s): lived to age 92 Medications and Allergies Home Medications Medication Instructions Recorded Confirmed Type Atorvastatin [Lipitor] 80 mg PO HS 08/08/14 11/08/18 History Donepezil [Aricept] 10 mg PO DAILY 08/08/14 11/08/18 History Furosemide [Lasix] 40 mg PO DAILY #30 tab 05/26/17 11/08/18 Rx Potassium Chloride [K-Tab ER] 10 meq PO DAILY 09/03/17 11/08/18 History levETIRAcetam [Keppra] 500 mg PO Q12HR 09/03/17 11/08/18 History Clopidogrel [Plavix] 75 mg PO DAILY #90 tab 09/09/17 11/08/18 Rx Tamsulosin HCl [Flomax] 0.8 mg PO DAILY 10/02/17 11/08/18 History Zolpidem [Ambien] 10 mg PO HS PRN #3 tab 12/31/17 11/08/18 Rx Ranitidine HCl [Zantac] 150 mg PO BID 11/08/18 11/08/18 History Sertraline [Zoloft] 150 mg PO DAILY 11/08/18 11/08/18 History Allergies Allergy/AdvReac Type Severity Reaction Status Date / Time No Known Allergies Allergy Verified 11/08/18 20:33 Surgical - Exam Vital Signs Temp Pulse Resp BP Pulse Ox 98.2 F 88 18 157/69 93 L 11/08/18 20:04 11/08/18 20:04 11/08/18 20:04 11/08/18 20:04 11/08/18 20:04 - General well developed, well nourished, no distress, no pain, obese - Eyes PERRL, normal ocular movement - ENT no hearing loss, poor halfway - Neck no masses, no bruits, trachea midline - Respiratory Lungs sounds diminished bilaterally. Respirations even, nonlabored. Currently on 2 L nasal cannula with oxygen saturation 93%. Strong, nonproductive cough. - Cardiovascular S1, S2 present. Positive systolic murmur. Regular rate and rhythm, sinus rhythm on telemetry. Palpable peripheral pulses bilaterally. No edema present. No calf pain or tenderness noted. No varicosities noted. - Abdomen Abdomen: soft, non tender, bowel sounds - Genitourinary Deferred - Rectum Deferred - Integumentary no rash, no growths - Neurologic normal coordination, normal sensation - Musculoskeletal normal posture - Psychiatric oriented to time, oriented to person, oriented to place, speech is normal Results - Labs 11/11/18 07:06 11/11/18 07:06 Abnormal Lab Results - Last 24 Hours (Table) 11/11/18 11/11/18 Range/Units 07:06 07:06 WBC 17.9 H (3.8-10.6) k/uL RBC 4.03 L (4.30-5.90) m/uL Hgb 12.5 L (13.0-17.5) gm/dL Hct 38.8 L (39.0-53.0) % Neutrophils # 16.7 H (1.3-7.7) k/uL Lymphocytes # 0.6 L (1.0-4.8) k/uL BUN 41 H (9-20) mg/dL Glucose 143 H (74-99) mg/dL Diabetes panel 11/11/18 Range/Units 07:06 Sodium 141 (137-145) mmol/L Potassium 4.5 (3.5-5.1) mmol/L Chloride 103 (98-107) mmol/L Carbon Dioxide 27 (22-30) mmol/L BUN 41 H (9-20) mg/dL Creatinine 1.05 (0.66-1.25) mg/dL Glucose 143 H (74-99) mg/dL Calcium 9.4 (8.4-10.2) mg/dL AST 21 (17-59) U/L ALT 42 (21-72) U/L Alkaline Phosphatase 90 (38-126) U/L Total Protein 6.6 (6.3-8.2) g/dL Albumin 3.9 (3.5-5.0) g/dL Calcium panel 11/11/18 Range/Units 07:06 Calcium 9.4 (8.4-10.2) mg/dL Albumin 3.9 (3.5-5.0) g/dL Pituitary panel 11/11/18 Range/Units 07:06 Sodium 141 (137-145) mmol/L Potassium 4.5 (3.5-5.1) mmol/L Chloride 103 (98-107) mmol/L Carbon Dioxide 27 (22-30) mmol/L BUN 41 H (9-20) mg/dL Creatinine 1.05 (0.66-1.25) mg/dL Glucose 143 H (74-99) mg/dL Calcium 9.4 (8.4-10.2) mg/dL Adrenal panel 11/11/18 Range/Units 07:06 Sodium 141 (137-145) mmol/L Potassium 4.5 (3.5-5.1) mmol/L Chloride 103 (98-107) mmol/L Carbon Dioxide 27 (22-30) mmol/L BUN 41 H (9-20) mg/dL Creatinine 1.05 (0.66-1.25) mg/dL Glucose 143 H (74-99) mg/dL Calcium 9.4 (8.4-10.2) mg/dL Total Bilirubin 0.4 (0.2-1.3) mg/dL AST 21 (17-59) U/L ALT 42 (21-72) U/L Alkaline Phosphatase 90 (38-126) U/L Total Protein 6.6 (6.3-8.2) g/dL Albumin 3.9 (3.5-5.0) g/dL - Imaging Chest x-ray: report reviewed, image reviewed EKG: image reviewed Additional studies: Heart catheterization, CRISELDA, and transthoracic echocardiogram films reviewed with Dr. Pruitt Assessment and Plan Assessment: 1. Severe aortic stenosis with heavily calcified aortic valve, possibly bicuspid, with peak/mean gradient 93 mmHg/59 mmHg with a maximum valve area of 1 cm per transesophageal echocardiogram 2. Known coronary artery disease with previous stent placement, subtotally occluded right coronary artery 3. Exacerbation of chronic diastolic heart failure 4. Hypertension 5. Hyperlipidemia 6. Previous heavy tobacco dependence, COPD 7. History of for strokes with residual left-sided weakness 8. Seizure disorder 9. Family history of heart disease Plan: The patient was seen and examined at the bedside with Dr. Pruitt. Chart/diagnostics were reviewed in detail. We discussed aortic valve replacement with the patient and his family, however the patient adamantly states he is not having open heart surgery. He is willing to consider transcatheter aortic valve replacement. With his extensive history he is high risk for surgical aortic valve replacement, and may indeed be a candidate for TAVR. He will need dental clearance and pre-operative work-up. In the meantim e, he may require percutaneous intervention to his right coronary artery, and we will leave this decision to Dr. Mooney. We would recommend maximizing his pulmonary status. Workup for TAVR can be completed as an outpatient, and once the patient is discharged our TAVR coordinator will contact him. This was discussed in detail with the patient and his family and they are in agreement. More recommendations to follow. Thank you Dr. Mooney for this consult. Please contact us with any further qu estions. Time with Patient: Greater than 30
[2018-11-11 16:58] LABS: Glucose,Whole Blood 148 mg/dL (75-99)
[2018-11-11 18:21] LABS: Hepatitis A Antibody IgM Non-Reactive (Non-Reactive); Hepatitis B Core IgM Non-Reactive (Non-Reactive)
[2018-11-11] MEDS: ATORVASTATIN 80 MG TAB PO SCH (19:50)
[2018-11-11 20:40] LABS: Glucose,Whole Blood 118 mg/dL (75-99)
[2018-11-11] MEDS: ZOLPIDEM 10 MG TAB PO PRN (23:04)
[2018-11-11 23:17] LABS: T4, Free (Free Thyroxine) 1.09 ng/dL (0.78-2.19)
[2018-11-12 05:53] LABS: Glucose,Whole Blood 159 mg/dL (75-99)
[2018-11-12] MEDS: methylPREDNISolone SOD SUCCI 125 MG/2 ML VIAL IV SCH ×4 (06:37→23:49)
[2018-11-12] MEDS: INSULIN ASPART (NovoLOG) 100 UNIT/ML VIAL SQ SCH ×4 (06:38→20:47)
[2018-11-12 06:51] LABS: Basophils % (A) 0 %; Eosinophils % (A) 0 %; HCT 37.8 % (39.0-53.0); HGB 12.3 gm/dL (13.0-17.5); Lymphocytes # (A) 0.6 k/uL (1.0-4.8); Lymphocytes % (A) 4 %; MCHC 32.4 g/dL (31.0-37.0); MCV 95.5 fL (80.0-100.0); Mean Platelet Volume 7.4; Monocytes # (A) 0.5 k/uL (0-1.0); Monocytes % (A) 4 %; Neutrophils # (A) 12.7 k/uL (1.3-7.7); Neutrophils % (A) 91 %; Platelet Count 218 k/uL (150-450); RBC 3.96 m/uL (4.30-5.90); RDW 14.8 % (11.5-15.5); WBC 13.9 k/uL (3.8-10.6)
[2018-11-12 07:03] LABS: Albumin 3.7 g/dL (3.5-5.0); Potassium 4.5 mmol/L (3.5-5.1); Total Bilirubin 0.4 mg/dL (0.2-1.3); Total Protein 6.2 g/dL (6.3-8.2)
[2018-11-12] MEDS: SYMBICORT 160-4.5 MCG INHALER INHALATION SCH ×2 (07:43→20:17)
[2018-11-12] MEDS: IPRATROPIUM-ALBUTEROL 3 ML NEB INHALATION SCH ×4 (07:43→20:28)
[2018-11-12] MEDS: ASPIRIN 81 MG PO SCH (08:39)
[2018-11-12] MEDS: DONEPEZIL 10 MG TAB PO SCH (08:39)
[2018-11-12] MEDS: POTASSIUM CHLORIDE ER 10 MEQ TAB.ER.PRT PO SCH (08:39)
[2018-11-12] MEDS: levETIRAcetam 500 MG TAB PO SCH ×3 (08:39→22:33)
[2018-11-12] MEDS: ENOXAPARIN 40 MG/0.4 ML SYRINGE SQ SCH (08:39)
[2018-11-12] MEDS: FAMOTIDINE 20 MG TAB PO SCH ×2 (08:39→20:39)
[2018-11-12] MEDS: FUROSEMIDE 40 MG TAB PO SCH ×2 (08:39→15:33)
[2018-11-12] MEDS: CLOPIDOGREL 75 MG TAB PO SCH (08:39)
[2018-11-12] MEDS: TAMSULOSIN 0.4 MG CAP.ER.24H PO SCH (08:40)
[2018-11-12] MEDS: SERTRALINE 100 MG TAB PO SCH (08:40)
[2018-11-12] MEDS: SODIUM CHLORIDE 0.9% 1,000 ML IV SCH (08:50)
[2018-11-12] MEDS ORDERED: ASPIRIN 325 MG TAB PO STA (09:45)
[2018-11-12] MEDS ORDERED: ALPRAZolam 0.25 MG TAB PO PRN (09:45)
[2018-11-12] MEDS ORDERED: ALPRAZolam 0.5 MG TAB PO PRN (09:45)
[2018-11-12] MEDS ORDERED: ATORVASTATIN 80 MG TAB PO STA (09:45)
[2018-11-12] MEDS ORDERED: NITROGLYCERIN SL TABS 0.4 MG TAB SUBLINGUAL PRN (09:45)
[2018-11-12] MEDS ORDERED: SODIUM CHLORIDE 0.9% 1,000 ML in EMPTY BAG 1 BAG IV ONE ×2 (09:45→23:00)
--- NOTE | 2018-11-12 10:58 | PN ---
PROGRESS NOTE Mr. Sharpe is a 73-year-old male with known history of coronary artery disease, history of aortic valve disease who presented with symptoms of progressive dyspnea, was found to have significant mixed aortic valve disease and underwent cardiac catheterization and was found to have evidence of significant restenoses in the proximal right coronary artery. He is feeling well today. He is denying any symptoms of chest pain. He denies any dizziness, palpitation. He denies any nausea or vomiting. The patient has a known history of severe COPD and prior stroke. He was evaluated by Dr. Pruitt yesterday and was felt to be high risk for surgical intervention and the plan is to proceed with stenting of the right coronary artery and subsequently TAVR. He is feeling better today. His breathing is better. He denies any chest pain or dizziness. He denies any nausea and vomiting. He continued be on aspirin once a day, Plavix 75 mg daily, Lipitor 80 mg daily, donepezil, furosemide 40 mg twice a day, ipratropium, methylprednisolone, sertraline, tamsulosin. PHYSICAL EXAMINATION: Blood pressure 132/60 with a heart rate in the 70s. Lungs with decreased air exchange no wheezes. HEART: Regular rate and rhythm. S1, S2. No S3 with systolic ejection murmur and diastolic murmur at the aortic area. ABDOMEN: Soft nontender, right groin no hematoma. LAB DATA: Revealed BUN and creatinine 41 and 0.04, potassium 4.5, hemoglobin of 12.3. IMPRESSION: 1. Significant obstructive disease in the right coronary artery. 2. Severe mixed aortic valve disease. 3. Chronic obstructive lung disease. 4. History of stroke. 5. Hyperlipidemia. 6. History of seizure disorder. RECOMMENDATION: We will proceed with stenting of the RCA tomorrow. The procedure will be done by Dr. Nael West. I have discussed those finding with the patient and his and they are in full understanding and agreement. Once he is stabilized from that aspect, then he will be referred electively to undergo TAVR for the aortic valve disease. Those findings and recommendations were discussed with the patient who is in full understanding and agreement. MMODL / IJN: [id number] /
--- NOTE | 2018-11-12 11:00 | P.PN ---
Subjective Progress Note Date: 11/12/18 This is a 73-year-old male patient of Dr. Mata. Patient presented to the hospital via ambulance with complaints of shortness of breath. Patient is very sleepy at this time and not wanting to talk much. Patient reports that he was short of breath for part of the day yesterday. Patient is having a cough. Patient's additional medical history includes CAD, heart failure COPD, CVA, seizure disorder, heart catheterization with stents and ex-smoker. Chest x-ray completed showing cardiomegaly and chronic parenchymal changes without acute pulmonary process. EKG completed showing sinus rhythm with premature supraventricular complexes, right bundle branch block. BNP 1590. Initial troponin 0.02 8 repeat troponin 0.032. Cardiology services have been consulted. Patient started on IV Lasix, IV steroids and updraft breathing treatments. Will consult pulmonary services. At this time patient is sleepy but arousable and answers questions. Patient is currently on 2 L nasal cannula which he does not wear at home. Patient denies chest pain. Patient denies nausea vomiting or diarrhea. Patient denies any urinary burning or frequency. On 11/10/2018 patient is alert and oriented 3. Patient is much more awake today. Patient did have 2-D echo completed showing severe aortic regurg. Patie nt to undergo CRISELDA today per cardiology. Patient remains on IV Lasix and IV Solu-Medrol. Patient denies chest pain or shortness of breath. Patient denies nausea vomiting or diarrhea. Patient denies any urinary burning or frequency On 11/11/2018 patient is alert and oriented 3. CRISELDA completed yesterday showing severe aortic stenosis with moderate severe aortic regurg with possible bicuspid aortic valve. Patient to undergo cardiac cath today per cardiology services. This time patient remains on IV Solu-Medrol and IV Lasix. Patient denies chest pain or shortness breath. Patient denies nausea vomiting or diarrhea. Patient denies any urinary burning or frequency. On 11/12/2018 patient is alert and oriented 3. Patient's family at bedside. Patient underwent cardiac cath yesterday. Patient was referred to cardiothoracic surgery. At this time patient is refusing any open heart surgery per cardiothoracic surgery patient might be candidate for T AVR outpatient. Patient at this time will likely need to have percutaneous intervention to his right RCA awaiting cardiology decision. Patient denies chest pain or shortness breath. Patient denies nausea vomiting or diarrhea. Patient denies any urinary burning or frequency. Patient is requesting home oxygen. Discussed with [facility] staff to do home oxygen testing to see if patient qualifies Objective - Vital Signs Vital signs: Vital Signs Temp 97.9 F 11/12/18 08:00 Pulse 78 11/12/18 08:00 Resp 16 11/12/18 08:00 BP 132/60 11/12/18 08:00 Pulse Ox 90 L 11/12/18 08:00 Intake & Output 11/11/18 11/12/18 11/12/18 18:59 06:59 18:59 Intake Total 1250 570 300 Output Total 1125 700 Balance 125 -130 300 Weight 100 kg Intake: IV 125 Intake, IV Titration 525 Amount Sodium Chloride 0.9% 1, 525 000 ml @ 100 mls/hr IV . Q10H [facility] Rx#:[id number] Oral 600 570 300 Output: Urine 1125 700 Uretheral ([place]) 250 Other: Voiding Method Indwelling Catheter Toilet Toilet Urinal Urinal # Voids 1 # Bowel Movements 1 - Exam Head normocephalic Neck supple Lungs diminished bilaterally Heart regular rate and rhythm S1-S2, no rub or gallop Abdomen is soft nontender nondistended positive bowel sounds no hepat osplenomegaly Extremities no edema Neuro alert and orientated to 3 - Labs CBC & Chem 7: 11/12/18 06:00 11/12/18 06:00 Labs: Abnormal Lab Results - Last 24 Hours (Table) 11/11/18 11/11/18 11/11/18 Range/Units 07:06 16:54 20:39 WBC (3.8-10.6) k/uL RBC (4.30-5.90) m/uL Hgb (13.0-17.5) gm/dL Hct (39.0-53.0) % Neutrophils # (1.3-7.7) k/uL Lymphocytes # (1.0-4.8) k/uL BUN (9-20) mg/dL Glucose (74-99) mg/dL POC Glucose (mg/dL) 148 H 118 H (75-99) mg/dL Total Protein (6.3-8.2) g/dL LDL Cholesterol, Calc 117 H (0-99) mg/dL TSH 0.302 L (0.465-4.680) mIU/L 11/12/18 11/12/18 11/12/18 Range/Units 05:52 06:00 06:00 WBC 13.9 H (3.8-10.6) k/uL RBC 3.96 L (4.30-5.90) m/uL Hgb 12.3 L (13.0-17.5) gm/dL Hct 37.8 L (39.0-53.0) % Neutrophils # 12.7 H (1.3-7.7) k/uL Lymphocytes # 0.6 L (1.0-4.8) k/uL BUN 40 H (9-20) mg/dL Glucose 149 H (74-99) mg/dL POC Glucose (mg/dL) 159 H (75-99) mg/dL Total Protein 6.2 L (6.3-8.2) g/dL LDL Cholesterol, Calc (0-99) mg/dL TSH (0.465-4.680) mIU/L Assessment and Plan Assessment: 1. Shortness of breath related to COPD exacerbation and congestive heart failure. Chest x-ray completed showing cardiomegaly and chronic parenchymal changes without acute pulmonary process. BNP 1590. Patient currently on IV steroids and IV Lasix. Continue DuoNeb breathing treatments 2. Acute on chronic diastolic heart failure 3. Severe aortic stenosis. 2-D echo completed showing significant progression since CRISELDA in 2017. Cardiology services are following. Patient underwent CRISELDA in which it showed severe aortic stenosis of moderate severe aortic regurg possible bicuspid aortic valve. Patient underwent heart cath on 11/11/2018 showing severely calcified aortic valve superior stenosis and aortic regurg subtotally occluded proximal right coronary artery. Cardiothoracic surgery was evaluated and discussed options with patient. Patient declined any open heart surgery. Per cardiothoracic surgery patient could be a candidate for TAVR outpatient. Patient may need to undergo heart cath tomorrow for RCA stenting awaiting cardiology decision. 3. History of COPD 4. History of cardiac cath with previous stents. Patient maintained on Plavix 5. Ex-smoker. Patient reports he quit 1 year ago 6. Peripheral vascular occlusive disease. 7. Previous history of TIA 8. History of seizure disorder DVT prophylaxis Lovenox. GI prophylaxis Protonix Home O2 test ordered I performed an examination of the patient and discussed their management with the Nurse Practitioner. I have reviewed the Nurse Practitioner's notes and agree with the documented findings and plan of care
[2018-11-12 12:02] LABS: Glucose,Whole Blood 206 mg/dL (75-99)
--- NOTE | 2018-11-12 12:43 | P.PN ---
Subjective Progress Note Date: 11/12/18 This patient is admitted to the hospital with CHF. Patient was evaluated by Dr. Mooney. He was found to have evidence of severe aortic stenosis. Patient also had ischemic heart disease with a previous stent placement. Cardiac catheterization revealed severe disease with near total occlusion of the RCA. Patient also has severe aortic stenosis. Patient was seen by Cardiac Surgeon and was felt patient is high-risk candidate for surgery. Patient also doesn't want to have any aggressive measures. He is tentatively scheduled to have stent placement of the RCA. This is going to be done by Dr. JUANITA West. Subsequently, patient could be considered for transcatheter replacement of the aortic valve Objective - Vital Signs Vital signs: Vital Signs Temp 97.9 F 11/12/18 08:00 Pulse 75 11/12/18 11:44 Resp 16 11/12/18 11:44 BP 159/71 11/12/18 11:23 Pulse Ox 95 11/12/18 11:23 Intake & Output 11/11/18 11/12/18 11/12/18 18:59 06:59 18:59 Intake Total 1250 570 300 Output Total 1125 700 220 Balance 125 -130 80 Weight 100 kg Intake: IV 125 Intake, IV Titration 525 Amount Sodium Chloride 0.9% 1, 525 000 ml @ 100 mls/hr IV . Q10H [facility] Rx#:[id number] Oral 600 570 300 Output: Urine 1125 700 220 Uretheral ([place]) 250 Other: Voiding Method Indwelling Catheter Toilet Toilet Urinal Urinal # Voids 1 # Bowel Movements 1 - Exam GENERAL EXAM: Patient is alert and oriented and doesn't appear to be in any acute distress HEENT: Normocephalic. Normal reaction of pupils, equal size, normal range of extraocular motion. No erythema or exudates in the throat. NECK: No masses, no nuchal rigidity. CHEST: No chest wall deformity. LUNGS: Diminished air exchange and rhonchi HEART: S1 and S2 normal . Systolic murmur ABDOMEN: No hepatosplenomegaly, normal bowel sounds, no guarding or rigidity. SKIN: No rashes CENTRAL NERVOUS SYSTEM: No focal deficits. EXTREMITIES: No cyanosis, clubbing or edema. - Labs CBC & Chem 7: 11/12/18 06:00 11/12/18 06:00 Labs: Abnormal Lab Results - Last 24 Hours (Table) 11/11/18 11/11/18 11/11/18 Range/Units 07:06 16:54 20:39 WBC (3.8-10.6) k/uL RBC (4.30-5.90) m/uL Hgb (13.0-17.5) gm/dL Hct (39.0-53.0) % Neutrophils # (1.3-7.7) k/uL Lymphocytes # (1.0-4.8) k/uL BUN (9-20) mg/dL Glucose (74-99) mg/dL POC Glucose (mg/dL) 148 H 118 H (75-99) mg/dL Total Protein (6.3-8.2) g/dL LDL Cholesterol, Calc 117 H (0-99) mg/dL TSH 0.302 L (0.465-4.680) mIU/L 11/12/18 11/12/18 11/12/18 Range/Units 05:52 06:00 06:00 WBC 13.9 H (3.8-10.6) k/uL RBC 3.96 L (4.30-5.90) m/uL Hgb 12.3 L (13.0-17.5) gm/dL Hct 37.8 L (39.0-53.0) % Neutrophils # 12.7 H (1.3-7.7) k/uL Lymphocytes # 0.6 L (1.0-4.8) k/uL BUN 40 H (9-20) mg/dL Glucose 149 H (74-99) mg/dL POC Glucose (mg/dL) 159 H (75-99) mg/dL Total Protein 6.2 L (6.3-8.2) g/dL LDL Cholesterol, Calc (0-99) mg/dL TSH (0.465-4.680) mIU/L 11/12/18 Range/Units 11:58 WBC (3.8-10.6) k/uL RBC (4.30-5.90) m/uL Hgb (13.0-17.5) gm/dL Hct (39.0-53.0) % Neutrophils # (1.3-7.7) k/uL Lymphocytes # (1.0-4.8) k/uL BUN (9-20) mg/dL Glucose (74-99) mg/dL POC Glucose (mg/dL) 206 H (75-99) mg/dL Total Protein (6.3-8.2) g/dL LDL Cholesterol, Calc (0-99) mg/dL TSH (0.465-4.680) mIU/L Assessment and Plan (1) Aortic stenosis Current Visit: Yes Status: Acute Code(s): I35.0 - NONRHEUMATIC AORTIC (VALVE) STENOSIS SNOMED Code(s): 44851615 (2) COPD exacerbation Current Visit: Yes Status: Acute Code(s): J44.1 - CHRONIC OBSTRUCTIVE PULMONARY DISEASE W (ACUTE) EXACERBATION SNOMED Code(s): 064901147 (3) Congestive heart failure Current Visit: Yes Status: Acute Code(s): I50.9 - HEART FAILURE, UNSPECIFIED SNOMED Code(s): 11014428 (4) CAD (coronary artery disease) Current Visit: Yes Status: Acute Code(s): I25.10 - ATHSCL HEART DISEASE OF [place] CORONARY ARTERY W/O ANG PCTRS SNOMED Code(s): 43467163 Plan: Continue current medical therapy. Stent placement of the RCA by Dr. JUANITA West tomorrow
--- NOTE | 2018-11-12 13:40 | P.PN ---
Subjective Progress Note Date: 11/12/18 Principal diagnosis: Dyspnea secondary to an acute exacerbation of chronic obstructive pulmonary disease, congestive heart failure and severe aortic stenosis. The patient is seen today in follow-up on the selective care unit. He is currently awake and alert in no acute distress. He is currently sitting up at the bedside. He denies any worsening shortness of breath, cough or congestion. He is maintaining good O2 saturations in the mid 90s on 2 L/m per nasal cannula. He remains on bronchodilators, Symbicort, IV Solu-Medrol for now. White count 13.9. Hemoglobin 12.3. Creatinine 1.04. He is now willing to undergo stent placement to the RCA tomorrow and subsequently a possible TAVR procedure. Objective - Vital Signs Vital signs: Vital Signs Temp 97.9 F 11/12/18 08:00 Pulse 75 11/12/18 11:44 Resp 16 11/12/18 11:44 BP 159/71 11/12/18 11:23 Pulse Ox 95 11/12/18 11:23 Intake & Output 11/11/18 11/12/18 11/12/18 18:59 06:59 18:59 Intake Total 1250 570 300 Output Total 1125 700 220 Balance 125 -130 80 Weight 100 kg Intake: IV 125 Intake, IV Titration 525 Amount Sodium Chloride 0.9% 1, 525 000 ml @ 100 mls/hr IV . Q10H [facility] Rx#:[id number] Oral 600 570 300 Output: Urine 1125 700 220 Uretheral ([place]) 250 Other: Voiding Method Indwelling Catheter Toilet Toilet Urinal Urinal # Voids 1 # Bowel Movements 1 - Exam GENERAL EXAM: Alert, comfortable in no apparent distress. On 2 L nasal cannula. HEAD: Normocephalic. EYES: Normal reaction of pupils, equal size. NOSE: Clear with pink turbinates. THROAT: No erythema or exudates. NECK: No masses, no JVD. CHEST: No chest wall deformity. LUNGS: Equal air entry with crackles in the posterior bases. Diminished. CVS: S1 and S2 normal with no audible murmur, regular rhythm. ABDOMEN: No hepatosplenomegaly, normal bowel sounds, no guarding or rigidity. SPINE: No scoliosis or deformity SKIN: No rashes CENTRAL NERVOUS SYSTEM: No focal deficits, tone is normal in all 4 extremities. EXTREMITIES: There is no peripheral edema. No clubbing, no cyanosis. Peripheral pulses are intact. - Labs CBC & Chem 7: 11/12/18 06:00 11/12/18 06:00 Labs: Abnormal Lab Results - Last 24 Hours (Table) 11/11/18 11/11/18 11/11/18 Range/Units 07:06 16:54 20:39 WBC (3.8-10.6) k/uL RBC (4.30-5.90) m/uL Hgb (13.0-17.5) gm/dL Hct (39.0-53.0) % Neutrophils # (1.3-7.7) k/uL Lymphocytes # (1.0-4.8) k/uL BUN (9-20) mg/dL Glucose (74-99) mg/dL POC Glucose (mg/dL) 148 H 118 H (75-99) mg/dL Total Protein (6.3-8.2) g/dL LDL Cholesterol, Calc 117 H (0-99) mg/dL TSH 0.302 L (0.465-4.680) mIU/L 11/12/18 11/12/18 11/12/18 Range/Units 05:52 06:00 06:00 WBC 13.9 H (3.8-10.6) k/uL RBC 3.96 L (4.30-5.90) m/uL Hgb 12.3 L (13.0-17.5) gm/dL Hct 37.8 L (39.0-53.0) % Neutrophils # 12.7 H (1.3-7.7) k/uL Lymphocytes # 0.6 L (1.0-4.8) k/uL BUN 40 H (9-20) mg/dL Glucose 149 H (74-99) mg/dL POC Glucose (mg/dL) 159 H (75-99) mg/dL Total Protein 6.2 L (6.3-8.2) g/dL LDL Cholesterol, Calc (0-99) mg/dL TSH (0.465-4.680) mIU/L 11/12/18 Range/Units 11:58 WBC (3.8-10.6) k/uL RBC (4.30-5.90) m/uL Hgb (13.0-17.5) gm/dL Hct (39.0-53.0) % Neutrophils # (1.3-7.7) k/uL Lymphocytes # (1.0-4.8) k/uL BUN (9-20) mg/dL Glucose (74-99) mg/dL POC Glucose (mg/dL) 206 H (75-99) mg/dL Total Protein (6.3-8.2) g/dL LDL Cholesterol, Calc (0-99) mg/dL TSH (0.465-4.680) mIU/L Assessment and Plan Assessment: Assessment: #1. Acute exacerbation of chronic obstructive pulmonary disease #2. Acute exacerbation of diastolic congestive heart failure #3. Aortic stenosis, severe #4. Coronary artery disease, history of coronary artery stenting and status post cardiac catheterization that reveals severely calcified aortic valve with severe aortic stenosis and aortic regurgitation, subtotally occluded right coronary artery at the previous stent site, mild disease in the LAD and the left circumflex, mildly impaired left ventricular systolic function. #5. History of congestive heart failure #6. She of CVA #7. History of seizure disorder #8. Ongoing tobacco use with nicotine addiction Plan: The patient was seen and evaluated by Dr. Blunt. He is improving from the pulmonary standpoint. He remains on bronchodilators, IV Solu-Medrol, Symbicort. The plan is for stenting to the RCA tomorrow and eventually a possible TAVR procedure. We will continue to follow and make further recommendations based on his clinical status. I, the cosigning physician, performed a history & physical examination of the patient. Lungs sounds with faint end expiratory wheeze, crackles in the posterior bases. Maintaining good O2 saturations in the 90s on 2L/min per n.c. I discussed the assessment and plan of care with my nurse practitioner, Indigo Choudhary. I attest to the above note as dictated by her.
[2018-11-12 16:48] LABS: Glucose,Whole Blood 160 mg/dL (75-99)
[2018-11-12] MEDS: ATORVASTATIN 80 MG TAB PO SCH (20:39)
[2018-11-12 20:46] LABS: Glucose,Whole Blood 155 mg/dL (75-99)
[2018-11-12] MEDS: ZOLPIDEM 10 MG TAB PO PRN (21:56)
[2018-11-13] MEDS ORDERED: ASPIRIN 325 MG TAB PO ONE (06:00)
[2018-11-13] MEDS ORDERED: ATORVASTATIN 80 MG TAB PO ONE (06:00)
[2018-11-13] MEDS: ASPIRIN 81 MG PO SCH (06:17)
[2018-11-13] MEDS: INSULIN ASPART (NovoLOG) 100 UNIT/ML VIAL SQ SCH ×4 (06:21→21:34)
[2018-11-13] MEDS: SERTRALINE 100 MG TAB PO SCH (06:23)
[2018-11-13] MEDS: POTASSIUM CHLORIDE ER 10 MEQ TAB.ER.PRT PO SCH (06:24)
[2018-11-13] MEDS: TAMSULOSIN 0.4 MG CAP.ER.24H PO SCH (06:24)
[2018-11-13] MEDS: FAMOTIDINE 20 MG TAB PO SCH ×2 (06:24→20:13)
[2018-11-13] MEDS: DONEPEZIL 10 MG TAB PO SCH (06:24)
[2018-11-13] MEDS: CLOPIDOGREL 75 MG TAB PO SCH (06:24)
[2018-11-13] MEDS: levETIRAcetam 500 MG TAB PO SCH ×2 (06:25→20:13)
[2018-11-13] MEDS: methylPREDNISolone SOD SUCCI 125 MG/2 ML VIAL IV SCH ×4 (06:27→23:24)
[2018-11-13 06:34] LABS: Glucose,Whole Blood 150 mg/dL (75-99)
[2018-11-13 07:41] LABS: Basophils % (A) 0 %; Eosinophils % (A) 0 %; HCT 40.5 % (39.0-53.0); HGB 13.2 gm/dL (13.0-17.5); Lymphocytes # (A) 0.7 k/uL (1.0-4.8); Lymphocytes % (A) 5 %; MCH 31.1 pg (25.0-35.0); MCHC 32.6 g/dL (31.0-37.0); MCV 95.5 fL (80.0-100.0); Mean Platelet Volume 7.4; Monocytes # (A) 0.7 k/uL (0-1.0); Monocytes % (A) 4 %; Neutrophils # (A) 14.2 k/uL (1.3-7.7); Neutrophils % (A) 90 %; Platelet Count 231 k/uL (150-450); RBC 4.24 m/uL (4.30-5.90); RDW 14.8 % (11.5-15.5); WBC 15.8 k/uL (3.8-10.6)
[2018-11-13 07:51] LABS: Albumin 3.8 g/dL (3.5-5.0); Calcium 9.5 mg/dL (8.4-10.2); Potassium 4.7 mmol/L (3.5-5.1); Total Bilirubin 0.5 mg/dL (0.2-1.3); Total Protein 6.7 g/dL (6.3-8.2)
[2018-11-13] MEDS: IPRATROPIUM-ALBUTEROL 3 ML NEB INHALATION SCH ×4 (07:54→20:43)
[2018-11-13] MEDS: SYMBICORT 160-4.5 MCG INHALER INHALATION SCH ×2 (07:55→21:06)
[2018-11-13] MEDS ORDERED: IV FLUID CONTINUATION 1,000 ML IV ONE (09:30)
[2018-11-13] MEDS ORDERED: LIDOCAINE 1% INJ 10MG/ML (20 ML MDV) ONE (09:30)
[2018-11-13] MEDS ORDERED: LIDOCAINE 1% INJ 10MG/ML (20 ML MDV) SQ ONE (09:47)
[2018-11-13] MEDS ORDERED: MIDAZOLAM 2 MG/2 ML VIAL IV ONE (09:48)
[2018-11-13] MEDS ORDERED: BIVALIRUDIN BOLUS 250 MG/50 ML IV ONE (09:53)
[2018-11-13] MEDS ORDERED: BIVALIRUDIN 250 MG in SODIUM CHLORIDE 0.9% 50 ML IV ONE ×2 (09:54→10:44)
[2018-11-13] MEDS ORDERED: IOPAMIDOL-370 100ML BTL INJ ONE ×2 (10:58→11:19)
[2018-11-13] MEDS ORDERED: NITROGLYCERIN 1000MCG/10ML SYRINGE INTRACORON ONE (11:16)
[2018-11-13] MEDS ORDERED: HYDROmorphone 2 MG/ML 1 ML SYRINGE IV ONE (11:22)
[2018-11-13] MEDS ORDERED: CLOPIDOGREL 75 MG TAB ONE ×2 (11:26)
[2018-11-13] MEDS ORDERED: CLOPIDOGREL 75 MG TAB PO ONE (11:28)
[2018-11-13] MEDS: SODIUM CHLORIDE 0.9% 1,000 ML IV SCH ×2 (11:39→12:40)
[2018-11-13] MEDS: FUROSEMIDE 40 MG TAB PO SCH ×2 (12:14→17:37)
--- NOTE | 2018-11-13 12:17 | PTCA ---
PERCUTANEOUSTRANS CORORONARY ANGIOGRAPHY DATE OF SERVICE: 11/13/2018 PROCEDURE: PTCA and stenting of a proximal RCA which is a in-stent restenosis with a drug-eluting stent. PERFORMED BY: Dr. Carol West. Moderate conscious sedation time was 1 hours, 42 minutes. Patient was given a combination of Versed and Dilaudid. His oxygen saturation, hemodynamics and EKG were monitored closely. CLINICAL INFORMATION: Mr. Roderick Sharpe is a 73-year-old gentleman, history of smoking, COPD. He quit smoking about a year ago. He has type 2 diabetes, hypertension, hyperlipidemia. He has a significant aortic stenosis and moderate aortic regurgitation. He sees Dr. Maradiaga on a usual basis. In August, underwent stenting of RCA with 3 drug-eluting stents placed just after the ostium into the midportion. However, he came in with the symptoms of angina, had a significant aortic stenosis and underwent cardiac cath by Dr. Mooney which revealed a proximal 99% stenosis within the proximal stent and also slightly proximal to it. Because of significant aortic stenosis, he sought a surgical opinion. Surgical opinion was that he was a high-risk candidate for surgery given his significant COPD and multiple comorbid conditions. He was therefore advised to have PTCA of this restenotic lesion which was scheduled for today. I spoke to the patient at length, explained to him the rationale, risks, benefits, options and then brought him in for the procedure this morning. PROCEDURE NOTE: Under local anesthesia and strict aseptic precautions, a 6-Ethiopian introducer was placed in the left radial femoral artery. I tried multiple guide catheters. Initially, I tried a standard right then I used a FLASK FITTER 3.5, and I also tried a Thea guide catheter and also AR 1 guide catheter. None of these guide catheter was successful but I was able to advance a Whisper wire just barely into the proximal RCA and then the catheter would kick back. Eventually with a KRS superiorly oriented guide catheter I was able to cannulate the RCA and got a decent guide support. I used a Mailman wire because there was a lot of resistance to advancing the wire. With the Mailman wire and a KRS catheter, I was able to leave the wire distally. I dilated at the site of a subtotal occlusion with a 3.0 caliber 12 mm NC Trek balloon and then I used a 3.25 caliber 8 mm balloon, gave multiple inflations. At the distal stent in the midportion there was an eccentric 70% stenosis. This was also addressed by a 3.0, 8 mm NC Trek balloon up to 12 atmospheres. After getting a reasonable result. I lost the guide support several times. I rewired him and eventually I deployed a 8 mm long 3.0 caliber pressure was 8 mm long 3.0 caliber Xience stent at 15 atmospheres in the proximal RCA at the site of subtotal occlusion. Excellent angiographic result was achieved. There was a remarkably good angiographic appearance and flow without complication. The sheath was taken out and a Perclose device used to secure hemostasis. A Femstop was applied for 3 hours. Patient was given additional Plavix of 300 mg. He was already on aspirin and Plavix. He was sent to the room in a stable condition with the understanding that he will be on bedrest for 3-4 hours with a Femstop for 3 hours. I expect he will be discharged tomorrow if he remains stable. Findings were discussed at length with the patient as well as the results and also talked to the patient's family. This was a technically very difficult procedure, but excellent angiographic result was achieved without complication. MMODL / IJN: [id number] /
[2018-11-13 12:34] LABS: Glucose,Whole Blood 150 mg/dL (75-99)
--- NOTE | 2018-11-13 13:16 | P.PN ---
Subjective Progress Note Date: 11/13/18 This is a 73-year-old male patient of Dr. Mata. Patient presented to the hospital via ambulance with complaints of shortness of breath. Patient is very sleepy at this time and not wanting to talk much. Patient reports that he was short of breath for part of the day yesterday. Patient is having a cough. Patient's additional medical history includes CAD, heart failure COPD, CVA, seizure disorder, heart catheterization with stents and ex-smoker. Chest x-ray completed showing cardiomegaly and chronic parenchymal changes without acute pulmonary process. EKG completed showing sinus rhythm with premature supraventricular complexes, right bundle branch block. BNP 1590. Initial troponin 0.02 8 repeat troponin 0.032. Cardiology services have been consulted. Patient started on IV Lasix, IV steroids and updraft breathing treatments. Will consult pulmonary services. At this time patient is sleepy but arousable and answers questions. Patient is currently on 2 L nasal cannula which he does not wear at home. Patient denies chest pain. Patient denies nausea vomiting or diarrhea. Patient denies any urinary burning or frequency. On 11/10/2018 patient is alert and oriented 3. Patient is much more awake today. Patient did have 2-D echo completed showing severe aortic regurg. Patie nt to undergo CRISELDA today per cardiology. Patient remains on IV Lasix and IV Solu-Medrol. Patient denies chest pain or shortness of breath. Patient denies nausea vomiting or diarrhea. Patient denies any urinary burning or frequency On 11/11/2018 patient is alert and oriented 3. CRISELDA completed yesterday showing severe aortic stenosis with moderate severe aortic regurg with possible bicuspid aortic valve. Patient to undergo cardiac cath today per cardiology services. This time patient remains on IV Solu-Medrol and IV Lasix. Patient denies chest pain or shortness breath. Patient denies nausea vomiting or diarrhea. Patient denies any urinary burning or frequency. On 11/12/2018 patient is alert and oriented 3. Patient's family at bedside. Patient underwent cardiac cath yesterday. Patient was referred to cardiothoracic surgery. At this time patient is refusing any open heart surgery per cardiothoracic surgery patient might be candidate for T AVR outpatient. Patient at this time will likely need to have percutaneous intervention to his right RCA awaiting cardiology decision. Patient denies chest pain or shortness breath. Patient denies nausea vomiting or diarrhea. Patient denies any urinary burning or frequency. Patient is requesting home oxygen. Discussed with [facility] staff to do home oxygen testing to see if patient qualifies. On 11/13/2018 patient was seen and examined on the telemetry floor he is alert and oriented 3 he is scheduled to have cardiac catheterization with angioplasty and stent placement today. He denies any symptoms at this time there is no chest pain or shortness of breath no fever or chills no headache or dizziness no cough no nausea or vomiting no abdominal pain no diarrhea and no urinary symptoms Objective - Vital Signs Vital signs: Vital Signs Temp 98.3 F 11/13/18 07:45 Pulse 81 11/13/18 12:30 Resp 16 11/13/18 12:30 BP 124/57 11/13/18 12:30 Pulse Ox 93 L 11/13/18 12:30 Intake & Output 11/12/18 11/13/18 11/13/18 18:59 06:59 18:59 Intake Total 600 400 223.29 Output Total 220 1500 Balance 380 -1100 223.29 Weight 103 kg Intake: IV 223.29 Intake, IV Titration 400 Amount Sodium Chloride 0.9% 1, 400 000 ml In Empty Bag 1 bag @ 1 ML/KG/HR 100 mls/hr IV .Q10H [facility] Rx#: [id number] Oral 600 0 Output: Urine 220 1500 Other: Voiding Method Toilet Toilet Urinal Urinal # Voids 2 2 # Bowel Movements 1 - Exam In general patient is alert and oriented 3 in no apparent distress Head normocephalic and atraumatic Neck supple no JVD no goiter Lungs diminished bilaterally Heart regular rate and rhythm S1-S2, no rub or gallop Abdomen is soft nontender nondistended positive bowel sounds no hepatosplenomegaly Extremities no edema no cyanosis or clubbing Neuro no gross focal deficit - Labs CBC & Chem 7: 11/13/18 06:53 11/13/18 06:53 Labs: Abnormal Lab Results - Last 24 Hours (Table) 11/12/18 11/12/18 11/13/18 Range/Units 16:45 20:42 06:19 WBC (3.8-10.6) k/uL RBC (4.30-5.90) m/uL Neutrophils # (1.3-7.7) k/uL Lymphocytes # (1.0-4.8) k/uL BUN (9-20) mg/dL Glucose (74-99) mg/dL POC Glucose (mg/dL) 160 H 155 H 150 H (75-99) mg/dL 11/13/18 11/13/18 11/13/18 Range/Units 06:53 06:53 12:15 WBC 15.8 H (3.8-10.6) k/uL RBC 4.24 L (4.30-5.90) m/uL Neutrophils # 14.2 H (1.3-7.7) k/uL Lymphocytes # 0.7 L (1.0-4.8) k/uL BUN 38 H (9-20) mg/dL Glucose 143 H (74-99) mg/dL POC Glucose (mg/dL) 150 H (75-99) mg/dL Assessment and Plan Plan: 1. Shortness of breath related to COPD exacerbation and congestive heart failure. Chest x-ray completed showing cardiomegaly and chronic parenchymal changes without acute pulmonary process. BNP 1590. Patient currently on IV steroids and IV Lasix. Continue DuoNeb breathing treatments 2. Acute on chronic diastolic heart failure 3. Severe aortic stenosis. 2-D echo completed showing significant progression since CRISELDA in 2017. Cardiology services are following. Patient underwent CRISELDA in which it showed severe aortic stenosis of moderate severe aortic regurg possible bicuspid aortic valve. Patient underwent heart cath on 11/11/2018 showing severely calcified aortic valve superior stenosis and aortic regurg subt otally occluded proximal right coronary artery. Cardiothoracic surgery was evaluated and discussed options with patient. Patient declined any open heart surgery. Per cardiothoracic surgery patient could be a candidate for TAVR outpatient. Patient may need to undergo heart cath today for RCA stenting awaiting cardiology decision. 3. History of COPD 4. History of cardiac cath with previous stents. Patient maintained on Plavix 5. Ex-smoker. Patient reports he quit 1 year ago 6. Peripheral vascular occlusive disease. 7. Previous history of TIA 8. History of seizure disorder DVT prophylaxis Lovenox. GI prophylaxis Protonix Home O2 test ordered
--- NOTE | 2018-11-13 15:24 | P.PN ---
Subjective Progress Note Date: 11/13/18 Principal diagnosis: Dyspnea secondary to an acute exacerbation of chronic obstructive pulmonary disease, congestive heart failure and severe aortic stenosis. The patient is seen today in follow-up on the selective care unit. He is currently awake and alert in no acute distress. He is status post stenting of the proximal RCA which wasn't in-stent restenosis with a drug-eluting stent. He is currently resting comfortably in bed. Awake and alert in no acute distress. He is maintaining good O2 saturations in the 90s on 2 L/m per nasal cannula. He's been afebrile. Hemodynamically stable. White count 15.8. Hemoglobin 13.2. Creatinine 1.01. He remains on DuoNeb inhalations, Symbicort, IV Solu- Medrol. No pulmonary complaints. Objective - Vital Signs Vital signs: Vital Signs Temp 98.3 F 11/13/18 07:45 Pulse 77 11/13/18 15:06 Resp 16 11/13/18 15:06 BP 136/60 11/13/18 15:05 Pulse Ox 94 L 11/13/18 15:05 Intake & Output 11/12/18 11/13/18 11/13/18 18:59 06:59 18:59 Intake Total 600 400 223.29 Output Total 220 1500 Balance 380 -1100 223.29 Weight 103 kg Intake: IV 223.29 Intake, IV Titration 400 Amount Sodium Chloride 0.9% 1, 400 000 ml In Empty Bag 1 bag @ 1 ML/KG/HR 100 mls/hr IV .Q10H [facility] Rx#: [id number] Oral 600 0 Output: Urine 220 1500 Other: Voiding Method Toilet Toilet Urinal Urinal # Voids 2 2 1 # Bowel Movements 1 - Exam GENERAL EXAM: Alert, comfortable in no apparent distress. On 2 L nasal cannula. HEAD: Normocephalic. EYES: Normal reaction of pupils, equal size. NOSE: Clear with pink turbinates. THROAT: No erythema or exudates. NECK: No masses, no JVD. CHEST: No chest wall deformity. LUNGS: Equal air entry with crackles in the posterior bases. Diminished. CVS: S1 and S2 normal with no audible murmur, regular rhythm. ABDOMEN: No hepatosplenomegaly, normal bowel sounds, no guarding or rigidity. SPINE: No scoliosis or deformity SKIN: No rashes CENTRAL NERVOUS SYSTEM: No focal deficits, tone is normal in all 4 extremities. EXTREMITIES: There is no peripheral edema. No clubbing, no cyanosis. Pe ripheral pulses are intact. - Labs CBC & Chem 7: 11/13/18 06:53 11/13/18 06:53 Labs: Abnormal Lab Results - Last 24 Hours (Table) 11/12/18 11/12/18 11/13/18 Range/Units 16:45 20:42 06:19 WBC (3.8-10.6) k/uL RBC (4.30-5.90) m/uL Neutrophils # (1.3-7.7) k/uL Lymphocytes # (1.0-4.8) k/uL BUN (9-20) mg/dL Glucose (74-99) mg/dL POC Glucose (mg/dL) 160 H 155 H 150 H (75-99) mg/dL 11/13/18 11/13/18 11/13/18 Range/Units 06:53 06:53 12:15 WBC 15.8 H (3.8-10.6) k/uL RBC 4.24 L (4.30-5.90) m/uL Neutrophils # 14.2 H (1.3-7.7) k/uL Lymphocytes # 0.7 L (1.0-4.8) k/uL BUN 38 H (9-20) mg/dL Glucose 143 H (74-99) mg/dL POC Glucose (mg/dL) 150 H (75-99) mg/dL Assessment and Plan Assessment: Assessment: #1. Acute exacerbation of chronic obstructive pulmonary disease #2. Acute exacerbation of diastolic congestive heart failure #3. Aortic stenosis, severe plan is for possible TAVR in the outpatient setting #4. Coronary artery disease, history of coronary artery stenting and status post cardiac catheterization that reveals severely calcified aortic valve with severe aortic stenosis and aortic regurgitation, subtotally occluded right coronary artery at the previous stent site, mild disease in the LAD and the left circumflex, mildly impaired left ventricular systolic function. Status post stenting of in-stent restenosis of the proximal right coronary artery today 11/13/2018. #5. History of congestive heart failure #6. She of CVA #7. History of seizure disorder #8. Ongoing tobacco use with nicotine addiction Plan: The patient was seen and evaluated by Dr. Blunt. He is improving from the pulmonary standpoint. He remains on bronchodilators, IV Solu-Medrol, Symbicort. The patient was stented today to the RCA and eventually a possible TAVR proce irena. We will continue to follow and make further recommendations based on his clinical status. I, the cosigning physician, performed a history & physical examination of the patient. Lungs sounds with faint end expiratory wheeze, crackles in the posterior bases. Maintaining good O2 saturations in the 90s on 2L/min per n.c. I discussed the assessment and plan of care with my nurse practitioner, Indigo Choudhary. I attest to the above note as dictated by her.
[2018-11-13 16:55] LABS: Glucose,Whole Blood 260 mg/dL (75-99)
--- NOTE | 2018-11-13 19:20 | CONS ---
CONSULTATION Mr. Sharpe is a patient who came in with diabetes, hypertension, hyperlipidemia, CAD, and significant aortic valve stenosis and regurgitation. I saw him yesterday and discussed with him in detail regarding the PCI of his 99% stenosis in the proximal RCA stent. I performed the procedure today. It was technically difficult and challenging. He had excellent angiographic result. Postprocedure course was uneventful. He is resting comfortably without symptoms. Plan is to discharge him tomorrow if he remains stable. Vital signs stable. S1-S2 heard normally, short systolic murmur noted. Lungs reveal improved air entry. Abdomen and lower extremity exam unchanged. MMODL / IJN: [id number] /
[2018-11-13] MEDS: ATORVASTATIN 80 MG TAB PO SCH (20:13)
[2018-11-13 21:04] LABS: Glucose,Whole Blood 88 mg/dL (75-99)
[2018-11-13] MEDS: ZOLPIDEM 10 MG TAB PO PRN (22:13)
[2018-11-14] MEDS: SODIUM CHLORIDE 0.9% 1,000 ML IV SCH (01:05)
[2018-11-14] MEDS: INSULIN ASPART (NovoLOG) 100 UNIT/ML VIAL SQ SCH (06:23)
[2018-11-14] MEDS: methylPREDNISolone SOD SUCCI 125 MG/2 ML VIAL IV SCH (06:24)
[2018-11-14 06:47] LABS: Glucose,Whole Blood 143 mg/dL (75-99)
[2018-11-14 06:49] LABS: Basophils % (A) 0 %; Eosinophils # (A) 0.1 k/uL (0-0.7); Eosinophils % (A) 0 %; HCT 41.6 % (39.0-53.0); HGB 13.3 gm/dL (13.0-17.5); Lymphocytes # (A) 0.9 k/uL (1.0-4.8); Lymphocytes % (A) 4 %; MCH 30.7 pg (25.0-35.0); MCHC 31.9 g/dL (31.0-37.0); MCV 96.3 fL (80.0-100.0); Mean Platelet Volume 7.6; Monocytes # (A) 0.8 k/uL (0-1.0); Monocytes % (A) 4 %; Neutrophils # (A) 19.1 k/uL (1.3-7.7); Neutrophils % (A) 91 %; Platelet Count 250 k/uL (150-450); RBC 4.32 m/uL (4.30-5.90); RDW 14.9 % (11.5-15.5); WBC 21.1 k/uL (3.8-10.6)
[2018-11-14 06:57] LABS: Anion Gap 7 mmol/L; Blood Urea Nitrogen 35 mg/dL (9-20); Calcium 9.4 mg/dL (8.4-10.2); Carbon Dioxide 27 mmol/L (22-30); Chloride 101 mmol/L (98-107); Glucose 140 mg/dL (74-99); Sodium 135 mmol/L (137-145)
[2018-11-14] MEDS: IPRATROPIUM-ALBUTEROL 3 ML NEB INHALATION SCH (07:57)
[2018-11-14] MEDS: SYMBICORT 160-4.5 MCG INHALER INHALATION SCH (07:57)
[2018-11-14 08:36] VITALS: BP 166/74; PULSE 87; RESP 18; TEMP 97.6
[2018-11-14] MEDS: levETIRAcetam 500 MG TAB PO SCH (08:46)
[2018-11-14] MEDS: FUROSEMIDE 40 MG TAB PO SCH (08:46)
[2018-11-14] MEDS: DONEPEZIL 10 MG TAB PO SCH (08:46)
[2018-11-14] MEDS: FAMOTIDINE 20 MG TAB PO SCH (08:46)
[2018-11-14] MEDS: ASPIRIN 81 MG PO SCH (08:46)
[2018-11-14] MEDS: CLOPIDOGREL 75 MG TAB PO SCH (08:46)
[2018-11-14] MEDS: POTASSIUM CHLORIDE ER 10 MEQ TAB.ER.PRT PO SCH (08:47)
[2018-11-14] MEDS: SERTRALINE 100 MG TAB PO SCH (08:47)
[2018-11-14] MEDS: TAMSULOSIN 0.4 MG CAP.ER.24H PO SCH (08:47)
[2018-11-14] MEDS ORDERED: METOPROLOL TARTRATE 25 MG TAB PO SCH (09:00)
--- NOTE | 2018-11-14 10:14 | P.DS ---
Providers Date of admission: 11/09/18 00:00 Expected date of discharge: 11/14/18 Attending physician: Veto Christopher Consults: 11/08/18 22:05 Consult Physician Routine Consulting Provider: Filipe Mooney Consult Reason/Comments: chf Do you want consulting provider notified?: Yes 11/09/18 10:00 Consult Physician Routine Consulting Provider: Ezekiel Blunt Consult Reason/Comments: Shortness of breath Do you want consulting provider notified?: Yes 11/11/18 12:01 Consult Physician Routine Consulting Provider: Leni Pruitt Consult Reason/Comments: cabg/avr Do you want consulting provider notified?: Already Contacted Primary care physician: Tricia Mata Hospital Course: Diagnosis on discharge: 1. Shortness of breath related to COPD exacerbation and congestive heart failure. Chest x-ray completed showing cardiomegaly and chronic parenchymal changes without acute pulmonary process. BNP 1590. Patient currently on IV steroids and IV Lasix. Continue DuoNeb breathing treatments 2. Acute on chronic diastolic heart failure 3. Severe aortic stenosis. 2-D echo completed showing significant progression since CRISELDA in 2017. Cardiology services are following. Patient underwent CRISELDA in which it showed severe aortic stenosis of moderate severe aortic regurg possible bicuspid aortic valve. Patient underwent heart cath on 11/11/2018 showing severely calcified aortic valve superior stenosis and aortic regurg subtotally occluded proximal right coronary artery. Cardiothoracic surgery was evaluated and discussed options with patient. Patient declined any open heart surgery. Per cardiothoracic surgery patient could be a candidate for TAVR outpatient. Patient underwent cardiac catheterization with angioplasty and stent placement to the proximal RCA which is a in stent restenosis with a drug- eluting stent on 11/13/2018, patient was reevaluated by cardiology on 11/14/2018 and was cleared for discharge 3. History of COPD, with evidence of acute COPD exacerbation patient was maintained on IV Solu-Medrol during this admission he was switched to oral prednisone at the time of discharge Symbicort 160/4.52 puffs twice daily was also added to regimen 4. History of cardiac cath with previous stents. Patient maintained on Plavix 5. Ex-smoker. Patient reports he quit 1 year ago 6. Peripheral vascular occlusive disease. 7. Previous history of TIA 8. History of seizure disorder, maintained on Keppra continue Hospital course: This is a 73-year-old male patient of Dr. Mata. Patient presented to the hospital via ambulance with complaints of shortness of breath. Patient is very sleepy at this time and not wanting to talk much. Patient reports that he was short of breath for part of the day yesterday. Patient is having a cough. Patient's additional medical history includes CAD, heart failure COPD, CVA, seizure disorder, heart catheterization with stents and ex-smoker. Chest x-ray completed showing cardiomegaly and chronic parenchymal changes without acute pulmonary process. EKG completed showing sinus rhythm with premature supraventricular complexes, right bundle branch block. BNP 1590. Initial troponin 0.02 8 repeat troponin 0.032. Cardiology services have been consulted. Patient started on IV Lasix, IV steroids and updraft breathing treatments. W ill consult pulmonary services. At this time patient is sleepy but arousable and answers questions. Patient is currently on 2 L nasal cannula which he does not wear at home. Patient denies chest pain. Patient denies nausea vomiting or diarrhea. Patient denies any urinary burning or frequency. On 11/10/2018 patient is alert and oriented 3. Patient is much more awake today. Patient did have 2-D echo completed showing severe aortic regurg. Patient to undergo CRISELDA today per cardiology. Patient remains on IV Lasix and IV Solu-Medrol. Patient denies chest pain or shortness of breath. Patient denies nausea vomiting or diarrhea. Patient denies any urinary burning or frequency On 11/11/2018 patient is alert and oriented 3. CRISELDA completed yesterday showing severe aortic stenosis with moderate severe aortic regurg with possible bicuspid aortic valve. Patient to undergo cardiac cath today per cardiology services. This time patient remains on IV Solu-Medrol and IV Lasix. Patient denies chest pain or shortness breath. Patient denies nausea vomiting or diarrhea. Patient denies any urinary burning or frequency. On 11/12/2018 patient is alert and oriented 3. Patient's family at bedside. Patient underwent cardiac cath yesterday. Patient was referred to cardiothoracic surgery. At this time patient is refusing any open heart surgery per cardiothoracic surgery patient might be candidate for T AVR outpatient. Patient at this time will likely need to have percutaneous intervention to his right RCA awaiting cardiology decision. Patient denies chest pain or shortness breath. Patient denies nausea vomiting or diarrhea. Patient denies any urinary burning or frequency. Patient is requesting home oxygen. Discussed with nursing staff to do home oxygen testing to see if patient qualifies. On 11/13/2018 patient was seen and examined on the telemetry floor he is alert and oriented 3 he is scheduled to have cardiac catheterization with angioplasty and stent placement today. He denies any symptoms at this time there is no chest pain or shortness of breath no fever or chills no headache or dizziness no cough no nausea or vomiting no abdominal pain no diarrhea and no urinary symptoms On 11/14/2018 patient was seen and examined on the telemetry floor he is alert and oriented 3 in no apparent distress he denies any symptoms at this time there is no fever or chills no headache or dizziness no chest pain no shortness of breath no cough no nausea or vomiting no abdominal pain no diarrhea no burning was urination no frequency or urgency and no hematuria. Patient was evaluated by cardiology today and was cleared for discharge, he will be followed by his primary care physician within one week. He would also be contacted by the cardiothoracic surgeon's office for arrangement for TAVR as outpatient. Patient is feeling well and eager to be discharged. Patient Condition at Discharge: Fair Plan - Discharge Summary Discharge Rx Participant: Yes New Discharge Prescriptions: New Aspirin [Adult Low Dose Aspirin EC] 81 mg PO DAILY #30 tablet. Metoprolol Tartrate [Lopressor] 25 mg PO DAILY #90 tablet Nitroglycerin Sl Tabs [Nitrostat] 0.4 mg SUBLINGUAL Q5M PRN #100 tab PRN Reason: Chest Pain Furosemide [Lasix] 40 mg PO BID@0900,1600 tab predniSONE 10 mg PO DIRECTED 12 Days #30 tab Budesonide-Formot 160-4.5 Mcg [Symbicort 160-4.5 Mcg Inhaler] 2 puff INHALATION RT-BID puff Continue Donepezil [Aricept] 10 mg PO DAILY Atorvastatin [Lipitor] 80 mg PO HS levETIRAcetam [Keppra] 500 mg PO Q12HR Potassium Chloride [K-Tab ER] 10 meq PO DAILY Clopidogrel [Plavix] 75 mg PO DAILY #90 tab Tamsulosin HCl [Flomax] 0.8 mg PO DAILY Zolpidem [Ambien] 10 mg PO HS PRN #3 tab PRN Reason: Insomnia Ranitidine HCl [Zantac] 150 mg PO BID Sertraline [Zoloft] 150 mg PO DAILY Discontinued Furosemide [Lasix] 40 mg PO DAILY #30 tab Discharge Medication List Atorvastatin [Lipitor] 80 mg PO HS 08/08/14 [History] Donepezil [Aricept] 10 mg PO DAILY 08/08/14 [History] Potassium Chloride [K-Tab ER] 10 meq PO DAILY 09/03/17 [History] levETIRAcetam [Keppra] 500 mg PO Q12HR 09/03/17 [History] Clopidogrel [Plavix] 75 mg PO DAILY #90 tab 09/09/17 [Rx] Tamsulosin HCl [Flomax] 0.8 mg PO DAILY 10/02/17 [History] Zolpidem [Ambien] 10 mg PO HS PRN #3 tab 12/31/17 [Rx] Ranitidine HCl [Zantac] 150 mg PO BID 11/08/18 [History] Sertraline [Zoloft] 150 mg PO DAILY 11/08/18 [History] Aspirin [Adult Low Dose Aspirin EC] 81 mg PO DAILY #30 tablet. 11/14/18 [Rx] Budesonide-Formot 160-4.5 Mcg [Symbicort 160-4.5 Mcg Inhaler] 2 puff INHALATION RT-BID puff 11/14/18 [Rx] Furosemide [Lasix] 40 mg PO BID@0900,1600 tab 11/14/18 [Rx] Metoprolol Tartrate [Lopressor] 25 mg PO DAILY #90 tablet 11/14/18 [Rx] Nitroglycerin Sl Tabs [Nitrostat] 0.4 mg SUBLINGUAL Q5M PRN #100 tab 11/14/18 [Rx] predniSONE 10 mg PO DIRECTED 12 Days #30 tab 11/14/18 [Rx] Follow up Appointment(s)/Referral(s): [facility] [NON-STAFF] - Tricia Mata DO [Primary Care Provider] - 11/19/18 10:15 am (Thursday with Dana TO) Patient Instructions/Handouts: *Surgery [facility] - After Heart Catheterization - [employer]st Instructions, Left Heart Catheterization (DC), Aortic Stenosis (DC), Transcatheter Aortic Valve Replacement (GEN)
--- NOTE | 2018-11-14 11:24 | PN ---
PROGRESS NOTE Mr. Sharpe underwent stenting of a very difficult proximal RCA restenotic in-stent stenosis. He is doing well. His left groin is clean and dry with a good pulse. EKG is unremarkable. Labs are good. Vital signs stable. S1-S2 heard normally. Heart sounds heard distantly. Lungs reveal diminished air entry. Abdomen and lower extremity exam unchanged. Left groin is clean and dry. Plan is to increase activity and discharge him and he will see Dr. Maradiaga in the next 1-2 weeks. All discharge instructions including lab, medications and including risk factor modification advice was given. The patient will see Dr. Maradiaga within 1-2 weeks. He will be on dual antiplatelet therapy. MMODL / IJN: [id number] /
== END 2018-11-14 10:59 | disposition home health service (06) | DRG 247 ==
LOC: EC 20:01 → 4SSUR 11-09 → 3SCARD 11-11 10:27
PROVIDERS: ADMIT Internal Medicine; ATTEND Internal Medicine
PROC: B2111ZZ Fluoroscopy of Multiple Coronary Arteries using Low Osmolar Contrast (ICD-10-PCS; 2018-11-11)
PROC: B3101ZZ Fluoroscopy of Thoracic Aorta using Low Osmolar Contrast (ICD-10-PCS; 2018-11-11)
PROC: B2151ZZ Fluoroscopy of Left Heart using Low Osmolar Contrast (ICD-10-PCS; 2018-11-11)
PROC: 4A023N7 Measurement of Cardiac Sampling and Pressure, Left Heart, Percutaneous Approach (ICD-10-PCS; 2018-11-11 10:47)
PROC: 027034Z Dilation of Coronary Artery, One Artery with Drug-eluting Intraluminal Device, Percutaneous Approach (ICD-10-PCS; principal; 2018-11-13 09:00)
DX: I11.0 Hypertensive heart disease with heart failure (principal); I69.354 Hemiplegia and hemiparesis following cerebral infarction affecting left non-dominant side; T82.855A Stenosis of coronary artery stent, initial encounter; I50.33 Acute on chronic diastolic (congestive) heart failure; I27.20 Pulmonary hypertension, unspecified; J43.9 Emphysema, unspecified; R15.9 Full incontinence of feces; E11.9 Type 2 diabetes mellitus without complications; G40.909 Epilepsy, unspecified, not intractable, without status epilepticus; I35.2 Nonrheumatic aortic (valve) stenosis with insufficiency; I45.10 Unspecified right bundle-branch block; E78.5 Hyperlipidemia, unspecified; I25.10 Atherosclerotic heart disease of native coronary artery without angina pectoris; I49.1 Atrial premature depolarization; R32 Unspecified urinary incontinence; R45.1 Restlessness and agitation; Z79.02 Long term (current) use of antithrombotics/antiplatelets; Z79.899 Other long term (current) drug therapy; Z80.1 Family history of malignant neoplasm of trachea, bronchus and lung; Z82.49 Family history of ischemic heart disease and other diseases of the circulatory system; Y83.1 Surgical operation with implant of artificial internal device as the cause of abnormal reaction of the patient, or of later complication, without mention of misadventure at the time of the procedure
CPT/HCPCS: 36415; 71046; 80048; 80053; 80061; 80074; 81003; 82810; 83735; 83880; 84100; 84439; 84443; 84484; 85018; 85025; 85610; 85730; 93005; 93306; 93312; 93320; 93325; 93460; 93567; 93880; 94640; 94760; 96361; 96374; 96375; 96376; 99285; C1874

== ENCOUNTER 2019-01-01 19:53 | Inpatient (IN) | payer OTHER, MEDICARE ==
[2019-01-01] MEDS ORDERED: ASPIRIN 81 MG PO STA (20:18)
--- NOTE | 2019-01-01 20:36 | ED ---
Chest Pain HPI - General Chief Complaint: Chest Pain Stated Complaint: Cp Time Seen by Provider: 01/01/19 20:07 Source: patient, family Mode of arrival: wheelchair Limitations: no limitations - History of Present Illness Initial Comments: Patient is a 73-year-old male presenting for generalized weakness. is also bedside and states that for the last 3 days, his been having this intermittent chest pain which was a soreness without radiation. He complains of shortness of breath and decreased by mouth intake. He also has had difficulty swallowing for the last 3 days. He fell the bathroom earlier today but sustained no injury from that. He admits to diarrhea but no nausea or vomiting. He admits to cough and no fevers or chills. - Related Data Home Medications Medication Instructions Recorded Confirmed Atorvastatin [Lipitor] 80 mg PO HS 08/08/14 01/01/19 Donepezil [Aricept] 10 mg PO DAILY 08/08/14 01/01/19 Potassium Chloride [K-Tab ER] 10 meq PO DAILY 09/03/17 01/01/19 levETIRAcetam [Keppra] 500 mg PO Q12HR 09/03/17 01/01/19 Tamsulosin HCl [Flomax] 0.8 mg PO DAILY 10/02/17 01/01/19 Ranitidine HCl [Zantac] 150 mg PO BID 11/08/18 01/01/19 Sertraline [Zoloft] 150 mg PO DAILY 11/08/18 01/01/19 Previous Rx's Medication Instructions Recorded Clopidogrel [Plavix] 75 mg PO DAILY #90 tab 09/09/17 Zolpidem [Ambien] 10 mg PO HS PRN #3 tab 12/31/17 Aspirin [Adult Low Dose Aspirin EC] 81 mg PO DAILY #30 tablet. 11/14/18 Budesonide-Formot 160-4.5 Mcg 2 puff INHALATION RT-BID puff 11/14/18 [Symbicort 160-4.5 Mcg Inhaler] Furosemide [Lasix] 40 mg PO BID@0900,1600 tab 11/14/18 Metoprolol Tartrate [Lopressor] 25 mg PO DAILY #90 tablet 11/14/18 Nitroglycerin Sl Tabs [Nitrostat] 0.4 mg SUBLINGUAL Q5M PRN #100 tab 11/14/18 Allergies Allergy/AdvReac Type Severity Reaction Status Date / Time No Known Allergies Allergy Verified 01/01/19 20:32 Review of Systems ROS Statement: Those systems with pertinent positive or pertinent negative responses have been documented in the HPI. Constitutional: Negative for chills, and fever. Positive for fatigue HENT: Negative for congestion. Respiratory: Negative for chest tightness, and wheezing. Positive for shortness of breath and for cough Cardiovascular: Positive for chest pain and negative for palpitations. Gastrointestinal: Negative for abdominal pain. Negative for abdominal distention, nausea and vomiting. Positive for diarrhea Genitourinary: Negative for dysuria. Musculoskeletal: Negative for back pain, neck pain and neck stiffness. Skin: Negative for color change. Neurological: Negative for dizziness, speech difficulty, weakness and light- headedness. Positive for difficulty swallowing Psychiatric/Behavioral: Negative for agitation and confusion. Negative for anxiety ROS Other: All systems not noted in ROS Statement are negative. EKG Findings - EKG Comments: EKG Findings:: EKG shows sinus tachycardia with a rate of 102 bpm, PA interval 198, QRS 90, QTC 480. There are no significant ST depressions or elevations. Past Medical History Past Medical History: Coronary Artery Disease (CAD), Heart Failure, COPD, CVA/TIA, Hyperlipidemia, Hypertension, Seizure Disorder Additional Past Medical History / Comment(s): CVA 2007,2009(x3)- -uses walker-, heart murmer, OCC incontinence of urine/stool-weara a brief, last seizure couple yrs ago History of Any Multi-Drug Resistant Organisms: None Reported Past Surgical History: Appendectomy, Heart Catheterization With Stent, Tonsillectomy Additional Past Surgical History / Comment(s): one cardiac stent Past Anesthesia/Blood Transfusion Reactions: No Reported Reaction Date of Last Stent Placement:: 2010 Past Psychological History: No Psychological Hx Reported Smoking Status: Former smoker Past Alcohol Use History: None Reported Past Drug Use History: None Reported - Past Family History Mother Family Medical History: Cancer Additional Family Medical History / Comment(s): lung cancer Father Family Medical History: Myocardial Infarction ([place]) Additional Family Medical History / Comment(s): lived to age 92 General Exam - General Exam Comments Initial Comments: Constitutional: Pt appears well-developed and well-nourished. No distress. Head: Normocephalic and atraumatic. Eyes: EOM are normal. Neck: Normal range of motion. Neck supple. Cardiovascular: Tachycardia present, regular rhythm, S1 normal, S2 normal and normal heart sounds. Exam reveals no gallop and no friction rub. No murmur heard. Pulmonary/Chest: Effort normal and breath sounds normal. No tachypnea and no bradypnea. No respiratory distress. No wheezes or rales noted. Abdominal: Soft. Bowel sounds are normal. Pt exhibits no shifting dullness, no distension, no pulsatile liver, no fluid wave, no abdominal bruit and no ascites. There is no rigidity, no rebound, no guarding, no tenderness at McBurney's point and negative Berry's sign. There is no tenderness. Musculoskeletal: Normal range of motion. Neurological: Pt is alert and oriented to person, place, and time. No cranial nerve deficit. Skin: Skin is warm and dry. No rash noted. Pt is not diaphoretic. No erythema. No pallor. Psychiatric: Pt has a normal mood and affect. Pt behavior is normal. Thought content normal. Limitations: no limitations Course Vital Signs 01/01/19 01/01/19 01/01/19 20:02 21:32 22:05 Temperature 97.8 F Pulse Rate 116 H 99 104 H Respiratory 22 18 18 Rate Blood Pressure 90/55 110/72 88/71 O2 Sat by Pulse 92 L 94 L 96 Oximetry 01/01/19 01/01/19 01/01/19 22:20 22:26 22:31 Temperature Pulse Rate 110 H 89 Respiratory 20 20 18 Rate Blood Pressure 90/53 100/72 O2 Sat by Pulse 97 95 Oximetry 01/01/19 01/01/19 23:03 23:33 Temperature Pulse Rate 80 81 Respiratory 20 18 Rate Blood Pressure 92/59 104/55 O2 Sat by Pulse 94 L 94 L Oximetry - Reevaluation(s) Reevaluation #1: 01/01/19 22:10 -laboratory studies show that there is significant leukocytosis at 25,000 and because there is concern about aspiration, patient will have Zosyn and vancomycin initiated. BNP was also elevated at 5000 and therefore the patient was ordered Lasix at the time of this lab. Motor was noted to be elevated 0.039 and d-dimer was elevated at greater than 5. However, because of the acute kidney injury, CT PE could not be performed and patient will be empirically heparinized assuming pulmonary embolisms present. Initially, the blood pressure was stable and case is discussed with Dr. Christopher and it was thought that the patient would be appropriate for telemetry. However, patient's blood pressure is trending downwards and the Lasix will be held. Patient will be given a small bolus of 500 mL normal saline and reevaluated. The patient also appears to be going into atrial fibrillation with RVR and EKG will be repeated. At this time, rate controlled cannot be initiated because the patient's blood pressure is too low. Should the blood pressure did not increase, patient will be placed on pressure support such as levofed through a central line Reevaluation #2: 01/01/19 22:37 There continues to be severe concern about CT PE which should be causing hemodynamic instability. Extensive discussion was had with the patient, and other family members and all parties are agreeable that CT PE should be completed even though there is acute kidney injury as this significantly changes disposition as well as intervention. Repeat EKG shows sinus rhythm with occasional PVCs. PA intervals measured at 182, QRS 132, QTC 469. There are no significant ST depressions or elevations. 01/01/19 22:38 Reevaluation #3: 01/01/19 23:43 - case is discussed with Dr. Lyons as there is concern about patient's decompensation and it was recommended ICU placement be obtained. He agreed with this but also recommended that vancomycin be stopped as there is concern about edema nephrotoxins. Additionally, it was mutually agreed that the patient should receive another 500 mL bolus of normal saline. Etiology of the patient's symptoms are unclear but it is likely is secondary to septic shock and or CHF exacerbation. Lasix will still be withheld as the patient's blood pressure was still marginal. CT PE was also performed and showed no evidence of pulmonary emboli but did show possible metastasis to the bones. Patient will also be started on 75 mL of normal saline per hour Chest Pain MDM - MDM As noted in the ER course, the patient's blood pressure improved with fluid resuscitation and patient was started on Zosyn as requested. Patient will be admitted to the ICU for continued treatment. Central line was not placed as the patient's blood pressure improved with fluids. Heparin was also changed from high-intensity to low intensity to cover for NSTEMI Disposition Clinical Impression: Acute kidney injury, Pulmonary mass, CHF exacerbation Disposition: ADMITTED IP TO THIS HOSP Condition: Fair Referrals: Tricia Mata DO [Primary Care Provider] - 1-2 days Decision to Admit Reason: Admit from EC Decision Date: 01/02/19 Decision Time: 00:15
[2019-01-01 20:45] LABS: Basophils # (A) 0.2 k/uL (0-0.2); Basophils % (A) 1 %; Eosinophils # (A) 2.1 k/uL (0-0.7); Eosinophils % (A) 8 %; HCT 41.6 % (39.0-53.0); HGB 13.9 gm/dL (13.0-17.5); Lymphocytes # (A) 1.2 k/uL (1.0-4.8); Lymphocytes % (A) 5 %; MCH 30.8 pg (25.0-35.0); MCHC 33.4 g/dL (31.0-37.0); MCV 92.1 fL (80.0-100.0); Mean Platelet Volume 7.6; Monocytes # (A) 1.1 k/uL (0-1.0); Monocytes % (A) 4 %; Neutrophils # (A) 20.7 k/uL (1.3-7.7); Neutrophils % (A) 81 %; Platelet Count 268 k/uL (150-450); RBC 4.52 m/uL (4.30-5.90); RDW 15.6 % (11.5-15.5); WBC 25.6 k/uL (3.8-10.6)
[2019-01-01 20:57] LABS: Albumin 4.1 g/dL (3.5-5.0); Calcium 10.4 mg/dL (8.4-10.2); Magnesium 1.8 mg/dL (1.6-2.3); Potassium 5.1 mmol/L (3.5-5.1); Total Bilirubin 0.7 mg/dL (0.2-1.3); Total Protein 7.2 g/dL (6.3-8.2)
--- NOTE | 2019-01-01 21:00 | CT ---
EXAMINATION TYPE: CT brain wo con DATE OF EXAM: 01/01/2019 COMPARISON: 12/26/2017 HISTORY: altered mental status CT DLP: 1107.4 mGycm Automated exposure control for dose reduction was used. FINDINGS: There is extensive hypodensity in the white matter of both frontal lobes. There is old large right fr ontal encephalomalacia that measures 4 cm. There is enlargement of the ventricles. There is no mass e ffect nor midline shift. There is no sign of intracranial hemorrhage. The calvarium is intact. IMPRESSION: OLD LARGE RIGHT FRONTAL LOBE CORTICAL INFARCT. CHRONIC SMALL VESSEL ISCHEMIA. NO ACUTE INTRACRANIAL A BNORMALITY. NO CHANGE.
[2019-01-01 21:03] LABS: INR 1.1 (<1.2); Partial Thromboplastin Time 25.9 sec (22.0-30.0); Prothrombin Time 11.4 sec (9.0-12.0)
[2019-01-01 21:15] LABS: D-Dimer 5.87 mg/L FEU (<0.60)
--- NOTE | 2019-01-01 21:19 | XR ---
EXAMINATION TYPE: XR chest 2V DATE OF EXAM: 01/01/2019 COMPARISON: 11/08/2018 HISTORY: Chest pain TECHNIQUE: Frontal and lateral views of the chest are obtained. FINDINGS: There is poor inspiration. There is some pleural thickening on the right upper lateral [address] st wall with destruction of the right lateral third rib. There is coarsening of the pulmonary interst itial markings. Heart is slightly enlarged. There is slight blunting of posterior costophrenic angles . There are chest leads. IMPRESSION: Pleural-based mass in the lateral right upper lobe with rib destruction suggestive of tu mor. This is a change compared to recent exam. Follow-up recommended. There is probably mild heart failure that is a change compared to last exam. Inspiration decreased co mpared to last exam.
[2019-01-01] MEDS ORDERED: FUROSEMIDE 10 MG/ML 4 ML VIAL IV STA (21:41)
[2019-01-01] MEDS ORDERED: VANCOMYCIN IV PER PHARMACY 1 EACH MISC MISCELLANE PRN (21:41)
[2019-01-01] MEDS ORDERED: HEPARIN SOD,PORK IN 0.45% NACL 25,000 UNIT in 0.45% NACL 1 250ML.BAG IV SCH (21:45)
[2019-01-01] MEDS ORDERED: VANCOMYCIN 1,500 MG in SODIUM CHLORIDE 0.9% 250 ML IVPB ONE (22:00)
[2019-01-01] MEDS: PIPERACILLIN-TAZOBACTAM 3.375 GM in SODIUM CHLORIDE 0.9% 100 ML IVPB SCH (23:02)
--- NOTE | 2019-01-01 23:06 | CT ---
EXAM: CT Angiography Chest With Intravenous Contrast CLINICAL HISTORY: ITS.REASON CT Reason: Evaluation for PE TECHNIQUE: Axial computed tomographic angiography images of the chest with intravenous contrast using pulmonary embolism protocol. CTDI is 14 mGy and DLP is 501 mGy-cm. This CT exam was performed using one or more of the following dose reduction techniques: automated exposure control, adjustment of the mA and/or kV according to patient size, and/or use of iterative reconstruction technique. MIP reconstructed images were created and reviewed. COMPARISON: No relevant prior studies available. FINDINGS: Pulmonary arteries: No filling defects. Aorta: No thoracic aortic aneurysm. Lungs: 5.3 cm mass in the right lower lobe Pleural space: No significant effusion. No pneumothorax. Heart: Mild cardiomegaly or pericardial effusion. Bones/joints: 4.2 cm destructive mass in the lower sternum. 5.2 cm destructive mass in the right fourth rib with involvement of the pleura. No acute fracture or dislocation. Soft tissues: Severely enlarged bilateral adrenal glands measuring approximately 4.3 cm. Lymph nodes: No enlarged lymph nodes. IMPRESSION: 1. No pulmonary embolism. 2. 5.3 cm mass in the right lower lobe. Lytic mass in the right fourth rib and lower sternum. Bilateral severely enlarged adrenal glands. This likely represents metastatic disease. Recommend PET/CT/biopsy for better characterization.
[2019-01-01] MEDS ORDERED: SODIUM CHLORIDE 0.9% 500 ML 500 ML IV ONE (23:41)
[2019-01-01] MEDS ORDERED: NALOXONE 0.4 MG/ML 1 ML VIAL IV PRN (23:52)
[2019-01-02] MEDS ORDERED: VANCOMYCIN 1,500 MG in SODIUM CHLORIDE 0.9% 250 ML IVPB ONE ×2
[2019-01-02] MEDS: SODIUM CHLORIDE 0.9% 1,000 ML IV SCH ×2 (00:18→14:55)
[2019-01-02] MEDS: HEPARIN SOD,PORK IN 0.45% NACL 25,000 UNIT in 0.45% NACL 1 250ML.BAG IV SCH ×2 (00:49→15:09)
[2019-01-02 01:15] LABS: Glucose,Whole Blood 124 mg/dL (75-99)
[2019-01-02 01:17] LABS: Amorphous Sediment,Urine Rare /hpf; Appearance,Urine Cloudy (Clear); Bacteria,Urine Rare /hpf; Bilirubin,Urine Negative (Negative); Blood,Urine Negative (Negative); Color,Urine Yellow; Glucose,Urine (UA) Negative (Negative); Hyaline Casts,Urine 75 /lpf (0-2); Ketones,Urine Negative (Negative); Leukocyte Esterase,Urine Negative (Negative); Mucus,Urine Rare /hpf; Nitrite,Urine Negative (Negative); Protein,Urine Trace (Negative); RBC,Urine 2 /hpf (0-5); Squamous Epithelial Cell,Urine 1 /hpf (0-4); Urobilinogen,Urine <2.0 mg/dL (<2.0)
[2019-01-02 01:47] LABS: Specific Gravity,Urine 1.049 (1.001-1.035)
[2019-01-02] MEDS: ZOLPIDEM 10 MG TAB PO PRN (02:19)
[2019-01-02] MEDS ORDERED: HEPARIN SODIUM,PORCINE 5,000 UNIT/ML 1 ML VIAL IV STA (05:25)
[2019-01-02] MEDS: PIPERACILLIN-TAZOBACTAM 3.375 GM in SODIUM CHLORIDE 0.9% 100 ML IVPB SCH ×3 (05:31→22:28)
[2019-01-02] MEDS: SYMBICORT 160-4.5 MCG INHALER INHALATION SCH ×2 (08:22→20:08)
[2019-01-02] MEDS: TAMSULOSIN 0.4 MG CAP.ER.24H PO SCH (08:42)
[2019-01-02] MEDS: levETIRAcetam 500 MG TAB PO SCH ×2 (08:43→20:07)
[2019-01-02] MEDS: DONEPEZIL 10 MG TAB PO SCH (08:44)
[2019-01-02] MEDS: SERTRALINE 50 MG TAB PO SCH (08:44)
[2019-01-02] MEDS: FAMOTIDINE 20 MG TAB PO SCH ×2 (08:44→20:06)
[2019-01-02] MEDS ORDERED: PANTOPRAZOLE 40 MG/10 ML VIAL IV SCH (09:00)
--- NOTE | 2019-01-02 10:47 | XR ---
EXAMINATION TYPE: XR chest 1V DATE OF EXAM: 01/02/2019 HISTORY: CHF/COPD. REFERENCE: Previous study dated 01/01/2019. FINDINGS: The heart is mildly enlarged. There is vascular congestion and subtle interstitial change. I could not exclude small effusions. There is a 6.5 cm pleural-based mass overlying the right upper l obe. IMPRESSION: 1. RIGHT-SIDED PLEURAL-BASED MASS. 2. CHANGES CONSISTENT WITH MILD HEART FAILURE.
[2019-01-02 11:52] LABS: Albumin 3.2 g/dL (3.5-5.0); Calcium 8.8 mg/dL (8.4-10.2); Magnesium 1.7 mg/dL (1.6-2.3); Potassium 4.2 mmol/L (3.5-5.1); Total Bilirubin 0.7 mg/dL (0.2-1.3); Total Protein 5.9 g/dL (6.3-8.2)
[2019-01-02 12:47] LABS: Basophils # (A) 0.1 k/uL (0-0.2); Basophils % (A) 0 %; Eosinophils # (A) 1.9 k/uL (0-0.7); Eosinophils % (A) 9 %; HCT 35.3 % (39.0-53.0); HGB 11.3 gm/dL (13.0-17.5); Hypochromasia Slight; Lymphocytes # (A) 1.1 k/uL (1.0-4.8); Lymphocytes % (A) 5 %; MCH 30.2 pg (25.0-35.0); MCHC 32.1 g/dL (31.0-37.0); MCV 94.3 fL (80.0-100.0); Mean Platelet Volume 7.8; Monocytes # (A) 0.9 k/uL (0-1.0); Monocytes % (A) 4 %; Neutrophils # (A) 15.7 k/uL (1.3-7.7); Neutrophils % (A) 79 %; Platelet Count 207 k/uL (150-450); RBC 3.74 m/uL (4.30-5.90); RDW 15.7 % (11.5-15.5); WBC 19.9 k/uL (3.8-10.6)
--- NOTE | 2019-01-02 13:13 | P.CNPUL ---
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 The patient came into the hospital because of generalized weakness. He apparently was progressively getting weak and he was also experiencing chest pain and some shortness of breath. Another issue was difficulty in swallowing and the patient has not been able to swallow appropriately for the past 3 days. This was mainly to solid food and he was able to take liquids without any major difficulties. No nausea. No vomiting. No altered mentation. In the emergency department, the patient's BNP level was elevated. The d-dimer was elevated. He was given a CT angiogram and the patient was found to have a right lung masses a 4.2 cm lytic mass in the upper lobe causing distraction and lytic lesion in the fourth rib and another 5.3 cm right lower lobe mass in addition to bilateral enlarged adrenal glands and the findings are highly suspicious for metastatic cancer of a lung primary. This was an incidental finding. The CT angiogram did not show any evidence of pulmonary embolism. Note that the patient has coronary artery disease. The patient has undergone a recent cardiac catheterization with stenting of the RCA and he is on a combination of aspirin and Plavix. Overnight, the patient was given gentle hydration with was he given with a total of 1 L bolus. Currently is on IV heparin. He is also on IV Zosyn as an empiric antibiotic coverage knowing that the patient was suspected to be septic knowing that his white cell count was elevated and the patient was slightly hypotensive. He did not require any pressors. He responded to IV fluids. He is on IV Zosyn. This morning his white cell count is down to 19.9. His crit is also improving is down to 1.24. Troponins were minimally elevated at 0.032 and the BNP level was 5390. Review of Systems Constitutional: Reports daytime sleepiness, Reports fatigue, Reports poor appetite, Reports weakness, Reports weight loss Eyes: denies as per HPI Ears: deny: decreased hearing, ear discharge, earache, tinnitus Ears, nose, mouth and throat: Denies headache, Denies sore throat Cardiovascular: Reports chest pain, Reports decreased exercise tolerance, Reports dyspnea on exertion, Reports shortness of breath Respiratory: Reports cough, Reports cough with sputum, Reports dyspnea Gastrointestinal: Reports as per HPI (Dysphagia and difficulty in swallowing for solids) Genitourinary: Reports as per HPI Musculoskeletal: Denies myalgias Musculoskeletal: absent: ankle pain, ankle stiffness, ankle swelling, as per HPI, elbow pain, elbow stiffness, elbow swelling, foot pain, foot stiffness, foot swelling, hand pain, hand stiffness, hand swelling, hip pain, hip stiffness, hip swelling, knee pain, knee stiffness, knee swelling, shoulder pain, shoulder stiffness, shoulder swelling, wrist pain, wrist stiffness, wrist swelling Integumentary: Reports as per HPI Neurological: Reports as per HPI, Reports weakness Psychiatric: Reports as per HPI Endocrine: Reports as per HPI, Reports fatigue Hematologic/Lymphatic: Reports as per HPI Allergic/Immunologic: Reports as per HPI Past Medical History Past Medical History: Coronary Artery Disease (CAD), Heart Failure, COPD, CVA/TIA, Seizure Disorder Additional Past Medical History / Comment(s): Coronary artery disease with recen t RCA stenting, severe aortic stenosis, COPD, history of CVA the patient has left-sided weakness and the patient has had a total of 4 CVAs and he walks with the help of a walker, urinary incontinence, history of seizures and thousand and 10, smoker, COPD, hyperlipidemia, severely calcified aortic valve with severe stenosis and mild LAD disease and mild circumflex disease History of Any Multi-Drug Resistant Organisms: None Reported Past Surgical History: Appendectomy, Heart Catheterization With Stent, Tonsillectomy Additional Past Surgical History / Comment(s): one cardiac stent Past Anesthesia/Blood Transfusion Reactions: No Reported Reaction Date of Last Stent Placement:: 2010 Past Psychological History: No Psychological Hx Reported Additional Psychological History / Comment(s): denies any hx Smoking Status: Former smoker Past Alcohol Use History: None Reported Additional Past Alcohol Use History / Comment(s): started smokiong at age 10 (1956), quit smoking 2018, previously smoked 4 packs/day Past Drug Use History: None Reported - Past Family History Mother Family Medical History: Cancer Additional Family Medical History / Comment(s): lung cancer Father Family Medical History: Myocardial Infarction ([place]) Additional Family Medical History / Comment(s): lived to age 92 Medications and Allergies Home Medications Medication Instructions Recorded Confirmed Type Atorvastatin [Lipitor] 80 mg PO HS 08/08/14 01/02/19 History Donepezil [Aricept] 10 mg PO DAILY 08/08/14 01/02/19 History Potassium Chloride [K-Tab ER] 10 meq PO DAILY 09/03/17 01/02/19 History levETIRAcetam [Keppra] 500 mg PO Q12HR 09/03/17 01/02/19 History Clopidogrel [Plavix] 75 mg PO DAILY #90 tab 09/09/17 01/02/19 Rx Tamsulosin HCl [Flomax] 0.8 mg PO DAILY 10/02/17 01/02/19 History Zolpidem [Ambien] 10 mg PO HS PRN #3 tab 12/31/17 01/01/19 Rx Ranitidine HCl [Zantac] 150 mg PO BID 11/08/18 01/02/19 History Sertraline [Zoloft] 150 mg PO DAILY 11/08/18 01/02/19 History Aspirin [Adult Low Dose Aspirin EC] 81 mg PO DAILY #30 tablet. 11/14/18 01/02/19 Rx Budesonide-Formot 160-4.5 Mcg 2 puff INHALATION RT-BID puff 11/14/18 01/01/19 Rx [Symbicort 160-4.5 Mcg Inhaler] Furosemide [Lasix] 40 mg PO BID@0900,1600 tab 11/14/18 01/02/19 Rx Metoprolol Tartrate [Lopressor] 25 mg PO DAILY #90 tablet 11/14/18 01/02/19 Rx Nitroglycerin Sl Tabs [Nitrostat] 0.4 mg SUBLINGUAL Q5M PRN #100 tab 11/14/18 01/01/19 Rx Allergies Allergy/AdvReac Type Severity Reaction Status Date / Time No Known Allergies Allergy Verified 01/01/19 20:32 Physical Exam Vitals: Vital Signs Temp Pulse Resp BP Pulse Ox 01/02/19 12:00 99.0 F 77 15 119/69 95 01/02/19 11:00 77 9 L 131/67 91 L 01/02/19 10:00 80 13 120/74 96 01/02/19 09:00 86 26 H 91/65 92 L 01/02/19 08:00 99.4 F 92 13 107/77 92 L 01/02/19 07:00 81 25 H 96/58 94 L 01/02/19 06:00 80 27 H 113/58 89 L 01/02/19 05:00 82 16 101/70 92 L 01/02/19 04:00 98.0 F 79 10 L 84/71 92 L 01/02/19 03:00 79 28 H 94/60 91 L 01/02/19 02:30 80 16 94/60 89 L 01/02/19 01:15 98.3 F 01/02/19 01:10 97.8 F 84 24 92/53 92 L 01/02/19 01:00 78 100/76 90 L 01/02/19 00:52 87 18 100/76 94 L 01/02/19 00:19 74 18 113/57 95 01/01/19 23:33 81 18 104/55 94 L 01/01/19 23:03 80 20 92/59 94 L 01/01/19 22:31 89 18 100/72 95 01/01/19 22:26 110 H 20 90/53 97 01/01/19 22:20 20 01/01/19 22:05 104 H 18 88/71 96 01/01/19 21:32 99 18 110/72 94 L 01/01/19 20:02 97.8 F 116 H 22 90/55 92 L Intake and Output 01/01/19 01/02/19 01/02/19 22:59 06:59 14:59 Intake Total 810.110 8405 Output Total 850 630 Balance 21.833 1320 Intake: IV 825 450 Piperacillin-Tazobactam 3 200 .375 gm In Sodium Chloride 0.9% 100 ml @ 25 mls/hr IVPB Q8H [facility] Rx#: [id number] Sodium Chloride 0.9% 1, 375 450 000 ml @ 75 mls/hr IV . [id number] [facility] Rx#:[id number] Vancomycin 1,500 mg In 250 Sodium Chloride 0.9% 250 ml @ 125 mls/hr IVPB ONCE ONE Rx#:[id number] Intake, IV Titration 46.833 Amount Heparin Sod,Pork in 0.45% 46.833 NaCl 25,000 unit In 0.45 % NaCl 1 250ml.bag @ 10 mls/hr IV .Q24H [facility] Rx#: [id number] Oral 1500 Output: Urine 575 630 Uretheral ([place]) 275 Post Void Residual 275 Other: Voiding Method Indwelling Catheter Indwelling Catheter Weight 89.358 kg 89.358 kg Gen. appearance, comfortable no acute distress Head exam was generally normal. There was no scleral icterus or corneal arcus. Mucous membranes were moist. Neck was supple and without jugular venous distension, thyromegaly, or carotid bruits. Carotids were easily palpable bilaterally. There was no adenopathy. Lungs sounds are diminished bilaterally along with few crackles and rhonchi Heart sounds are regular, systolic ejection murmur grade 4/6 systolic the precordium. This is radiating to the neck. Abdominal exam revealed normal bowel sounds. The abdomen was soft, non-tender, and without masses, organomegaly, or appreciable enlargement of the abdominal aorta. Examination of the extremities revealed easily palpable radial, femoral and pedal pulses. There was no cyanosis, clubbing or edema. Examination of the skin revealed no evidence of significant rashes, suspicious appearing nevi or other concerning lesions. Neurologically the patient has left-sided weakness related to previous CVA. He is able to communicate and talk. Gait was not assessed. Motor function is diminished in the left compared to the right. Results - Laboratory Findings CBC and BMP: 01/02/19 11:20 01/02/19 11:20 PT/INR, D-dimer PT 11.4 sec (9.0-12.0) 01/01/19 20:33 INR 1.1 (<1.2) 01/01/19 20:33 D-Dimer 5.87 mg/L FEU (<0.60) H 01/01/19 20:33 Abnormal lab findings: Abnormal Labs 01/01/19 01/01/19 01/01/19 20:33 20:33 20:33 WBC 25.6 H RBC Hgb Hct RDW 15.6 H Neutrophils # 20.7 H Monocytes # 1.1 H Eosinophils # 2.1 H APTT D-Dimer 5.87 H Sodium BUN 37 H Creatinine 1.94 H Glucose 132 H POC Glucose (mg/dL) Calcium 10.4 H Alkaline Phosphatase 154 H Troponin I Total Protein Albumin Ur Specific [place] Urine Protein Amorphous Sediment Urine Bacteria Hyaline Casts Urine Mucus 01/01/19 01/02/19 01/02/19 20:33 00:40 01:13 WBC RBC Hgb Hct RDW Neutrophils # Monocytes # Eosinophils # APTT D-Dimer Sodium BUN Creatinine Glucose POC Glucose (mg/dL) 124 H Calcium Alkaline Phosphatase Troponin I 0.039 H* Total Protein Albumin Ur Specific [place] 1.049 H Urine Protein Trace H Amorphous Sediment Rare H Urine Bacteria Rare H Hyaline Casts 75 H Urine Mucus Rare H 01/02/19 01/02/19 01/02/19 04:38 11:20 11:20 WBC 19.9 H RBC 3.74 L Hgb 11.3 L Hct 35.3 L RDW 15.7 H Neutrophils # 15.7 H Monocytes # Eosinophils # 1.9 H APTT 35.0 H 40.1 H D-Dimer Sodium BUN Creatinine Glucose POC Glucose (mg/dL) Calcium Alkaline Phosphatase Troponin I Total Protein Albumin Ur Specific [place] Urine Protein Amorphous Sediment Urine Bacteria Hyaline Casts Urine Mucus 01/02/19 11:20 WBC RBC Hgb Hct RDW Neutrophils # Monocytes # Eosinophils # APTT D-Dimer Sodium 133 L BUN 30 H Creatinine Glucose POC Glucose (mg/dL) Calcium Alkaline Phosphatase 128 H Troponin I Total Protein 5.9 L Albumin 3.2 L Ur Specific [place] Urine Protein Amorphous Sediment Urine Bacteria Hyaline Casts Urine Mucus - Diagnostic Findings Chest x-ray: image reviewed CT scan - chest: image reviewed Assessment and Plan Plan: 1 chest pain currently under investigation. The patient is known to have CAD and the patient has undergone a recent cardiac catheterization and stenting of the RCA and currently the patient and accommodation of aspirin and Plavix. The patient has mild disease involving the circumflex and the LAD. 2 severe aortic stenosis 3 CHF with impaired LV function 4 acute hypotension, improved with fluids. Considered to be underlying infection/sepsis and the patient on IV Zosyn. 5 acute leukocytosis, improving 6 acute kidney injury improving and the creatinine is down to 1.4 7 metastatic cancer that the patient has a right lung masses with destructive rib lesion and adrenal metastases. The findings are highly suspicious for lung cancer 8 history of recurrent CVAs with some ongoing left-sided weakness 9 dysphagia 10 hyperlipidemia 11 BPH 12 chronic seizures currently on Keppra 13. Depression Plan Continue gentle hydration with normal saline today to 50 mL an hour. The patient is clinically improving. White cell count is improved. Awaiting culture results. Continued IV Zosyn. Monitor renal function specially the patient has received contrast in the emergency department. Discussed the findings with cardiology. Unable to stop antiplatelet agents and as such a fine-needle aspirate of the lung mass is not possible at this point in time and this may be done at a later stage probably in 3 months from now. We will stabilize his condition. Continue IV heparin for now. We'll continue to follow and make further recommendations based progress. Swallow evaluation will be done. Aspiration precautions. Prognosis poor recent above-mentioned findings.
--- NOTE | 2019-01-02 13:36 | P.CRDCN ---
History of Present Illness Consult date: 01/02/19 Chief complaint: Shortness of breath History of present illness: This is a pleasant 73-year-old gentleman with an extensive past medical history consistent of coronary artery disease and prior stenting of the right coronary artery recently, valvular heart disease and known severe aortic stenosis and severe aortic insufficiency, known chronic obstructive pulmonary disease, as well as significant history of smoking, presented to the hospital complaining of shortness of breath as well as generalized weakness. The patient has been progressively getting weak and tired and fatigued as well as was experiencing shortness of breath with exertion as well as chest discomfort. No symptoms of dizziness or lightheadedness, heart racing or fluttering, or syncope. The patient underwent a workup including d-dimer which came in to be abnormal but t he computed tomography scan of the chest did not show any evidence of PE but it did show a lung mass measured 4 cm with the mass coasting invading the ribs of the chest. It was felt that the mass is malignant by the appearance on the computed tomography scan. We asked if we can stop the dual antiplatelet therapy to biopsy the mass and I stated this is very high risk. The dual antiplatelet because of the risk of stent thrombosis. The EKG showed sinus rhythm without any ischemic ST or T-wave abnormalities. The troponin came in to be slightly abnormal. Currently the patient is on heparin IV. Beside that he is on antibiotic for possible pneumonia. Past Medical History Past Medical History: Coronary Artery Disease (CAD), Heart Failure, COPD, CVA/TI A, Seizure Disorder Additional Past Medical History / Comment(s): Coronary artery disease with recent RCA stenting, severe aortic stenosis, COPD, history of CVA the patient has left-sided weakness and the patient has had a total of 4 CVAs and he walks with the help of a walker, urinary incontinence, history of seizures and thousand and 10, smoker, COPD, hyperlipidemia, severely calcified aortic valve with severe stenosis and mild LAD disease and mild circumflex disease History of Any Multi-Drug Resistant Organisms: None Reported Past Surgical History: Appendectomy, Heart Catheterization With Stent, Tonsillectomy Additional Past Surgical History / Comment(s): one cardiac stent Past Anesthesia/Blood Transfusion Reactions: No Reported Reaction Date of Last Stent Placement:: 2010 Past Psychological History: No Psychological Hx Reported Additional Psychological History / Comment(s): denies any hx Smoking Status: Former smoker Past Alcohol Use History: None Reported Additional Past Alcohol Use History / Comment(s): started smokiong at age 10 (1956), quit smoking 2017, previously smoked 4 packs/day Past Drug Use History: None Reported - Past Family History Mother Family Medical History: Cancer Additional Family Medical History / Comment(s): lung cancer Father Family Medical History: Myocardial Infarction ([place]) Additional Family Medical History / Comment(s): lived to age 92 Medications and Allergies Home Medications Medication Instructions Recorded Confirmed Type Atorvastatin [Lipitor] 80 mg PO HS 08/08/14 01/02/19 History Donepezil [Aricept] 10 mg PO DAILY 08/08/14 01/02/19 History Potassium Chloride [K-Tab ER] 10 meq PO DAILY 09/03/17 01/02/19 History levETIRAcetam [Keppra] 500 mg PO Q12HR 09/03/17 01/02/19 History Clopidogrel [Plavix] 75 mg PO DAILY #90 tab 09/09/17 01/02/19 Rx Tamsulosin HCl [Flomax] 0.8 mg PO DAILY 10/02/17 01/02/19 History Zolpidem [Ambien] 10 mg PO HS PRN #3 tab 12/31/17 01/01/19 Rx Ranitidine HCl [Zantac] 150 mg PO BID 11/08/18 01/02/19 History Sertraline [Zoloft] 150 mg PO DAILY 11/08/18 01/02/19 History Aspirin [Adult Low Dose Aspirin EC] 81 mg PO DAILY #30 tablet. 11/14/18 01/02/19 Rx Budesonide-Formot 160-4.5 Mcg 2 puff INHALATION RT-BID puff 11/14/18 01/01/19 Rx [Symbicort 160-4.5 Mcg Inhaler] Furosemide [Lasix] 40 mg PO BID@0900,1600 tab 11/14/18 01/02/19 Rx Metoprolol Tartrate [Lopressor] 25 mg PO DAILY #90 tablet 11/14/18 01/02/19 Rx Nitroglycerin Sl Tabs [Nitrostat] 0.4 mg SUBLINGUAL Q5M PRN #100 tab 11/14/18 01/01/19 Rx Allergies Allergy/AdvReac Type Severity Reaction Status Date / Time No Known Allergies Allergy Verified 01/01/19 20:32 Physical Exam Vitals: Vital Signs Temp Pulse Resp BP Pulse Ox 01/02/19 12:00 99.0 F 77 15 119/69 95 01/02/19 11:00 77 9 L 131/67 91 L 01/02/19 10:00 80 13 120/74 96 01/02/19 09:00 86 26 H 91/65 92 L 01/02/19 08:00 99.4 F 92 13 107/77 92 L 01/02/19 07:00 81 25 H 96/58 94 L 01/02/19 06:00 80 27 H 113/58 89 L 01/02/19 05:00 82 16 101/70 92 L 01/02/19 04:00 98.0 F 79 10 L 84/71 92 L 01/02/19 03:00 79 28 H 94/60 91 L 01/02/19 02:30 80 16 94/60 89 L 01/02/19 01:15 98.3 F 01/02/19 01:10 97.8 F 84 24 92/53 92 L 01/02/19 01:00 78 100/76 90 L 01/02/19 00:52 87 18 100/76 94 L 01/02/19 00:19 74 18 113/57 95 01/01/19 23:33 81 18 104/55 94 L 01/01/19 23:03 80 20 92/59 94 L 01/01/19 22:31 89 18 100/72 95 01/01/19 22:26 110 H 20 90/53 97 01/01/19 22:20 20 01/01/19 22:05 104 H 18 88/71 96 01/01/19 21:32 99 18 110/72 94 L 01/01/19 20:02 97.8 F 116 H 22 90/55 92 L Intake and Output 01/01/19 01/02/19 01/02/19 22:59 06:59 14:59 Intake Total 360.047 6946 Output Total 850 730 Balance 21.833 1270 Intake: IV 825 500 Piperacillin-Tazobactam 3 200 .375 gm In Sodium Chloride 0.9% 100 ml @ 25 mls/hr IVPB Q8H [facility] 234 BEDS AT [facility] Rx#: [id number] Sodium Chloride 0.9% 1, 375 500 000 ml @ 75 mls/hr IV . [id number] COUNTS INCLUDE 234 BEDS AT [facility] Rx#:[id number] Vancomycin 1,500 mg In 250 Sodium Chloride 0.9% 250 ml @ 125 mls/hr IVPB ONCE ONE Rx#:[id number] Intake, IV Titration 46.833 Amount Heparin Sod,Pork in 0.45% 46.833 NaCl 25,000 unit In 0.45 % NaCl 1 250ml.bag @ 10 mls/hr IV .Q24H COUNTS INCLUDE 234 BEDS AT [facility] Rx#: [id number] Oral 1500 Output: Urine 575 730 Uretheral ([place]) 275 Post Void Residual 275 Other: Voiding Method Indwelling Catheter Indwelling Catheter Weight 89.358 kg 89.358 kg - Constitutional General appearance: no acute distress - Respiratory Respiratory: bilateral: rhonchi - Cardiovascular Rhythm: regular Heart sounds: normal: S1, S2 Results 01/02/19 11:20 01/02/19 11:20 Cardiac Enzymes 01/01/19 01/01/19 01/02/19 Range/Units 20:33 20:33 02:12 AST 38 (17-59) U/L Troponin I 0.039 H* 0.034 (0.000-0.034) ng/mL 01/02/19 01/02/19 Range/Units 11:20 11:20 AST 35 (17-59) U/L Troponin I 0.034 (0.000-0.034) ng/mL Coagulation 01/01/19 01/02/19 01/02/19 Range/Units 20:33 04:38 11:20 PT 11.4 (9.0-12.0) sec APTT 25.9 35.0 H 40.1 H (22.0-30.0) sec CBC 01/01/19 01/02/19 Range/Units 20:33 11:20 WBC 25.6 H 19.9 H (3.8-10.6) k/uL RBC 4.52 3.74 L (4.30-5.90) m/uL Hgb 13.9 11.3 L (13.0-17.5) gm/dL Hct 41.6 35.3 L (39.0-53.0) % Plt Count 268 207 (150-450) k/uL Comprehensive Metabolic Panel 01/01/19 01/02/19 Range/Units 20:33 11:20 Sodium 137 133 L (137-145) mmol/L Potassium 5.1 4.2 (3.5-5.1) mmol/L Chloride 102 102 (98-107) mmol/L Carbon Dioxide 22 23 (22-30) mmol/L BUN 37 H 30 H (9-20) mg/dL Creatinine 1.94 H 1.24 (0.66-1.25) mg/dL Glucose 132 H 99 (74-99) mg/dL Calcium 10.4 H 8.8 (8.4-10.2) mg/dL AST 38 35 (17-59) U/L ALT 57 52 (21-72) U/L Alkaline Phosphatase 154 H 128 H (38-126) U/L Total Protein 7.2 5.9 L (6.3-8.2) g/dL Albumin 4.1 3.2 L (3.5-5.0) g/dL Current Medications Generic Name Dose Route Start Last Admin Trade Name Freq PRN Reason Stop Dose Admin Atorvastatin Calcium 80 mg 01/02/19 21:00 Lipitor PO HS YONI Budesonide/Formoterol Fumarate 2 puff 01/02/19 08:00 01/02/19 08:22 Symbicort 160-4.5 Mcg Inhaler INHALATION 2 puff RT-BID YONI Administration Clopidogrel Bisulfate 75 mg 01/03/19 09:00 Plavix PO DAILY YONI Donepezil HCl 10 mg 01/02/19 09:00 01/02/19 08:44 Aricept PO 10 mg DAILY YONI Administration Famotidine 20 mg 01/02/19 09:00 01/02/19 08:44 Pepcid PO 20 mg BID YONI Administration Piperacillin Sod/Tazobactam 100 mls @ 25 mls/hr 01/01/19 22:00 01/02/19 05:31 Sod 3.375 gm/ Sodium Chloride IVPB 25 mls/hr Q8H YONI Administration Sodium Chloride 1,000 mls @ 75 mls/hr 01/01/19 23:45 01/02/19 00:18 Saline 0.9% IV 75 mls/hr .[id number] YONI Administration Heparin Sodium/Sodium Chloride 250 mls @ 10 mls/hr 01/02/19 00:30 01/02/19 05:30 25,000 unit/ Sodium Chloride IV 13 mls/hr .Q24H COUNTS INCLUDE 234 BEDS AT [facility] 13 mls/hr Titration Protocol Levetiracetam 500 mg 01/02/19 09:00 01/02/19 08:43 Keppra PO 500 mg Q12HR YONI Administration Naloxone HCl 0.2 mg 01/01/19 23:52 Narcan IV Q2M PRN Opioid Reversal Pantoprazole Sodium 40 mg 01/03/19 07:30 Protonix PO AC-BRKFST COUNTS INCLUDE 234 BEDS AT [facility] Potassium Chloride 10 meq 01/02/19 09:00 K-Dur 10 PO DAILY YONI Sertraline HCl 150 mg 01/02/19 09:00 01/02/19 08:44 Zoloft PO 150 mg DAILY YONI Administration Tamsulosin HCl 0.8 mg 01/02/19 09:00 01/02/19 08:42 Flomax PO 0.8 mg DAILY YONI Administration Zolpidem Tartrate 10 mg 01/02/19 02:11 01/02/19 02:19 Ambien PO 10 mg HS PRN Administration Insomnia Intake and Output 01/01/19 01/02/19 01/02/19 22:59 06:59 14:59 Intake Total 653.044 2470 Output Total 850 730 Balance 21.833 1270 Intake: IV 825 500 Piperacillin-Tazobactam 3 200 .375 gm In Sodium Chloride 0.9% 100 ml @ 25 mls/hr IVPB Q8H COUNTS INCLUDE 234 BEDS AT [facility] Rx#: [id number] Sodium Chloride 0.9% 1, 375 500 000 ml @ 75 mls/hr IV . [id number] COUNTS INCLUDE 234 BEDS AT [facility] Rx#:[id number] Vancomycin 1,500 mg In 250 Sodium Chloride 0.9% 250 ml @ 125 mls/hr IVPB ONCE ONE Rx#:[id number] Intake, IV Titration 46.833 Amount Heparin Sod,Pork in 0.45% 46.833 NaCl 25,000 unit In 0.45 % NaCl 1 250ml.bag @ 10 mls/hr IV .Q24H COUNTS INCLUDE 234 BEDS AT [facility] Rx#: [id number] Oral 1500 Output: Urine 575 730 Uretheral ([place]) 275 Post Void Residual 275 Other: Voiding Method Indwelling Catheter Indwelling Catheter Weight 89.358 kg 89.358 kg Patient Weight 01/03/19 06:59 Weight 89.358 kg 01/02/19 11:01/02/19 11:20 Assessment and Plan Assessment: Assessment #1 atypical chest discomfort #2 valvular heart disease with severe aortic stenosis and severe aortic insufficiency #3 possible pneumonia #4 lung mass likely present malignancy #6 multiple comorbid conditions Plan #1 continue the current medical regimen including dual antiplatelet therapy #2 I would advise not to interrupt dual antiplatelet therapy at this stage of the stenting #3 follow-up with the patient. Thank you for allowing us participate in his care
[2019-01-02] MEDS: POTASSIUM CHLORIDE ER 10 MEQ TAB.ER.PRT PO SCH (14:48)
--- NOTE | 2019-01-02 15:01 | P.HPIM ---
History of Present Illness H&P Date: 01/02/19 Roderick Sharpe is a 73-year-old male patient of Dr. Tricia Mata who presented to [facility] emergency room with multiple vague complaints of generalized weakness, difficulty swallowing solid food, shortness of breath, and chest pain he was evaluated in the emergency room, white blood count was elevated at 25.6 BUN elevated at 37 creatinine elevated at 1.94 troponin slightly elevated at 0.039 calcium elevated at 10.4 BNP elevated at 5390 and d- dimer elevated at 5.[address] angiogram of the chest which was negative for any evidence of pulmonary embolism but revealed evidence of 5.3 cm mass in the right lower lobe and lytic mass in the right fourth rib, and 4.2 cm destructive mass in the lower sternal patient was admitted to ICU pulmonary consultation was requested and cardiology consultation was requested. Patient had evidence of hypotension he received boluses of normal saline in the emergency room Past Medical History Past Medical History: Coronary Artery Disease (CAD), Heart Failure, COPD, CVA/TIA, Seizure Disorder Additional Past Medical History / Comment(s): Coronary artery disease with recent RCA stenting, severe aortic stenosis, COPD, history of CVA the patient has left-sided weakness and the patient has had a total of 4 CVAs and he walks with the help of a walker, urinary incontinence, history of seizures and thousand and 10, smoker, COPD, hyperlipidemia, severely calcified aortic valve with severe stenosis and mild LAD disease and mild circumflex disease History of Any Multi-Drug Resistant Organisms: None Reported Past Surgical History: Appendectomy, Heart Catheterization With Stent, Tonsillectomy Additional Past Surgical History / Comment(s): one cardiac stent Past Anesthesia/Blood Transfusion Reactions: No Reported Reaction Date of Last Stent Placement:: 2010 Past Psychological History: No Psychological Hx Reported Additional Psychological History / Comment(s): denies any hx Smoking Status: Former smoker Past Alcohol Use History: None Reported Additional Past Alcohol Use History / Comment(s): started smokiong at age 10 (1958), quit smoking 2017, previously smoked 4 packs/day Past Drug Use History: None Reported - Past Family History Mother Family Medical History: Cancer Additional Family Medical History / Comment(s): lung cancer Father Family Medical History: Myocardial Infarction ([place]) Additional Family Medical History / Comment(s): lived to age 92 Medications and Allergies Home Medications Medication Instructions Recorded Confirmed Type Atorvastatin [Lipitor] 80 mg PO HS 08/08/14 01/02/19 History Donepezil [Aricept] 10 mg PO DAILY 08/08/14 01/02/19 History Potassium Chloride [K-Tab ER] 10 meq PO DAILY 09/03/17 01/02/19 History levETIRAcetam [Keppra] 500 mg PO Q12HR 09/03/17 01/02/19 History Clopidogrel [Plavix] 75 mg PO DAILY #90 tab 09/09/17 01/02/19 Rx Tamsulosin HCl [Flomax] 0.8 mg PO DAILY 10/02/17 01/02/19 History Zolpidem [Ambien] 10 mg PO HS PRN #3 tab 12/31/17 01/01/19 Rx Ranitidine HCl [Zantac] 150 mg PO BID 11/08/18 01/02/19 History Sertraline [Zoloft] 150 mg PO DAILY 11/08/18 01/02/19 History Aspirin [Adult Low Dose Aspirin EC] 81 mg PO DAILY #30 tablet.dr 11/14/18 01/02/19 Rx Budesonide-Formot 160-4.5 Mcg 2 puff INHALATION RT-BID puff 11/14/18 01/01/19 Rx [Symbicort 160-4.5 Mcg Inhaler] Furosemide [Lasix] 40 mg PO BID@0900,1600 tab 11/14/18 01/02/19 Rx Metoprolol Tartrate [Lopressor] 25 mg PO DAILY #90 tablet 11/14/18 01/02/19 Rx Nitroglycerin Sl Tabs [Nitrostat] 0.4 mg SUBLINGUAL Q5M PRN #100 tab 11/14/18 01/01/19 Rx Allergies Allergy/AdvReac Type Severity Reaction Status Date / Time No Known Allergies Allergy Verified 01/01/19 20:32 Physical Exam Vitals: Vital Signs Temp Pulse Resp BP Pulse Ox 01/02/19 14:00 84 8 L 82/46 92 L 01/02/19 13:00 103 H 10 L 128/69 92 L 01/02/19 12:00 99.0 F 77 15 119/69 95 01/02/19 11:00 77 9 L 131/67 91 L 05/05/19 10:00 80 13 120/74 96 01/02/19 09:00 86 26 H 91/65 92 L 01/02/19 08:00 99.4 F 92 13 107/77 92 L 01/02/19 07:00 81 25 H 96/58 94 L 01/02/19 06:00 80 27 H 113/58 89 L 01/02/19 05:00 82 16 101/70 92 L 01/02/19 04:00 98.0 F 79 10 L 84/71 92 L 01/02/19 03:00 79 28 H 94/60 91 L 01/02/19 02:30 80 16 94/60 89 L 01/02/19 01:15 98.3 F 01/02/19 01:10 97.8 F 84 24 92/53 92 L 01/02/19 01:00 78 100/76 90 L 01/02/19 00:52 87 18 100/76 94 L 01/02/19 00:19 74 18 113/57 95 01/01/19 23:33 81 18 104/55 94 L 01/01/19 23:03 80 20 92/59 94 L 01/01/19 22:31 89 18 100/72 95 01/01/19 22:26 110 H 20 90/53 97 01/01/19 22:20 20 01/01/19 22:05 104 H 18 88/71 96 01/01/19 21:32 99 18 110/72 94 L 01/01/19 20:02 97.8 F 116 H 22 90/55 92 L Intake and Output 01/01/19 01/02/19 01/02/19 22:59 06:59 14:59 Intake Total 530.570 7972 Output Total 850 940 Balance 21.833 1110 Intake: IV 825 550 Piperacillin-Tazobactam 3 200 .375 gm In Sodium Chloride 0.9% 100 ml @ 25 mls/hr IVPB Q8H [facility] Rx#: [id number] Sodium Chloride 0.9% 1, 375 550 000 ml @ 75 mls/hr IV . [id number] [facility] Rx#:[id number] Vancomycin 1,500 mg In 250 Sodium Chloride 0.9% 250 ml @ 125 mls/hr IVPB ONCE ONE Rx#:[id number] Intake, IV Titration 46.833 Amount Heparin Sod,Pork in 0.45% 46.833 NaCl 25,000 unit In 0.45 % NaCl 1 250ml.bag @ 10 mls/hr IV .Q24H [facility] Rx#: [id number] Oral 1500 Output: Urine 575 940 Uretheral ([place]) 275 Post Void Residual 275 Other: Voiding Method Indwelling Catheter Indwelling Catheter Weight 89.358 kg 89.358 kg In general patient is alert and oriented 3 in no apparent distress HEENT head normocephalic and atraumatic Neck is supple no JVD no goiter no lymphadenopathy no carotid bruit Lungs diminished lung sounds was a few scattered rhonchi Heart regular heart sounds S1 and S2 no gallops was 3/6 systolic murmur in the left sternal border Abdomen is soft nontender no organomegaly with normal bowel sounds Extremity exam reveals no edema no cyanosis or clubbing Neurological examination reveals left-sided weakness which is chronic per family Results CBC & Chem 7: 01/02/19 11:20 01/02/19 11:20 Labs: Abnormal Lab Results - Last 24 Hours (Table) 01/01/19 01/01/19 01/01/19 Range/Units 20:33 20:33 20:33 WBC 25.6 H (3.8-10.6) k/uL RBC (4.30-5.90) m/uL Hgb (13.0-17.5) gm/dL Hct (39.0-53.0) % RDW 15.6 H (11.5-15.5) % Neutrophils # 20.7 H (1.3-7.7) k/uL Monocytes # 1.1 H (0-1.0) k/uL Eosinophils # 2.1 H (0-0.7) k/uL APTT (22.0-30.0) sec D-Dimer 5.87 H (<0.60) mg/L FEU Sodium (137-145) mmol/L BUN 37 H (9-20) mg/dL Creatinine 1.94 H (0.66-1.25) mg/dL Glucose 132 H (74-99) mg/dL POC Glucose (mg/dL) (75-99) mg/dL Calcium 10.4 H (8.4-10.2) mg/dL Alkaline Phosphatase 154 H (38-126) U/L Troponin I (0.000-0.034) ng/mL Total Protein (6.3-8.2) g/dL Albumin (3.5-5.0) g/dL Ur Specific [place] (1.001-1.035) Urine Protein (Negative) Amorphous Sediment (None) /hpf Urine Bacteria (None) /hpf Hyaline Casts (0-2) /lpf Urine Mucus (None) /hpf 01/01/19 01/02/19 01/02/19 Range/Units 20:33 00:40 01:13 WBC (3.8-10.6) k/uL RBC (4.30-5.90) m/uL Hgb (13.0-17.5) gm/dL Hct (39.0-53.0) % RDW (11.5-15.5) % Neutrophils # (1.3-7.7) k/uL Monocytes # (0-1.0) k/uL Eosinophils # (0-0.7) k/uL APTT (22.0-30.0) sec D-Dimer (<0.60) mg/L FEU Sodium (137-145) mmol/L BUN (9-20) mg/dL Creatinine (0.66-1.25) mg/dL Glucose (74-99) mg/dL POC Glucose (mg/dL) 124 H (75-99) mg/dL Calcium (8.4-10.2) mg/dL Alkaline Phosphatase (38-126) U/L Troponin I 0.039 H* (0.000-0.034) ng/mL Total Protein (6.3-8.2) g/dL Albumin (3.5-5.0) g/dL Ur Specific [place] 1.049 H (1.001-1.035) Urine Protein Trace H (Negative) Amorphous Sediment Rare H (None) /hpf Urine Bacteria Rare H (None) /hpf Hyaline Casts 75 H (0-2) /lpf Urine Mucus Rare H (None) /hpf 01/02/19 01/02/19 01/02/19 Range/Units 04:38 11:20 11:20 WBC 19.9 H (3.8-10.6) k/uL RBC 3.74 L (4.30-5.90) m/uL Hgb 11.3 L (13.0-17.5) gm/dL Hct 35.3 L (39.0-53.0) % RDW 15.7 H (11.5-15.5) % Neutrophils # 15.7 H (1.3-7.7) k/uL Monocytes # (0-1.0) k/uL Eosinophils # 1.9 H (0-0.7) k/uL APTT 35.0 H 40.1 H (22.0-30.0) sec D-Dimer (<0.60) mg/L FEU Sodium (137-145) mmol/L BUN (9-20) mg/dL Creatinine (0.66-1.25) mg/dL Glucose (74-99) mg/dL POC Glucose (mg/dL) (75-99) mg/dL Calcium (8.4-10.2) mg/dL Alkaline Phosphatase (38-126) U/L Troponin I (0.000-0.034) ng/mL Total Protein (6.3-8.2) g/dL Albumin (3.5-5.0) g/dL Ur Specific [place] (1.001-1.035) Urine Protein (Negative) Amorphous Sediment (None) /hpf Urine Bacteria (None) /hpf Hyaline Casts (0-2) /lpf Urine Mucus (None) /hpf 01/02/19 Range/Units 11:20 WBC (3.8-10.6) k/uL RBC (4.30-5.90) m/uL Hgb (13.0-17.5) gm/dL Hct (39.0-53.0) % RDW (11.5-15.5) % Neutrophils # (1.3-7.7) k/uL Monocytes # (0-1.0) k/uL Eosinophils # (0-0.7) k/uL APTT (22.0-30.0) sec D-Dimer (<0.60) mg/L FEU Sodium 133 L (137-145) mmol/L BUN 30 H (9-20) mg/dL Creatinine (0.66-1.25) mg/dL Glucose (74-99) mg/dL POC Glucose (mg/dL) (75-99) mg/dL Calcium (8.4-10.2) mg/dL Alkaline Phosphatase 128 H (38-126) U/L Troponin I (0.000-0.034) ng/mL Total Protein 5.9 L (6.3-8.2) g/dL Albumin 3.2 L (3.5-5.0) g/dL Ur Specific [place] (1.001-1.035) Urine Protein (Negative) Amorphous Sediment (None) /hpf Urine Bacteria (None) /hpf Hyaline Casts (0-2) /lpf Urine Mucus (None) /hpf Thrombosis Risk Factor Assmnt - Choose All That Apply Each Factor Represents 1 point: Abnormal pulmonary function (COPD), Heart failure (<1month) Each Risk Factor Represents 2 Points: Age 61-74 years Other congenital or acquired thrombophilia - If yes, enter type in comment: No Thrombosis Risk Factor Assessment Total Risk Factor Score: 4 Thrombosis Risk Factor Assessment Level: Moderate Risk Assessment and Plan Plan: #1 episodes of chest pain was slightly elevated troponin level patient has previous history of coronary artery disease cardiology consultation was requested #2 lung mass and the lower sternum and fourth rib mass, highly suspicious for cancer #3 hypotension likely related to sepsis, source of infection unclear may be related to lung infection no evidence of urinary tract infection currently patient is on IV Zosyn #4 previous history of stroke with left sided weakness #5 acute kidney injury on presentation was elevated BUN and creatinine likely related to hypotension improving with IV fluid boluses #6 history of seizure disorder maintained on Keppra no new episodes of seizure #7 history of depression maintained on Zoloft #8 difficulty swallowing solid food likely related to sternal mass At this time continue with current management with IV fluid and IV antibiotic Input from cardiology and pulmonary will be reviewed Will consult oncology Will follow closely patient condition is Stabilizing at this time however p rognosis is guarded
[2019-01-02] MEDS: HYDROcodone/APAP 7.5-325MG 1 EACH TAB PO PRN (16:44)
[2019-01-02] MEDS: ATORVASTATIN 80 MG TAB PO SCH (20:06)
[2019-01-02] MEDS ORDERED: ACETAMINOPHEN TAB 325 MG TAB PO PRN (20:06)
[2019-01-02] MEDS ORDERED: VANCOMYCIN 1,500 MG in SODIUM CHLORIDE 0.9% 250 ML IVPB SCH (23:00)
[2019-01-03 04:38] LABS: Basophils # (A) 0.1 k/uL (0-0.2); Basophils % (A) 1 %; Eosinophils # (A) 2.3 k/uL (0-0.7); Eosinophils % (A) 11 %; HCT 34.1 % (39.0-53.0); HGB 11.3 gm/dL (13.0-17.5); Lymphocytes # (A) 1.1 k/uL (1.0-4.8); Lymphocytes % (A) 5 %; MCH 30.6 pg (25.0-35.0); MCHC 33.2 g/dL (31.0-37.0); MCV 92.2 fL (80.0-100.0); Mean Platelet Volume 7.5; Monocytes # (A) 0.8 k/uL (0-1.0); Monocytes % (A) 4 %; Neutrophils % (A) 78 %; Platelet Count 211 k/uL (150-450); RDW 15.6 % (11.5-15.5); WBC 20.6 k/uL (3.8-10.6)
[2019-01-03 05:15] LABS: Calcium 9.1 mg/dL (8.4-10.2); Magnesium 1.8 mg/dL (1.6-2.3); Potassium 4.3 mmol/L (3.5-5.1); Total Bilirubin 0.8 mg/dL (0.2-1.3); Total Protein 5.8 g/dL (6.3-8.2)
[2019-01-03] MEDS: SODIUM CHLORIDE 0.9% 1,000 ML IV SCH ×2 (06:02→14:02)
[2019-01-03] MEDS: HEPARIN SOD,PORK IN 0.45% NACL 25,000 UNIT in 0.45% NACL 1 250ML.BAG IV SCH (06:03)
[2019-01-03] MEDS: PIPERACILLIN-TAZOBACTAM 3.375 GM in SODIUM CHLORIDE 0.9% 100 ML IVPB SCH ×3 (06:15→22:17)
[2019-01-03] MEDS ORDERED: Magnesium Replacement Protocol 1 EACH MISC MISCELLANE PRN (06:17)
[2019-01-03] MEDS: MAGNESIUM SULFATE-D5W PMX 1 GM in DEXTROSE/WATER 1 100ML.BAG IVPB SCH ×2 (07:10→08:32)
--- NOTE | 2019-01-03 07:26 | P.PN ---
Subjective Progress Note Date: 01/03/19 Principal diagnosis: Coronary artery disease/valvular heart disease This is a pleasant 73-year-old gentleman with an extensive past medical history consistent of coronary artery disease and prior stenting of the right coronary artery recently, valvular heart disease and known severe aortic stenosis and severe aortic insufficiency, known chronic obstructive pulmonary disease, as well as significant history of smoking, presented to the hospital complaining of shortness of breath as well as generalized weakness. The patient has been progressively getting weak and tired and fatigued as well as was experiencing shortness of breath with exertion as well as chest discomfort. No symptoms of dizziness or lightheadedness, heart racing or fluttering, or syncope. The patient underwent a workup including d-dimer which came in to be abnormal but the computed tomography scan of the chest did not show any evidence of PE but it did show a lung mass measured 4 cm with the mass coasting invading the ribs of the chest. It was felt that the mass is malignant by the appearance on the computed tomography scan. We asked if we can stop the dual antiplatelet therapy to biopsy the mass and I stated this is very high risk. The dual antiplatelet because of the risk of stent thrombosis. The EKG showed sinus rhythm without any ischemic ST or T-wave abnormalities. The troponin came in to be slightly abnormal. Currently the patient is on heparin IV. Beside that he is on antibio tic for possible pneumonia. On follow-up with the patient today, 01/03/2019, he is doing overall better. The chest discomfort has improved. The shortness of breath is better. He continues to be in sinus mechanism with PACs. He is on aspirin as well as Plavix. He is on heparin and I am going to stop the heparin. He was started on heparin because Plavix was stopped yesterday for possible biopsy. I did advise not to interrupt dual antiplatelet therapy because it would carry a high risk of stent thrombosis. Objective - Vital Signs Vital signs: Vital Signs Temp 98.9 F 01/03/19 06:00 Pulse 76 01/03/19 06:00 Resp 27 H 01/03/19 06:00 BP 115/67 01/03/19 06:00 Pulse Ox 94 L 01/03/19 06:00 Intake & Output 01/02/19 01/03/19 01/03/19 18:59 06:59 18:59 Intake Total 2975.45 2599.140 Output Total 1540 1950 Balance 1435.45 649.140 Weight 89.358 kg 94.9 kg Intake: IV 850 425 Piperacillin-Tazobactam 3 100 100 .375 gm In Sodium Chloride 0.9% 100 ml @ 25 mls/hr IVPB Q8H [facility] Rx#: [id number] Sodium Chloride 0.9% 1, 750 325 000 ml @ 50 mls/hr IV . Q20H [facility] Rx#:[id number] Intake, IV Titration 125.45 234.140 Amount Heparin Sod,Pork in 0.45% 125.45 234.140 NaCl 25,000 unit In 0.45 % NaCl 1 250ml.bag @ 10 mls/hr IV .Q24H [facility] Rx#: [id number] Oral 1999 1939 Output: Urine 1540 1950 Other: Voiding Method Indwelling Catheter Indwelling Catheter - Constitutional General appearance: Present: no acute distress - Respiratory Respiratory: bilateral: rales - Labs CBC & Chem 7: 01/03/19 04:05 01/03/19 04:05 Labs: Abnormal Lab Results - Last 24 Hours (Table) 01/02/19 01/02/19 01/02/19 Range/Units 11:20 11:20 11:20 WBC 19.9 H (3.8-10.6) k/uL RBC 3.74 L (4.30-5.90) m/uL Hgb 11.3 L (13.0-17.5) gm/dL Hct 35.3 L (39.0-53.0) % RDW 15.7 H (11.5-15.5) % Neutrophils # 15.7 H (1.3-7.7) k/uL Eosinophils # 1.9 H (0-0.7) k/uL APTT 40.1 H (22.0-30.0) sec Sodium 133 L (137-145) mmol/L Carbon Dioxide (22-30) mmol/L BUN 30 H (9-20) mg/dL Glucose (74-99) mg/dL Alkaline Phosphatase 128 H (38-126) U/L Total Protein 5.9 L (6.3-8.2) g/dL Albumin 3.2 L (3.5-5.0) g/dL 01/02/19 01/03/19 01/03/19 Range/Units 20:49 04:05 04:05 WBC 20.6 H (3.8-10.6) k/uL RBC 3.70 L (4.30-5.90) m/uL Hgb 11.3 L (13.0-17.5) gm/dL Hct 34.1 L (39.0-53.0) % RDW 15.6 H (11.5-15.5) % Neutrophils # 16.0 H (1.3-7.7) k/uL Eosinophils # 2.3 H (0-0.7) k/uL APTT 45.4 H (22.0-30.0) sec Sodium 133 L (137-145) mmol/L Carbon Dioxide 19 L (22-30) mmol/L BUN (9-20) mg/dL Glucose 122 H (74-99) mg/dL Alkaline Phosphatase 137 H (38-126) U/L Total Protein 5.8 L (6.3-8.2) g/dL Albumin 3.0 L (3.5-5.0) g/dL 01/03/19 Range/Units 04:05 WBC (3.8-10.6) k/uL RBC (4.30-5.90) m/uL Hgb (13.0-17.5) gm/dL Hct (39.0-53.0) % RDW (11.5-15.5) % Neutrophils # (1.3-7.7) k/uL Eosinophils # (0-0.7) k/uL APTT 76.3 H (22.0-30.0) sec Sodium (137-145) mmol/L Carbon Dioxide (22-30) mmol/L BUN (9-20) mg/dL Glucose (74-99) mg/dL Alkaline Phosphatase (38-126) U/L Total Protein (6.3-8.2) g/dL Albumin (3.5-5.0) g/dL Microbiology - Last 24 Hours (Table) 01/01/19 22:37 Blood Culture - Preliminary Blood No Growth after 24 hours Assessment and Plan Assessment: Assessment #1 atypical chest discomfort #2 valvular heart disease with severe aortic stenosis and severe aortic in sufficiency #3 possible pneumonia #4 lung mass likely present malignancy #6 multiple comorbid conditions Plan #1 continue the current medical regimen including dual antiplatelet therapy #2 I would advise not to interrupt dual antiplatelet therapy at this stage of the stenting #3 follow-up with the patient. Thank you for allowing us participate in his care
[2019-01-03] MEDS: SYMBICORT 160-4.5 MCG INHALER INHALATION SCH ×2 (07:41→19:50)
--- NOTE | 2019-01-03 08:14 | XR ---
EXAMINATION TYPE: XR chest 1V DATE OF EXAM: 01/03/2019 COMPARISON: 01/02/2019 HISTORY: Shortness of breath TECHNIQUE: Single frontal view of the chest is obtained. FINDINGS: Right upper lobe pleural-based mass is stable. Interstitial pattern with bilateral infiltr ate, small effusion and cardiomegaly noted. Upper mediastinum prominent. No pneumothorax. Arthropathy of the shoulders. There is absence of a portion of the right fourth rib suggestive of destructive ri b lesion. IMPRESSION: Bilateral infiltrate with small effusion correlate for venous congestion. Large right up per lobe pleural-based mass noted.
[2019-01-03] MEDS: SERTRALINE 50 MG TAB PO SCH (08:32)
[2019-01-03] MEDS: TAMSULOSIN 0.4 MG CAP.ER.24H PO SCH (08:32)
[2019-01-03] MEDS: ASPIRIN 81 MG PO SCH (08:32)
[2019-01-03] MEDS: PANTOPRAZOLE 40 MG TABLET PO SCH (08:32)
[2019-01-03] MEDS: CLOPIDOGREL 75 MG TAB PO SCH (08:32)
[2019-01-03] MEDS: FAMOTIDINE 20 MG TAB PO SCH (08:33)
[2019-01-03] MEDS: levETIRAcetam 500 MG TAB PO SCH ×2 (08:33→20:32)
[2019-01-03] MEDS: POTASSIUM CHLORIDE ER 10 MEQ TAB.ER.PRT PO SCH (08:33)
[2019-01-03] MEDS: DONEPEZIL 10 MG TAB PO SCH (08:33)
[2019-01-03] MEDS: HYDROcodone/APAP 7.5-325MG 1 EACH TAB PO PRN ×2 (09:34→18:13)
--- NOTE | 2019-01-03 10:30 | P.PN ---
Subjective Progress Note Date: 01/03/19 Roderick Sharpe is a 73-year-old male patient of Dr. Tricia Mata who presented to [facility] emergency room with multiple vague complaints of generalized weakness, difficulty swallowing solid food, shortness of breath, and chest pain he was evaluated in the emergency room, white blood count was elevated at 25.6 BUN elevated at 37 creatinine elevated at 1.94 troponin slightly elevated at 0.039 calcium elevated at 10.4 BNP elevated at 5390 and d- dimer elevated at 5.[address] angiogram of the chest which was negative for any evidence of pulmonary embolism but revealed evidence of 5.3 cm mass in the right lower lobe and lytic mass in the right fourth rib, and 4.2 cm destructive mass in the lower sternal patient was admitted to ICU pulmonary consultation was requested and cardiology consultation was requested. Patient had evidence of hypotension he received boluses of normal saline in the emergency room On 01/03/2019 patient is alert and oriented 3. Family at bedside. Patient's creatinine has improved to 1.02 and bun 19. This time patient is still complaining of some chest pain. Per cardiology recommending we keep patient at this time on Plavix and aspirin. Patient denies nausea vomiting or diarrhea. Patient denies any urinary burning or frequency Objective - Vital Signs Vital signs: Vital Signs Temp 98.9 F 01/03/19 06:00 Pulse 83 01/03/19 07:00 Resp 31 H 01/03/19 07:00 BP 110/62 01/03/19 07:00 Pulse Ox 96 01/03/19 07:00 Intake & Output 01/02/19 01/03/19 01/03/19 18:59 06:59 18:59 Intake Total 2975.45 2599.140 25 Output Total 1540 1950 200 Balance 1435.45 649.140 -175 Weight 89.358 kg 94.9 kg Intake: IV 850 425 25 Piperacillin-Tazobactam 3 100 100 .375 gm In Sodium Chloride 0.9% 100 ml @ 25 mls/hr IVPB Q8H [facility] Rx#: [id number] Sodium Chloride 0.9% 1, 750 325 25 000 ml @ 50 mls/hr IV . Q20H [facility] Rx#:[id number] Intake, IV Titration 125.45 234.140 Amount Heparin Sod,Pork in 0.45% 125.45 234.140 NaCl 25,000 unit In 0.45 % NaCl 1 250ml.bag @ 10 mls/hr IV .Q24H [facility] Rx#: [id number] Oral 1999 1939 Output: Urine 1540 1950 200 Other: Voiding Method Indwelling Catheter Indwelling Catheter - Exam In general patient is alert and oriented 3 in no apparent distress HEENT head normocephalic and atraumatic Neck is supple no JVD no goiter no lymphadenopathy no carotid bruit Lungs diminished lung sounds was a few scattered rhonchi Heart regular heart sounds S1 and S2 no gallops was 3/6 systolic murmur in the left sternal border Abdomen is soft nontender no organomegaly with normal bowel sounds Extremity exam reveals no edema no cyanosis or clubbing Neurological examination reveals left-sided weakness which is chronic per family - Labs CBC & Chem 7: 01/03/19 04:05 01/03/19 04:05 Labs: Abnormal Lab Results - Last 24 Hours (Table) 01/02/19 01/02/19 01/02/19 Range/Units 11:20 11:20 11:20 WBC 19.9 H (3.8-10.6) k/uL RBC 3.74 L (4.30-5.90) m/uL Hgb 11.3 L (13.0-17.5) gm/dL Hct 35.3 L (39.0-53.0) % RDW 15.7 H (11.5-15.5) % Neutrophils # 15.7 H (1.3-7.7) k/uL Eosinophils # 1.9 H (0-0.7) k/uL APTT 40.1 H (22.0-30.0) sec Sodium 133 L (137-145) mmol/L Carbon Dioxide (22-30) mmol/L BUN 30 H (9-20) mg/dL Glucose (74-99) mg/dL Alkaline Phosphatase 128 H (38-126) U/L Total Protein 5.9 L (6.3-8.2) g/dL Albumin 3.2 L (3.5-5.0) g/dL 01/02/19 01/03/19 01/03/19 Range/Units 20:49 04:05 04:05 WBC 20.6 H (3.8-10.6) k/uL RBC 3.70 L (4.30-5.90) m/uL Hgb 11.3 L (13.0-17.5) gm/dL Hct 34.1 L (39.0-53.0) % RDW 15.6 H (11.5-15.5) % Neutrophils # 16.0 H (1.3-7.7) k/uL Eosinophils # 2.3 H (0-0.7) k/uL APTT 45.4 H (22.0-30.0) sec Sodium 133 L (137-145) mmol/L Carbon Dioxide 19 L (22-30) mmol/L BUN (9-20) mg/dL Glucose 122 H (74-99) mg/dL Alkaline Phosphatase 137 H (38-126) U/L Total Protein 5.8 L (6.3-8.2) g/dL Albumin 3.0 L (3.5-5.0) g/dL 01/03/19 Range/Units 04:05 WBC (3.8-10.6) k/uL RBC (4.30-5.90) m/uL Hgb (13.0-17.5) gm/dL Hct (39.0-53.0) % RDW (11.5-15.5) % Neutrophils # (1.3-7.7) k/uL Eosinophils # (0-0.7) k/uL APTT 76.3 H (22.0-30.0) sec Sodium (137-145) mmol/L Carbon Dioxide (22-30) mmol/L BUN (9-20) mg/dL Glucose (74-99) mg/dL Alkaline Phosphatase (38-126) U/L Total Protein (6.3-8.2) g/dL Albumin (3.5-5.0) g/dL Microbiology - Last 24 Hours (Table) 01/01/19 22:37 Blood Culture - Preliminary Blood No Growth after 24 hours Assessment and Plan Assessment: #1 episodes of chest pain was slightly elevated troponin level patient has previous history of coronary artery disease. Per cardiology patient has underwent stenting to the right coronary artery recently, at this time recommend he continue the current medical regime including dual antiplatelet therapy with Plavix and aspirin #2 lung mass and the lower sternum and fourth rib mass, highly suspicious for cancer. Pulmonary and oncology service is following #3 hypotension likely related to sepsis, source of infection unclear may be related to lung infection no evidence of urinary tract infection currently patient is on IV Zosyn. Blood culture ordered #4 previous history of stroke with left sided weakness #5 acute kidney injury on presentation was elevated BUN and creatinine likely related to hypotension improving with IV fluid boluses #6 history of seizure disorder maintained on Keppra no new episodes of seizure #7 history of depression maintained on Zoloft #8 difficulty swallowing solid food likely related to sternal mass. speech evaluation has been ordered #9. Valvular heart disease with severe aortic stenosis and severe aortic insufficiency
--- NOTE | 2019-01-03 11:26 | P.PN ---
Subjective Progress Note Date: 01/03/19 Principal diagnosis: Atypical chest pain, valvular heart disease with aortic stenosis and aortic insufficiency. This is a pleasant 73-year-old gentleman with an extensive past medical history consistent of coronary artery disease and prior stenting of the right coronary artery recently, valvular heart disease and known severe aortic stenosis and severe aortic insufficiency, known chronic obstructive pulmonary disease, as well as significant history of smoking, presented to the hospital complaining of shortness of breath as well as generalized weakness. The patient has been progressively getting weak and tired and fatigued as well as was experiencing shortness of breath with exertion as well as chest discomfort. No symptoms of dizziness or lightheadedness, heart racing or fluttering, or syncope. The patient underwent a workup including d-dimer which came in to be abnormal but the computed tomography scan of the chest did not show any evidence of PE but it did show a lung mass measured 4 cm with the mass coasting invading the ribs of the chest. It was felt that the mass is malignant by the appearance on the computed tomography scan. We asked if we can stop the dual antiplatelet therapy to biopsy the mass and I stated this is very high risk. The dual antiplatelet because of the risk of stent thrombosis. The EKG showed sinus rhythm without any ischemic ST or T-wave abnormalities. The troponin came in to be slightly abnormal. Currently the patient is on heparin IV. Beside that he is on antibiotic for possible pneumonia. Patient was reevaluated today on 01/03/2019, patient is still complaining of vague chest pain. no cough no wheezing, no shortness of breath. Patient remains on dual antiplatelet therapy, and his CT of the chest was reviewed, clearly suggestive of underlying bronchogenic carcinoma which will eventually need a CT- guided needle biopsy for tissue diagnosis. Labs were reviewed, WBC count is 20.6 hemoglobin is 11.3, PTT is 76.3, electrolytes and renal profile are normal. Objective - Vital Signs Vital signs: Vital Signs Temp 99.0 F 01/03/19 08:00 Pulse 75 01/03/19 10:00 Resp 21 01/03/19 10:00 BP 93/57 01/03/19 10:00 Pulse Ox 90 L 01/03/19 10:00 Intake & Output 01/02/19 01/03/19 01/03/19 18:59 06:59 18:59 Intake Total 2975.45 2599.140 1050 Output Total 1540 1950 850 Balance 1435.45 649.140 200 Weight 89.358 kg 94.9 kg Intake: IV 850 425 50 Piperacillin-Tazobactam 3 100 100 .375 gm In Sodium Chloride 0.9% 100 ml @ 25 mls/hr IVPB Q8H YONI Rx#: [id number] Sodium Chloride 0.9% 1, 750 325 50 000 ml @ 50 mls/hr IV . Q20H YONI Rx#:[id number] Intake, IV Titration 125.45 234.140 200 Amount Heparin Sod,Pork in 0.45% 125.45 234.140 NaCl 25,000 unit In 0.45 % NaCl 1 250ml.bag @ 10 mls/hr IV .Q24H YONI Rx#: [id number] Magnesium Sulfate-D5w Pmx 200 1 gm In Dextrose/Water 1 100ml.bag @ 100 mls/hr IVPB Q1H YONI Rx#: [id number] Oral 2000 1940 800 Output: Urine 1540 1950 850 Other: Voiding Method Indwelling Catheter Indwelling Catheter Indwelling Catheter - Exam Physical Exam: Revealed a 73-year-old white male, in no distress. Head: Atraumatic, normocephalic. HEENT:[Neck is supple.] [No neck masses.] [No thyromegaly.] [No JVD.] PERRLA, EOMI, no icterus, Chest: [Clear throughout, no crackles, no rhonchi, no wheezes.] Cardiac Exam: [Normal S1 and S2, no S3 gallop, no murmur.] Abdomen: [Soft, nontender, no megaly, no rebound, no guarding, normal bowel sounds.] Extremities: [No clubbing, no edema, no cyanosis.] Neurological Exam: [No focal neurologic deficit.] Alert oriented 3 Psychiatric: Normal mood affect and mental status examination. Lymphatics: No lymphadenopathy. Skin: No rashes. - Labs CBC & Chem 7: 01/03/19 04:05 01/03/19 04:05 Labs: Abnormal Lab Results - Last 24 Hours (Table) 01/02/19 01/02/19 01/02/19 Range/Units 11:20 11:20 11:20 WBC 19.9 H (3.8-10.6) k/uL RBC 3.74 L (4.30-5.90) m/uL Hgb 11.3 L (13.0-17.5) gm/dL Hct 35.3 L (39.0-53.0) % RDW 15.7 H (11.5-15.5) % Neutrophils # 15.7 H (1.3-7.7) k/uL Eosinophils # 1.9 H (0-0.7) k/uL APTT 40.1 H (22.0-30.0) sec Sodium 133 L (137-145) mmol/L Carbon Dioxide (22-30) mmol/L BUN 30 H (9-20) mg/dL Glucose (74-99) mg/dL Alkaline Phosphatase 128 H (38-126) U/L Total Protein 5.9 L (6.3-8.2) g/dL Albumin 3.2 L (3.5-5.0) g/dL 01/02/19 01/03/19 01/03/19 Range/Units 20:49 04:05 04:05 WBC 20.6 H (3.8-10.6) k/uL RBC 3.70 L (4.30-5.90) m/uL Hgb 11.3 L (13.0-17.5) gm/dL Hct 34.1 L (39.0-53.0) % RDW 15.6 H (11.5-15.5) % Neutrophils # 16.0 H (1.3-7.7) k/uL Eosinophils # 2.3 H (0-0.7) k/uL APTT 45.4 H (22.0-30.0) sec Sodium 133 L (137-145) mmol/L Carbon Dioxide 19 L (22-30) mmol/L BUN (9-20) mg/dL Glucose 122 H (74-99) mg/dL Alkaline Phosphatase 137 H (38-126) U/L Total Protein 5.8 L (6.3-8.2) g/dL Albumin 3.0 L (3.5-5.0) g/dL 01/03/19 Range/Units 04:05 WBC (3.8-10.6) k/uL RBC (4.30-5.90) m/uL Hgb (13.0-17.5) gm/dL Hct (39.0-53.0) % RDW (11.5-15.5) % Neutrophils # (1.3-7.7) k/uL Eosinophils # (0-0.7) k/uL APTT 76.3 H (22.0-30.0) sec Sodium (137-145) mmol/L Carbon Dioxide (22-30) mmol/L BUN (9-20) mg/dL Glucose (74-99) mg/dL Alkaline Phosphatase (38-126) U/L Total Protein (6.3-8.2) g/dL Albumin (3.5-5.0) g/dL Microbiology - Last 24 Hours (Table) 01/01/19 22:37 Blood Culture - Preliminary Blood No Growth after 24 hours Assessment and Plan Assessment: Impression: 1 atypical chest pain, known to have history of coronary artery disease and recent cardiac catheterization with stenting of the RCA, remains on aspirin and Plavix. 2 severe aortic stenosis 3 chronic systolic congestive heart failure and impaired LV function 4 acute kidney injury most likely secondary to acute tubular necrosis or could be cardiorenal. 5 suspect metastatic lung cancer, the findings on the CT of the chest are highly suspicious for metastatic lung cancer. Will eventually need a tissue diagnosis, and we'll recommend eventually CT-guided needle biopsy. 6 chronic seizure disorder, on Keppra 7 history of depression 8 benign prostatic hypertrophy Recommendation: Continue present treatment plan including antibiotics/Zosyn, continue gentle hydration and monitor for possible congestive heart failure worsening, continue antiplatelets therapy consider transferring the patient out of the ICU to a cardiac floor with monitor eventually the patient will need a tissue diagnosis and this could be done on outpatient basis. Swallow evaluation of his dysphagia will continue to follow. Time with Patient: Less than 30
--- NOTE | 2019-01-03 15:58 | P.CONS ---
History of Present Illness - Reason for Consult Consult date: 01/03/19 Lung Mass Requesting physician: Marita Laroes - Chief Complaint Chest Pain - History of Present Illness Mr. Sharpe is a 73-year-old male patient who presented to [facility] emergency room with multiple complaints; including chest pain, weakness, dysphagia, and difficulty in breathing especially with exertional or speaking. On presentation he had an elevated white count 28. CTA was performed negative for PE although revealed a 5.3 cm mass in the right lower lobe and lytic mass in the right fourth rib, as well as, a 4.2 cm destructive mass in the lower sternum. He is on Plavix and aspirin for a recent stent placement by cardiology. He was admitted to ICU for close monitoring and Medical Oncology was consulted regarding this mass. Because of the leukocytosis and Hypotension herbert cultures were also performed. During initial evaluation in ICU, family at bedside, he continues to complain of chest pain, provided relief with pain management. Review of Systems A 14 point review of systems assessed and completed and all negative except HPI. Past Medical History Past Medical History: Coronary Artery Disease (CAD), Heart Failure, COPD, CVA/TIA, Seizure Disorder Additional Past Medical History / Comment(s): Coronary artery disease with recent RCA stenting, severe aortic stenosis, COPD, history of CVA the patient has left-sided weakness and the patient has had a total of 4 CVAs and he walks with the help of a walker, urinary incontinence, history of seizures and thousand and 10, smoker, COPD, hyperlipidemia, severely calcified aortic valve with severe stenosis and mild LAD disease and mild circumflex disease History of Any Multi-Drug Resistant Organisms: None Reported Past Surgical History: Appendectomy, Heart Catheterization With Stent, Tonsillectomy Additional Past Surgical History / Comment(s): one cardiac stent Past Anesthesia/Blood Transfusion Reactions: No Reported Reaction Date of Last Stent Placement:: 2010 Past Psychological History: No Psychological Hx Reported Additional Psychological History / Comment(s): denies any hx Smoking Status: Former smoker Past Alcohol Use History: None Reported Additional Past Alcohol Use History / Comment(s): started smokiong at age 10 (1956), quit smoking 2017, previously smoked 4 packs/day Past Drug Use History: None Reported - Past Family History Mother Family Medical History: Cancer Additional Family Medical History / Comment(s): lung cancer Father Family Medical History: Myocardial Infarction ([place]) Additional Family Medical History / Comment(s): lived to age 92 Medications and Allergies Home Medications Medication Instructions Recorded Confirmed Type Atorvastatin [Lipitor] 80 mg PO HS 08/08/14 01/02/19 History Donepezil [Aricept] 10 mg PO DAILY 08/08/14 01/02/19 History Potassium Chloride [K-Tab ER] 10 meq PO DAILY 09/03/17 01/02/19 History levETIRAcetam [Keppra] 500 mg PO Q12HR 09/03/17 01/02/19 History Clopidogrel [Plavix] 75 mg PO DAILY #90 tab 09/09/17 01/02/19 Rx Tamsulosin HCl [Flomax] 0.8 mg PO DAILY 10/02/17 01/02/19 History Zolpidem [Ambien] 10 mg PO HS PRN #3 tab 12/31/17 01/01/19 Rx Ranitidine HCl [Zantac] 150 mg PO BID 11/08/18 01/02/19 History Sertraline [Zoloft] 150 mg PO DAILY 11/08/18 01/02/19 History Aspirin [Adult Low Dose Aspirin EC] 81 mg PO DAILY #30 tablet. 11/14/18 01/02/19 Rx Budesonide-Formot 160-4.5 Mcg 2 puff INHALATION RT-BID puff 11/14/18 01/01/19 Rx [Symbicort 160-4.5 Mcg Inhaler] Furosemide [Lasix] 40 mg PO BID@0900,1600 tab 11/14/18 01/02/19 Rx Metoprolol Tartrate [Lopressor] 25 mg PO DAILY #90 tablet 11/14/18 01/02/19 Rx Nitroglycerin Sl Tabs [Nitrostat] 0.4 mg SUBLINGUAL Q5M PRN #100 tab 11/14/18 01/01/19 Rx Allergies Allergy/AdvReac Type Severity Reaction Status Date / Time No Known Allergies Allergy Verified 01/01/19 20:32 Physical Exam Vitals: Vital Signs Temp Pulse Resp BP Pulse Ox 01/03/19 14:00 82 18 112/64 98 01/03/19 13:00 84 23 133/62 98 01/03/19 12:00 99.2 F 81 28 H 112/59 97 01/03/19 11:00 75 26 H 96/56 92 L 01/03/19 10:00 75 21 93/57 90 L 01/03/19 09:00 70 31 H 89/64 90 L 01/03/19 08:00 99.0 F 86 19 124/61 92 L 01/03/19 07:00 83 31 H 110/62 96 01/03/19 06:00 98.9 F 76 27 H 115/67 94 L 01/03/19 05:00 75 24 124/63 97 01/03/19 04:00 99.5 F 73 22 111/65 96 01/03/19 03:00 79 22 115/66 95 01/03/19 02:00 82 17 107/63 94 L 01/03/19 01:00 82 15 127/65 94 L 01/03/19 00:00 100.3 F H 89 31 H 149/108 90 L 01/02/19 23:00 100 F H 87 19 115/89 98 01/02/19 22:00 101.2 F H 140 H 26 H 132/101 86 L 01/02/19 21:00 101 F H 99 7 L 123/65 89 L 01/02/19 20:00 101.1 F H 89 27 H 102/85 88 L 01/02/19 19:00 107 H 19 96/73 92 L 01/02/19 18:00 91 16 96/68 92 L 01/02/19 17:00 86 16 112/71 89 L 01/02/19 16:00 98.8 F 74 14 105/61 90 L Intake and Output 01/03/19 01/03/19 01/03/19 06:59 14:59 22:59 Intake Total 6645.971 9612 Output Total 1275 1600 Balance -205.693 50 Intake: IV 300 150 Piperacillin-Tazobactam 3 100 .375 gm In Sodium Chloride 0.9% 100 ml @ 25 mls/hr IVPB Q8H YONI Rx#: [id number] Sodium Chloride 0.9% 1, 200 150 000 ml @ 50 mls/hr IV . Q20H YONI Rx#:[id number] Intake, IV Titration 129.307 200 Amount Heparin Sod,Pork in 0.45% 129.307 NaCl 25,000 unit In 0.45 % NaCl 1 250ml.bag @ 10 mls/hr IV .Q24H YONI Rx#: [id number] Magnesium Sulfate-D5w Pmx 200 1 gm In Dextrose/Water 1 100ml.bag @ 100 mls/hr IVPB Q1H YONI Rx#: [id number] Oral 640 1300 Output: Urine 1275 1600 Other: Voiding Method Indwelling Catheter Indwelling Catheter Weight 94.9 kg Gen: Alert and Oriented, NAD Head:NC/NT Neck is supple No lymphadenopathy Cervical, Supraclavicular or Axillary Lungs diminished lung sounds was a few scattered rhonchi, RLL Expiratory and upper Lobe Wheeze. Some increased effort with hi-flow oxygenation to hold saturation greater than 90% Heart: Reg Rate, Irr Rhythm 3/6 systolic murmur in the left sternal border Abdomen is soft nontender no organomegaly with normal bowel sounds Extremity no edema no cyanosis or clubbing Neurological: left-sided weakness which is chronic per family Results CBC & Chem 7: 01/03/19 04:05 01/03/19 04:05 Labs: Abnormal Lab Results - Last 24 Hours (Table) 01/02/19 01/03/19 01/03/19 Range/Units 20:49 04:05 04:05 WBC 20.6 H (3.8-10.6) k/uL RBC 3.70 L (4.30-5.90) m/uL Hgb 11.3 L (13.0-17.5) gm/dL Hct 34.1 L (39.0-53.0) % RDW 15.6 H (11.5-15.5) % Neutrophils # 16.0 H (1.3-7.7) k/uL Eosinophils # 2.3 H (0-0.7) k/uL APTT 45.4 H (22.0-30.0) sec Sodium 133 L (137-145) mmol/L Carbon Dioxide 19 L (22-30) mmol/L Glucose 122 H (74-99) mg/dL Alkaline Phosphatase 137 H (38-126) U/L Total Protein 5.8 L (6.3-8.2) g/dL Albumin 3.0 L (3.5-5.0) g/dL 01/03/19 Range/Units 04:05 WBC (3.8-10.6) k/uL RBC (4.30-5.90) m/uL Hgb (13.0-17.5) gm/dL Hct (39.0-53.0) % RDW (11.5-15.5) % Neutrophils # (1.3-7.7) k/uL Eosinophils # (0-0.7) k/uL APTT 76.3 H (22.0-30.0) sec Sodium (137-145) mmol/L Carbon Dioxide (22-30) mmol/L Glucose (74-99) mg/dL Alkaline Phosphatase (38-126) U/L Total Protein (6.3-8.2) g/dL Albumin (3.5-5.0) g/dL Microbiology - Last 24 Hours (Table) 01/01/19 22:37 Blood Culture - Preliminary Blood No Growth after [address] scan - chest: report reviewed Assessment and Plan Plan: Assessment and Recommendations: 1. New Lung Mass: - CTA was performed negative for PE although revealed a 5.3 cm mass in the right lower lobe and lytic mass in the right fourth rib, as well as, a 4.2 cm destructive mass in the lower sternum. - Suspicious for malignancy although patient on Plavix and Aspirin and unable to stop per cardiology as high risk for mortality due to severe coronary artery disease and Valvular Heart Disease with severe aortic Stenosis - Will discuss further with patient and family, although tissue biopsy will be needed to confirm malignancy and cell type diagnostics, would recommend platelet infusion prior and/or during Intervention radiology biopsy. Dr. Duarte to discuss further with IR as weight of risks and benefits will need review. 2. Acute Hypoxic Respiratory Failure: - Pulmonary and Cardiology following - Under the care of ICU currently on Hi-Renee Oxygenation 3. Acute Chest Pain Episode: Likely Multifactoral with known Coronary artery disease, COPD, and new Large Destructive Appearing Lung Mass 4. Cardiovascular Co-Morbidities: - Coronary Artery Disease Status Post Right Coronary artery Stenting approximately 4 weeks ago - Severe Aortic Stenosis and Aoritic Insufficiency - Valvular Heart Disease. 5. Leukocytosis with Hypotension: - Likely Component of Sepsis - Herbert Cultures Pending and infectious source unknown 6. Acute Kidney Injury: Improving 7. Hx: Seizure Disorder - On Keppra 8. Hx: Of CVA: - Residual Left Sided Weakness - Chronic 9. Tobacco Abuse: - Long History of TObacco abuse with cessation discussed. Brittney PRETTY
[2019-01-03] MEDS: ATORVASTATIN 80 MG TAB PO SCH (20:32)
[2019-01-03] MEDS: ZOLPIDEM 10 MG TAB PO PRN (20:34)
--- NOTE | 2019-01-03 21:47 | P.CONS ---
History of Present Illness - Reason for Consult Consult date: 01/03/19 Leukocytosis and fever Requesting physician: Veto Christopher - Chief Complaint Weakness and shortness of breath x days - History of Present Illness Patient is a 73 year male presenting to the ER at [facility] with multiple symptoms including generalized weakness and no energy the patient also complaining of increased shortness of breath with minimal exertion that has been progressively getting worse for the last few days to weeks and I will shortness of breath at rest patient did have a dry hacking cough for the same duration but unable to bring up any sputum the patient apparently also have some difficulty swallowing and apparently was unable to eat for the last few days with these symptoms and the patient did present to the hospital on arrival to the ER the patient noticed to have elevated white count 25,000 the patient was afebrile initially subsequent to spike a fever of 101F patient was slightly hypotensive , patient subsequently has been admitted to the ICU, the patient also have CT angiogram that was negative for PE however did shows a right lower lobe mass with lytic lesion in the fourth grade in the sternal area patient has been apparently was Zosyn and infectious disease was consulted for further recommendation regarding antibiotic therapy Review of Systems CONSTITUTIONAL: Positive for weakness. Fever EYES: No complaint. ENT:No complaint. RESPIRATORY: As per history of present illness CARDIOVASCULAR: No complaint. GENITOURINARY: No complaint. GASTROINTESTINAL: As per history of present illness. MUSCULOSKELETAL: No complaint. INTEGUMENTARY: No complaint. PSYCHOLOGICAL: No complaint. ENDOCRINE: No complaint. NEUROLOGIC: As per history of present illness. Past Medical History Past Medical History: Coronary Artery Disease (CAD), Heart Failure, COPD, CVA/TIA, Seizure Disorder Additional Past Medical History / Comment(s): Coronary artery disease with recent RCA stenting, severe aortic stenosis, COPD, history of CVA the patient has left-sided weakness and the patient has had a total of 4 CVAs and he walks with the help of a walker, urinary incontinence, history of seizures and thousand and 10, smoker, COPD, hyperlipidemia, severely calcified aortic valve with severe stenosis and mild LAD disease and mild circumflex disease History of Any Multi-Drug Resistant Organisms: None Reported Past Surgical History: Appendectomy, Heart Catheterization With Stent, Tonsillectomy Additional Past Surgical History / Comment(s): one cardiac stent Past Anesthesia/Blood Transfusion Reactions: No Reported Reaction Date of Last Stent Placement:: 2010 Past Psychological History: No Psychological Hx Reported Additional Psychological History / Comment(s): denies any hx Smoking Status: Former smoker Past Alcohol Use History: None Reported Additional Past Alcohol Use History / Comment(s): started smokiong at age 10 (10), quit smoking 2017, previously smoked 4 packs/day Past Drug Use History: None Reported - Past Family History Mother Family Medical History: Cancer Additional Family Medical History / Comment(s): lung cancer Father Family Medical History: Myocardial Infarction ([place]) Additional Family Medical History / Comment(s): lived to age 92 Medications and Allergies Home Medications Medication Instructions Recorded Confirmed Type Atorvastatin [Lipitor] 80 mg PO HS 08/08/14 01/02/19 History Donepezil [Aricept] 10 mg PO DAILY 08/08/14 01/02/19 History Potassium Chloride [K-Tab ER] 10 meq PO DAILY 09/03/17 01/02/19 History levETIRAcetam [Keppra] 500 mg PO Q12HR 09/03/17 01/02/19 History Clopidogrel [Plavix] 75 mg PO DAILY #90 tab 09/09/17 01/02/19 Rx Tamsulosin HCl [Flomax] 0.8 mg PO DAILY 10/02/17 01/02/19 History Zolpidem [Ambien] 10 mg PO HS PRN #3 tab 12/31/17 01/01/19 Rx Ranitidine HCl [Zantac] 150 mg PO BID 11/08/18 01/02/19 History Sertraline [Zoloft] 150 mg PO DAILY 11/08/18 01/02/19 History Aspirin [Adult Low Dose Aspirin EC] 81 mg PO DAILY #30 tablet. 11/14/18 01/02/19 Rx Budesonide-Formot 160-4.5 Mcg 2 puff INHALATION RT-BID puff 11/14/18 01/01/19 Rx [Symbicort 160-4.5 Mcg Inhaler] Furosemide [Lasix] 40 mg PO BID@0900,1600 tab 11/14/18 01/02/19 Rx Metoprolol Tartrate [Lopressor] 25 mg PO DAILY #90 tablet 11/14/18 01/02/19 Rx Nitroglycerin Sl Tabs [Nitrostat] 0.4 mg SUBLINGUAL Q5M PRN #100 tab 11/14/18 01/01/19 Rx Allergies Allergy/AdvReac Type Severity Reaction Status Date / Time No Known Allergies Allergy Verified 01/01/19 20:32 Physical Exam Vitals: Vital Signs Temp Pulse Resp BP Pulse Ox 01/03/19 11:00 75 26 H 96/56 92 L 01/03/19 10:00 75 21 93/57 90 L 01/03/19 09:00 70 31 H 89/64 90 L 01/03/19 08:00 99.0 F 86 19 124/61 92 L 01/03/19 07:00 83 31 H 110/62 96 01/03/19 06:00 98.9 F 76 27 H 115/67 94 L 01/03/19 05:00 75 24 124/63 97 01/03/19 04:00 99.5 F 73 22 111/65 96 01/03/19 03:00 79 22 115/66 95 01/03/19 02:00 82 17 107/63 94 L 01/03/19 01:00 82 15 127/65 94 L 01/03/19 00:00 100.3 F H 89 31 H 149/108 90 L 01/02/19 23:00 100 F H 87 19 115/89 98 01/02/19 22:00 101.2 F H 140 H 26 H 132/101 86 L 01/02/19 21:00 101 F H 99 7 L 123/65 89 L 01/02/19 20:00 101.1 F H 89 27 H 102/85 88 L 01/02/19 19:00 107 H 19 96/73 92 L 01/02/19 18:00 91 16 96/68 92 L 01/02/19 17:00 86 16 112/71 89 L 01/02/19 16:00 98.8 F 74 14 105/61 90 L 01/02/19 15:00 80 16 89/55 93 L 01/02/19 14:00 84 8 L 82/46 92 L 01/02/19 13:00 103 H 10 L 128/69 92 L Intake and Output 01/02/19 01/03/19 01/03/19 22:59 06:59 14:59 Intake Total 2455.283 1816.273 3483 Output Total 1275 1275 850 Balance 1180.283 -205.693 200 Intake: IV 425 300 50 Piperacillin-Tazobactam 3 100 100 .375 gm In Sodium Chloride 0.9% 100 ml @ 25 mls/hr IVPB Q8H [facility] Rx#: [id number] Sodium Chloride 0.9% 1, 325 200 50 000 ml @ 50 mls/hr IV . Q20H [facility] Rx#:[id number] Intake, IV Titration 230.283 129.307 200 Amount Heparin Sod,Pork in 0.45% 230.283 129.307 NaCl 25,000 unit In 0.45 % NaCl 1 250ml.bag @ 10 mls/hr IV .Q24H [facility] Rx#: [id number] Magnesium Sulfate-D5w Pmx 200 1 gm In Dextrose/Water 1 100ml.bag @ 100 mls/hr IVPB Q1H [facility] Rx#: [id number] Oral 1800 640 800 Output: Urine 1275 1275 850 Other: Voiding Method Indwelling Catheter Indwelling Catheter Indwelling Catheter Weight 94.9 kg GENERAL DESCRIPTION: An elderly male lying in bed, no distress. No tachypnea or accessory muscle of respiration use. HEENT: Shows Pallor , no scleral icterus. Oral mucous membrane is dry. No pharyngeal erythema or thrush NECK: Trachea central, no thyromegaly. LUNGS: Unlabored breathing. Decreased breath sound at the base. No wheeze or crackle. HEART: S1, S2, regular rate and rhythm. No loud murmur ABDOMEN: Soft, no tenderness , guarding or rigidity, no organomegaly EXTREMITIES: No edema of feet. SKIN: No rash, no masses palpable. NEUROLOGICAL: The patient is awake, alert, oriented x3, mood and affect normal. Results CBC & Chem 7: 01/03/19 04:05 01/03/19 04:05 Labs: Abnormal Lab Results - Last 24 Hours (Table) 01/02/19 01/02/19 01/03/19 Range/Units 11:20 20:49 04:05 WBC 19.9 H 20.6 H (3.8-10.6) k/uL RBC 3.74 L 3.70 L (4.30-5.90) m/uL Hgb 11.3 L 11.3 L (13.0-17.5) gm/dL Hct 35.3 L 34.1 L (39.0-53.0) % RDW 15.7 H 15.6 H (11.5-15.5) % Neutrophils # 15.7 H 16.0 H (1.3-7.7) k/uL Eosinophils # 1.9 H 2.3 H (0-0.7) k/uL APTT 45.4 H (22.0-30.0) sec Sodium (137-145) mmol/L Carbon Dioxide (22-30) mmol/L Glucose (74-99) mg/dL Alkaline Phosphatase (38-126) U/L Total Protein (6.3-8.2) g/dL Albumin (3.5-5.0) g/dL 01/03/19 01/03/19 Range/Units 04:05 04:05 WBC (3.8-10.6) k/uL RBC (4.30-5.90) m/uL Hgb (13.0-17.5) gm/dL Hct (39.0-53.0) % RDW (11.5-15.5) % Neutrophils # (1.3-7.7) k/uL Eosinophils # (0-0.7) k/uL APTT 76.3 H (22.0-30.0) sec Sodium 133 L (137-145) mmol/L Carbon Dioxide 19 L (22-30) mmol/L Glucose 122 H (74-99) mg/dL Alkaline Phosphatase 137 H (38-126) U/L Total Protein 5.8 L (6.3-8.2) g/dL Albumin 3.0 L (3.5-5.0) g/dL Microbiology - Last 24 Hours (Table) 01/01/19 22:37 Blood Culture - Preliminary Blood No Growth after 24 hours Assessment and Plan Assessment: 1-patient with leukocytosis with a white count of 25,000 on admission subseq uently spike a fever of 101F , source is multifactorial in this patient who did have evidence of right lower lobe mass with an education for the fourth rib and lower end of the sternum with concern for possible malignancy with secondary metastasis underlying postobstructive right lower lobe pneumonia not entirely excluded that could be responsible for his fever as well (1) Leukocytosis Current Visit: Yes Status: Acute Code(s): D72.829 - ELEVATED WHITE BLOOD CELL COUNT, UNSPECIFIED SNOMED Code(s): 316369386 (2) Fever Current Visit: No Status: Acute Code(s): R50.9 - FEVER, UNSPECIFIED SNOMED Code(s): 749930091 Plan: 1- try to obtain sputum for Gram stain and culture sensitivity 2-patient will benefit from biopsy of the lung mass as well as cultures 3-empirically treated with Zosyn 3.75 g every 8 hour and no need for vancomycin We will follow-up on clinical condition and cultures to further adjust medication if needed Thank you for this consultation will follow this patient along with you Time with Patient: Greater than 30
[2019-01-04] MEDS: HYDROcodone/APAP 7.5-325MG 1 EACH TAB PO PRN ×3 (03:26→17:51)
[2019-01-04 05:08] LABS: Basophils # (A) 0.1 k/uL (0-0.2); Basophils % (A) 1 %; Eosinophils # (A) 2.1 k/uL (0-0.7); Eosinophils % (A) 10 %; HCT 35.2 % (39.0-53.0); HGB 11.4 gm/dL (13.0-17.5); Lymphocytes # (A) 0.8 k/uL (1.0-4.8); Lymphocytes % (A) 4 %; MCH 30.3 pg (25.0-35.0); MCHC 32.5 g/dL (31.0-37.0); MCV 93.3 fL (80.0-100.0); Mean Platelet Volume 7.5; Monocytes # (A) 0.8 k/uL (0-1.0); Monocytes % (A) 4 %; Neutrophils # (A) 16.2 k/uL (1.3-7.7); Neutrophils % (A) 79 %; Platelet Count 198 k/uL (150-450); RBC 3.77 m/uL (4.30-5.90); RDW 15.5 % (11.5-15.5); WBC 20.4 k/uL (3.8-10.6)
[2019-01-04 05:36] LABS: ALT 54 U/L (21-72); AST 25 U/L (17-59); Alkaline Phosphatase 157 U/L (38-126); Anion Gap 8 mmol/L; Blood Urea Nitrogen 12 mg/dL (9-20); Calcium 9.3 mg/dL (8.4-10.2); Carbon Dioxide 21 mmol/L (22-30); Chloride 103 mmol/L (98-107); Glucose 114 mg/dL (74-99); Potassium 4.8 mmol/L (3.5-5.1); Sodium 132 mmol/L (137-145); Total Bilirubin 0.6 mg/dL (0.2-1.3); Total Protein 5.7 g/dL (6.3-8.2)
--- NOTE | 2019-01-04 07:24 | P.PN ---
Subjective Progress Note Date: 01/04/19 Principal diagnosis: Coronary artery disease/valvular heart disease This is a pleasant 73-year-old gentleman with an extensive past medical history consistent of coronary artery disease and prior stenting of the right coronary artery recently, valvular heart disease and known severe aortic stenosis and severe aortic insufficiency, known chronic obstructive pulmonary disease, as well as significant history of smoking, presented to the hospital complaining of shortness of breath as well as generalized weakness. The patient has been progressively getting weak and tired and fatigued as well as was experiencing shortness of breath with exertion as well as chest discomfort. No symptoms of dizziness or lightheadedness, heart racing or fluttering, or syncope. The patient underwent a workup including d-dimer which came in to be abnormal but the computed tomography scan of the chest did not show any evidence of PE but it did show a lung mass measured 4 cm with the mass coasting invading the ribs of the chest. It was felt that the mass is malignant by the appearance on the computed tomography scan. We asked if we can stop the dual antiplatelet therapy to biopsy the mass and I stated this is very high risk. The dual antiplatelet because of the risk of stent thrombosis. The EKG showed sinus rhythm without any ischemic ST or T-wave abnormalities. The troponin came in to be slightly abnormal. Currently the patient is on heparin IV. Beside that he is on antibio tic for possible pneumonia. On follow-up with the patient today, January 042018, he seems clinically stable and he is hemodynamically stable beside marginally low blood pressure. The chest pain and shortness of breath has improved. His CBC and BMP continues to be stable as well. He continues to be on dual antiplatelet therapy along with a statin. The chest x-ray from yesterday showed mild venous congestion. I would suggest starting the patient on oral Lasix once his blood pressure improved. Objective - Vital Signs Vital signs: Vital Signs Temp 99.0 F 01/04/19 04:00 Pulse 84 01/04/19 05:00 Resp 24 01/04/19 05:00 BP 98/67 01/04/19 05:00 Pulse Ox 95 01/04/19 05:00 Intake & Output 01/03/19 01/04/19 01/04/19 18:59 06:59 18:59 Intake Total 2350 800 Output Total 2285 1600 Balance 65 -800 Intake: IV 350 375 Piperacillin-Tazobactam 3 100 100 .375 gm In Sodium Chloride 0.9% 100 ml @ 25 mls/hr IVPB Q8H [facility] Rx#: [id number] Sodium Chloride 0.9% 1, 250 275 000 ml @ 50 mls/hr IV . Q20H [facility] Rx#:[id number] Intake, IV Titration 200 Amount Magnesium Sulfate-D5w Pmx 200 1 gm In Dextrose/Water 1 100ml.bag @ 100 mls/hr IVPB Q1H [facility] Rx#: [id number] Oral 1800 425 Output: Urine 2285 1600 Other: Voiding Method Indwelling Catheter Indwelling Catheter - Constitutional General appearance: Present: no acute distress - Respiratory Respiratory: bilateral: rales - Cardiovascular Rhythm: regular Heart sounds: normal: S1 - Labs CBC & Chem 7: 01/04/19 04:35 01/04/19 04:35 Labs: Abnormal Lab Results - Last 24 Hours (Table) 01/04/19 01/04/19 Range/Units 04:35 04:35 WBC 20.4 H (3.8-10.6) k/uL RBC 3.77 L (4.30-5.90) m/uL Hgb 11.4 L (13.0-17.5) gm/dL Hct 35.2 L (39.0-53.0) % Neutrophils # 16.2 H (1.3-7.7) k/uL Lymphocytes # 0.8 L (1.0-4.8) k/uL Eosinophils # 2.1 H (0-0.7) k/uL Sodium 132 L (137-145) mmol/L Carbon Dioxide 21 L (22-30) mmol/L Glucose 114 H (74-99) mg/dL Alkaline Phosphatase 157 H (38-126) U/L Total Protein 5.7 L (6.3-8.2) g/dL Albumin 3.0 L (3.5-5.0) g/dL Microbiology - Last 24 Hours (Table) 01/01/19 22:37 Blood Culture - Preliminary Blood No Growth after 48 hours 01/03/19 15:30 Urine Culture - Preliminary Urine,Catheterized Assessment and Plan Assessment: Assessment #1 atypical chest discomfort #2 valvular heart disease with severe aortic stenosis and severe aortic insufficiency #3 possible pneumonia #4 lung mass likely present malignancy #6 multiple comorbid conditions Plan #1 continue the current medical regimen including dual antiplatelet therapy #2 I would advise not to interrupt dual antiplatelet therapy at this stage of the stenting #3 start the patient on oral Lasix once his blood pressure improved #4 follow-up with the patient. Thank you for allowing us participate in his care
[2019-01-04] MEDS: PANTOPRAZOLE 40 MG TABLET PO SCH (07:51)
[2019-01-04] MEDS: PIPERACILLIN-TAZOBACTAM 3.375 GM in SODIUM CHLORIDE 0.9% 100 ML IVPB SCH ×3 (07:51→21:59)
[2019-01-04] MEDS: CLOPIDOGREL 75 MG TAB PO SCH (08:50)
[2019-01-04] MEDS: ASPIRIN 81 MG PO SCH (08:50)
[2019-01-04] MEDS: SERTRALINE 50 MG TAB PO SCH (08:51)
[2019-01-04] MEDS: POTASSIUM CHLORIDE ER 10 MEQ TAB.ER.PRT PO SCH (08:51)
[2019-01-04] MEDS: TAMSULOSIN 0.4 MG CAP.ER.24H PO SCH (08:51)
[2019-01-04] MEDS: levETIRAcetam 500 MG TAB PO SCH ×2 (08:51→21:24)
[2019-01-04] MEDS: DONEPEZIL 10 MG TAB PO SCH (08:51)
[2019-01-04] MEDS: HYDROmorphone 0.5 MG/0.5 ML SYRINGE IVP PRN ×3 (08:52→21:23)
[2019-01-04] MEDS: SYMBICORT 160-4.5 MCG INHALER INHALATION SCH ×2 (09:01→20:09)
--- NOTE | 2019-01-04 09:38 | P.PN ---
Subjective Progress Note Date: 01/04/19 Roderick Sharpe is a 73-year-old male patient of Dr. Tricia Mata who presented to [facility] emergency room with multiple vague complaints of generalized weakness, difficulty swallowing solid food, shortness of breath, and chest pain he was evaluated in the emergency room, white blood count was elevated at 25.6 BUN elevated at 37 creatinine elevated at 1.94 troponin slightly elevated at 0.039 calcium elevated at 10.4 BNP elevated at 5390 and d- dimer elevated at 5.[address] angiogram of the chest which was negative for any evidence of pulmonary embolism but revealed evidence of 5.3 cm mass in the right lower lobe and lytic mass in the right fourth rib, and 4.2 cm destructive mass in the lower sternal patient was admitted to ICU pulmonary consultation was requested and cardiology consultation was requested. Patient had evidence of hypotension he received boluses of normal saline in the emergency room On 01/03/2019 patient is alert and oriented 3. Family at bedside. Patient's creatinine has improved to 1.02 and bun 19. This time patient is still complaining of some chest pain. Per cardiology recommending we keep patient at this time on Plavix and aspirin. Patient denies nausea vomiting or diarrhea. Patient denies any urinary burning or frequency On 01/04/2019 patient is alert resting comfortably in bed. Patient remains in the intensive care unit. This time patient is resting comfortably in bed. Patient was evaluated by oncology and infectious disease services. Creatinine 0.88 and bun 12. At this time patient denies any chest pain or shortness of breath. Patient denies any nausea vomiting or diarrhea. Patient any urinary burning or frequency Objective - Vital Signs Vital signs: Vital Signs Temp 97.7 F 01/04/19 09:00 Pulse 86 01/04/19 09:00 Resp 24 01/04/19 09:00 BP 104/70 01/04/19 09:00 Pulse Ox 94 L 01/04/19 09:00 Intake & Output 01/03/19 01/04/19 01/04/19 18:59 06:59 18:59 Intake Total 2350 850 50 Output Total 0828 1705 225 Balance 65 925 -175 Weight 94.1 kg Intake: IV 350 425 50 Piperacillin-Tazobactam 3 100 100 .375 gm In Sodium Chloride 0.9% 100 ml @ 25 mls/hr IVPB Q8H [facility] Rx#: [id number] Sodium Chloride 0.9% 1, 250 325 50 000 ml @ 50 mls/hr IV . Q20H [facility] Rx#:[id number] Intake, IV Titration 200 Amount Magnesium Sulfate-D5w Pmx 200 1 gm In Dextrose/Water 1 100ml.bag @ 100 mls/hr IVPB Q1H [facility] Rx#: [id number] Oral 1800 425 Output: Urine 2285 1775 225 Other: Voiding Method Indwelling Catheter Indwelling Catheter - Exam In general patient is alert and oriented 3 in no apparent distress HEENT head normocephalic and atraumatic Neck is supple no JVD no goiter no lymphadenopathy no carotid bruit Lungs diminished lung sounds was a few scattered rhonchi Heart regular heart sounds S1 and S2 no gallops was 3/6 systolic murmur in the left sternal border Abdomen is soft nontender no organomegaly with normal bowel sounds Extremity exam reveals no edema no cyanosis or clubbing Neurological examination reveals left-sided weakness which is chronic per family - Labs CBC & Chem 7: 01/04/19 04:35 01/04/19 04:35 Labs: Abnormal Lab Results - Last 24 Hours (Table) 01/04/19 01/04/19 Range/Units 04:35 04:35 WBC 20.4 H (3.8-10.6) k/uL RBC 3.77 L (4.30-5.90) m/uL Hgb 11.4 L (13.0-17.5) gm/dL Hct 35.2 L (39.0-53.0) % Neutrophils # 16.2 H (1.3-7.7) k/uL Lymphocytes # 0.8 L (1.0-4.8) k/uL Eosinophils # 2.1 H (0-0.7) k/uL Sodium 132 L (137-145) mmol/L Carbon Dioxide 21 L (22-30) mmol/L Glucose 114 H (74-99) mg/dL Alkaline Phosphatase 157 H (38-126) U/L Total Protein 5.7 L (6.3-8.2) g/dL Albumin 3.0 L (3.5-5.0) g/dL Microbiology - Last 24 Hours (Table) 01/01/19 22:37 Blood Culture - Preliminary Blood No Growth after 48 hours 01/03/19 15:30 Urine Culture - Preliminary Urine,Catheterized Assessment and Plan Assessment: #1 episodes of chest pain was slightly elevated troponin level patient has previous history of coronary artery disease. Per cardiology patient has underwent stenting to the right coronary artery recently, at this time recommend he continue the current medical regime including dual antiplatelet therapy with Plavix and aspirin #2 lung mass and the lower sternum and fourth rib mass, highly suspicious for cancer. Pulmonary and oncology service is following #3 hypotension likely related to sepsis, source of infection unclear may be related to lung infection no evidence of urinary tract infection currently patient is on IV Zosyn. Blood culture ordered. Infectious disease consulted #4 previous history of stroke with left sided weakness #5 acute kidney injury on presentation was elevated BUN and creatinine likely related to hypotension improving with IV fluid boluses #6 history of seizure disorder maintained on Keppra no new episodes of seizure #7 history of depression maintained on Zoloft #8 difficulty swallowing solid food likely related to sternal mass. speech evaluation has been ordered #9. Valvular heart disease with severe aortic stenosis and severe aortic insufficiency I performed an examination of the patient and discussed their management with the Nurse Practitioner. I have reviewed the Nurse Practitioner's notes and agree with the documented findings and plan of care
--- NOTE | 2019-01-04 10:29 | P.PN ---
Subjective Progress Note Date: 01/04/19 Principal diagnosis: New Lung Mass Family at bedside, remains in the care of the ICU. Objective - Vital Signs Vital signs: Vital Signs Temp 97.7 F 01/04/19 09:00 Pulse 86 01/04/19 09:00 Resp 24 01/04/19 09:00 BP 104/70 01/04/19 09:00 Pulse Ox 94 L 01/04/19 09:00 Intake & Output 01/03/19 01/04/19 01/04/19 18:59 06:59 18:59 Intake Total 2350 850 50 Output Total 2285 1775 225 Balance 65 925 -175 Weight 94.1 kg Intake: IV 350 425 50 Piperacillin-Tazobactam 3 100 100 .375 gm In Sodium Chloride 0.9% 100 ml @ 25 mls/hr IVPB Q8H [facility] Rx#: [id number] Sodium Chloride 0.9% 1, 250 325 50 000 ml @ 50 mls/hr IV . Q20H [facility] Rx#:[id number] Intake, IV Titration 200 Amount Magnesium Sulfate-D5w Pmx 200 1 gm In Dextrose/Water 1 100ml.bag @ 100 mls/hr IVPB Q1H [facility] Rx#: [id number] Oral 1800 425 Output: Urine 2285 1775 225 Other: Voiding Method Indwelling Catheter Indwelling Catheter - Exam Gen: Alert and Oriented, NAD Head:NC/NT Neck is supple No lymphadenopathy Cervical, Supraclavicular or Axillary Lungs diminished lung sounds was a few scattered rhonchi, RLL Expiratory and upper Lobe Wheeze. Some increased effort with hi-flow oxygenation to hold saturation greater than 90% Heart: Reg Rate, Irr Rhythm 3/6 systolic murmur in the left sternal border Abdomen is soft nontender no organomegaly with normal bowel sounds Extremity no edema no cyanosis or clubbing Neurological: left-sided weakness which is chronic per family - Labs CBC & Chem 7: 01/04/19 04:35 01/04/19 04:35 Labs: Abnormal Lab Results - Last 24 Hours (Table) 01/04/19 01/04/19 Range/Units 04:35 04:35 WBC 20.4 H (3.8-10.6) k/uL RBC 3.77 L (4.30-5.90) m/uL Hgb 11.4 L (13.0-17.5) gm/dL Hct 35.2 L (39.0-53.0) % Neutrophils # 16.2 H (1.3-7.7) k/uL Lymphocytes # 0.8 L (1.0-4.8) k/uL Eosinophils # 2.1 H (0-0.7) k/uL Sodium 132 L (137-145) mmol/L Carbon Dioxide 21 L (22-30) mmol/L Glucose 114 H (74-99) mg/dL Alkaline Phosphatase 157 H (38-126) U/L Total Protein 5.7 L (6.3-8.2) g/dL Albumin 3.0 L (3.5-5.0) g/dL Microbiology - Last 24 Hours (Table) 01/01/19 22:37 Blood Culture - Preliminary Blood No Growth after 48 hours 01/03/19 15:30 Urine Culture - Preliminary Urine,Catheterized Assessment and Plan Plan: Assessment and Recommendations: 1. New Lung Mass: - CTA was performed negative for PE although revealed a 5.3 cm mass in the right lower lobe and lytic mass in the right fourth rib, as well as, a 4.2 cm destructive mass in the lower sternum. - Suspicious for malignancy although patient on Plavix and Aspirin and unable to stop per cardiology as high risk for mortality due to severe coronary artery disease and Valvular Heart Disease with severe aortic Stenosis - Will discuss further with patient and family, although tissue biopsy will be needed to confirm malignancy and cell type diagnostics, would recommend platelet infusion prior and/or during Intervention radiology biopsy. Dr. Duarte to discuss further with IR as weight of risks and benefits will need review. - family and patient had decided to forgo biopsy interventions secondary to risks at this time, will continue supportive care via pulmonary and cardiology. 2. Acute Hypoxic Respiratory Failure: - Pulmonary and Cardiology following - Under the care of ICU currently on Hi-Renee Oxygenation 3. Acute Chest Pain Episode: Likely Multifactoral with known Coronary artery disease, COPD, and new Large Destructive Appearing Lung Mass 4. Cardiovascular Co-Morbidities: - Coronary Artery Disease Status Post Right Coronary artery Stenting approximately 4 weeks ago - Severe Aortic Stenosis and Aoritic Insufficiency - Valvular Heart Disease. 5. Leukocytosis with Hypotension: - Likely Component of Sepsis - White Cultures Pending and infectious source unknown 6. Acute Kidney Injury: Improving 7. Hx: Seizure Disorder - On Keppra 8. Hx: Of CVA: - Residual Left Sided Weakness - Chronic 9. Tobacco Abuse: - Long History of TObacco abuse with cessation discussed. Physcian Attest: I have completed the full history and physical and devloped the complete impression adn plan, agree with above dictation, dictated as a scribe. Brittney Buckner AOP
--- NOTE | 2019-01-04 11:43 | P.PN ---
Subjective Progress Note Date: 01/04/19 Principal diagnosis: Atypical chest pain, valvular heart disease with aortic stenosis and aortic insufficiency. This is a pleasant 73-year-old gentleman with an extensive past medical history consistent of coronary artery disease and prior stenting of the right coronary artery recently, valvular heart disease and known severe aortic stenosis and severe aortic insufficiency, known chronic obstructive pulmonary disease, as well as significant history of smoking, presented to the hospital complaining of shortness of breath as well as generalized weakness. The patient has been progressively getting weak and tired and fatigued as well as was experiencing shortness of breath with exertion as well as chest discomfort. No symptoms of dizziness or lightheadedness, heart racing or fluttering, or syncope. The patient underwent a workup including d-dimer which came in to be abnormal but the computed tomography scan of the chest did not show any evidence of PE but it did show a lung mass measured 4 cm with the mass coasting invading the ribs of the chest. It was felt that the mass is malignant by the appearance on the computed tomography scan. We asked if we can stop the dual antiplatelet therapy to biopsy the mass and I stated this is very high risk. The dual antiplatelet because of the risk of stent thrombosis. The EKG showed sinus rhythm without any ischemic ST or T-wave abnormalities. The troponin came in to be slightly abnormal. Currently the patient is on heparin IV. Beside that he is on antibiotic for possible pneumonia. Patient was reevaluated today on 01/03/2019, patient is still complaining of vague chest pain. no cough no wheezing, no shortness of breath. Patient remains on dual antiplatelet therapy, and his CT of the chest was reviewed, clearly suggestive of underlying bronchogenic carcinoma which will eventually need a CT- guided needle biopsy for tissue diagnosis. Labs were reviewed, WBC count is 20.6 hemoglobin is 11.3, PTT is 76.3, electrolytes and renal profile are normal. Reevaluated today on 01/04/2019, patient is doing better, no chest pain, no cough no wheezing, no fever, no chills, no hemoptysis. Continues to have leukocytosis with WBC count of 20.4 hemoglobin is 11.4. Electrolytes are relatively normal renal profile is normal. No chest x-ray was done today. Remains on Lasix, Objective - Vital Signs Vital signs: Vital Signs Temp 97.7 F 01/04/19 09:00 Pulse 80 01/04/19 11:00 Resp 19 01/04/19 11:00 BP 97/66 01/04/19 11:00 Pulse Ox 95 01/04/19 11:00 Intake & Output 01/03/19 01/04/19 01/04/19 18:59 06:59 18:59 Intake Total 2350 850 605 Output Total 2285 1775 420 Balance 65 -925 185 Weight 94.1 kg Intake: IV 350 425 125 Piperacillin-Tazobactam 3 100 100 75 .375 gm In Sodium Chloride 0.9% 100 ml @ 25 mls/hr IVPB Q8H YONI Rx#: [id number] Sodium Chloride 0.9% 1, 250 325 50 000 ml @ 50 mls/hr IV . Q20H YONI Rx#:[id number] Intake, IV Titration 200 Amount Magnesium Sulfate-D5w Pmx 200 1 gm In Dextrose/Water 1 100ml.bag @ 100 mls/hr IVPB Q1H YONI Rx#: [id number] Oral 1800 425 480 Output: Urine 2285 1775 420 Other: Voiding Method Indwelling Catheter Indwelling Catheter Indwelling Catheter - Exam Physical Exam: Revealed a 73-year-old white male, in no distress. Head: Atraumatic, normocephalic. HEENT:[Neck is supple.] [No neck masses.] [No thyromegaly.] [No JVD.] PERRLA, EOMI, no icterus, Chest: [Clear throughout, no crackles, no rhonchi, no wheezes.] Cardiac Exam: [Normal S1 and S2, no S3 gallop, no murmur.] Abdomen: [Soft, nontender, no megaly, no rebound, no guarding, normal bowel sounds.] Extremities: [No clubbing, no edema, no cyanosis.] Neurological Exam: [No focal neurologic deficit.] Alert oriented 3 Psychiatric: Normal mood affect and mental status examination. Lymphatics: No lymphadenopathy. Skin: No rashes. - Labs CBC & Chem 7: 01/04/19 04:35 01/04/19 04:35 Labs: Abnormal Lab Results - Last 24 Hours (Table) 01/04/19 01/04/19 Range/Units 04:35 04:35 WBC 20.4 H (3.8-10.6) k/uL RBC 3.77 L (4.30-5.90) m/uL Hgb 11.4 L (13.0-17.5) gm/dL Hct 35.2 L (39.0-53.0) % Neutrophils # 16.2 H (1.3-7.7) k/uL Lymphocytes # 0.8 L (1.0-4.8) k/uL Eosinophils # 2.1 H (0-0.7) k/uL Sodium 132 L (137-145) mmol/L Carbon Dioxide 21 L (22-30) mmol/L Glucose 114 H (74-99) mg/dL Alkaline Phosphatase 157 H (38-126) U/L Total Protein 5.7 L (6.3-8.2) g/dL Albumin 3.0 L (3.5-5.0) g/dL Microbiology - Last 24 Hours (Table) 01/01/19 22:37 Blood Culture - Preliminary Blood No Growth after 48 hours 01/03/19 15:30 Urine Culture - Preliminary Urine,Catheterized Assessment and Plan Assessment: Impression: 1 atypical chest pain, known to have history of coronary artery disease and rece nt cardiac catheterization with stenting of the RCA, remains on aspirin and Plavix. 2 severe aortic stenosis 3 chronic systolic congestive heart failure and impaired LV function 4 acute kidney injury most likely secondary to acute tubular necrosis or could be cardiorenal. 5 suspect metastatic lung cancer, the findings on the CT of the chest are highly suspicious for metastatic lung cancer. Will eventually need a tissue diagnosis, and we'll recommend eventually CT-guided needle biopsy. 6 chronic seizure disorder, on Keppra 7 history of depression 8 benign prostatic hypertrophy Recommendation: Continue present treatment plan including antibiotics/Zosyn, continue to monitor congestive heart failure , continue antiplatelets I had a chance to discuss his condition today with his and his sister, updated on his condition, and made aware that his overall prognosis is extremely poor and guarded, patient clearly has metastatic bronchogenic carcinoma, advanced age, tissue diagnosis will eventually be accomplished on outpatient basis. No plans to discontinue his antiplatelet therapy. Recommended transferring the patient out of the ICU to a monitor bed on selective. Time with Patient: Less than 30
--- NOTE | 2019-01-04 15:53 | FL ---
EXAMINATION TYPE: FL barium swallow w video DATE OF EXAM: 01/04/2019 COMPARISON: NONE HISTORY: Assess swallowing TECHNIQUE: Fluoroscopy. FINDINGS: Fluoroscopic guidance was provided for the procedure performed in conjunction with the [facility] pathology department. Please see complete report forthcoming from the Speech Pathology departmen t. Various consistencies from thin liquid to solids were administered. Fluoroscopy time 2.33 minutes. Number of images: 0. No aspiration or penetration was evident. No significant pooling was observed in the vallecula. There was normal propulsion of the bolus. IMPRESSION: 1. Normal modified barium swallow
[2019-01-04] MEDS: HEPARIN SODIUM,PORCINE 5,000 UNIT/ML 1 ML VIAL SQ SCH (21:24)
[2019-01-04] MEDS: ATORVASTATIN 80 MG TAB PO SCH (21:24)
[2019-01-04] MEDS: SODIUM CHLORIDE 0.9% 1,000 ML IV SCH (21:25)
--- NOTE | 2019-01-04 22:01 | P.PN ---
Subjective Progress Note Date: 01/04/19 Principal diagnosis: Leukocytosis and fever The patient is afebrile today denies any rigors or chills the patient is breathing more comfortably today, the patient cough has decreased in intensity however not bringing up any sputum, denies having any chest pain no nausea no vomiting no abdominal pain and no diarrhea Objective - Vital Signs Vital signs: Vital Signs Temp 98.6 F 01/04/19 12:00 Pulse 80 01/04/19 12:00 Resp 24 01/04/19 12:00 BP 136/96 01/04/19 12:00 Pulse Ox 95 01/04/19 12:00 Intake & Output 01/03/19 01/04/19 01/04/19 18:59 06:59 18:59 Intake Total 2350 850 630 Output Total 2285 1775 480 Balance 65 -925 150 Weight 94.1 kg Intake: IV 350 425 150 Piperacillin-Tazobactam 3 100 100 100 .375 gm In Sodium Chloride 0.9% 100 ml @ 25 mls/hr IVPB Q8H YONI Rx#: [id number] Sodium Chloride 0.9% 1, 250 325 50 000 ml @ 50 mls/hr IV . Q20H YONI Rx#:[id number] Intake, IV Titration 200 Amount Magnesium Sulfate-D5w Pmx 200 1 gm In Dextrose/Water 1 100ml.bag @ 100 mls/hr IVPB Q1H YONI Rx#: [id number] Oral 1800 425 480 Output: Urine 2285 1775 480 Other: Voiding Method Indwelling Catheter Indwelling Catheter Indwelling Catheter - Exam GENERAL DESCRIPTION:[ Patient is awake and alert in no distress] HEENT: [Oral mucosa is dry and no pharyngeal erythema] EYES : [No pallor or scleral icterus] RESPIRATORY SYSTEM: [Unlabored breathing decreased based on the base no wheeze] CARDIA VASCULAR SYSTEM: [S1-S2 regular rate and rhythm no murmur] GI: [Abdominal soft there's no tenderness no organomegaly] EXTREMITIES: [No edema feet] - Labs CBC & Chem 7: 01/04/19 04:35 01/04/19 04:35 Labs: Abnormal Lab Results - Last 24 Hours (Table) 01/04/19 01/04/19 Range/Units 04:35 04:35 WBC 20.4 H (3.8-10.6) k/uL RBC 3.77 L (4.30-5.90) m/uL Hgb 11.4 L (13.0-17.5) gm/dL Hct 35.2 L (39.0-53.0) % Neutrophils # 16.2 H (1.3-7.7) k/uL Lymphocytes # 0.8 L (1.0-4.8) k/uL Eosinophils # 2.1 H (0-0.7) k/uL Sodium 132 L (137-145) mmol/L Carbon Dioxide 21 L (22-30) mmol/L Glucose 114 H (74-99) mg/dL Alkaline Phosphatase 157 H (38-126) U/L Total Protein 5.7 L (6.3-8.2) g/dL Albumin 3.0 L (3.5-5.0) g/dL Microbiology - Last 24 Hours (Table) 01/01/19 22:37 Blood Culture - Preliminary Blood No Growth after 48 hours 01/03/19 15:30 Urine Culture - Preliminary Urine,Catheterized Assessment and Plan Assessment: 1-patient with leukocytosis with a white count of 25,000 on admission subsequently spike a fever of 101F , source is multifactorial in this patient who did have evidence of right lower lobe mass with destruction of the fourth rib and lower end of the sternum with concern for possible malignancy with secondary metastasis underlying postobstructive right lower lobe pneumonia not entirely excluded in this patient currently with no other clinical focus of infe ction fever has resolved the white count still elevated , (1) Leukocytosis Current Visit: Yes Status: Acute Code(s): D72.829 - ELEVATED WHITE BLOOD CELL COUNT, UNSPECIFIED SNOMED Code(s): 864287583 (2) Fever Current Visit: No Status: Acute Code(s): R50.9 - FEVER, UNSPECIFIED SNOMED Code(s): 152516268 Plan: 1-we will try to obtain sputum for Gram stain and culture sensitivity 2-patient will benefit from biopsy of the lung mass as well as cultures, once his condition stabilized 3-we will continue the patient with Zosyn 3.75 g every 8 hour to which his fever has responded We will follow-up on clinical condition and cultures to further adjust medication if needed
[2019-01-05] MEDS: HYDROcodone/APAP 7.5-325MG 1 EACH TAB PO PRN ×4 (00:09→20:12)
[2019-01-05] MEDS: HYDROmorphone 0.5 MG/0.5 ML SYRINGE IVP PRN ×2 (03:51→08:55)
[2019-01-05] MEDS: PANTOPRAZOLE 40 MG TABLET PO SCH ×2 (06:30→06:31)
[2019-01-05] MEDS: PIPERACILLIN-TAZOBACTAM 3.375 GM in SODIUM CHLORIDE 0.9% 100 ML IVPB SCH ×3 (06:31→22:20)
[2019-01-05 07:09] LABS: Basophils # (A) 0.1 k/uL (0-0.2); Basophils % (A) 1 %; Eosinophils # (A) 2.4 k/uL (0-0.7); Eosinophils % (A) 12 %; HCT 35.9 % (39.0-53.0); HGB 11.4 gm/dL (13.0-17.5); Hypochromasia Slight; Lymphocytes % (A) 5 %; MCH 29.7 pg (25.0-35.0); MCHC 31.8 g/dL (31.0-37.0); MCV 93.4 fL (80.0-100.0); Mean Platelet Volume 7.6; Monocytes # (A) 0.9 k/uL (0-1.0); Monocytes % (A) 4 %; Neutrophils # (A) 15.8 k/uL (1.3-7.7); Neutrophils % (A) 77 %; Platelet Count 245 k/uL (150-450); Poikilocytosis Slight; RBC 3.84 m/uL (4.30-5.90); RDW 15.9 % (11.5-15.5); WBC 20.5 k/uL (3.8-10.6)
[2019-01-05 07:22] LABS: ALT 63 U/L (21-72); AST 34 U/L (17-59); Albumin 3.1 g/dL (3.5-5.0); Alkaline Phosphatase 187 U/L (38-126); Anion Gap 7 mmol/L; Blood Urea Nitrogen 13 mg/dL (9-20); Calcium 9.4 mg/dL (8.4-10.2); Carbon Dioxide 24 mmol/L (22-30); Chloride 103 mmol/L (98-107); Glucose 112 mg/dL (74-99); Potassium 5.4 mmol/L (3.5-5.1); Sodium 134 mmol/L (137-145); Total Bilirubin 0.6 mg/dL (0.2-1.3); Total Protein 5.9 g/dL (6.3-8.2)
[2019-01-05] MEDS: SYMBICORT 160-4.5 MCG INHALER INHALATION SCH ×2 (08:50→20:26)
[2019-01-05] MEDS: ASPIRIN 81 MG PO SCH (08:55)
[2019-01-05] MEDS: levETIRAcetam 500 MG TAB PO SCH ×2 (08:56→20:12)
[2019-01-05] MEDS: SERTRALINE 50 MG TAB PO SCH (08:56)
[2019-01-05] MEDS: HEPARIN SODIUM,PORCINE 5,000 UNIT/ML 1 ML VIAL SQ SCH ×2 (08:56→20:13)
[2019-01-05] MEDS: CLOPIDOGREL 75 MG TAB PO SCH (08:56)
[2019-01-05] MEDS: DONEPEZIL 10 MG TAB PO SCH (08:56)
[2019-01-05] MEDS: TAMSULOSIN 0.4 MG CAP.ER.24H PO SCH (08:56)
[2019-01-05] MEDS ORDERED: SODIUM POLYSTYRENE SULFONATE 15 GM/60 ML BOTTLE PO STA (12:56)
--- NOTE | 2019-01-05 13:00 | P.PN ---
Subjective Progress Note Date: 01/05/19 Roderick Sharpe is a 73-year-old male patient of Dr. Tricia Mata who presented to [facility] emergency room with multiple vague complaints of generalized weakness, difficulty swallowing solid food, shortness of breath, and chest pain he was evaluated in the emergency room, white blood count was elevated at 25.6 BUN elevated at 37 creatinine elevated at 1.94 troponin slightly elevated at 0.039 calcium elevated at 10.4 BNP elevated at 5390 and d- dimer elevated at 5.[address] angiogram of the chest which was negative for any evidence of pulmonary embolism but revealed evidence of 5.3 cm mass in the right lower lobe and lytic mass in the right fourth rib, and 4.2 cm destructive mass in the lower sternal patient was admitted to ICU pulmonary consultation was requested and cardiology consultation was requested. Patient had evidence of hypotension he received boluses of normal saline in the emergency room On 01/03/2019 patient is alert and oriented 3. Family at bedside. Patient's creatinine has improved to 1.02 and bun 19. This time patient is still complaining of some chest pain. Per cardiology recommending we keep patient at this time on Plavix and aspirin. Patient denies nausea vomiting or diarrhea. Patient denies any urinary burning or frequency On 01/04/2019 patient is alert resting comfortably in bed. Patient remains in the intensive care unit. This time patient is resting comfortably in bed. Patient was evaluated by oncology and infectious disease services. Creatinine 0.88 and bun 12. At this time patient denies any chest pain or shortness of breath. Patient denies any nausea vomiting or diarrhea. Patient any urinary burning or frequency On 01/05/2019 patient is currently resting comfortably in bed. Patient underwent modified barium swallow which was normal. Patient potassium elevated at 5.4. Potassium supplement DC'd. 1 dose of Kayexalate ordered recheck ordered for today at this time patient denies chest pain. Patient is having some shortness of breath. Patient denies nausea vomiting or diarrhea. Patient denies any urinary burning or frequency. Objective - Vital Signs Vital signs: Vital Signs Temp 97.8 F 01/05/19 08:00 Pulse 88 01/05/19 08:00 Resp 16 01/05/19 08:00 BP 116/62 01/05/19 08:00 Pulse Ox 92 L 01/05/19 08:51 Intake & Output 01/04/19 01/05/19 01/05/19 18:59 06:59 18:59 Intake Total 1490 180 Output Total 1230 700 Balance 260 -700 180 Weight 94 kg Intake: IV 570 Invasive Line 4 20 Piperacillin-Tazobactam 3 200 .375 gm In Sodium Chloride 0.9% 100 ml @ 25 mls/hr IVPB Q8H YONI Rx#: [id number] Sodium Chloride 0.9% 1, 350 000 ml @ 50 mls/hr IV . Q20H YONI Rx#:[id number] Oral 920 180 Output: Urine 1230 700 Other: Voiding Method Indwelling Catheter Indwelling Catheter Indwelling Catheter - Exam In general patient is alert and oriented 3 in no apparent distress HEENT head normocephalic and atraumatic Neck is supple no JVD no goiter no lymphadenopathy no carotid bruit Lungs diminished lung sounds was a few scattered rhonchi Heart regular heart sounds S1 and S2 no gallops was 3/6 systolic murmur in the left sternal border Abdomen is soft nontender no organomegaly with normal bowel sounds Extremity exam reveals no edema no cyanosis or clubbing Neurological examination reveals left-sided weakness which is chronic per family - Labs CBC & Chem 7: 01/05/19 06:46 01/05/19 06:46 Labs: Abnormal Lab Results - Last 24 Hours (Table) 01/05/19 01/05/19 Range/Units 06:46 06:46 WBC 20.5 H (3.8-10.6) k/uL RBC 3.84 L (4.30-5.90) m/uL Hgb 11.4 L (13.0-17.5) gm/dL Hct 35.9 L (39.0-53.0) % RDW 15.9 H (11.5-15.5) % Neutrophils # 15.8 H (1.3-7.7) k/uL Eosinophils # 2.4 H (0-0.7) k/uL Sodium 134 L (137-145) mmol/L Potassium 5.4 H (3.5-5.1) mmol/L Glucose 112 H (74-99) mg/dL Alkaline Phosphatase 187 H (38-126) U/L Total Protein 5.9 L (6.3-8.2) g/dL Albumin 3.1 L (3.5-5.0) g/dL Microbiology - Last 24 Hours (Table) 01/04/19 16:00 Gram Stain - Preliminary Sputum 01/01/19 22:37 Blood Culture - Preliminary Blood No Growth after 72 hours 01/03/19 15:30 Urine Culture - Final Urine,Catheterized Assessment and Plan Assessment: #1 episodes of chest pain was slightly elevated troponin level patient has previous history of coronary artery disease. Per cardiology patient has underwent stenting to the right coronary artery recently, at this time recommend he continue the current medical regime including dual antiplatelet therapy with Plavix and aspirin #2 lung mass and the lower sternum and fourth rib mass, highly suspicious for cancer. Pulmonary and oncology service is following #3 hypotension likely related to sepsis, source of infection unclear may be related to lung infection no evidence of urinary tract infection currently patient is on IV Zosyn. Blood culture ordered. Per infectious disease continue Zosyn and awaiting cultures #4 previous history of stroke with left sided weakness #5 acute kidney injury on presentation was elevated BUN and creatinine likely related to hypotension improving with IV fluid boluses resolved. #6 history of seizure disorder maintained on Keppra no new episodes of seizure #7 history of depression maintained on Zoloft #8 difficulty swallowing solid food likely related to sternal mass. Modified barium swallow ordered showing normal modified barrium Swallow test #9. Valvular heart disease with severe aortic stenosis and severe aortic in sufficiency #10. Hyperkalemia. Potassium 5.4. Potassium supplement DC'd. Does carefully ordered. Recheck today at 1500 DVT prophylaxis heparin. GI prophylaxis Protonix I performed an examination of the patient and discussed their management with the Nurse Practitioner. I have reviewed the Nurse Practitioner's notes and agree with the documented findings and plan of care
--- NOTE | 2019-01-05 13:54 | P.PN ---
Subjective Progress Note Date: 01/05/19 Principal diagnosis: Atypical chest pain, valvular heart disease with aortic stenosis and aortic insufficiency This is a pleasant 73-year-old gentleman with an extensive past medical history consistent of coronary artery disease and prior stenting of the right coronary artery recently, valvular heart disease and known severe aortic stenosis and severe aortic insufficiency, known chronic obstructive pulmonary disease, as well as significant history of smoking, presented to the hospital complaining of shortness of breath as well as generalized weakness. The patient has been progressively getting weak and tired and fatigued as well as was experiencing shortness of breath with exertion as well as chest discomfort. No symptoms of dizziness or lightheadedness, heart racing or fluttering, or syncope. The patient underwent a workup including d-dimer which came in to be abnormal but the computed tomography scan of the chest did not show any evidence of PE but it did show a lung mass measured 4 cm with the mass coasting invading the ribs of the chest. It was felt that the mass is malignant by the appearance on the computed tomography scan. We asked if we can stop the dual antiplatelet therapy to biopsy the mass and I stated this is very high risk. The dual antiplatelet because of the risk of stent thrombosis. The EKG showed sinus rhythm without any ischemic ST or T-wave abnormalities. The troponin came in to be slightly abnormal. Currently the patient is on heparin IV. Beside that he is on antibiotic for possible pneumonia. Patient was reevaluated today on 01/03/2019, patient is still complaining of vague chest pain. no cough no wheezing, no shortness of breath. Patient remains on dual antiplatelet therapy, and his CT of the chest was reviewed, clearly suggestive of underlying bronchogenic carcinoma which will eventually need a CT- guided needle biopsy for tissue diagnosis. Labs were reviewed, WBC count is 20.6 hemoglobin is 11.3, PTT is 76.3, electrolytes and renal profile are normal. Reevaluated today on 01/04/2019, patient is doing better, no chest pain, no cough no wheezing, no fever, no chills, no hemoptysis. Continues to have leukocytosis with WBC count of 20.4 hemoglobin is 11.4. Electrolytes are relatively normal renal profile is normal. No chest x-ray was done today. Remains on Lasix. On 01/05/2019 patient seen and reevaluated in the selective care unit, he is resting in bed, he still quite weak, and requiring extensive assistance with repositioning, sitting up, denies any acute distress, he remains on 4 L of oxygen and his pulse ox is 92-95%, he is afebrile, hemodynamically patient is stable. He is having intermittent hemoptysis with phlegm. He remains on the dual antiplatelet therapy for recent history of coronary stenting. Has occasional chest discomfort in the lower right sternal area, that seems to be exacerbated by coughing, and palpation. Today's labs have been reviewed, and white blood cell count is 20.5, hemoglobin is 11.4, sodium is 134, potassium is 5.4, the rest of the left lites and renal profile are within normal limits. Urine culture showed no growth, sputum culture Gram stain showed moderate gram- positive bacilli, and rare gram-positive cocci, final culture is pending, patient is covered with a combination of a biotics including Zosyn, vancomycin has been discontinued. She had a modified barium swallow evaluation yesterday for his history of dysphagia, and it was a normal exam. Nevertheless on today's evaluation patient is still having issues with swallowing, he is feeding hims elf, chewing the food up but then shortly after he is spitting it all out, he denies painful swallowing, he states he is spitting it out because he doesn't want to swallow it and doesn't want to eat. IV Lasix has been transitioned to oral Lasix, Sissy on Symbicort, nebulized bronchodilators. Lung sounds are extremely diminished, and patient is very shallow breather, with bibasilar crackles. Objective - Vital Signs Vital signs: Vital Signs Temp 98.1 F 01/05/19 12:00 Pulse 88 01/05/19 12:00 Resp 18 01/05/19 12:00 BP 114/55 01/05/19 12:00 Pulse Ox 95 01/05/19 12:00 Intake & Output 01/04/19 01/05/19 01/05/19 18:59 06:59 18:59 Intake Total 1490 180 Output Total 1230 700 Balance 260 -700 180 Weight 94 kg Intake: IV 570 Invasive Line 4 20 Piperacillin-Tazobactam 3 200 .375 gm In Sodium Chloride 0.9% 100 ml @ 25 mls/hr IVPB Q8H [facility] Rx#: [id number] Sodium Chloride 0.9% 1, 350 000 ml @ 50 mls/hr IV . Q20H [facility] Rx#:[id number] Oral 920 180 Output: Urine 1230 700 Other: Voiding Method Indwelling Catheter Indwelling Catheter Indwelling Catheter - Exam GENERAL EXAM: Alert, 73-year-old white male patient on 4 L of oxygen and the pulse ox of 95%, comfortable in no apparent distress. HEAD: Normocephalic/atraumatic. EYES: Normal reaction of pupils, equal size. Conjunctiva pink, sclera white. NOSE: Clear with pink turbinates. THROAT: No erythema or exudates. NECK: No masses, no JVD, no thyroid enlargement, no adenopathy. CHEST: No chest wall deformity. Symmetrical expansion. LUNGS: Diminished air entry bilaterally, with basilar crackles CVS: Regular rate and rhythm, normal S1 and S2, no gallops, no murmurs, no rubs ABDOMEN: Soft, nontender. No hepatosplenomegaly, normal bowel sounds, no guarding or rigidity. EXTREMITIES: No clubbing, no edema, no cyanosis, 2+ pulses and upper and lower extremities. MUSCULOSKELETAL: Muscle strength and tone normal. SPINE: No scoliosis or deformity SKIN: No rashes CENTRAL NERVOUS SYSTEM: Alert and oriented -3. No focal deficits, tone is normal in all 4 extremities. PSYCHIATRIC: Alert and oriented -3. Appropriate affect. Intact judgment and insight. - Labs CBC & Chem 7: 01/05/19 06:46 01/05/19 06:46 Labs: Abnormal Lab Results - Last 24 Hours (Table) 01/05/19 01/05/19 Range/Units 06:46 06:46 WBC 20.5 H (3.8-10.6) k/uL RBC 3.84 L (4.30-5.90) m/uL Hgb 11.4 L (13.0-17.5) gm/dL Hct 35.9 L (39.0-53.0) % RDW 15.9 H (11.5-15.5) % Neutrophils # 15.8 H (1.3-7.7) k/uL Eosinophils # 2.4 H (0-0.7) k/uL Sodium 134 L (137-145) mmol/L Potassium 5.4 H (3.5-5.1) mmol/L Glucose 112 H (74-99) mg/dL Alkaline Phosphatase 187 H (38-126) U/L Total Protein 5.9 L (6.3-8.2) g/dL Albumin 3.1 L (3.5-5.0) g/dL Microbiology - Last 24 Hours (Table) 01/04/19 16:00 Gram Stain - Preliminary Sputum 01/01/19 22:37 Blood Culture - Preliminary Blood No Growth after 72 hours 01/03/19 15:30 Urine Culture - Final Urine,Catheterized Assessment and Plan Plan: Assessment: 1 atypical chest pain, known to have history of coronary artery disease and recent cardiac catheterization with stenting of the RCA, remains on aspirin and Plavix. 2 severe aortic stenosis 3 chronic systolic congestive heart failure and impaired LV function 4 acute kidney injury most likely secondary to acute tubular necrosis or could be cardiorenal. 5 suspect metastatic lung cancer, the findings on the CT of the chest are highly suspicious for metastatic lung cancer. Will eventually need a tissue diagnosis, and we'll recommend eventually CT-guided needle biopsy. 6 chronic seizure disorder, on Keppra 7 history of depression 8 benign prostatic hypertrophy Plan: We'll continue with current antibiotics, will await results of the final sputum culture, blood urine cultures were negative thus far, vancomycin has been discontinued, no fever or chills, encouraged to deep breathing and coughing, sitting up in the chair. Patient has an effective cough, and he is having some hemoptysis. He continues on antiplatelet therapy which cannot be stopped at this time for history of recent coronary stenting. We are unable to proceed with the biopsy of the Right lung masses, related to acute issues, and this will have to be addressed on an outpatient basis. Overall prognosis is poor in view of multiple comorbidities, and general medical debility, and there is a strong suspicion for metastatic lung cancer. For now continue with supportive treatment, had a discussion with the patient in the about patient's overall condition, and prognosis. At this time they are interested in hospice, which would be appropriate given the patient's multiple comorbidities and a possible metastatic lung cancer. We will consult [facility] and have a discussion with the family I performed a history & physical examination of the patient and discussed their management with my nurse practitioner, Teresa Burciaga. I reviewed the nurse practitioner's note and agree with the documented findings and plan of care. Lung sounds are positive for diminished breath sounds with bibasilar crackles. The findings and the impression was discussed with the patient. I attest to the documentation by the nurse practitioner. Time with Patient: Less than 30
--- NOTE | 2019-01-05 14:25 | P.PN ---
Subjective Progress Note Date: 01/05/19 This is a pleasant 73-year-old gentleman with an extensive past medical history consistent of coronary artery disease and prior stenting of the right coronary artery recently, valvular heart disease and known severe aortic stenosis and severe aortic insufficiency, known chronic obstructive pulmonary disease, as well as significant history of smoking, presented to the hospital complaining of shortness of breath as well as generalized weakness. The patient has been progressively getting weak and tired and fatigued as well as was experiencing shortness of breath with exertion as well as chest discomfort. No symptoms of dizziness or lightheadedness, heart racing or fluttering, or syncope. The patie nt underwent a workup including d-dimer which came in to be abnormal but the computed tomography scan of the chest did not show any evidence of PE but it did show a lung mass measured 4 cm with the mass coasting invading the ribs of the chest. It was felt that the mass is malignant by the appearance on the computed tomography scan. We asked if we can stop the dual antiplatelet therapy to biopsy the mass and I stated this is very high risk. The dual antiplatelet because of the risk of stent thrombosis. The EKG showed sinus rhythm without any ischemic ST or T-wave abnormalities. The troponin came in to be slightly abnormal. Currently the patient is on heparin IV. Beside that he is on an tibiotic for possible pneumonia. 01/05/2019 Patient was seen and examined this morning, resting comfortably in bed, very weak his is at his bedside. Blood pressure 114/56, heart rate in the 80s, 95% on 4 L of oxygen. White blood cell count 20.5, hemoglobin 11.4, platelet count 245. Sodium 134, potassium 5.4, BUN 13 and creatinine 0.9. The patient and the family have decided on hospice today. Objective - Vital Signs Vital signs: Vital Signs Temp 98.1 F 01/05/19 12:00 Pulse 88 01/05/19 12:00 Resp 18 01/05/19 12:00 BP 114/55 01/05/19 12:00 Pulse Ox 95 01/05/19 12:00 Intake & Output 01/04/19 01/05/19 01/05/19 18:59 06:59 18:59 Intake Total 1490 420 Output Total 1230 700 Balance 260 -700 420 Weight 94 kg Intake: IV 570 Invasive Line 4 20 Piperacillin-Tazobactam 3 200 .375 gm In Sodium Chloride 0.9% 100 ml @ 25 mls/hr IVPB Q8H [facility] Rx#: [id number] Sodium Chloride 0.9% 1, 350 000 ml @ 50 mls/hr IV . Q20H [facility] Rx#:[id number] Oral 920 420 Output: Urine 1230 700 Other: Voiding Method Indwelling Catheter Indwelling Catheter Indwelling Catheter - Exam GENERAL EXAM: Alert, 73-year-old white male patient on 4 L of oxygen and the pulse ox of 95%, comfortable in no apparent distress. HEAD: Normocephalic/atraumatic. EYES: Normal reaction of pupils, equal size. Conjunctiva pink, sclera white. NOSE: Clear with pink turbinates. THROAT: No erythema or exudates. NECK: No masses, no JVD, no thyroid enlargement, no adenopathy. CHEST: No chest wall deformity. Symmetrical expansion. LUNGS: Diminished air entry bilaterally, with basilar crackles CVS: Regular rate and rhythm, normal S1 and S2, no gallops, no murmurs, no rubs ABDOMEN: Soft, nontender. No hepatosplenomegaly, normal bowel sounds, no guarding or rigidity. EXTREMITIES: No clubbing, no edema, no cyanosis, 2+ pulses and upper and lower extremities. MUSCULOSKELETAL: Muscle strength and tone normal. SPINE: No scoliosis or deformity SKIN: No rashes CENTRAL NERVOUS SYSTEM: Alert and oriented -3. No focal deficits, tone is normal in all 4 extremities. PSYCHIATRIC: Alert and oriented -3. Appropriate affect. Intact judgment and insight. - Labs CBC & Chem 7: 01/05/19 06:46 01/05/19 06:46 Labs: Abnormal Lab Results - Last 24 Hours (Table) 01/05/19 01/05/19 Range/Units 06:46 06:46 WBC 20.5 H (3.8-10.6) k/uL RBC 3.84 L (4.30-5.90) m/uL Hgb 11.4 L (13.0-17.5) gm/dL Hct 35.9 L (39.0-53.0) % RDW 15.9 H (11.5-15.5) % Neutrophils # 15.8 H (1.3-7.7) k/uL Eosinophils # 2.4 H (0-0.7) k/uL Sodium 134 L (137-145) mmol/L Potassium 5.4 H (3.5-5.1) mmol/L Glucose 112 H (74-99) mg/dL Alkaline Phosphatase 187 H (38-126) U/L Total Protein 5.9 L (6.3-8.2) g/dL Albumin 3.1 L (3.5-5.0) g/dL Microbiology - Last 24 Hours (Table) 01/04/19 16:00 Gram Stain - Preliminary Sputum 01/01/19 22:37 Blood Culture - Preliminary Blood No Growth after 72 hours 01/03/19 15:30 Urine Culture - Final Urine,Catheterized Assessment and Plan Plan: Assessmentand Plan: 1 atypical chest pain, known to have history of coronary artery disease and recent cardiac catheterization with stenting of the RCA, remains on aspirin and Plavix. 2 severe aortic stenosis 3 chronic systolic congestive heart failure and impaired LV function 4 acute kidney injury most likely secondary to acute tubular necrosis or could be cardiorenal. 5 suspect metastatic lung cancer, the findings on the CT of the chest are highly suspicious for metastatic lung cancer. Will eventually need a tissue diagnosis, and we'll recommend eventually CT-guided needle biopsy. 6 chronic seizure disorder, on Keppra 7 history of depression 8 benign prostatic hypertrophy Plan From cardiology's perspective, patient continues on dual antiplatelet therapy, which cannot be stopped because of recent stenting. Patient and the family are now interested in hospice. Consult with them has been requested. DNP note has been reviewed, I agree with a documented findings and plan of care. Patient was seen and examined.
[2019-01-05] MEDS: FUROSEMIDE 40 MG TAB PO SCH (16:47)
[2019-01-05] MEDS: SODIUM CHLORIDE 0.9% 1,000 ML IV SCH (16:51)
[2019-01-05] MEDS: ATORVASTATIN 80 MG TAB PO SCH (20:12)
[2019-01-05] MEDS: ZOLPIDEM 10 MG TAB PO PRN (20:13)
--- NOTE | 2019-01-05 21:36 | P.PN ---
Subjective Progress Note Date: 01/05/19 Principal diagnosis: Leukocytosis and fever The patient is currently afebrile and denies any rigors or chills the patient is breathing more comfortably today, the patient continued to have cough and did have some hemoptysis today, sputum has been collected the patient denies having any chest pain no nausea no vomiting no abdominal pain and no diarrhea Objective - Vital Signs Vital signs: Vital Signs Temp 97.8 F 01/05/19 08:00 Pulse 88 01/05/19 08:00 Resp 16 01/05/19 08:00 BP 116/62 01/05/19 08:00 Pulse Ox 92 L 01/05/19 08:51 Intake & Output 01/04/19 01/05/19 01/05/19 18:59 06:59 18:59 Intake Total 1490 180 Output Total 1230 700 Balance 260 -700 180 Weight 94 kg Intake: IV 570 Invasive Line 4 20 Piperacillin-Tazobactam 3 200 .375 gm In Sodium Chloride 0.9% 100 ml @ 25 mls/hr IVPB Q8H [facility] Rx#: [id number] Sodium Chloride 0.9% 1, 350 000 ml @ 50 mls/hr IV . Q20H [facility] Rx#:[id number] Oral 920 180 Output: Urine 1230 700 Other: Voiding Method Indwelling Catheter Indwelling Catheter Indwelling Catheter - Exam GENERAL DESCRIPTION:[ Patient is awake and alert in no distress] HEENT: [Oral mucosa is dry and no pharyngeal erythema] EYES : [No pallor or scleral icterus] RESPIRATORY SYSTEM: [Unlabored breathing decreased based on the base no wheeze] CARDIA VASCULAR SYSTEM: [S1-S2 regular rate and rhythm no murmur] GI: [Abdominal soft there's no tenderness no organomegaly] EXTREMITIES: [No edema feet] - Labs CBC & Chem 7: 01/05/19 06:46 01/05/19 17:10 Labs: Abnormal Lab Results - Last 24 Hours (Table) 01/05/19 01/05/19 Range/Units 06:46 06:46 WBC 20.5 H (3.8-10.6) k/uL RBC 3.84 L (4.30-5.90) m/uL Hgb 11.4 L (13.0-17.5) gm/dL Hct 35.9 L (39.0-53.0) % RDW 15.9 H (11.5-15.5) % Neutrophils # 15.8 H (1.3-7.7) k/uL Eosinophils # 2.4 H (0-0.7) k/uL Sodium 134 L (137-145) mmol/L Potassium 5.4 H (3.5-5.1) mmol/L Glucose 112 H (74-99) mg/dL Alkaline Phosphatase 187 H (38-126) U/L Total Protein 5.9 L (6.3-8.2) g/dL Albumin 3.1 L (3.5-5.0) g/dL Microbiology - Last 24 Hours (Table) 01/04/19 16:00 Gram Stain - Preliminary Sputum 01/01/19 22:37 Blood Culture - Preliminary Blood No Growth after 72 hours 01/03/19 15:30 Urine Culture - Final Urine,Catheterized Assessment and Plan Assessment: 1-patient with leukocytosis with a white count of 25,000 on admission subsequently spike a fever of 101F , source is multifactorial in this patient who did have evidence of right lower lobe mass with destruction of the fourth rib and lower end of the sternum with concern for possible malignancy with secondary metastasis underlying postobstructive right lower lobe pneumonia not entirely excluded in this patient currently with no other clinical focus of infection fever has resolved however the white count still elevated, sputum has been collected today, (1) Leukocytosis Current Visit: Yes Status: Acute Code(s): D72.829 - ELEVATED WHITE BLOOD CELL COUNT, UNSPECIFIED SNOMED Code(s): 665584905 (2) Fever Current Visit: No Status: Acute Code(s): R50.9 - FEVER, UNSPECIFIED SNOMED Code(s): 229215459 Plan: 1-we will follow up on sputum Gram stain and culture results 2-patient will continue the patient with Zosyn 3.75 g every 8 hour to which his fever has responded We will follow-up on clinical condition and cultures to further adjust medication if needed Time with Patient: Less than 30
[2019-01-06] MEDS: PIPERACILLIN-TAZOBACTAM 3.375 GM in SODIUM CHLORIDE 0.9% 100 ML IVPB SCH ×3 (06:02→23:28)
[2019-01-06 06:47] LABS: Anisocytosis Slight; Basophils # (A) 0.2 k/uL (0-0.2); Basophils % (A) 1 %; Eosinophils # (A) 2.3 k/uL (0-0.7); Eosinophils % (A) 10 %; HCT 33.8 % (39.0-53.0); HGB 11.2 gm/dL (13.0-17.5); Lymphocytes % (A) 4 %; MCH 30.5 pg (25.0-35.0); MCHC 33.2 g/dL (31.0-37.0); MCV 91.9 fL (80.0-100.0); Mean Platelet Volume 7.8; Monocytes # (A) 1.1 k/uL (0-1.0); Monocytes % (A) 4 %; Neutrophils # (A) 18.8 k/uL (1.3-7.7); Neutrophils % (A) 79 %; Platelet Count 228 k/uL (150-450); Poikilocytosis Slight; RBC 3.68 m/uL (4.30-5.90); RDW 16.1 % (11.5-15.5); WBC 23.8 k/uL (3.8-10.6)
[2019-01-06 06:59] LABS: ALT 53 U/L (21-72); AST 32 U/L (17-59); Albumin 2.8 g/dL (3.5-5.0); Alkaline Phosphatase 204 U/L (38-126); Anion Gap 7 mmol/L; Blood Urea Nitrogen 12 mg/dL (9-20); Calcium 9.2 mg/dL (8.4-10.2); Carbon Dioxide 22 mmol/L (22-30); Chloride 100 mmol/L (98-107); Glucose 112 mg/dL (74-99); Potassium 5.1 mmol/L (3.5-5.1); Sodium 129 mmol/L (137-145); Total Bilirubin 0.7 mg/dL (0.2-1.3); Total Protein 5.4 g/dL (6.3-8.2)
[2019-01-06] MEDS: SYMBICORT 160-4.5 MCG INHALER INHALATION SCH ×2 (09:50→21:31)
[2019-01-06] MEDS: HEPARIN SODIUM,PORCINE 5,000 UNIT/ML 1 ML VIAL SQ SCH ×2 (09:51→21:11)
[2019-01-06] MEDS: CLOPIDOGREL 75 MG TAB PO SCH (09:51)
[2019-01-06] MEDS: FUROSEMIDE 40 MG TAB PO SCH ×2 (09:51→18:31)
[2019-01-06] MEDS: ASPIRIN 81 MG PO SCH (09:51)
[2019-01-06] MEDS: TAMSULOSIN 0.4 MG CAP.ER.24H PO SCH (09:51)
[2019-01-06] MEDS: SERTRALINE 50 MG TAB PO SCH (09:51)
[2019-01-06] MEDS: DONEPEZIL 10 MG TAB PO SCH (09:51)
[2019-01-06] MEDS: levETIRAcetam 500 MG TAB PO SCH ×2 (09:51→21:11)
--- NOTE | 2019-01-06 13:10 | P.PN ---
Subjective Progress Note Date: 01/06/19 This is a pleasant 73-year-old gentleman with an extensive past medical history consistent of coronary artery disease and prior stenting of the right coronary artery recently, valvular heart disease and known severe aortic stenosis and severe aortic insufficiency, known chronic obstructive pulmonary disease, as well as significant history of smoking, presented to the hospital complaining of shortness of breath as well as generalized weakness. The patient has been progressively getting weak and tired and fatigued as well as was experiencing shortness of breath with exertion as well as chest discomfort. No symptoms of dizziness or lightheadedness, heart racing or fluttering, or syncope. The patie nt underwent a workup including d-dimer which came in to be abnormal but the computed tomography scan of the chest did not show any evidence of PE but it did show a lung mass measured 4 cm with the mass coasting invading the ribs of the chest. It was felt that the mass is malignant by the appearance on the computed tomography scan. We asked if we can stop the dual antiplatelet therapy to biopsy the mass and I stated this is very high risk. The dual antiplatelet because of the risk of stent thrombosis. The EKG showed sinus rhythm without any ischemic ST or T-wave abnormalities. The troponin came in to be slightly abnormal. Currently the patient is on heparin IV. Beside that he is on an tibiotic for possible pneumonia. 01/05/2019 Patient was seen and examined this morning, resting comfortably in bed, very weak his is at his bedside. Blood pressure 114/56, heart rate in the 80s, 95% on 4 L of oxygen. White blood cell count 20.5, hemoglobin 11.4, platelet count 245. Sodium 134, potassium 5.4, BUN 13 and creatinine 0.9. The patient and the family have decided on hospice today. 01/06/2019 Patient was seen and examined this morning, confused, blood pressure 116/70 with a heart rate of 90, 97% on 5 L of oxygen. Objective - Vital Signs Vital signs: Vital Signs Temp 99.5 F 01/06/19 08:00 Pulse 106 H 01/06/19 08:00 Resp 22 01/06/19 08:00 BP 116/73 01/06/19 08:00 Pulse Ox 97 01/06/19 09:52 Intake & Output 05/08/19 05/09/19 05/09/19 18:59 06:59 18:59 Intake Total 660 240 Output Total 850 1000 1400 Balance -630 -4942 -4210 Weight 94 kg Intake: Oral 660 240 Output: Urine 850 1000 1400 Other: Voiding Method Indwelling Catheter Indwelling Catheter Indwelling Catheter - Exam GENERAL EXAM: Alert, 73-year-old white male patient on 4 L of oxygen and the pulse ox of 95%, comfortable in no apparent distress. HEAD: Normocephalic/atraumatic. EYES: Normal reaction of pupils, equal size. Conjunctiva pink, sclera white. NOSE: Clear with pink turbinates. THROAT: No erythema or exudates. NECK: No masses, no JVD, no thyroid enlargement, no adenopathy. CHEST: No chest wall deformity. Symmetrical expansion. LUNGS: Diminished air entry bilaterally, with basilar crackles CVS: Regular rate and rhythm, normal S1 and S2, no gallops, no murmurs, no rubs ABDOMEN: Soft, nontender. No hepatosplenomegaly, normal bowel sounds, no guarding or rigidity. EXTREMITIES: No clubbing, no edema, no cyanosis, 2+ pulses and upper and lower extremities. MUSCULOSKELETAL: Muscle strength and tone normal. SPINE: No scoliosis or deformity SKIN: No rashes CENTRAL NERVOUS SYSTEM: Alert and oriented -3. No focal deficits, tone is normal in all 4 extremities. PSYCHIATRIC: Alert and oriented -3. Appropriate affect. Intact judgment and insight. - Labs CBC & Chem 7: 01/06/19 06:28 01/06/19 06:28 Labs: Abnormal Lab Results - Last 24 Hours (Table) 01/06/19 01/06/19 Range/Units 06:28 06:28 WBC 23.8 H (3.8-10.6) k/uL RBC 3.68 L (4.30-5.90) m/uL Hgb 11.2 L (13.0-17.5) gm/dL Hct 33.8 L (39.0-53.0) % RDW 16.1 H (11.5-15.5) % Neutrophils # 18.8 H (1.3-7.7) k/uL Monocytes # 1.1 H (0-1.0) k/uL Eosinophils # 2.3 H (0-0.7) k/uL Sodium 129 L (137-145) mmol/L Glucose 112 H (74-99) mg/dL Alkaline Phosphatase 204 H (38-126) U/L Total Protein 5.4 L (6.3-8.2) g/dL Albumin 2.8 L (3.5-5.0) g/dL Microbiology - Last 24 Hours (Table) 01/04/19 16:00 Gram Stain - Final Sputum Sputum Culture - Final 01/01/19 22:37 Blood Culture - Preliminary Blood No Growth after 96 hours Assessment and Plan Plan: Assessmentand Plan: 1 atypical chest pain, known to have history of coronary artery disease and recent cardiac catheterization with stenting of the RCA, remains on aspirin and Plavix. 2 severe aortic stenosis 3 chronic systolic congestive heart failure and impaired LV function 4 acute kidney injury most likely secondary to acute tubular necrosis or could be cardiorenal. 5 suspect metastatic lung cancer, the findings on the CT of the chest are highly suspicious for metastatic lung cancer. Will eventually need a tissue diagnosis, and we'll recommend eventually CT-guided needle biopsy. 6 chronic seizure disorder, on Keppra 7 history of depression 8 benign prostatic hypertrophy Plan From cardiology's perspective, now that the patient is on hospice, we will follo w along with you on an as-needed basis only, please don't hesitate to call us if you have any questions. DNP note has been reviewed, I agree with a documented findings and plan of care. Patient was seen and examined.
--- NOTE | 2019-01-06 13:22 | P.DS ---
Providers Date of admission: 01/01/19 23:52 Expected date of discharge: 01/06/19 Attending physician: Veto Christopher Consults: 01/01/19 23:52 Consult Physician Stat Consulting Provider: Ernie Torres Consult Reason/Comments: CHF exacerbation Do you want consulting provider notified?: Already Contacted 01/02/19 09:17 Consult Physician Routine Consulting Provider: Van Maradiaga Consult Reason/Comments: chest pain Do you want consulting provider notified?: Yes 01/03/19 08:14 Consult Physician Routine Consulting Provider: Qamar Duarte Consult Reason/Comments: new lung mass Do you want consulting provider notified?: Yes 01/03/19 10:40 Consult Physician Routine Consulting Provider: Redd Ernst Consult Reason/Comments: Leukocytosis Do you want consulting provider notified?: Yes Primary care physician: Tricia Mata [facility] Course: Discharge diagnosis Terminal diagnosis severe valvular heart disease with severe aortic stenosis and suspected lung cancer with metastatic disease #1 episodes of chest pain was slightly elevated troponin level patient has previous history of coronary artery disease. Per cardiology patient has underwent stenting to the right coronary artery recently, at this time recommend he continue the current medical regime including dual antiplatelet therapy with Plavix and aspirin #2 lung mass and the lower sternum and fourth rib mass, highly suspicious for cancer. Pulmonary and oncology service is following #3 hypotension likely related to sepsis, source of infection unclear may be related to lung infection no evidence of urinary tract infection currently patient is on IV Zosyn. Blood culture ordered. Per infectious disease continue Zosyn and awaiting cultures #4 previous history of stroke with left sided weakness #5 acute kidney injury on presentation was elevated BUN and creatinine likely related to hypotension improving with IV fluid boluses resolved. #6 history of seizure disorder maintained on Keppra no new episodes of seizure #7 history of depression maintained on Zoloft #8 difficulty swallowing solid food likely related to sternal mass. Modified barium swallow ordered showing normal modified barrium Swallow test #9. Valvular heart disease with severe aortic stenosis and severe aortic insufficiency #10. Hyperkalemia. Potassium 5.4. Potassium supplement DC'd. Does carefully ordered. Recheck today at 1500 Hospital course Roderick Sharpe is a 73-year-old male patient of Dr. Tricia Mata who presented to [facility] emergency room with multiple vague complaints of generalized weakness, difficulty swallowing solid food, shortness of breath, and chest pain he was evaluated in the emergency room, white blood count was elevated at 25.6 BUN elevated at 37 creatinine elevated at 1.94 troponin slightly elevated at 0.039 calcium elevated at 10.4 BNP elevated at 5390 and d- dimer elevated at 5.[address] angiogram of the chest which was negative for any evidence of pulmonary embolism but revealed evidence of 5.3 cm mass in the right lower lobe and lytic mass in the right fourth rib, and 4.2 cm destructive mass in the lower sternal patient was admitted to ICU pulmonary consultation was requested and cardiology consultation was requested. Patient had evidence of hypotension he received boluses of normal saline in the emergency room On 01/03/2019 patient is alert and oriented 3. Family at bedside. Patient's creatinine has improved to 1.02 and bun 19. This time patient is still complaining of some chest pain. Per cardiology recommending we keep patient at this time on Plavix and aspirin. Patient denies nausea vomiting or diarrhea. Patient denies any urinary burning or frequency On 01/04/2019 patient is alert resting comfortably in bed. Patient remains in the intensive care unit. This time patient is resting comfortably in bed. Patient was evaluated by oncology and infectious disease services. Creatinine 0.88 and bun 12. At this time patient denies any chest pain or shortness of breath. Patient denies any nausea vomiting or diarrhea. Patient any urinary burning or frequency On 01/05/2019 patient is currently resting comfortably in bed. Patient underwent modified barium swallow which was normal. Patient potassium elevated at 5.4. Potassium supplement DC'd. 1 dose of Kayexalate ordered recheck ordered for today at this time patient denies chest pain. Patient is having some shortness of breath. Patient denies nausea vomiting or diarrhea. Patient denies any urinary burning or frequency. On 01/06/2019 patient is currently resting in bed. it was decided per family and patient to move forward with [facility]. Anticipating discharge home tomorrow with [facility]. I performed an examination of the patient and discussed their management with the Nurse Practitioner. I have reviewed the Nurse Practitioner's notes and agree with the documented findings and plan of care Patient Condition at Discharge: Stable Plan - Discharge Summary Discharge Rx Participant: Yes New Discharge Prescriptions: Continue levETIRAcetam [Keppra] 500 mg PO Q12HR Clopidogrel [Plavix] 75 mg PO DAILY #90 tab Zolpidem [Ambien] 10 mg PO HS PRN #3 tab PRN Reason: Insomnia Sertraline [Zoloft] 150 mg PO DAILY Aspirin [Adult Low Dose Aspirin EC] 81 mg PO DAILY #30 tablet. Furosemide [Lasix] 40 mg PO BID@0900,1600 tab Discontinued Donepezil [Aricept] 10 mg PO DAILY Atorvastatin [Lipitor] 80 mg PO HS Potassium Chloride [K-Tab ER] 10 meq PO DAILY Tamsulosin HCl [Flomax] 0.8 mg PO DAILY Ranitidine HCl [Zantac] 150 mg PO BID Metoprolol Tartrate [Lopressor] 25 mg PO DAILY #90 tablet Nitroglycerin Sl Tabs [Nitrostat] 0.4 mg SUBLINGUAL Q5M PRN #100 tab PRN Reason: Chest Pain Budesonide-Formot 160-4.5 Mcg [Symbicort 160-4.5 Mcg Inhaler] 2 puff INHALATION RT-BID puff Discharge Medication List levETIRAcetam [Keppra] 500 mg PO Q12HR 09/03/17 [History] Clopidogrel [Plavix] 75 mg PO DAILY #90 tab 09/09/17 [Rx] Zolpidem [Ambien] 10 mg PO HS PRN #3 tab 12/31/17 [Rx] Sertraline [Zoloft] 150 mg PO DAILY 11/08/18 [History] Aspirin [Adult Low Dose Aspirin EC] 81 mg PO DAILY #30 tablet. 11/14/18 [Rx] Furosemide [Lasix] 40 mg PO BID@0900,1600 tab 11/14/18 [Rx] Follow up Appointment(s)/Referral(s): [facility] [NON-STAFF] - 1-2 Days Tricia Mata DO [Primary Care Provider] - 1-2 days Activity/Diet/Wound Care/Special Instructions: Needs indigent funds at DC, contact CM Discharge Disposition: HOME WITH HOSPICE
--- NOTE | 2019-01-06 13:40 | P.PN ---
Subjective Progress Note Date: 01/06/19 Principal diagnosis: Atypical chest pain, valvular heart disease with aortic stenosis and aortic insufficiency This is a pleasant 73-year-old gentleman with an extensive past medical history consistent of coronary artery disease and prior stenting of the right coronary artery recently, valvular heart disease and known severe aortic stenosis and severe aortic insufficiency, known chronic obstructive pulmonary disease, as well as significant history of smoking, presented to the hospital complaining of shortness of breath as well as generalized weakness. The patient has been progressively getting weak and tired and fatigued as well as was experiencing shortness of breath with exertion as well as chest discomfort. No symptoms of dizziness or lightheadedness, heart racing or fluttering, or syncope. The patient underwent a workup including d-dimer which came in to be abnormal but the computed tomography scan of the chest did not show any evidence of PE but it did show a lung mass measured 4 cm with the mass coasting invading the ribs of the chest. It was felt that the mass is malignant by the appearance on the computed tomography scan. We asked if we can stop the dual antiplatelet therapy to biopsy the mass and I stated this is very high risk. The dual antiplatelet because of the risk of stent thrombosis. The EKG showed sinus rhythm without any ischemic ST or T-wave abnormalities. The troponin came in to be slightly abnormal. Currently the patient is on heparin IV. Beside that he is on antibiotic for possible pneumonia. Patient was reevaluated today on 01/03/2019, patient is still complaining of vague chest pain. no cough no wheezing, no shortness of breath. Patient remains on dual antiplatelet therapy, and his CT of the chest was reviewed, clearly suggestive of underlying bronchogenic carcinoma which will eventually need a CT- guided needle biopsy for tissue diagnosis. Labs were reviewed, WBC count is 20.6 hemoglobin is 11.3, PTT is 76.3, electrolytes and renal profile are normal. Reevaluated today on 01/04/2019, patient is doing better, no chest pain, no cough no wheezing, no fever, no chills, no hemoptysis. Continues to have leukocytosis with WBC count of 20.4 hemoglobin is 11.4. Electrolytes are relatively normal renal profile is normal. No chest x-ray was done today. Remains on Lasix. On 01/05/2019 patient seen and reevaluated in the selective care unit, he is resting in bed, he still quite weak, and requiring extensive assistance with repositioning, sitting up, denies any acute distress, he remains on 4 L of oxygen and his pulse ox is 92-95%, he is afebrile, hemodynamically patient is stable. He is having intermittent hemoptysis with phlegm. He remains on the dual antiplatelet therapy for recent history of coronary stenting. Has occasional chest discomfort in the lower right sternal area, that seems to be exacerbated by coughing, and palpation. Today's labs have been reviewed, and white blood cell count is 20.5, hemoglobin is 11.4, sodium is 134, potassium is 5.4, the rest of the left lites and renal profile are within normal limits. Urine culture showed no growth, sputum culture Gram stain showed moderate gram- positive bacilli, and rare gram-positive cocci, final culture is pending, patient is covered with a combination of a biotics including Zosyn, vancomycin has been discontinued. She had a modified barium swallow evaluation yesterday for his history of dysphagia, and it was a normal exam. Nevertheless on today's evaluation patient is still having issues with swallowing, he is feeding hims elf, chewing the food up but then shortly after he is spitting it all out, he denies painful swallowing, he states he is spitting it out because he doesn't want to swallow it and doesn't want to eat. IV Lasix has been transitioned to oral Lasix, Sissy on Symbicort, nebulized bronchodilators. Lung sounds are extremely diminished, and patient is very shallow breather, with bibasilar crackles. On 01/06/2019 patient seen in follow-up on selective care unit, he is resting quietly in bed, he states is in no acute distress, his family is not around, currently on 5 L of oxygen his pulse ox is anywhere from 95-97%, lung sounds reveal some end expiratory wheezes and some rhonchi particularly over right lung. Still has intermittent hemoptysis, denies any chest pain. Yesterday we discussed the possibility of palliative care and hospice enrollment with the patient's family who seem to be very receptive to the idea. On today's evaluation patient states he doesn't know anything about the discussion about hospice, but yesterday patient's seemed to welcome the idea of additional support at home for patient's multiple medical needs. Overnight. There have been no acute events, one episode of low-grade fever this morning, otherwise afebrile, hemodynamically patient is stable, culture data remains negative thus far. Continue with current antibiotics, currently on Zosyn Objective - Vital Signs Vital signs: Vital Signs Temp 99.5 F 01/06/19 08:00 Pulse 106 H 01/06/19 08:00 Resp 22 01/06/19 08:00 BP 116/73 01/06/19 08:00 Pulse Ox 97 01/06/19 09:52 Intake & Output 01/05/19 01/06/19 01/06/19 18:59 06:59 18:59 Intake Total 660 240 Output Total 850 1000 1400 Balance -190 -1000 -1160 Weight 94 kg Intake: Oral 660 240 Output: Urine 850 1000 1400 Other: Voiding Method Indwelling Catheter Indwelling Catheter Indwelling Catheter - Exam GENERAL EXAM: Alert, 73-year-old white male patient on 4 L of oxygen and the pu lse ox of 95%, comfortable in no apparent distress. HEAD: Normocephalic/atraumatic. EYES: Normal reaction of pupils, equal size. Conjunctiva pink, sclera white. NOSE: Clear with pink turbinates. THROAT: No erythema or exudates. NECK: No masses, no JVD, no thyroid enlargement, no adenopathy. CHEST: No chest wall deformity. Symmetrical expansion. LUNGS: Diminished air entry bilaterally, with basilar crackles CVS: Regular rate and rhythm, normal S1 and S2, no gallops, no murmurs, no rubs ABDOMEN: Soft, nontender. No hepatosplenomegaly, normal bowel sounds, no guarding or rigidity. EXTREMITIES: No clubbing, no edema, no cyanosis, 2+ pulses and upper and lower extremities. MUSCULOSKELETAL: Muscle strength and tone normal. SPINE: No scoliosis or deformity SKIN: No rashes CENTRAL NERVOUS SYSTEM: Alert and oriented -3. No focal deficits, tone is normal in all 4 extremities. PSYCHIATRIC: Alert and oriented -3. Appropriate affect. Intact judgment and insight. - Labs CBC & Chem 7: 01/06/19 06:28 01/06/19 06:28 Labs: Abnormal Lab Results - Last 24 Hours (Table) 01/06/19 01/06/19 Range/Units 06:28 06:28 WBC 23.8 H (3.8-10.6) k/uL RBC 3.68 L (4.30-5.90) m/uL Hgb 11.2 L (13.0-17.5) gm/dL Hct 33.8 L (39.0-53.0) % RDW 16.1 H (11.5-15.5) % Neutrophils # 18.8 H (1.3-7.7) k/uL Monocytes # 1.1 H (0-1.0) k/uL Eosinophils # 2.3 H (0-0.7) k/uL Sodium 129 L (137-145) mmol/L Glucose 112 H (74-99) mg/dL Alkaline Phosphatase 204 H (38-126) U/L Total Protein 5.4 L (6.3-8.2) g/dL Albumin 2.8 L (3.5-5.0) g/dL Microbiology - Last 24 Hours (Table) 01/04/19 16:00 Gram Stain - Final Sputum Sputum Culture - Final 01/01/19 22:37 Blood Culture - Preliminary Blood No Growth after 96 hours Assessment and Plan Plan: Assessment: 1 atypical chest pain, known to have history of coronary artery disease and recent cardiac catheterization with stenting of the RCA, remains on aspirin and Plavix. 2 severe aortic stenosis 3 chronic systolic congestive heart failure and impaired LV function 4 acute kidney injury most likely secondary to acute tubular necrosis or could be cardiorenal. 5 suspect metastatic lung cancer, the findings on the CT of the chest are highly suspicious for metastatic lung cancer. Will eventually need a tissue diagnosis, and we'll recommend eventually CT-guided needle biopsy. 6 chronic seizure disorder, on Keppra 7 history of depression 8 benign prostatic hypertrophy Plan: Continue current medical treatment, patient's is very receptive to the idea of hospice, understanding patient's declining health status, multiple comorbidities, generalized medical debility, and suspected metastatic malignancy. Patient is anticipated to be discharged home tomorrow with hospice, and we will continue with supportive care. I performed a history & physical examination of the patient and discussed their management with my nurse practitioner, Teresa Burciaga. I reviewed the nurse practitioner's note and agree with the documented findings and plan of care. Lung sounds are positive for diminished breath sounds with bibasilar crackles. The findings and the impression was discussed with the patient. I attest to the documentation by the nurse practitioner. Time with Patient: Less than 30
[2019-01-06] MEDS: HYDROmorphone 0.5 MG/0.5 ML SYRINGE IVP PRN ×2 (14:02→21:11)
[2019-01-06] MEDS: HYDROcodone/APAP 7.5-325MG 1 EACH TAB PO PRN (19:07)
[2019-01-06] MEDS: ATORVASTATIN 80 MG TAB PO SCH (21:11)
[2019-01-06] MEDS: SODIUM CHLORIDE 0.9% 1,000 ML IV SCH (21:24)
--- NOTE | 2019-01-06 23:03 | P.PN ---
Subjective Progress Note Date: 01/06/19 Principal diagnosis: Leukocytosis and fever The patient denies any rigors or chills , the patient is breathing comfortably , the patient cough has decreased in intensity and no hemoptysis today, the patient denies having any chest pain no nausea no vomiting no abdominal pain and no diarrhea Objective - Vital Signs Vital signs: Vital Signs Temp 99.5 F 01/06/19 08:00 Pulse 106 H 01/06/19 08:00 Resp 22 01/06/19 08:00 BP 116/73 01/06/19 08:00 Pulse Ox 97 01/06/19 09:52 Intake & Output 01/05/19 01/06/19 01/06/19 18:59 06:59 18:59 Intake Total 660 240 Output Total 850 1000 1400 Balance -190 -1000 -1160 Weight 94 kg Intake: Oral 660 240 Output: Urine 850 1000 1400 Other: Voiding Method Indwelling Catheter Indwelling Catheter Indwelling Catheter - Exam GENERAL DESCRIPTION:[ Patient is awake and alert in no distress] HEENT: [Oral mucosa is dry and no pharyngeal erythema] EYES : [No pallor or scleral icterus] RESPIRATORY SYSTEM: [Unlabored breathing decreased based on the base no wheeze] CARDIA VASCULAR SYSTEM: [S1-S2 regular rate and rhythm no murmur] GI: [Abdominal soft there's no tenderness no organomegaly] EXTREMITIES: [No edema feet] - Labs CBC & Chem 7: 01/06/19 06:28 01/06/19 06:28 Labs: Abnormal Lab Results - Last 24 Hours (Table) 01/06/19 01/06/19 Range/Units 06:28 06:28 WBC 23.8 H (3.8-10.6) k/uL RBC 3.68 L (4.30-5.90) m/uL Hgb 11.2 L (13.0-17.5) gm/dL Hct 33.8 L (39.0-53.0) % RDW 16.1 H (11.5-15.5) % Neutrophils # 18.8 H (1.3-7.7) k/uL Monocytes # 1.1 H (0-1.0) k/uL Eosinophils # 2.3 H (0-0.7) k/uL Sodium 129 L (137-145) mmol/L Glucose 112 H (74-99) mg/dL Alkaline Phosphatase 204 H (38-126) U/L Total Protein 5.4 L (6.3-8.2) g/dL Albumin 2.8 L (3.5-5.0) g/dL Microbiology - Last 24 Hours (Table) 01/04/19 16:00 Gram Stain - Final Sputum Sputum Culture - Final 01/01/19 22:37 Blood Culture - Preliminary Blood No Growth after 96 hours Assessment and Plan Assessment: 1-patient with leukocytosis with a white count of 25,000 on admission subsequently spike a fever of 101F , source is multifactorial in this patient who did have evidence of right lower lobe mass with destruction of the fourth rib and lower end of the sternum with concern for possible malignancy with secondary metastasis underlying postobstructive right lower lobe pneumonia not entirely excluded in this patient currently with no other clinical focus of infection fever has resolved however the white count still elevated, sputum cultures are currently pending , white count did has slight worsening however the family is leaning more towards hospice oriented care (1) Leukocytosis Current Visit: Yes Status: Acute Code(s): D72.829 - ELEVATED WHITE BLOOD CELL COUNT, UNSPECIFIED SNOMED Code(s): 442067056 (2) Fever Current Visit: No Status: Acute Code(s): R50.9 - FEVER, UNSPECIFIED SNOMED Code(s): 774828751 Plan: 1- patient is currently covered with Zosyn 3.75 g every 8 hour to which his fever has responded Cultures are negative so far However family is leaning more towards hospice oriented care with concern for underlying metastatic lung cancer if that's the case antibiotics can be safely discontinued Time with Patient: Less than 30
[2019-01-07 00:49] VITALS: RESP 18
[2019-01-07] MEDS: HYDROmorphone 0.5 MG/0.5 ML SYRINGE IVP PRN ×2 (01:42→09:13)
[2019-01-07] MEDS: PIPERACILLIN-TAZOBACTAM 3.375 GM in SODIUM CHLORIDE 0.9% 100 ML IVPB SCH (06:48)
[2019-01-07] MEDS: PANTOPRAZOLE 40 MG TABLET PO SCH (06:49)
[2019-01-07] MEDS: SYMBICORT 160-4.5 MCG INHALER INHALATION SCH (07:47)
[2019-01-07 07:50] LABS: HCT 34.1 % (39.0-53.0); HGB 11.2 gm/dL (13.0-17.5); MCH 30.2 pg (25.0-35.0); MCHC 32.7 g/dL (31.0-37.0); MCV 92.2 fL (80.0-100.0); Platelet Count 227 k/uL (150-450); WBC 22.1 k/uL (3.8-10.6)
[2019-01-07 08:03] LABS: ALT 66 U/L (21-72); AST 40 U/L (17-59); Alkaline Phosphatase 204 U/L (38-126); Anion Gap 9 mmol/L; Blood Urea Nitrogen 15 mg/dL (9-20); Calcium 8.9 mg/dL (8.4-10.2); Carbon Dioxide 25 mmol/L (22-30); Chloride 100 mmol/L (98-107); Glucose 104 mg/dL (74-99); Potassium 4.5 mmol/L (3.5-5.1); Sodium 134 mmol/L (137-145); Total Bilirubin 0.7 mg/dL (0.2-1.3); Total Protein 5.7 g/dL (6.3-8.2)
[2019-01-07 08:40] LABS: Band Neutrophils % 12 %; Eosinophils # (M) 2.21 k/uL (0-0.7); Lymphocytes # (M) 1.33 k/uL (1.0-4.8); Monocytes # (M) 1.33 k/uL (0-1.0); Neutrophils % (M) 67 %; Nucleated Red Blood Cells 0 /100 WBC (0-0); Total Cells Counted 200
[2019-01-07 08:44] LABS: Toxic Granulation Present
[2019-01-07 08:46] LABS: Anisocytosis (M) Present; Poikilocytosis (M) Present
[2019-01-07] MEDS: levETIRAcetam 500 MG TAB PO SCH (09:11)
[2019-01-07] MEDS: SERTRALINE 50 MG TAB PO SCH (09:11)
[2019-01-07] MEDS: ASPIRIN 81 MG PO SCH (09:12)
[2019-01-07] MEDS: TAMSULOSIN 0.4 MG CAP.ER.24H PO SCH (09:12)
[2019-01-07] MEDS: FUROSEMIDE 40 MG TAB PO SCH (09:12)
[2019-01-07] MEDS: HEPARIN SODIUM,PORCINE 5,000 UNIT/ML 1 ML VIAL SQ SCH (09:12)
[2019-01-07] MEDS: CLOPIDOGREL 75 MG TAB PO SCH (09:12)
[2019-01-07] MEDS: DONEPEZIL 10 MG TAB PO SCH (09:12)
[2019-01-07 12:20] VITALS: BP 111/57; PULSE 100; TEMP 99.7
[2019-01-07] MEDS: SODIUM CHLORIDE 0.9% 1,000 ML IV SCH (12:23)
[2019-01-07 12:49] VITALS: BMI 29.2
== END 2019-01-07 12:50 | disposition hospice, home (50) | DRG 871 ==
LOC: EC 19:53 → 2SICU 23:52 → 3SCARD 01-04 13:03
PROVIDERS: ADMIT Internal Medicine; ATTEND Internal Medicine
DX: A41.9 Sepsis, unspecified organism (principal); N17.0 Acute kidney failure with tubular necrosis; J96.01 Acute respiratory failure with hypoxia; R65.21 Severe sepsis with septic shock; I50.23 Acute on chronic systolic (congestive) heart failure; J18.9 Pneumonia, unspecified organism; I69.354 Hemiplegia and hemiparesis following cerebral infarction affecting left non-dominant side; C79.51 Secondary malignant neoplasm of bone; C79.70 Secondary malignant neoplasm of unspecified adrenal gland; R04.2 Hemoptysis; C34.31 Malignant neoplasm of lower lobe, right bronchus or lung; R13.10 Dysphagia, unspecified; J44.9 Chronic obstructive pulmonary disease, unspecified; I11.0 Hypertensive heart disease with heart failure; E87.5 Hyperkalemia; G40.909 Epilepsy, unspecified, not intractable, without status epilepticus; I35.2 Nonrheumatic aortic (valve) stenosis with insufficiency; R00.0 Tachycardia, unspecified; I25.10 Atherosclerotic heart disease of native coronary artery without angina pectoris; E78.5 Hyperlipidemia, unspecified; R32 Unspecified urinary incontinence; F32.9 Major depressive disorder, single episode, unspecified; R74.8 Abnormal levels of other serum enzymes; N40.0 Benign prostatic hyperplasia without lower urinary tract symptoms; Z66 Do not resuscitate; Z79.899 Other long term (current) drug therapy; Z79.02 Long term (current) use of antithrombotics/antiplatelets; Z79.82 Long term (current) use of aspirin; Z79.51 Long term (current) use of inhaled steroids; Z95.5 Presence of coronary angioplasty implant and graft; Z87.891 Personal history of nicotine dependence; Z80.1 Family history of malignant neoplasm of trachea, bronchus and lung; Z82.49 Family history of ischemic heart disease and other diseases of the circulatory system
CPT/HCPCS: 36415; 51798; 70450; 71045; 71046; 71275; 74230; 80053; 81001; 83605; 83735; 83880; 84132; 84484; 85025; 85379; 85610; 85730; 87040; 87070; 87086; 87205; 93005; 94640; 94760; 96365; 96366; 96368; 99285